=== PATIENT | female | born 1985 | race Caucasian/White ===

== ENCOUNTER 2022-01-17 12:52 | Emergency (ER) | payer OTHER, SELFPAY ==
--- NOTE | ~2022-01-17 | CT_ITS ---
EXAMINATION: CT ABDOMEN AND PELVIS WITH CONTRAST CLINICAL INFORMATION: Abdominal pain. Rule out appendicitis or diverticulitis. COMPARISON: None TECHNIQUE: Multidetector volumetric images were obtained from the superior aspect of the liver through the pubic symphysis following administration 85 mL of Omnipaque 350 intravenous contrast. Sagittal and coronal reformatted images were obtained on the technologist's workstation. Oral contrast: No This CT examination was performed using dose optimization techniques as appropriate, variously including the following: *Automated exposure control *Adjustment of mA and/or kV according to patient size (this includes techniques or standardized protocols for targeted exams where dose is matched to indication/reason for exam; i.e. extremities or head) *Use of iterative reconstruction technique DLP: 881 mGy-cm FINDINGS: LUNG BASES: The visualized lung bases are unremarkable. LIVER, GALLBLADDER, AND BILIARY TREE: The liver is enlarged in size, normal shape, and attenuation. No focal hepatic lesion or biliary ductal dilatation is present. The gallbladder is unremarkable with no evidence of radiopaque gallstones, gallbladder wall thickening, or obvious pericholecystic inflammatory changes. PANCREAS: Unremarkable. SPLEEN: Unremarkable. ADRENAL GLANDS: Unremarkable. KIDNEYS AND URETERS: The kidneys are normal in size, shape, and attenuation. There are 2 mm radiopaque calculi in midpole of both kidneys without caliectasis or hydronephrosis. There are likely smaller radiopaque calculi in the upper pole of left kidney. No hydronephrosis seen.. BLADDER: The bladder is nondistended distended with no radiopaque calculi bladder wall thickening.. GASTROINTESTINAL TRACT: There is mild mural thickening involving the sigmoid colon with pericolic fat stranding and free fluid in the pelvis likely colitis. There is mild mural thickening involving the ascending colon best visualized on sagittal view. Rest of the colon, ileocecal junction appears normal. There is a short segment of distal ileum which appears inflamed with mural thickening in the left midabdomen on axial image 65/3.. Rest of the small bowel loops are normal. The appendix is normal caliber. The stomach is unremarkable. ABDOMINAL WALL: No significant hernia is appreciated. LYMPH NODES: Normal. VASCULAR: Unremarkable. PELVIC VISCERA: The uterus is retroverted and appears unremarkable. OSSEOUS STRUCTURES: Unremarkable. CT/CT abdomen pelvis w con IMPRESSION: Moderate mural thickening sigmoid colon with pericolic fat stranding to visualize is mild mural thickening involving the ascending colon and a short segment of ileal loops. Question Crohn's disease versus colitis. Normal appendix. Mild hepatomegaly. Nonobstructive radiopaque calculi in both kidneys without caliectasis or hydronephrosis. Fleischner guidelines were followed.
[2022-01-17 12:56] VITALS: BP 118/76; PULSE 94; RESP 18; TEMP 36.2; O2SAT 98; BMI 37.2
[2022-01-17 13:09] LABS: MANUAL DIFF FLAG NO
[2022-01-17 13:12] LABS: Appearance Urine CLOUDY; Color Urine YELLOW; Glucose Urine UA NEG (NEG); Leukocyte Esterase Urine 1+ (NEG); Nitrite Urine NEG (NEG); Specific Gravity - Urine >= 1.030 (1.005-1.025); UACC Culture Trigger YES; Urine Blood NEG (NEG); Urine Ketones 5 MG/DL (NEG); Urine Protein 1+ MG/DL (NEG-TRACE)
[2022-01-17 13:14] LABS: UPreg QC Valid YES; Urine Pregnancy NEGATIVE (NEGATIVE)
[2022-01-17 13:19] LABS: Basophils Percent Auto 0.3 % (0-2); Eosinophils Absolute Auto 0.2 X10*3/uL (0.0-0.4); Eosinophils Percent Auto 1.8 % (0-4); Hematocrit 35.7 % (37.0-47.0); Hemoglobin 10.8 g/dl (12.0-16.0); Imm Gran Abs Auto 0.03 X10*3/uL (0.00-0.03); Imm Gran Pct Auto 0.3 % (0.0-0.4); Lymphocytes Absolute Auto 1.8 X10*3/uL (1.2-4.9); Lymphocytes Percent Auto 20.4 % (20-40); Mean Corpuscular HGB Conc 30.3 g/dl (31.0-35.0); Mean Corpuscular Hemoglobin 22.8 pg (27.0-33.0); Mean Corpuscular Volume 75.5 fL (80.0-98.0); Mean Platelet Volume 11.3 fL (9.4-12.3); Monocytes Absolute Auto 0.2 X10*3/uL (0.1-1.2); Monocytes Percent Auto 2.8 % (2-11); Neutrophils Absolute Auto 6.5 x10*3/uL (2.0-8.3); Neutrophils Percent Auto 74.4 % (45-73); Platelet Count 312 X10*3/uL (160-400); Red Blood Count 4.73 X10*6/uL (4.20-5.50); Red Cell Distribution Width 16.5 % (11.0-16.0); White Blood Count 8.7 X10*3/uL (4.8-10.8)
[2022-01-17 13:30] LABS: Bacteria Urine 2+ /LPF; Mucus Urine 2+ /LPF; Squamous Epithelial Cell Urine 3+ /LPF
[2022-01-17 13:33] LABS: Alanine Aminotransferase 14 U/L (0-31); Albumin Level 4.1 g/dL (3.5-5.0); Alkaline Phosphatase 95 U/L (39-117); Anion Gap 14 (12-20); Aspartate Amino Transferase 11 U/L (5-31); Bilirubin Total 0.7 mg/dL (0.0-1.0); Blood Urea Nitrogen 7 mg/dL (9-16); Calcium 9.3 mg/dL (8.4-10.2); Carbon Dioxide 24 mmol/L (22-29); Chloride 105 mmol/L (96-108); Creatinine Clr Calc Pharmacy 119.3; Estimated Glomerular Filt Rate > 60; Glucose Random 107 mg/dL (60-115); Potassium 3.8 mmol/L (3.3-5.1); Sodium 139 mmol/L (135-145); Total Protein 7.6 g/dL (6.5-8.0)
--- NOTE | 2022-01-17 15:15 | ED_ITS ---
HPI - Abdominal Pain General Chief Complaint: Abdominal Pain Stated Complaint: Lower abd pain/leg pain Time Seen by Provider: 01/17/22 15:15 History of Present Illness HPI narrative: Patient complains of abdominal pain sharp of lower abdomen worst on the left side accompanied with nausea and some vomiting off and on for the past 2 days, she has not eaten any solid food since yesterday and is able to intermittently tolerate fluids, right now the pain is mild but it is coming and going, she denies any burning with urination or frequency, she did have 1 episode of mild diarrhea but no other is no blood that she was aware of, no fever Related Data Previous Rx's Medication Instructions Recorded ciprofloxacin HCl 500 mg tablet 500 mg PO BID 7 Days #14 tab 01/17/22 (Cipro) metronidazole 500 mg tablet 500 mg PO BID 7 Days #14 tab 01/17/22 ondansetron 4 mg disintegrating 4 mg PO Q6H PRN #14 tab 01/17/22 tablet Allergies Allergy/AdvReac Type Severity Reaction Status Date / Time No Known Allergies Allergy Unverified 07/12/20 17:16 Pt states no food/medication Allergy Unknown Uncoded 07/21/18 00:00 a Review of Systems Review of Systems Positive for abdominal pain nausea and vomiting for 2 days Negatives are no fever no chills no dizziness weakness no fainting no feeling faint no headache no neck pain no chest pain no shortness of breath no bloody stool no dysuria no bloody vomit no black stool no burning with urination or frequency of urination, denies vaginal discharge denies any rash denies leg swelling Yes all other systems are reviewed and are negative PMFSH Past Medical History Source: nursing notes reviewed Medical History (Updated 01/17/22 @ 18:25 by MARY Read) No known health problems Social History Social History Advance Directives: No Advance Directives Information Provided: No Physical Exam ED Vital Signs: Vital Signs - 24 hr 01/17/22 12:56 Temperature 97.1 F Pulse Rate 94 Respiratory Rate 18 Blood Pressure 118/76 Pulse Oximetry 98 BMI result Body Mass Index 37.2 General appearance is no acute distress The eyes are anicteric no pallor Pharynx mucous membranes are moist Neck is supple Chest is clear to auscultation bilateral The abdomen had diffuse mild lower abdominal tenderness without rebound or guarding, tenderness was worse on the left but it was bilateral Pelvic exam there was a whitish discharge which was cultured, there was some tenderness on pelvic exam but no obvious cervical motion tenderness, no mass was palpated Extremities full range of motion x4, no calf swelling no edema, the back there is no CVA tenderness Skin no rashes Neuro no focal deficits Course Course Course Narrative: Patient's nausea was relieved with Zofran she was tolerating p.o. and her pain was mild throughout visit no worsening CT scan showed moderate mural thickening and pericolic fat stranding with question of colitis versus Crohn's Patient has no history of diarrhea or known blood in the stool White count was normal, she was mildly anemic with hemoglobin 10.8 and hematocrit 35.7 No other significant lab abnormality Urinalysis showed 10-14 white cells, nitrite negative, 3+ squamous epithelial so was a contaminated specimen, patient denied any burning with urination or frequency Case was discussed with attending physician [place] with matthew patient should follow with gastroenterology for colitis and be treated with antibiotics so antibiotics Cipro and Flagyl were started and patient was discharged tolerating p.o. with pain under control MDM - Abdominal Pain Lab Data Attestation: I reviewed the patient's lab results. Result diagrams: 01/17/22 13:04 01/17/22 13:04 Labs: Lab Results 01/17/22 01/17/22 01/17/22 Range/Units 13:04 13:04 13:04 WBC 8.7 (4.8-10.8) X10*3/uL RBC 4.73 (4.20-5.50) X10*6/uL Hgb 10.8 L (12.0-16.0) g/dl Hct 35.7 L (37.0-47.0) % MCV 75.5 L (80.0-98.0) fL MCH 22.8 L (27.0-33.0) pg MCHC 30.3 L (31.0-35.0) g/dl RDW 16.5 H (11.0-16.0) % Plt Count 312 (160-400) X10*3/uL MPV 11.3 (9.4-12.3) fL Immature Gran % (Auto) 0.3 (0.0-0.4) % Neut % (Auto) 74.4 H (45-73) % Lymph % (Auto) 20.4 (20-40) % [place] % (Auto) 2.8 (2-11) % Eos % (Auto) 1.8 (0-4) % Baso % (Auto) 0.3 (0-2) % Lymph # (Auto) 1.8 (1.2-4.9) X10*3/uL [place] # (Auto) 0.2 (0.1-1.2) X10*3/uL Eos # (Auto) 0.2 (0.0-0.4) X10*3/uL Baso # (Auto) 0.0 (0.0-0.2) X10*3/uL Abs Immat Gran (auto) 0.03 (0.00-0.03) X10*3/uL Absolute Neuts (auto) 6.5 (2.0-8.3) x10*3/uL Absolute Nucleated RBC 0.000 (0.0-0.012) X10*3/uL Nucleated RBC % (auto) 0.0 (0.0-0.2) /100WBC Sodium 139 (135-145) mmol/L Potassium 3.8 (3.3-5.1) mmol/L Chloride 105 (96-108) mmol/L Carbon Dioxide 24 (22-29) mmol/L Anion Gap 14 (12-20) BUN 7 L (9-16) mg/dL Creatinine 0.86 (0.5-1.4) mg/dL Estim Creat Clear Calc 119.3 Estimated GFR > 60 Random Glucose 107 (60-115) mg/dL Calcium 9.3 (8.4-10.2) mg/dL Total Bilirubin 0.7 (0.0-1.0) mg/dL AST 11 (5-31) U/L ALT 14 (0-31) U/L Alkaline Phosphatase 95 (39-117) U/L Total Protein 7.6 (6.5-8.0) g/dL Albumin 4.1 (3.5-5.0) g/dL Lipase 22 (8-78) U/L Urine Color YELLOW Urine Appearance CLOUDY Urine pH 6.0 (5.0-8.0) Ur Specific [place] >= 1.030 H (1.005-1.025) Urine Protein 1+ H (NEG-TRACE) MG/DL Urine Glucose (UA) NEG (NEG) MG/DL Urine Ketones 5 (NEG) MG/DL Urine Blood NEG (NEG) Urine Nitrite NEG (NEG) Ur Leukocyte Esterase 1+ H (NEG) Urine RBC 5-9 H (0) /HPF Urine WBC 10-14 H (0-4) /HPF Ur Squamous Epith Cells 3+ /LPF Urine Bacteria 2+ /LPF Urine Mucus 2+ /LPF Urine Test (NEGATIVE) 01/17/22 Range/Units 13:04 WBC (4.8-10.8) X10*3/uL RBC (4.20-5.50) X10*6/uL Hgb (12.0-16.0) g/dl Hct (37.0-47.0) % MCV (80.0-98.0) fL MCH (27.0-33.0) pg MCHC (31.0-35.0) g/dl RDW (11.0-16.0) % Plt Count (160-400) X10*3/uL MPV (9.4-12.3) fL Immature Gran % (Auto) (0.0-0.4) % Neut % (Auto) (45-73) % Lymph % (Auto) (20-40) % [place] % (Auto) (2-11) % Eos % (Auto) (0-4) % Baso % (Auto) (0-2) % Lymph # (Auto) (1.2-4.9) X10*3/uL [place] # (Auto) (0.1-1.2) X10*3/uL Eos # (Auto) (0.0-0.4) X10*3/uL Baso # (Auto) (0.0-0.2) X10*3/uL Abs Immat Gran (auto) (0.00-0.03) X10*3/uL Absolute Neuts (auto) (2.0-8.3) x10*3/uL Absolute Nucleated RBC (0.0-0.012) X10*3/uL Nucleated RBC % (auto) (0.0-0.2) /100WBC Sodium (135-145) mmol/L Potassium (3.3-5.1) mmol/L Chloride (96-108) mmol/L Carbon Dioxide (22-29) mmol/L Anion Gap (12-20) BUN (9-16) mg/dL Creatinine (0.5-1.4) mg/dL Estim Creat Clear Calc Estimated GFR Random Glucose (60-115) mg/dL Calcium (8.4-10.2) mg/dL Total Bilirubin (0.0-1.0) mg/dL AST (5-31) U/L ALT (0-31) U/L Alkaline Phosphatase (39-117) U/L Total Protein (6.5-8.0) g/dL Albumin (3.5-5.0) g/dL Lipase (8-78) U/L Urine Color Urine Appearance Urine pH (5.0-8.0) Ur Specific [place] (1.005-1.025) Urine Protein (NEG-TRACE) MG/DL Urine Glucose (UA) (NEG) MG/DL Urine Ketones (NEG) MG/DL Urine Blood (NEG) Urine Nitrite (NEG) Ur Leukocyte Esterase (NEG) Urine RBC (0) /HPF Urine WBC (0-4) /HPF Ur Squamous Epith Cells /LPF Urine Bacteria /LPF Urine Mucus /LPF Urine Test NEGATIVE (NEGATIVE) Discharge Plan Discharge Clinical Impression: Colitis Patient Disposition: Home, Self-Care Additional Instructions: CT scan showed colitis which we are treating with antibiotics Cipro and Flagyl You can use Zofran for nausea For better evaluation of colitis you should follow with a [facility] accommodation consultant, and may need a referral from primary care doctor Return to the ER any time from controlled vomiting worsening abdominal pain blood in the stool any worse condition or any concerns Prescriptions: New metronidazole 500 mg tablet 500 mg PO BID 7 Days Qty: 14 0RF ciprofloxacin HCl [Cipro] 500 mg tablet 500 mg PO BID 7 Days Qty: 14 0RF ondansetron 4 mg tablet,disintegrating 4 mg PO Q6H PRN (Reason: nausea and vomiting) Qty: 14 0RF Referrals: Isaak Marcelo [Physician] - 5 days (Colitis on CT scan)
[2022-01-17] MEDS: ondansetron HCL 4 MG/2 ML VIAL IVPUSH (15:59)
[2022-01-17] MEDS: 0.9 % Sodium Chloride 1,000 ML 999 ML IVCONT (16:00)
[2022-01-17] MEDS: iohexoL 350 MG/ML 100 ML INFUS..BTL 85 ML IV (16:26)
[2022-01-17 18:17] LABS: Lipase 22 U/L (8-78)
[2022-01-17] MEDS: metroNIDAZOLE 500 MG TABLET PO (18:39)
[2022-01-17] MEDS: levoFLOXacin 500 MG TABLET PO (18:39)
[2022-01-18 13:12] LABS: CT PCR NOT DETECTED (Not Detect.); NG PCR NOT DETECTED (Not Detect.)
== END 2022-01-17 18:45 | disposition home or self-care (01) ==
PROVIDERS: Physician Assistant Medical; Emergency Provider Emergency Medicine; PCP Internal Medicine
DX: K52.9 Noninfective gastroenteritis and colitis, unspecified (principal); R10.32 Left lower quadrant pain; R11.2 Nausea with vomiting, unspecified
CPT/HCPCS: 36415; 74177; 80053; 81001; 81025; 83690; 85025; 87086; 87088; 87186; 87480; 87491; 87510; 87591; 87660; 96361; 96374; 99283; 99284; J2405; Q9967

== ENCOUNTER 2022-04-26 00:20 | Inpatient (IN) | payer OTHER, SELFPAY ==
[2022-04-26] VITALS (8 sets, daily range): BP systolic 123–140; BP diastolic 78–87; PULSE 76–105; RESP 16–20; TEMP 36.9–37.3; O2SAT 95–99; BMI 38.6
--- NOTE | ~2022-04-26 | CT_ITS ---
EXAMINATION: CT ABDOMEN AND PELVIS WITH CONTRAST CLINICAL INFORMATION: Bariatric surgery on Thursday. Vomiting. COMPARISON: None TECHNIQUE: Multidetector volumetric images were obtained from the superior aspect of the liver through the pubic symphysis following administration 85 mL of Omnipaque 350 intravenous contrast. Sagittal and coronal reformatted images were obtained on the technologist's workstation. Oral contrast: No This CT examination was performed using dose optimization techniques as appropriate, variously including the following: *Automated exposure control *Adjustment of mA and/or kV according to patient size (this includes techniques or standardized protocols for targeted exams where dose is matched to indication/reason for exam; i.e. extremities or head) *Use of iterative reconstruction technique DLP: 918 mGy-cm FINDINGS: LUNG BASES: The visualized lung bases are unremarkable. LIVER, GALLBLADDER, AND BILIARY TREE: The liver is normal in size, shape, and attenuation. No focal hepatic lesion or biliary ductal dilatation is present. The gallbladder is not seen, possibly absent. PANCREAS: Unremarkable. SPLEEN: Unremarkable. ADRENAL GLANDS: Unremarkable. KIDNEYS AND URETERS: The kidneys are normal in size, shape, and attenuation. No hydronephrosis or hydroureter. Right lower pole 0.3 cm calculus is 9 cm from the posterior axillary line. BLADDER: Unremarkable. GASTROINTESTINAL TRACT: Mild wall thickening of the lower esophagus. There is a prominent intragastric balloon present in the mid stomach. This measures 11.6 x 10.5 x 11.4 cm. There is fluid in the gastric fundus proximal to the balloon. The stomach distal to the balloon is decompressed. Small amount of fluid in the duodenum. The small bowel is nondilated. No inflammatory changes. Much of the colon is decompressed. No inflammatory changes. Normal appendix. ABDOMINAL WALL: No significant hernia is appreciated. LYMPH NODES: Normal. VASCULAR: Unremarkable. PELVIC VISCERA: The uterus and adnexa are unremarkable. OSSEOUS STRUCTURES: No acute or suspicious osseous abnormality. CT/CT abdomen pelvis w con IMPRESSION: Intragastric balloon in the mid stomach. Small amount of fluid proximal to the balloon. Decompressed stomach distally with decompression of the bowel. There is no bowel obstruction or inflammation. Cannot exclude a gastric outlet obstruction on these images, without use of oral contrast. Fleischner guidelines were followed.
--- NOTE | 2022-04-26 00:58 | ED_ITS ---
HPI - Nausea/Vomiting/Diarrhea General Chief complaint: General Medical Stated complaint: post surgery complications; consistent vomiting x3 Time Seen by Provider: 04/26/22 00:24 Source: patient and family Mode of arrival: ambulatory Limitations: no limitations History of Present Illness HPI Narrative: 36 yo female just underwent EGD with bariatric balloon placement in the stomach in [place] on 04/23 told she would have vomiting for 3 to 4 days post procedure she is on zofran but it is not helping. She is on liquid protein drinks only. Spoke to the doctor today she is still vomiting, they called in another Rx but insurance has to authorize it. She feels weak now. Very mild abdominal pain. No flatus. MD elicited complaint: nausea and vomiting Pertinent past history: other (bariatric balloon placed via EGD on 04/23) Onset (ago): day(s) (3) Description of vomiting: watery Associated nausea: Yes Associated abdominal pain: Yes Location of pain: epigastric (but reports very mininal) Pain consistency: intermittent Severity: mild Quality: other (fullnless) Exacerbating factors: eating (liquid shakes) Relieving factors: none Context: recent surgery/procedure Associated symptoms: weakness Treatment prior to arrival: other (zofran with no relief) Related Data Previous Rx's Medication Instructions Recorded ondansetron 4 mg disintegrating 4 mg PO Q6H PRN nausea and 01/17/22 tablet vomiting #14 tabs dicyclomine 10 mg capsule 10 mg PO BID #14 caps 01/28/22 prednisone 20 mg tablet 20 mg PO BID #14 tabs 01/28/22 psyllium husk 0.4 gram capsule 0.4 g PO BEDTIME PRN constipation 01/28/22 (Fiber (psyllium husk)) #14 caps Allergies Allergy/AdvReac Type Severity Reaction Status Date / Time No Known Allergies Allergy Verified 04/26/22 00:46 Review of Systems Review of Systems: Constitutional : No Weight loss, No Fever, No Chills ENT/Mouth : No sore throat, No Rhinorrhea Eyes: No Swelling, No Redness Cardiovascular : No Chest Pain, No SOB, NoEdema Respiratory : No Cough, No Sputum, No Wheezing Gastrointestinal : Positive Nausea, Positive Vomiting, no Diarrhea, positive abdominal Pain, No Hematochezia, No Melena Genitourinary : No Dysuria, No Urinary Frequency, No Hematuria, No Urgency Musculoskeletal : No joint pain, No Myalgias, No Joint Swelling Skin : No Skin Lesions, No rash Neuro : No Weakness, No Numbness, No Dizziness, No Headache Psych : No Anxiety/Panic, No Depression Heme/Lymph: No Bruising, No Lymphadenopathy Endocrine : No Polyuria, No Polydipsia All other systems reviewed and are negative. Gastrointestinal: Gastrointestinal: Reports nausea PMFSH Past Medical History Attestation statement: The following information was validated with the patient. 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 Oriented X3. No acute distress. Eyes: Pupils equal, round and reactive to light. ENT: Pharynx mild dry MM Neck: Normal inspection. Neck supple. CVS: tachycardic heart rate and rhythm. Pulses normal. Respiratory: No respiratory distress. Breath sounds normal. Abdomen: Soft and nontender. no mass felt, no distention Skin: Skin warm and dry. Normal skin color. Normal skin turgor. Extremities: No lower extremity edema. No calf ttp Neuro: Oriented X 3. No motor deficit. No sensory deficit. Course Course Course Narrative: message sent to bariatric surgery - patient cannot tolerate PO at all this time not even a sip of water she would not be able to keep contrast down per Dr. Persaud from bariatrics via Travis HERNANDEZ - will observe and provide supportive meds and fluids recheck at 8am. Patient and family aware of plan. Message sent to GI as well - Dr. Marcelo recommends deferring to bariatrics Patient placed in physician observation at 434am. The indication for observation is that the patient needs more time to see if their nausea/vomiting improves or they will need to be admitted/have procedure. At this time the patient is well developed well nourished, lungs clear, CV RRR, abd nontender, neuro is intact. on IVF at this time MDM - Nausea/Vomiting/Diarrhea MDM Narrative Medical decision making narrative: 36 yo female with recent bariatric balloon procedure via EGD on 04/23 here with c/o NV she was told this was expected for 3 to 4 days but she has no response to zofran ODTs. Her insurance did not authorize additional medications. At this time her abdominal exam is benign will obtain labs, hydrate x 2L, obtain CT scan for obstruction. Dispo per results and findings. Lab Data Result diagrams: 04/26/22 01:02 04/26/22 01:02 Labs: Lab Results 04/26/22 04/26/22 04/26/22 Range/Units 01:02 01:02 01:02 WBC 11.9 H (4.8-10.8) X10*3/uL RBC 5.49 (4.20-5.50) X10*6/uL Hgb 13.1 D (12.0-16.0) g/dl Hct 42.0 (37.0-47.0) % MCV 76.5 L (80.0-98.0) fL MCH 23.9 L (27.0-33.0) pg MCHC 31.2 (31.0-35.0) g/dl RDW 15.6 (11.0-16.0) % Plt Count 309 (160-400) X10*3/uL MPV 11.6 (9.4-12.3) fL Immature Gran % (Auto) 0.3 (0.0-0.4) % Neut % (Auto) 79.3 H (45-73) % Lymph % (Auto) 15.4 L (20-40) % [place] % (Auto) 4.2 (2-11) % Eos % (Auto) 0.4 (0-4) % Baso % (Auto) 0.4 (0-2) % Lymph # (Auto) 1.8 (1.2-4.9) X10*3/uL [place] # (Auto) 0.5 (0.1-1.2) X10*3/uL Eos # (Auto) 0.1 (0.0-0.4) X10*3/uL Baso # (Auto) 0.1 (0.0-0.2) X10*3/uL Abs Immat Gran (auto) 0.04 H (0.00-0.03) X10*3/uL Absolute Neuts (auto) 9.4 H (2.0-8.3) x10*3/uL Absolute Nucleated RBC 0.000 (0.0-0.012) X10*3/uL Nucleated RBC % (auto) 0.0 (0.0-0.2) /100WBC PT (10.0-13.1) SEC INR (0.9-1.1) Sodium 143 (135-145) mmol/L Potassium 3.6 (3.3-5.1) mmol/L Chloride 103 (96-108) mmol/L Carbon Dioxide 25 (22-29) mmol/L Anion Gap 19 (12-20) BUN 17 H D (9-16) mg/dL Creatinine 1.11 (0.5-1.4) mg/dL Estim Creat Clear Calc 94.3 Estimated GFR 56 Random Glucose 104 (60-115) mg/dL Calcium 10.1 D (8.4-10.2) mg/dL Magnesium 2.2 (1.6-2.6) mg/dL Total Bilirubin 0.8 (0.0-1.0) mg/dL Direct Bilirubin 0.3 (0.0-0.5) mg/dL AST 15 (5-31) U/L ALT 14 (0-31) U/L Alkaline Phosphatase 92 (39-117) U/L Total Protein 9.0 H (6.5-8.0) g/dL Albumin 4.9 (3.5-5.0) g/dL Lipase 91 H (8-78) U/L Beta HCG, Quant mIU/mL Urine Color Urine Appearance Urine pH (5.0-8.0) Ur Specific [place] (1.005-1.025) Urine Protein (NEG-TRACE) MG/DL Urine Glucose (UA) (NEG) MG/DL Urine Ketones (NEG) MG/DL Urine Blood (NEG) Urine Nitrite (NEG) Ur Leukocyte Esterase (NEG) Urine RBC (0) /HPF Urine WBC (0-4) /HPF Ur Squamous Epith Cells /LPF Urine Bacteria /LPF Urine Mucus /LPF COVID-19 (JOS[facility]) Negative (Negative) COVID-19 Clin Com See Note 04/26/22 04/26/22 04/26/22 Range/Units 01:02 01:02 02:39 WBC (4.8-10.8) X10*3/uL RBC (4.20-5.50) X10*6/uL Hgb (12.0-16.0) g/dl Hct (37.0-47.0) % MCV (80.0-98.0) fL MCH (27.0-33.0) pg MCHC (31.0-35.0) g/dl RDW (11.0-16.0) % Plt Count (160-400) X10*3/uL MPV (9.4-12.3) fL Immature Gran % (Auto) (0.0-0.4) % Neut % (Auto) (45-73) % Lymph % (Auto) (20-40) % [place] % (Auto) (2-11) % Eos % (Auto) (0-4) % Baso % (Auto) (0-2) % Lymph # (Auto) (1.2-4.9) X10*3/uL [place] # (Auto) (0.1-1.2) X10*3/uL Eos # (Auto) (0.0-0.4) X10*3/uL Baso # (Auto) (0.0-0.2) X10*3/uL Abs Immat Gran (auto) (0.00-0.03) X10*3/uL Absolute Neuts (auto) (2.0-8.3) x10*3/uL Absolute Nucleated RBC (0.0-0.012) X10*3/uL Nucleated RBC % (auto) (0.0-0.2) /100WBC PT 13.0 (10.0-13.1) SEC INR 1.1 (0.9-1.1) Sodium (135-145) mmol/L Potassium (3.3-5.1) mmol/L Chloride (96-108) mmol/L Carbon Dioxide (22-29) mmol/L Anion Gap (12-20) BUN (9-16) mg/dL Creatinine (0.5-1.4) mg/dL Estim Creat Clear Calc Estimated GFR Random Glucose (60-115) mg/dL Calcium (8.4-10.2) mg/dL Magnesium (1.6-2.6) mg/dL Total Bilirubin (0.0-1.0) mg/dL Direct Bilirubin (0.0-0.5) mg/dL AST (5-31) U/L ALT (0-31) U/L Alkaline Phosphatase (39-117) U/L Total Protein (6.5-8.0) g/dL Albumin (3.5-5.0) g/dL Lipase (8-78) U/L Beta HCG, Quant < 2 mIU/mL Urine Color DK YELLOW Urine Appearance HAZY Urine pH 6.5 (5.0-8.0) Ur Specific [place] 1.020 (1.005-1.025) Urine Protein 2+ H (NEG-TRACE) MG/DL Urine Glucose (UA) NEG (NEG) MG/DL Urine Ketones >=80 (NEG) MG/DL Urine Blood TRACE (NEG) Urine Nitrite NEG (NEG) Ur Leukocyte Esterase NEG (NEG) Urine RBC 0 (0) /HPF Urine WBC 0-2 (0-4) /HPF Ur Squamous Epith Cells 2+ /LPF Urine Bacteria TRACE /LPF Urine Mucus 3+ /LPF COVID-19 (JOS[facility]) (Negative) COVID-19 Clin Com Discharge Plan Discharge Clinical Impression: Vomiting Qualifiers: Vomiting type: unspecified Nausea presence: with nausea Qualified Code(s): R11.2 - Nausea with vomiting, unspecified Patient Disposition: Still a Patient Prescriptions: No Action ondansetron 4 mg tablet,disintegrating 4 mg PO Q6H PRN (Reason: nausea and vomiting) Qty: 14 0RF dicyclomine 10 mg capsule 10 mg PO BID Qty: 14 0RF prednisone 20 mg tablet 20 mg PO BID Qty: 14 0RF psyllium husk [Fiber (psyllium husk)] 0.4 gram capsule 0.4 g PO BEDTIME PRN (Reason: constipation) Qty: 14 0RF Stand Alone Forms: Work/School Release
[2022-04-26 01:08] LABS: MANUAL DIFF FLAG NO
[2022-04-26 01:09] LABS: Basophils Absolute Auto 0.1 X10*3/uL (0.0-0.2); Basophils Percent Auto 0.4 % (0-2); Eosinophils Absolute Auto 0.1 X10*3/uL (0.0-0.4); Eosinophils Percent Auto 0.4 % (0-4); Hemoglobin 13.1 g/dl (12.0-16.0); Imm Gran Abs Auto 0.04 X10*3/uL (0.00-0.03); Imm Gran Pct Auto 0.3 % (0.0-0.4); Lymphocytes Absolute Auto 1.8 X10*3/uL (1.2-4.9); Lymphocytes Percent Auto 15.4 % (20-40); Mean Corpuscular HGB Conc 31.2 g/dl (31.0-35.0); Mean Corpuscular Hemoglobin 23.9 pg (27.0-33.0); Mean Corpuscular Volume 76.5 fL (80.0-98.0); Mean Platelet Volume 11.6 fL (9.4-12.3); Monocytes Absolute Auto 0.5 X10*3/uL (0.1-1.2); Monocytes Percent Auto 4.2 % (2-11); Neutrophils Absolute Auto 9.4 x10*3/uL (2.0-8.3); Neutrophils Percent Auto 79.3 % (45-73); Platelet Count 309 X10*3/uL (160-400); Red Blood Count 5.49 X10*6/uL (4.20-5.50); Red Cell Distribution Width 15.6 % (11.0-16.0); White Blood Count 11.9 X10*3/uL (4.8-10.8)
[2022-04-26] MEDS: Metoclopramide HCl 10 MG/2 ML VIAL 5 MG IVPUSH (01:27)
[2022-04-26] MEDS: diphenhydrAMINE HCL 50 MG/ML VIAL 25 MG IVPUSH (01:28)
[2022-04-26] MEDS: 0.9 % Sodium Chloride 1,000 ML 999 ML IV (01:29)
[2022-04-26] MEDS: 0.9 % Sodium Chloride 1,000 ML 999 ML IVCONT (01:29)
[2022-04-26 01:31] LABS: Alanine Aminotransferase 14 U/L (0-31); Albumin Level 4.9 g/dL (3.5-5.0); Alkaline Phosphatase 92 U/L (39-117); Anion Gap 19 (12-20); Aspartate Amino Transferase 15 U/L (5-31); Bilirubin Direct 0.3 mg/dL (0.0-0.5); Bilirubin Total 0.8 mg/dL (0.0-1.0); Blood Urea Nitrogen 17 mg/dL (9-16); Calcium 10.1 mg/dL (8.4-10.2); Carbon Dioxide 25 mmol/L (22-29); Chloride 103 mmol/L (96-108); Creatinine Clr Calc Pharmacy 94.3; Estimated Glomerular Filt Rate 56; Glucose Random 104 mg/dL (60-115); Lipase 91 U/L (8-78); Magnesium 2.2 mg/dL (1.6-2.6); Potassium 3.6 mmol/L (3.3-5.1); Sodium 143 mmol/L (135-145)
[2022-04-26 01:38] LABS: HCG Quantitative < 2 mIU/mL
[2022-04-26 01:50] LABS: COVID-19 Test Negative (Negative); IDNOW Serial# 16C4AD1C
[2022-04-26 01:56] LABS: INTERNATIONAL NORM RATIO 1.1 (0.9-1.1)
[2022-04-26 02:44] LABS: Appearance Urine HAZY; Color Urine DK YELLOW; Glucose Urine UA NEG (NEG); Leukocyte Esterase Urine NEG (NEG); Nitrite Urine NEG (NEG); PH 6.5 (5.0-8.0); UACC Culture Trigger NO; Urine Blood TRACE (NEG); Urine Ketones >=80 MG/DL (NEG); Urine Protein 2+ MG/DL (NEG-TRACE)
[2022-04-26 02:52] LABS: Bacteria Urine TRACE /LPF; Mucus Urine 3+ /LPF; RBC Urine 0 /HPF (0); Squamous Epithelial Cell Urine 2+ /LPF; WBC Urine 0-2 /HPF (0-4)
[2022-04-26] MEDS: iohexoL 350 MG/ML 100 ML INFUS..BTL IV (02:53)
[2022-04-26] MEDS: Lactated Ringers 1,000 ML 125 ML IVCONT ×2 (03:53→22:25)
--- NOTE | 2022-04-26 08:29 | PC.NURSE ---
Pt alert and oriented, complaining of 8/10 abd pain and epigstic pain, nausea. Abd soft, tender with pain to medial and lower abd, positive bowel sounds. Pt post abdominal surgery. VSS
[2022-04-26] MEDS: ondansetron HCL 4 MG/2 ML VIAL IVPUSH ×2 (08:53→22:24)
--- NOTE | 2022-04-26 09:32 | PC.NURSE ---
pt continuos on vomiting after few sips of water
[2022-04-26] MEDS: Famotidine/PF 20 MG/2 ML VIAL IVPUSH ×2 (10:44→22:22)
[2022-04-26] MEDS: Thiamine HCL 100 MG in 0.9 % Sodium Chloride 100 ML 202 MG IV (10:47)
--- NOTE | 2022-04-26 12:51 | PC.NURSE ---
pt had few sips of water after all the medications, but still is vomiting
[2022-04-26] MEDS: Morphine Sulfate 4 MG/ML CARTRIDGE IVPUSH ×2 (13:29→22:24)
--- NOTE | 2022-04-26 15:10 | PC.NURSE ---
@ [phone] RIBERA [phone] @ DR SCHOFIELD REQUEST, MESSAGE LEFT ON IDENTIFIED PVT VOICE MAIL @ [phone] RIBERA FOR 2ND CALL AFTER NO RETURN CALL FROM FIRST CALL OUT, MESSAGE LEFT ON [employer]T VOICEMAIL
[2022-04-26] MEDS: LORazepam 2 MG/ML VIAL 1 MG IVPUSH (16:25)
--- NOTE | 2022-04-26 16:33 | PC.NURSE ---
medicated per provider order, LR changed to a new pump - occluding on prior pump, running at 125ml/hr.
--- NOTE | 2022-04-26 17:39 | PM.IMHP ---
History of Present Illness Date of Service: 04/26/22 Chief Complaint: Intractable Vomiting 36 yo female just underwent EGD with bariatric balloon placement in the stomach in [place] on 04/23 told she would have vomiting for 3 to 4 days post procedure she is on zofran but it is not helping. She is on liquid protein drinks only. Spoke to the doctor today she is still vomiting.(The patient had an endoscopically place [employer] Balloon System for weight loss (the balloon holds 400-700 cc and the balloon was inflated to 650 cc) placed by Dr. Garfield Otto in [place], [place] on 04/23/2022.? He can be reached at .) The patient has been kept here in the emergency department for approximately 12 hours and has received 2 L of normal saline and lactated Ringer's at 125 cc an hour, she has been treated with Zofran, Reglan, and Phenergan IV.? He is also received morphine 4 mg IV x2.? After talking to Dr. Otto the patient was also given Ativan 1 mg IV as an antiemetic as well as an anti at things lytic and anti spasmodic.? At this point time she will be admitted for intractable vomiting Review of Systems Review of Systems: Denies chest pain Denies shortness of breath Denies fever chills Admits nausea vomiting no diarrhea PMFSH Medical History Inflammatory bowel disease Irritable bowel syndrome No known health problems Surgical History Bariatric surgery status Hx of cholecystectomy No pertinent past surgical history Social History Housing: House Alcohol intake: never Patient Tobacco Use Status: Never used Tobacco e-Cigarette/Vaping Use: Never Used Second Hand Smoke Exposure: No Use of substances other than those prescribed or required for medical reasons: No Advance Directives: No Advance Directives Information Provided: Yes service: No Current occupational status: employed 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 Cognitive needs: No Hearing needs: No Vision needs: No Meds Allergies Allergy/AdvReac Type Severity Reaction Status Date / Time No Known Allergies Allergy Verified 04/26/22 00:46 Active Medications: Current Medications Famotidine (Famotidine/Pf 20 Mg/2 Ml Vial) 20 mg IVPUSH Q12H [facility] Lactated Ringer's (Lr) 1,000 mls @ 125 mls/hr IVCONT .Q8H [facility] Last Admin: 04/26/22 03:53 Dose: 125 mls/hr Lactated Ringer's (Lr) 1,000 mls @ 150 mls/hr IVCONT .Q6H40M [facility] Lorazepam (Lorazepam 2 Mg/Ml Vial) 1 mg IVPUSH Q4H PRN PRN Reason: Nausea and Vomiting Morphine Sulfate (Morphine Sulfate 4 Mg/Ml Cartridge) 4 mg IVPUSH Q4H PRN; Protocol PRN Reason: Pain, Moderate (Pain Scale 4-6 Ondansetron HCl (Ondansetron Hcl 4 Mg/2 Ml Vial) 4 mg IVPUSH Q4H PRN PRN Reason: Nausea and Vomiting Sodium Chloride (0.9 % Sodium Chloride Flush 3 Ml Syringe) 3 ml IVFLUSH QSHIFT [facility] Physical Exam Vital Signs and Narrative: Vital Signs: Last Vital Signs Temp 98.7 F 04/26/22 15:58 Pulse 80 04/26/22 15:58 Resp 18 04/26/22 15:58 BP 130/79 04/26/22 15:58 Pulse Ox 99 04/26/22 15:58 O2 Del Method 04/26/22 15:58 BMI result Body Mass Index 38.6 Const: Other: No acute distress; appears uncomfortable stricture Resp: Other: Clear to auscultation bilaterally no rales rhonchi or wheezes Cardio: Other: No S4; positive S1-S2; no S3 murmurs rubs or gallops GI: Other: Soft diffusely tender throughout with no overt rebound Neuro: Other: Cranial nerves 2-12 grossly intact as tested. Motor 5/5 all extremities. Sensation intact. Extrem: Other: No edema bilaterally Results Labs CBC and Chem 7: 04/26/22 01:02 04/26/22 01:02 Labs: Laboratory Results - last 24 hr 04/26/22 04/26/22 04/26/22 01:02 01:02 01:02 MCV 76.5 L MCH 23.9 L MCHC 31.2 RDW 15.6 Plt Count 309 MPV 11.6 Immature Gran % (Auto) 0.3 Neut % (Auto) 79.3 H Lymph % (Auto) 15.4 L [place] % (Auto) 4.2 Eos % (Auto) 0.4 Baso % (Auto) 0.4 Lymph # (Auto) 1.8 [place] # (Auto) 0.5 Eos # (Auto) 0.1 Baso # (Auto) 0.1 Abs Immat Gran (auto) 0.04 H Absolute Neuts (auto) 9.4 H Absolute Nucleated RBC 0.000 Nucleated RBC % (auto) 0.0 PT INR Anion Gap 19 Estim Creat Clear Calc 94.3 Estimated GFR 56 Random Glucose 104 Calcium 10.1 D Magnesium 2.2 Total Bilirubin 0.8 Direct Bilirubin 0.3 AST 15 ALT 14 Alkaline Phosphatase 92 Total Protein 9.0 H Albumin 4.9 Lipase 91 H Beta HCG, Quant Urine Color Urine Appearance Urine pH Ur Specific [place] Urine Protein Urine Glucose (UA) Urine Ketones Urine Blood Urine Nitrite Ur Leukocyte Esterase Urine RBC Urine WBC Ur Squamous Epith Cells Urine Bacteria Urine Mucus COVID-19 (JOSÉ) Negative COVID-19 Clin Com See Note 04/26/22 04/26/22 04/26/22 01:02 01:02 02:39 MCV MCH MCHC RDW Plt Count MPV Immature Gran % (Auto) Neut % (Auto) Lymph % (Auto) [place] % (Auto) Eos % (Auto) Baso % (Auto) Lymph # (Auto) [place] # (Auto) Eos # (Auto) Baso # (Auto) Abs Immat Gran (auto) Absolute Neuts (auto) Absolute Nucleated RBC Nucleated RBC % (auto) PT 13.0 INR 1.1 Anion Gap Estim Creat Clear Calc Estimated GFR Random Glucose Calcium Magnesium Total Bilirubin Direct Bilirubin AST ALT Alkaline Phosphatase Total Protein Albumin Lipase Beta HCG, Quant < 2 Urine Color DK YELLOW Urine Appearance HAZY Urine pH 6.5 Ur Specific [place] 1.020 Urine Protein 2+ H Urine Glucose (UA) NEG Urine Ketones >=80 Urine Blood TRACE Urine Nitrite NEG Ur Leukocyte Esterase NEG Urine RBC 0 Urine WBC 0-2 Ur Squamous Epith Cells 2+ Urine Bacteria TRACE Urine Mucus 3+ COVID-19 (JOSÉ) COVID-19 Clin Com Imaging Radiologist's Impressions: Impressions Abdomen/Pelvis CT 04/26/22 02:50 IMPRESSION: Intragastric balloon in the mid stomach. Small amount of fluid proximal to the balloon. Decompressed stomach distally with decompression of the bowel. There is no bowel obstruction or inflammation. Cannot exclude a gastric outlet obstruction on these images, without use of oral contrast. Fleischner guidelines were followed. Assessment and Plan (1) Intractable vomiting: Status: Acute Plan 36-year-old female had an endoscopically place [employer] Intr[employer] Balloon System for weight loss (the balloon holds 400-700 cc and the balloon was inflated to 650 cc) placed by Dr. Garfield Otto in [place], [place] on 04/23/2022.??Given her refractory vomiting despite therapy she will be admitted for the therapies 1. Intractable vomiting (secondary to newly placed balloon system) -follow recommendations of Dr. Otto -Ativan p.r.n. for vomiting/anxiety -alternate Zofran Reglan for vomiting -utilize morphine for pain and spasms -supplemental IV fluids Ambulatory Full code Will require at least 2 midnights going forward for IV volume repletion and IV antiemetics related to recent procedure. This cannot be achieved in the [facility] Quality Stroke Does the patient have a stroke diagnosis?: No VTE Prior VTE?: No VTE Risk Level:: Medical - low VTE Device Contraindication: Treatment Not Indicated VTE Drug Contraindication: Treatment Not Indicated
--- NOTE | 2022-04-26 19:51 | PC.NURSE ---
BED BATH GIVEN ,PATIENT GOT REPOSITION UNTO RIGHT SIDE WITH PILLOWS BEHIND BACK
[2022-04-27] VITALS: BP 140/75; PULSE 73; RESP 16; TEMP 37.1; O2SAT 98
--- NOTE | 2022-04-27 00:55 | PC.NURSE ---
patient was given fresh ice water at mid night .
[2022-04-27] MEDS: Morphine Sulfate 4 MG/ML CARTRIDGE IVPUSH ×2 (02:37→18:57)
[2022-04-27 04:29] VITALS: BP 120/62; PULSE 74; RESP 16; TEMP 36.8; O2SAT 98
--- NOTE | 2022-04-27 04:34 | PC.NURSE ---
patient awake most of night .
[2022-04-27 07:03] LABS: MANUAL DIFF FLAG NO
[2022-04-27 07:12] LABS: Basophils Absolute Auto 0.1 X10*3/uL (0.0-0.2); Basophils Percent Auto 0.6 % (0-2); Eosinophils Absolute Auto 0.2 X10*3/uL (0.0-0.4); Eosinophils Percent Auto 2.3 % (0-4); Hematocrit 34.2 % (37.0-47.0); Hemoglobin 10.6 g/dl (12.0-16.0); Imm Gran Abs Auto 0.02 X10*3/uL (0.00-0.03); Imm Gran Pct Auto 0.2 % (0.0-0.4); Lymphocytes Absolute Auto 2.5 X10*3/uL (1.2-4.9); Lymphocytes Percent Auto 30.3 % (20-40); Mean Corpuscular Hemoglobin 23.8 pg (27.0-33.0); Mean Corpuscular Volume 76.7 fL (80.0-98.0); Mean Platelet Volume 11.4 fL (9.4-12.3); Monocytes Absolute Auto 0.4 X10*3/uL (0.1-1.2); Monocytes Percent Auto 4.6 % (2-11); Platelet Count 222 X10*3/uL (160-400); Red Blood Count 4.46 X10*6/uL (4.20-5.50); Red Cell Distribution Width 15.3 % (11.0-16.0); White Blood Count 8.1 X10*3/uL (4.8-10.8)
[2022-04-27] MEDS: Lactated Ringers 1,000 ML 150 ML IVCONT ×3 (07:30→14:21)
[2022-04-27 07:38] LABS: Alanine Aminotransferase 11 U/L (0-31); Albumin Level 3.7 g/dL (3.5-5.0); Alkaline Phosphatase 66 U/L (39-117); Anion Gap 12 (12-20); Aspartate Amino Transferase 13 U/L (5-31); Bilirubin Total 0.8 mg/dL (0.0-1.0); Blood Urea Nitrogen 13 mg/dL (9-16); Calcium 8.7 mg/dL (8.4-10.2); Carbon Dioxide 25 mmol/L (22-29); Chloride 103 mmol/L (96-108); Creatinine Clr Calc Pharmacy 134.1; Estimated Glomerular Filt Rate > 60; Glucose Fasting 76 mg/dL (60-99); Potassium 3.2 mmol/L (3.3-5.1); Sodium 137 mmol/L (135-145); Total Protein 6.6 g/dL (6.5-8.0)
[2022-04-27 08:48] VITALS: BP 115/70; PULSE 73; RESP 16; O2SAT 95
--- NOTE | 2022-04-27 10:05 | PHA.MEDREC ---
Pharmacy Consult ? Medication Reconciliation Pharmacy has completed the medication reconciliation.
--- NOTE | 2022-04-27 12:45 | P.PNIM_ITS ---
Subjective Subjective Date of Service: 04/27/22 Interval History: Feels better today however still nauseous. This is day 3 after insertion of balloon Review of Systems Denies chest pain Denies shortness of breath Denies fever chills Admits nausea vomiting no diarrhea Physical Exam Vital Signs: Vital Signs: Last Vital Signs Temp 98.3 F 04/27/22 04:29 Pulse 73 04/27/22 08:48 Resp 16 04/27/22 08:48 BP 115/70 04/27/22 08:48 Pulse Ox 95 04/27/22 08:48 O2 Del Method 04/27/22 08:48 BMI result Body Mass Index 38.6 Const: Other: No acute distress; appears uncomfortable stricture Resp: Other: Clear to auscultation bilaterally no rales rhonchi or wheezes Cardio: Other: No S4; positive S1-S2; no S3 murmurs rubs or gallops GI: Other: Soft diffusely tender throughout with no overt rebound Neuro: Other: Cranial nerves 2-12 grossly intact as tested. Motor 5/5 all extremities. Sensation intact. Extrem: Other: No edema bilaterally Objective Data Active Medications Famotidine (Famotidine/Pf 20 Mg/2 Ml Vial) 20 mg IVPUSH BID [facility] Last Admin: 04/26/22 22:22 Dose: 20 mg Documented By: ABILIO Lactated Ringer's (Lr) 1,000 mls @ 125 mls/hr IVCONT .Q8H [facility] Last Admin: 04/27/22 12:33 Dose: Not Given Documented By: CARMELO Non-Admin Reason: See Note Lactated Ringer's (Lr) 1,000 mls @ 150 mls/hr IVCONT .Q6H40M [facility] Lorazepam (Lorazepam 2 Mg/Ml Vial) 1 mg IVPUSH Q4H PRN PRN Reason: Nausea and Vomiting Morphine Sulfate (Morphine Sulfate 4 Mg/Ml Cartridge) 4 mg IVPUSH Q4H PRN; Protocol PRN Reason: Pain, Moderate (Pain Scale 4-6 Last Admin: 04/27/22 02:37 Dose: 4 mg Documented By: ABILIO Ondansetron HCl (Ondansetron Hcl 4 Mg/2 Ml Vial) 4 mg IVPUSH Q8H PRN PRN Reason: Nausea and Vomiting Last Admin: 04/26/22 22:24 Dose: 4 mg Documented By: ABILIO Sodium Chloride (0.9 % Sodium Chloride Flush 3 Ml Syringe) 3 ml IVFLUSH QSHIFT [facility] Last Admin: 04/27/22 00:03 Dose: Not Given Documented By: ABILIO Non-Admin Reason: IV Running Labs CBC & Chem 7: 04/27/22 06:49 04/27/22 06:49 Labs: Laboratory Results - last 24 hr 04/27/22 04/27/22 06:49 06:49 MCV 76.7 L MCH 23.8 L MCHC 31.0 RDW 15.3 Plt Count 222 D MPV 11.4 Immature Gran % (Auto) 0.2 Neut % (Auto) 62.0 Lymph % (Auto) 30.3 [place] % (Auto) 4.6 Eos % (Auto) 2.3 Baso % (Auto) 0.6 Lymph # (Auto) 2.5 [place] # (Auto) 0.4 Eos # (Auto) 0.2 Baso # (Auto) 0.1 Abs Immat Gran (auto) 0.02 Absolute Neuts (auto) 5.0 Absolute Nucleated RBC 0.000 Nucleated RBC % (auto) 0.0 Anion Gap 12 Estim Creat Clear Calc 134.1 Estimated GFR > 60 Fasting Glucose 76 Calcium 8.7 D Total Bilirubin 0.8 AST 13 ALT 11 Alkaline Phosphatase 66 D Total Protein 6.6 D Albumin 3.7 D Assessment and Plan (1) Intractable vomiting: Status: Acute Plan 36-year-old female had an endoscopically place [employer] Intrag[employer] Balloon System for weight loss (the balloon holds 400-700 cc and the balloon was inflated to 650 cc) placed by Dr. Garfield Otto in [place], [place] on 04/23/2022.??Given her refractory vomiting despite therapy she will be admitted for the therapies 1. Intractable vomiting (secondary to newly placed balloon system).... Improved 3/4 -follow recommendations of Dr. Otto -Hood p.r.n. for vomiting/anxiety -alternate Zofran Reglan for vomiting -utilize morphine for pain and spasms -supplemental IV fluids Ambulatory Full code Will require ongoing admission for IV antibiotics and antiemetics for intractable vomiting Quality Stroke Does the patient have a stroke diagnosis?: No VTE Prior VTE?: No VTE Risk Level:: Medical - low VTE Device Contraindication: Treatment Not Indicated VTE Drug Contraindication: Treatment Not Indicated
[2022-04-27] MEDS: LORazepam 2 MG/ML VIAL 1 MG IVPUSH (13:45)
[2022-04-27] MEDS: Potassium Chloride/H20 10 MEQ/100 ML PIGGYBACK 100 MEQ IV ×3 (18:51→23:07)
[2022-04-27] MEDS: ondansetron HCL 4 MG/2 ML VIAL IVPUSH (18:57)
--- NOTE | 2022-04-27 19:22 | PC.NURSE ---
Pharmacy changed order for the last 3 of 4 bags of potassium to correlate to the current time.
[2022-04-27 22:53] VITALS: BP 127/82; PULSE 78; RESP 16; TEMP 37; O2SAT 96
[2022-04-27] MEDS: Lactated Ringers 1,000 ML 125 ML IVCONT (23:08)
[2022-04-27] MEDS: Famotidine/PF 20 MG/2 ML VIAL IVPUSH (23:09)
[2022-04-28] VITALS: BP 122/80; PULSE 75; RESP 16; TEMP 37.1; O2SAT 98
[2022-04-28] MEDS: Potassium Chloride/H20 10 MEQ/100 ML PIGGYBACK 100 MEQ IV (00:31)
[2022-04-28 05:37] VITALS: BP 124/71; PULSE 76; RESP 18; TEMP 36.9; O2SAT 94
[2022-04-28] MEDS: ondansetron HCL 4 MG/2 ML VIAL IVPUSH ×3 (05:59→15:18)
--- NOTE | 2022-04-28 07:03 | PC.NURSE ---
Pateint c/o nausea, Zofran administered with good effect. Patient resting at present .
[2022-04-28 08:25] LABS: MANUAL DIFF FLAG NO
[2022-04-28 08:29] LABS: Basophils Percent Auto 0.6 % (0-2); Eosinophils Absolute Auto 0.3 X10*3/uL (0.0-0.4); Hematocrit 34.8 % (37.0-47.0); Hemoglobin 10.8 g/dl (12.0-16.0); Imm Gran Abs Auto 0.02 X10*3/uL (0.00-0.03); Imm Gran Pct Auto 0.3 % (0.0-0.4); Lymphocytes Absolute Auto 1.9 X10*3/uL (1.2-4.9); Mean Corpuscular Hemoglobin 23.8 pg (27.0-33.0); Mean Corpuscular Volume 76.7 fL (80.0-98.0); Monocytes Absolute Auto 0.3 X10*3/uL (0.1-1.2); Monocytes Percent Auto 3.9 % (2-11); Neutrophils Absolute Auto 4.5 x10*3/uL (2.0-8.3); Neutrophils Percent Auto 64.2 % (45-73); Platelet Count 230 X10*3/uL (160-400); Red Blood Count 4.54 X10*6/uL (4.20-5.50); Red Cell Distribution Width 14.9 % (11.0-16.0); White Blood Count 6.9 X10*3/uL (4.8-10.8)
[2022-04-28 08:44] LABS: Alanine Aminotransferase 13 U/L (0-31); Albumin Level 3.8 g/dL (3.5-5.0); Alkaline Phosphatase 70 U/L (39-117); Anion Gap 15 (12-20); Aspartate Amino Transferase 14 U/L (5-31); Bilirubin Total 0.7 mg/dL (0.0-1.0); Blood Urea Nitrogen 9 mg/dL (9-16); Calcium 8.7 mg/dL (8.4-10.2); Carbon Dioxide 23 mmol/L (22-29); Chloride 104 mmol/L (96-108); Creatinine Clr Calc Pharmacy 135.8; Estimated Glomerular Filt Rate > 60; Glucose Fasting 81 mg/dL (60-99); Potassium 3.8 mmol/L (3.3-5.1); Sodium 138 mmol/L (135-145); Total Protein 6.7 g/dL (6.5-8.0)
[2022-04-28] MEDS: LORazepam 2 MG/ML VIAL 1 MG IVPUSH (08:59)
[2022-04-28] MEDS: Famotidine/PF 20 MG/2 ML VIAL IVPUSH ×2 (08:59→20:21)
--- NOTE | 2022-04-28 09:34 | PC.NURSE ---
patient washed in bathroom.
[2022-04-28 11:20] VITALS: BP 129/78; PULSE 74; RESP 18; TEMP 36.4; O2SAT 96
[2022-04-28] MEDS: Lactated Ringers 1,000 ML 150 ML IVCONT ×3 (11:55→21:48)
--- NOTE | 2022-04-28 14:59 | P.PNIM_ITS ---
Subjective Subjective Date of Service: 04/28/22 Interval History: Feels better today however still nauseous. This is day 4 after insertion of balloon...vomting after attermpting fluids. Review of Systems Denies chest pain Denies shortness of breath Denies fever chills Admits nausea vomiting no diarrhea Physical Exam Vital Signs: Vital Signs: Last Vital Signs Temp 97.5 F 04/28/22 11:20 Pulse 74 04/28/22 11:20 Resp 18 04/28/22 11:20 BP 129/78 04/28/22 11:20 Pulse Ox 96 04/28/22 11:20 O2 Del Method 04/28/22 11:20 BMI result Body Mass Index 38.6 Const: Other: No acute distress; appears uncomfortable stricture Resp: Other: Clear to auscultation bilaterally no rales rhonchi or wheezes Cardio: Other: No S4; positive S1-S2; no S3 murmurs rubs or gallops GI: Other: Soft diffusely tender throughout with no overt rebound Neuro: Other: Cranial nerves 2-12 grossly intact as tested. Motor 5/5 all extremities. Sensation intact. Extrem: Other: No edema bilaterally Objective Data Active Medications Famotidine (Famotidine/Pf 20 Mg/2 Ml Vial) 20 mg IVPUSH BID [facility] Last Admin: 04/28/22 08:59 Dose: 20 mg Documented By: CARMELO Lactated Ringer's (Lr) 1,000 mls @ 150 mls/hr IVCONT .Q6H40M [facility] Last Admin: 04/28/22 11:55 Dose: 150 mls/hr Documented By: CARMELO Lorazepam (Lorazepam 2 Mg/Ml Vial) 1 mg IVPUSH Q4H PRN PRN Reason: Nausea and Vomiting Last Admin: 04/28/22 08:59 Dose: 1 mg Documented By: CARMELO Morphine Sulfate (Morphine Sulfate 4 Mg/Ml Cartridge) 4 mg IVPUSH Q4H PRN; Protocol PRN Reason: Pain, Moderate (Pain Scale 4-6 Last Admin: 04/27/22 18:57 Dose: 4 mg Documented By: CARMELO Ondansetron HCl (Ondansetron Hcl 4 Mg/2 Ml Vial) 4 mg IVPUSH Q8H PRN PRN Reason: Nausea and Vomiting Last Admin: 04/28/22 08:56 Dose: 4 mg Documented By: CARMELO Sodium Chloride (0.9 % Sodium Chloride Flush 3 Ml Syringe) 3 ml IVFLUSH QSHIFT [facility] Last Admin: 04/28/22 07:03 Dose: Not Given Documented By: CARMELO Non-Admin Reason: IV Running Labs CBC & Chem 7: 04/28/22 07:51 04/28/22 07:51 Labs: Laboratory Results - last 24 hr 04/28/22 04/28/22 07:51 07:51 MCV 76.7 L MCH 23.8 L MCHC 31.0 RDW 14.9 Plt Count 230 MPV 12.0 Immature Gran % (Auto) 0.3 Neut % (Auto) 64.2 Lymph % (Auto) 27.0 [place] % (Auto) 3.9 Eos % (Auto) 4.0 Baso % (Auto) 0.6 Lymph # (Auto) 1.9 [place] # (Auto) 0.3 Eos # (Auto) 0.3 Baso # (Auto) 0.0 Abs Immat Gran (auto) 0.02 Absolute Neuts (auto) 4.5 Absolute Nucleated RBC 0.000 Nucleated RBC % (auto) 0.0 Anion Gap 15 Estim Creat Clear Calc 135.8 Estimated GFR > 60 Fasting Glucose 81 Calcium 8.7 Total Bilirubin 0.7 AST 14 ALT 13 Alkaline Phosphatase 70 Total Protein 6.7 Albumin 3.8 Assessment and Plan (1) Intractable vomiting: Status: Acute Plan 36-year-old female had an endoscopically place [employer] Balloon System for weight loss (the balloon holds 400-700 cc and the balloon was inflated to 650 cc) placed by Dr. Garfield Otto in [place], [place] on 03/27.??Given her refractory vomiting despite therapy she will be admitted for the therapies 1. Intractable vomiting (secondary to newly placed balloon system).... Improved 3/4 -follow recommendations of Dr. Otto -Ativan p.r.n. for vomiting/anxiety (thus far Ativan has been the most effec tive in relieving symptoms) -alternate Zofran Reglan for vomiting -utilize morphine for pain and spasms -supplemental IV fluids Ambulatory Full code Will require ongoing admission for IV volume repletion secondary to vomiting. Patient's insurance does not cover Zofran and she is at high risk for outpatient failure Quality Stroke Does the patient have a stroke diagnosis?: No VTE Prior VTE?: No VTE Risk Level:: Medical - low VTE Device Contraindication: Treatment Not Indicated VTE Drug Contraindication: Treatment Not Indicated
[2022-04-28 16:51] VITALS: BP 143/94; PULSE 82; RESP 14; TEMP 36.9; O2SAT 97
--- NOTE | 2022-04-28 17:57 | PC.NURSE ---
pt had sips of soup for lunch and was not able to keep it down. pt c/o nausea throughout most of the shift. pt up to bathroom guided by her .
[2022-04-28 19:28] VITALS: BP 130/76; PULSE 79; RESP 18; O2SAT 98
[2022-04-28 23:42] VITALS: BP 119/73; PULSE 76; RESP 15; TEMP 36.9; O2SAT 97
[2022-04-29] MEDS: LORazepam 2 MG/ML VIAL 1 MG IVPUSH (01:10)
[2022-04-29] MEDS: ondansetron HCL 4 MG/2 ML VIAL IVPUSH (01:10)
[2022-04-29] MEDS: 0.9 % Sodium Chloride Flush 3 ML SYRINGE IVFLUSH ×4 (01:14→21:02)
[2022-04-29 03:41] VITALS: BP 114/73; PULSE 86; RESP 16; TEMP 36.6; O2SAT 98
[2022-04-29] MEDS: Lactated Ringers 1,000 ML 150 ML IVCONT ×3 (05:26→21:02)
[2022-04-29 06:09] LABS: MANUAL DIFF FLAG NO
[2022-04-29 06:10] LABS: Basophils Percent Auto 0.4 % (0-2); Eosinophils Absolute Auto 0.2 X10*3/uL (0.0-0.4); Eosinophils Percent Auto 3.4 % (0-4); Hematocrit 32.7 % (37.0-47.0); Hemoglobin 10.5 g/dl (12.0-16.0); Imm Gran Abs Auto 0.03 X10*3/uL (0.00-0.03); Imm Gran Pct Auto 0.4 % (0.0-0.4); Lymphocytes Absolute Auto 2.1 X10*3/uL (1.2-4.9); Lymphocytes Percent Auto 29.4 % (20-40); Mean Corpuscular HGB Conc 32.1 g/dl (31.0-35.0); Mean Corpuscular Hemoglobin 24.4 pg (27.0-33.0); Monocytes Absolute Auto 0.3 X10*3/uL (0.1-1.2); Monocytes Percent Auto 4.3 % (2-11); Neutrophils Absolute Auto 4.3 x10*3/uL (2.0-8.3); Neutrophils Percent Auto 62.1 % (45-73); Platelet Count 209 X10*3/uL (160-400); Red Cell Distribution Width 15.1 % (11.0-16.0)
[2022-04-29 06:39] LABS: Alanine Aminotransferase 10 U/L (0-31); Albumin Level 3.7 g/dL (3.5-5.0); Alkaline Phosphatase 64 U/L (39-117); Anion Gap 13 (12-20); Aspartate Amino Transferase 12 U/L (5-31); Bilirubin Total 0.5 mg/dL (0.0-1.0); Blood Urea Nitrogen 7 mg/dL (9-16); Calcium 8.4 mg/dL (8.4-10.2); Carbon Dioxide 24 mmol/L (22-29); Chloride 104 mmol/L (96-108); Creatinine Clr Calc Pharmacy 139.5; Estimated Glomerular Filt Rate > 60; Glucose Fasting 85 mg/dL (60-99); Potassium 3.5 mmol/L (3.3-5.1); Sodium 137 mmol/L (135-145); Total Protein 6.4 g/dL (6.5-8.0)
--- NOTE | 2022-04-29 07:01 | PC.NURSE ---
Report received from Abrahan Robledo RN
--- NOTE | 2022-04-29 07:38 | PC.NURSE ---
Shift eval [id number] - Patient c/o one episode vomiting. Denies cramping. Medicated w/ PRN atmartha & enrico @ 0110. Medicated with good effect. Vitals stable. Patient resting, non labored breathing.
[2022-04-29 08:00] VITALS: BP 122/74; PULSE 73; RESP 18; TEMP 36.2; O2SAT 95
[2022-04-29] MEDS: Famotidine/PF 20 MG/2 ML VIAL IVPUSH (08:20)
--- NOTE | 2022-04-29 11:27 | PC.NURSE ---
Report given to CHARLES Sandy
--- NOTE | 2022-04-29 12:25 | P.PNIM_ITS ---
Subjective Subjective Date of Service: 04/29/22 Interval History: Vomiting even with clear liquids No abd pain but notes heartburn C/o throbbing MUNGUIA- has hx migraines Review of Systems Review of Systems: Yes all other systems are reviewed and are negative Physical Exam Vital Signs: Vital Signs: Last Vital Signs Temp 97.1 F 04/29/22 08:00 Pulse 73 04/29/22 08:00 Resp 18 04/29/22 08:00 BP 122/74 04/29/22 08:00 Pulse Ox 95 04/29/22 08:00 O2 Del Method 04/29/22 08:00 BMI result Body Mass Index 38.6 Gen: in no acute distress HEENT: sclera anicteric, moist mucus membranes Neck: supple Lungs: clear to auscultation bilaterally Heart: regular rate and rhythm, no murmurs Abd: soft, obese, diffuse tenderness without rebound or guarding Ext: no edema Skin: warm/well-perfused Neuro: alert and oriented x3, no focal findings Psych: appropriate affect Objective Data Active Medications Famotidine (Famotidine/Pf 20 Mg/2 Ml Vial) 20 mg IVPUSH BID [facility] Last Admin: 04/29/22 08:20 Dose: 20 mg Documented By: MEGHAN Lactated Ringer's (Lr) 1,000 mls @ 150 mls/hr IVCONT .Q6H40M [facility] Last Admin: 04/29/22 05:26 Dose: 150 mls/hr Documented By: BINU Lorazepam (Lorazepam 2 Mg/Ml Vial) 1 mg IVPUSH Q4H PRN PRN Reason: Nausea and Vomiting Last Admin: 04/29/22 01:10 Dose: 1 mg Documented By: BINU Morphine Sulfate (Morphine Sulfate 4 Mg/Ml Cartridge) 4 mg IVPUSH Q4H PRN; Protocol PRN Reason: Pain, Moderate (Pain Scale 4-6 Last Admin: 04/27/22 18:57 Dose: 4 mg Documented By: CARMELO Ondansetron HCl (Ondansetron Hcl 4 Mg/2 Ml Vial) 4 mg IVPUSH Q8H PRN PRN Reason: Nausea and Vomiting Last Admin: 04/29/22 01:10 Dose: 4 mg Documented By: BINU Sodium Chloride (0.9 % Sodium Chloride Flush 3 Ml Syringe) 3 ml IVFLUSH QSHIFT [facility] Last Admin: 04/29/22 08:20 Dose: 3 ml Documented By: MEGHAN Labs CBC & Chem 7: 04/29/22 05:55 04/29/22 05:55 Labs: Laboratory Results - last 24 hr 04/29/22 04/29/22 05:55 05:55 MCV 76.0 L MCH 24.4 L MCHC 32.1 RDW 15.1 Plt Count 209 MPV 12.0 Immature Gran % (Auto) 0.4 Neut % (Auto) 62.1 Lymph % (Auto) 29.4 [place] % (Auto) 4.3 Eos % (Auto) 3.4 Baso % (Auto) 0.4 Lymph # (Auto) 2.1 [place] # (Auto) 0.3 Eos # (Auto) 0.2 Baso # (Auto) 0.0 Abs Immat Gran (auto) 0.03 Absolute Neuts (auto) 4.3 Absolute Nucleated RBC 0.000 Nucleated RBC % (auto) 0.0 Anion Gap 13 Estim Creat Clear Calc 139.5 Estimated GFR > 60 Fasting Glucose 85 Calcium 8.4 Total Bilirubin 0.5 AST 12 ALT 10 Alkaline Phosphatase 64 Total Protein 6.4 L Albumin 3.7 Assessment and Plan (1) Intractable vomiting: Status: Acute Plan hospital d#4 36-year-old female who had an endoscopically placed [employer] Balloon System for weight loss (the balloon holds 400-700 cc and the balloon was inf lated to 650 cc) by Dr. Garfield Otto in [place], [place] on 04/23/2022.?? Admitted for refractory N/V # refractory N/V secondary to newly placed gastric balloon - lorazepam prn vomiting/anxiety, ondansetron + metoclopramide prn nausea/vomiting - continue IV fluid hydrations # GERD - change IV H2RA to PPI # MUNGUIA - prn Fiorcet # VTE ppx - SCDs In my clinical judgment, the patient requires continued hospitalization for the following reasons: IV hydration, PO intolerance \ Quality Stroke Does the patient have a stroke diagnosis?: No VTE Prior VTE?: No VTE Risk Level:: Medical - low VTE Device Contraindication: Treatment Not Indicated VTE Drug Contraindication: Treatment Not Indicated
[2022-04-29] MEDS: Pantoprazole Sodium 40 MG/10 ML VIAL IVPUSH (13:37)
[2022-04-29 15:53] VITALS: BP 122/70; PULSE 73; RESP 18; TEMP 36.2; O2SAT 96
--- NOTE | 2022-04-29 15:56 | PC.NURSE ---
PT C/O ABDOMINAL PAIN 4/10 AND NAUSEA. PT STATES BELLY IS BURNING TRIED TO EAT JELLO BUT VOMITED RIGHT AFTER RN AWARE.
[2022-04-29 20:50] VITALS: BP 123/69; PULSE 71; RESP 18; TEMP 36.9; O2SAT 95
[2022-04-29 21:04] VITALS: BMI 38.3
[2022-04-29] MEDS: Metoclopramide HCl 10 MG/2 ML VIAL 5 MG IVPUSH (23:03)
[2022-04-30] VITALS (7 sets, daily range): BP systolic 109–142; BP diastolic 58–81; PULSE 71–84; RESP 18; TEMP 36.5–37.4; O2SAT 96–100
[2022-04-30] MEDS: Lactated Ringers 1,000 ML 150 ML IVCONT ×2 (01:29→13:02)
[2022-04-30] MEDS: ondansetron HCL 4 MG/2 ML VIAL IVPUSH ×3 (02:13→17:52)
[2022-04-30] MEDS: Morphine Sulfate 4 MG/ML CARTRIDGE IVPUSH (02:13)
[2022-04-30] MEDS: Pantoprazole Sodium 40 MG/10 ML VIAL IVPUSH (05:37)
--- NOTE | 2022-04-30 09:15 | MHC.CLN ---
NUTRITION PATIENT WITH INTRACTABLE VOMITING. 04/23/22 HAD BARIATRIC BALLOON PLACEMENT AND WAS TAKING LIQUID PROTEIN DRINKS ONLY. CHANGING DIET TO BARIATRIC PHASE 3.
--- NOTE | 2022-04-30 09:28 | MHC.CM.PN ---
EMR REVIEWED, PT ADMITTED W/INTRACTABLE NAUSEA/VOMITING, CM MET W/PT WHO REPORTS SHE LIVES W/ AND 2 KIDS, PT IS INDEP W/ALL CARE, DENIES USE OF DME AND HOME SERVICES, PT VERIFIES PCP IS DB MOLINA, HCP IS NALDO BANEGAS [phone] AND DENIES RECEIVING ANY VACCINES FOR COVID. D/C HOME NO SERVICES, FAMILY FOR TRANSPORT
--- NOTE | 2022-04-30 09:45 | P.PNIM_ITS ---
Subjective Subjective Date of Service: 04/30/22 Interval History: heartburn improved minimal abd discomfort still vomiting, though Review of Systems Review of Systems: Yes all other systems are reviewed and are negative Physical Exam Vital Signs: Vital Signs: Last Vital Signs Temp 97.7 F 04/30/22 08:00 Pulse 75 04/30/22 08:00 Resp 18 04/30/22 08:00 BP 136/70 04/30/22 08:00 Pulse Ox 98 04/30/22 08:00 O2 Del Method 04/30/22 08:00 BMI result Body Mass Index 38.3 Gen: in no acute distress HEENT: sclera anicteric, moist mucus membranes Neck: supple Lungs: clear to auscultation bilaterally Heart: regular rate and rhythm, no murmurs Abd: soft, obese, diffuse tenderness without rebound or guarding Ext: no edema Skin: warm/well-perfused Neuro: alert and oriented x3, no focal findings Psych: appropriate affect ? Objective Data Active Medications Acetaminophen/Butalbital/Caffeine (Butalb/Acetamin/Caff 50/325/40 Tablet) 1 tab PO Q4H PRN PRN Reason: headache Lactated Ringer's (Lr) 1,000 mls @ 150 mls/hr IVCONT .Q6H40M MALCOM Last Admin: 04/30/22 01:29 Dose: 150 mls/hr Documented By: MANUEL Lorazepam (Lorazepam 2 Mg/Ml Vial) 1 mg IVPUSH Q4H PRN PRN Reason: Nausea and Vomiting Last Admin: 04/29/22 01:10 Dose: 1 mg Documented By: BINU Metoclopramide HCl (Metoclopramide Hcl 10 Mg/2 Ml Vial) 5 mg IVPUSH Q8H PRN PRN Reason: nausea/vomiting Last Admin: 04/29/22 23:03 Dose: 5 mg Documented By: MANUEL Morphine Sulfate (Morphine Sulfate 4 Mg/Ml Cartridge) 4 mg IVPUSH Q4H PRN; Protocol PRN Reason: Pain, Moderate (Pain Scale 4-6 Last Admin: 04/30/22 02:13 Dose: 4 mg Documented By: MANUEL Ondansetron HCl (Ondansetron Hcl 4 Mg/2 Ml Vial) 4 mg IVPUSH Q8H PRN PRN Reason: Nausea and Vomiting Last Admin: 04/30/22 02:13 Dose: 4 mg Documented By: MANUEL Pantoprazole Sodium (Pantoprazole Sodium 40 Mg/10 Ml Vial) 40 mg IVPUSH DAILY@629 [facility] Last Admin: 04/30/22 05:37 Dose: 40 mg Documented By: MANUEL Sodium Chloride (0.9 % Sodium Chloride Flush 3 Ml Syringe) 3 ml IVFLUSH QSHIFT [facility] Last Admin: 04/30/22 07:31 Dose: Not Given Documented By: ALESHIA Non-Admin Reason: IV Running Labs CBC & Chem 7: 04/29/22 05:55 04/29/22 05:55 Assessment and Plan (1) Intractable vomiting: Status: Acute Plan hospital d#5 36-year-old female who had an endoscopically placed [employer] Intragastic Balloon System for weight loss (the balloon holds 400-700 cc and the balloon was inflated to 650 cc) by Dr. Garfield Otto in [place], [place] on 04/23/2022.?? Admitted for refractory N/V # refractory N/V secondary to newly placed gastric balloon - lorazepam prn vomiting/anxiety, ondansetron + metoclopramide standing q8h alternating - continue IV fluid hydration - Bariatric Phase 3 diet # GERD - IV PPI # MUNGUIA - prn Fiorcet # VTE ppx - SCDs In my clinical judgment, the patient requires continued hospitalization for the following reasons: IV hydration, PO intolerance Quality Stroke Does the patient have a stroke diagnosis?: No VTE Prior VTE?: No VTE Risk Level:: Medical - low VTE Device Contraindication: Treatment Not Indicated VTE Drug Contraindication: Treatment Not Indicated
[2022-04-30] MEDS: Metoclopramide HCl 10 MG/2 ML VIAL 5 MG IVPUSH ×2 (15:20→22:02)
[2022-04-30] MEDS: 0.9 % Sodium Chloride Flush 3 ML SYRINGE IVFLUSH (22:02)
[2022-05-01] MEDS: ondansetron HCL 4 MG/2 ML VIAL IVPUSH ×2 (01:44→09:56)
[2022-05-01 04:00] VITALS: BP 115/65; PULSE 80; RESP 18; TEMP 37.3; O2SAT 98
[2022-05-01] MEDS: Pantoprazole Sodium 40 MG/10 ML VIAL IVPUSH (05:44)
[2022-05-01] MEDS: Metoclopramide HCl 10 MG/2 ML VIAL 5 MG IVPUSH (05:44)
[2022-05-01 07:57] VITALS: BP 123/71; PULSE 80; RESP 15; TEMP 37; O2SAT 95
[2022-05-01] MEDS: 0.9 % Sodium Chloride Flush 3 ML SYRINGE IVFLUSH (09:56)
--- NOTE | 2022-05-01 10:22 | P.DS_ITS ---
DS: Providers Provider Date of Service: 05/01/22 Date of admission: 04/26/22 17:33 Date of discharge: 05/01/22 Primary care physician: Mago Zuñiga MD DS: Diagnosis Discharge Diagnosis (1) Intractable vomiting: Status: Acute (2) Obesity: Status: Acute DS: Summary Hospital Course Hospital Course: from admission H+P by hospitalist Anirudh Blanchard DO, 04/26/22: 36 yo female just underwent EGD with bariatric balloon placement in the stomach in [place] on 04/23 told she would have vomiting for 3 to 4 days post procedure she is on zofran but it is not helping. She is on liquid protein drinks only. Spoke to the doctor today she is still vomiting.(The patient had an endoscopically place [employer] Intragastic Balloon System for weight loss (the balloon holds 400-700 cc and the balloon was inflated to 650 cc) placed by Dr. Garfield Otto in [place], [place] on 04/23/2022.? He can be reached at .) The patient has been kept here in the emergency department for approximately 12 hours and has received 2 L of normal saline and lactated Ringer's at 125 cc an hour, she has been treated with Zofran, Reglan, and Phenergan IV.? He is also received morphine 4 mg IV x2.? After talking to Dr. Otto the patient was also given Ativan 1 mg IV as an antiemetic as well as an anti at things lytic and anti spasmodic.? At this point time she will be admitted for intractable vomiting 36-year-old female who had an endoscopically placed [employer] Intragastic Balloon System for weight loss (the balloon holds 400-700 cc and the balloon was inflated to 650 cc)? by Dr. Garfield Otto in [place], [place] on 04/23/2022.?? Admitted for refractory nausea and vomiting. Treated with IV fluids and prn lorazepam, ondansetron, and metoclopramide. Diet gradually advanced to Bariatric Phase 3. Symptoms improved markedly and the patient was discharged home with prescriptions for ondansetron and metoclopramide and instructions to follow up with her primary care and bariatrics doctors. Status at Discharge Functional status at discharge: independent ambulation Time Spent with Patient Time attestation: Total time spent providing and/or coordinating discharge services: Discharge coordination time: Greater than 30 minutes Quality: Safe Use of Opioids Does Pt have an Active Cancer Diagnosis on the Problem List?: No Quality: Stroke Does the patient have a stroke diagnosis?: No Physical Exam Vital Signs: Vital Signs: Last Vital Signs Temp 98.6 F 05/01/22 07:57 Pulse 80 05/01/22 07:57 Resp 15 05/01/22 07:57 BP 123/71 05/01/22 07:57 Pulse Ox 95 05/01/22 07:57 O2 Del Method 05/01/22 07:57 BMI result Body Mass Index 38.3 Gen: in no acute distress HEENT: sclera anicteric, moist mucus membranes Neck: supple Lungs: clear to auscultation bilaterally Heart: regular rate and rhythm, no murmurs Abd: soft, non-tender, non-distended, obese, normal bowel sounds Ext: no edema Skin: warm/well-perfused Neuro: alert and oriented x3, no focal findings Psych: appropriate affect DS: Data Data Completed and Pending Completed studies during hospitalization [Text1]: Laboratory Results WBC 7.0 X10*3/uL (4.8-10.8) 04/29/22 05:55 RBC 4.30 X10*6/uL (4.20-5.50) 04/29/22 05:55 Hgb 10.5 g/dl (12.0-16.0) L 04/29/22 05:55 Hct 32.7 % (37.0-47.0) L 04/29/22 05:55 MCV 76.0 fL (80.0-98.0) L 04/29/22 05:55 MCH 24.4 pg (27.0-33.0) L 04/29/22 05:55 MCHC 32.1 g/dl (31.0-35.0) 04/29/22 05:55 RDW 15.1 % (11.0-16.0) 04/29/22 05:55 Plt Count 209 X10*3/uL (160-400) 04/29/22 05:55 MPV 12.0 fL (9.4-12.3) 04/29/22 05:55 Immature Gran % (Auto) 0.4 % (0.0-0.4) 04/29/22 05:55 Neut % (Auto) 62.1 % (45-73) 04/29/22 05:55 Lymph % (Auto) 29.4 % (20-40) 04/29/22 05:55 [place] % (Auto) 4.3 % (2-11) 04/29/22 05:55 Eos % (Auto) 3.4 % (0-4) 04/29/22 05:55 Baso % (Auto) 0.4 % (0-2) 04/29/22 05:55 Lymph # (Auto) 2.1 X10*3/uL (1.2-4.9) 04/29/22 05:55 [place] # (Auto) 0.3 X10*3/uL (0.1-1.2) 04/29/22 05:55 Eos # (Auto) 0.2 X10*3/uL (0.0-0.4) 04/29/22 05:55 Baso # (Auto) 0.0 X10*3/uL (0.0-0.2) 04/29/22 05:55 Abs Immat Gran (auto) 0.03 X10*3/uL (0.00-0.03) 04/29/22 05:55 Absolute Neuts (auto) 4.3 x10*3/uL (2.0-8.3) 04/29/22 05:55 Absolute Nucleated RBC 0.000 X10*3/uL (0.0-0.012) 04/29/22 05:55 Nucleated RBC % (auto) 0.0 /100WBC (0.0-0.2) 04/29/22 05:55 PT 13.0 SEC (10.0-13.1) 04/26/22 01:02 INR 1.1 (0.9-1.1) 04/26/22 01:02 Sodium 137 mmol/L (135-145) 04/29/22 05:55 Potassium 3.5 mmol/L (3.3-5.1) 04/29/22 05:55 Chloride 104 mmol/L (96-108) 04/29/22 05:55 Carbon Dioxide 24 mmol/L (22-29) 04/29/22 05:55 Anion Gap 13 (12-20) 04/29/22 05:55 BUN 7 mg/dL (9-16) L 04/29/22 05:55 Creatinine 0.75 mg/dL (0.5-1.4) 04/29/22 05:55 Estim Creat Clear Calc 139.5 04/29/22 05:55 Estimated GFR > 60 04/29/22 05:55 Random Glucose 104 mg/dL (60-115) 04/26/22 01:02 Fasting Glucose 85 mg/dL (60-99) 04/29/22 05:55 Calcium 8.4 mg/dL (8.4-10.2) 04/29/22 05:55 Magnesium 2.2 mg/dL (1.6-2.6) 04/26/22 01:02 Total Bilirubin 0.5 mg/dL (0.0-1.0) 04/29/22 05:55 Direct Bilirubin 0.3 mg/dL (0.0-0.5) 04/26/22 01:02 AST 12 U/L (5-31) 04/29/22 05:55 ALT 10 U/L (0-31) 04/29/22 05:55 Alkaline Phosphatase 64 U/L (39-117) 04/29/22 05:55 Total Protein 6.4 g/dL (6.5-8.0) L 04/29/22 05:55 Albumin 3.7 g/dL (3.5-5.0) 04/29/22 05:55 Lipase 91 U/L (8-78) H 04/26/22 01:02 Beta HCG, Quant < 2 mIU/mL 04/26/22 01:02 Urine Color DK YELLOW 04/26/22 02:39 Urine Appearance HAZY 04/26/22 02:39 Urine pH 6.5 (5.0-8.0) 04/26/22 02:39 Ur Specific [place] 1.020 (1.005-1.025) 04/26/22 02:39 Urine Protein 2+ MG/DL (NEG-TRACE) H 04/26/22 02:39 Urine Glucose (UA) NEG MG/DL (NEG) 04/26/22 02:39 Urine Ketones >=80 MG/DL (NEG) 04/26/22 02:39 Urine Blood TRACE (NEG) 04/26/22 02:39 Urine Nitrite NEG (NEG) 04/26/22 02:39 Ur Leukocyte Esterase NEG (NEG) 04/26/22 02:39 Urine RBC 0 /HPF (0) 04/26/22 02:39 Urine WBC 0-2 /HPF (0-4) 04/26/22 02:39 Ur Squamous Epith Cells 2+ /LPF 04/26/22 02:39 Urine Bacteria TRACE /LPF 04/26/22 02:39 Urine Mucus 3+ /LPF 04/26/22 02:39 COVID-19 (JOSÉ) Negative (Negative) 04/26/22 01:02 COVID-19 Clin Com See Note 04/26/22 01:02 Impressions Abdomen/Pelvis CT 04/26/22 02:50 IMPRESSION: Intragastric balloon in the mid stomach. Small amount of fluid proximal to the balloon. Decompressed stomach distally with decompression of the bowel. There is no bowel obstruction or inflammation. Cannot exclude a gastric outlet obstruction on these images, without use of oral contrast. Fleischner guidelines were followed. Discharge Plan Discharge Patient Disposition: Home, Self-Care Discharge Diagnosis: refractory N/V secondary to newly placed gastric balloon Referrals: Mago Browne MD [Primary Care Provider] - 1 Week Discharge Medications: New metoclopramide HCl 5 mg tablet 5 mg PO TID PRN (Reason: nausea and vomiting) Qty: 12 0RF ondansetron 4 mg tablet,disintegrating 4 mg PO TID PRN (Reason: nausea and vomiting) Qty: 12 0RF Continued alprazolam 0.5 mg tablet 1 tab PO BID PRN (Reason: anxiety) pantoprazole 40 mg tablet,delayed release (DR/EC) 1 tab PO QAM ondansetron 4 mg tablet,disintegrating 4 mg PO Q6H PRN (Reason: nausea and vomiting) Qty: 14 0RF Discharge Orders: Discharge Order (Routine); Ordered 05/01/22 Ordered By: Magdi Bethea Activity on Discharge: As tolerated Stand Alone Forms: Patient Portal Discharge page, Work/School Release Care Plan Goals: recovery from gastric balloon Health Concerns: nausea/vomiting Plan of Treatment: metoclopramide and ondansetron as needed for nausea/vomiting full liquid diet, advance as tolerated follow up with primary care doctor and surgeon in 1-2 weeks return to hospital if worsening symptoms Assessment: In my clinical judgment, the patient requires continued hospitalization for the following reasons: Patient Instructions: Nutrition after Bariatric Surgery (DC)
--- NOTE | 2022-05-01 11:56 | MHC.CM.PN ---
EMR REVIEWED, PT MEDIACLLY CLEARED FOR D/C HOME NO SERVICES, PT TO ARRANGE TRANSPORT HOME.
== END 2022-05-01 11:40 | disposition home or self-care (01) | DRG 252 ==
LOC: HO.ED 08:11 → HO.EDOVER 19:00 → HO.S3 04-29 17:41
PROVIDERS: Emergency Medicine; Admitting Provider Hospitalist; Emergency Provider Emergency Medicine Emergency Medical Services; PCP Internal Medicine; Visit Provider Family Medicine
DX: K91.0 Vomiting following gastrointestinal surgery (principal); E66.9 Obesity, unspecified; Z98.84 Bariatric surgery status; Z68.38 Body mass index [BMI] 38.0-38.9, adult; K21.9 Gastro-esophageal reflux disease without esophagitis; K95.89 Other complications of other bariatric procedure; Z20.822 Contact with and (suspected) exposure to COVID-19; Z79.899 Other long term (current) drug therapy
CPT/HCPCS: 36415; 74177; 80048; 80053; 80076; 81001; 83690; 83735; 84702; 85025; 85610; 87635; 96361; 96374; 96375; 99285; J1200; J2060; J2270; J2405; J2550; J2765; J3411; Q9967

== ENCOUNTER 2023-08-23 15:05 | Emergency (ER) | payer OTHER, SELFPAY ==
--- NOTE | ~2023-08-23 | XR_ITS ---
EXAMINATION: XR KNEE, RIGHT CLINICAL INFORMATION: Knee pain with effusion COMPARISON: None available. TECHNIQUE: Four views of the right knee. FINDINGS: No acute visible fracture or dislocation. Joint spaces and alignment are maintained. Moderate knee joint effusion. Soft tissues are unremarkable. XR/XR knee RT 3V IMPRESSION: 1. No acute visible fracture or dislocation. 2. Moderate knee joint effusion.
--- NOTE | ~2023-08-23 | US_ITS ---
EXAMINATION: US VENOUS ULTRASOUND WITH DOPPLER LOWER EXTREMITY, RIGHT CLINICAL INFORMATION: COMPARISON: None available. TECHNIQUE: Ultrasound of the deep veins is performed from the hip to the calf with compression sonography and color and pulse Doppler assessment. Spectral analysis with color-flow imaging is performed. FINDINGS: There is normal venous compression and respiratory variation and augmented flow. The visualized common femoral vein, superficial femoral vein, profunda femoral vein, popliteal vein, and the trifurcation region shows no evidence of deep venous thrombosis. Golden's cyst measures 4.3 cm. US/US venous duplex LE RT IMPRESSION: No DVT demonstrated in the right lower extremity.
[2023-08-23 15:42] VITALS: BP 122/79; PULSE 87; RESP 19; TEMP 36.2; O2SAT 99; BMI 40.7
--- NOTE | 2023-08-23 16:42 | ED_ITS ---
HPI - Extremity Problem General Chief complaint: Extremity Problem Stated complaint: RT Knee pain Time Seen by Provider: 08/23/23 18:13 Source: patient Mode of arrival: ambulatory Limitations: no limitations History of Present Illness HPI Narrative: Patient with No history of arthritis no recent injury noticed pain in right knee with swelling in the back of the knee no calf swelling Related Data Home Medications Medication Instructions Recorded Confirmed alprazolam 0.5 mg tablet 1 tab PO BID PRN anxiety 04/27/22 04/27/22 pantoprazole 40 mg tablet,delayed 1 tab PO QAM 04/27/22 04/27/22 release Previous Rx's Medication Instructions Recorded ondansetron 4 mg disintegrating 4 mg PO Q6H PRN nausea and 01/17/22 tablet vomiting #14 tabs metoclopramide HCl 5 mg tablet 5 mg PO TID PRN nausea and 05/01/22 vomiting #12 tabs ondansetron 4 mg disintegrating 4 mg PO TID PRN nausea and 05/01/22 tablet vomiting #12 tabs ibuprofen 600 mg tablet 600 mg PO Q6H PRN fever or pain 08/23/23 #30 tabs Allergies Allergy/AdvReac Type Severity Reaction Status Date / Time No Known Allergies Allergy Verified 04/26/22 00:46 Review of Systems 2 Review of Systems: Yes all other systems are reviewed and are negative PMFSH Past Medical History Medical History Intractable vomiting Vomiting Inflammatory bowel disease Irritable bowel syndrome No known health problems Surgical History Bariatric surgery status Hx of cholecystectomy No pertinent past surgical history Social History Social History Household Members: Family Housing: House Alcohol intake: never Patient Tobacco Use Status: Never used Tobacco e-Cigarette/Vaping Use: Never Used Second Hand Smoke Exposure: No Advance Directives: No Advance Directives Information Provided: No service: No Current occupational status: employed 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 Diffuse joint line tenderness with swelling in the popliteal area>> golden cyst Course Course Course Narrative: This is an RME: Additional HPI, ROS, PE not included below will be deferred to primary provider. 37 year old female presents w/ pain behind R knee X 1 month worse w/ walking. No hx of clots. Plan- US Medical Decision Making Medical Decision Making MDM Narrative: Patient with right Golden cyst 2ndry from arthritis Nikhil wrap was applied venous Doppler negative for DVT Radiology Impression Discussion of test interpretation with radiology: I have reviewed the radiologist's reading. Discharge Plan Discharge Clinical Impression: Golden's cyst of knee Patient Disposition: Home, Self-Care Instructions: Bakers Cyst (ED), Arthritis (ED) Additional Instructions: Wear the Nikhil wrap for support Ibuprofen for pain you have swelling of the right knee from arthritis Use la envoltura Nikhil jake soporte ibuprofeno para el dolor Tiene hinchaz?n de la rodilla derecha debido a la artritis. Prescriptions: New ibuprofen 600 mg tablet 600 mg PO Q6H PRN (Reason: fever or pain) Qty: 30 0RF No Action alprazolam 0.5 mg tablet 1 tab PO BID PRN (Reason: anxiety) pantoprazole 40 mg tablet,delayed release (DR/EC) 1 tab PO QAM metoclopramide HCl 5 mg tablet 5 mg PO TID PRN (Reason: nausea and vomiting) Qty: 12 0RF ondansetron 4 mg tablet,disintegrating 4 mg PO TID PRN (Reason: nausea and vomiting) Qty: 12 0RF ondansetron 4 mg tablet,disintegrating 4 mg PO Q6H PRN (Reason: nausea and vomiting) Qty: 14 0RF Print Language: Guyanese
[2023-08-23 19:41] VITALS: BP 126/82; PULSE 80; RESP 17; TEMP 36.8; O2SAT 99
== END 2023-08-23 19:43 | disposition home or self-care (01) ==
PROVIDERS: Emergency Provider Internal Medicine; PCP Internal Medicine
DX: M71.21 Synovial cyst of popliteal space [Baker], right knee (principal); R60.0 Localized edema; Z79.899 Other long term (current) drug therapy
CPT/HCPCS: 73562; 93971; 99284

== ENCOUNTER 2023-09-01 10:00 | Outpatient (AMB) | payer OTHER, SELFPAY ==
--- NOTE | 2023-09-01 10:03 | A.OFFPC_ITS ---
Vital Signs 09/01/23 10:04 Height 5 ft 8 in Weight 265 lb BMI 40.3 BP 126/86 Blood Pressure Location Lt brachial Position Sitting Pulse 86 Pulse Source Pulse Oximeter Pulse Oximetry (%) 98 Oxygen Delivery Method Room Air Intake Visit Reasons: [facility] follow up back and knee pain Intake Note: Patient here for [facility] Ed follow up back, knee pain Electronic Data Interchange Specialist Required: No Accompanied by: Self / Same As Patient Allergies No Known Allergies Allergy (Verified 09/01/23 10:14) Medication List - Last Reconciled 09/01/23 by Mago Zuñiga MD ibuprofen 600 mg PO Q6H PRN Tobacco use date assessed: 09/01/23 Dental Screening Dental Screen Date: 09/01/23 Did you have a dental visit in the last 12 months?: Yes Did you have a dental problem in the last 6 months where you did not have access to dental care?: No Was dental information given to patient?: Patient has dentist HPI HPI Comments History of Present Illness Details This is a 37-year-old female with morbid obesity and microcytic anemia that comes today complaining of right knee pain. X-ray was done at walk-in clinic showing right knee effusion and I will refer her to Ortho. She is not able to fully flex the knee. Denies any previous trauma. She is morbidly obese with a BMI of 40.3 and would like referral to weight management. Has anemia and hemoglobin will be repeated. Denies any chest pain or shortness of breath. 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 1. Little interest or pleasure in doing things: not at all 2. Feeling down, depressed, or hopeless: not at all 3. Trouble falling or staying asleep, or sleeping too much: not at all 4. Feeling tired or having little energy: not at all 5. Poor appetite or overeating: not at all 6. Feeling bad about yourself - or that you are a failure or have let yourself or your family down: not at all 7. Trouble concentrating on things, such as reading the newspaper or watching television: not at all 8. Moving or speaking so slowly that other people could have noticed. Or the opposite - being so fidgety or restless that you have been moving around a lot more than usual: not at all 9. Thoughts that you would be better off or of hurting yourself in some way: not at all Total score: 0 Depression Screening Interpretation: Negative Depression Screening Done: Yes 43584 - PHQ-9 Billing: Yes Source: Developed by Drs. Isaak Delgado, Ana María Reina, Alex Corrales and colleagues, with an educational bry from [employer]. Thrive Questionnaire Date Thrive assessed: 09/01/23 I am a: Patient What is your living situation today?: I have a steady place to live Within the past 12 months, did the food you bought not last and you didn't have the money to get more?: Never true Within the past 12 months, did you worry whether your food would run out before you got money to buy more?: Never true Do you have trouble paying for medicines?: No Do you have trouble getting transportation to medical appointments?: No Do you have trouble paying your heating and electricity bill?: No Do you have trouble taking care of your child, family member or friend?: No Do you have trouble with day-to-day activities such as bathing, preparing meals, shopping, managing finances, etc.?: No Are you currently unemployed and looking for a job?: No Are you interested in more education?: No Please select the resources that you would like help with: None Currently or been in a relationship where the following occur: no concerns reported AUDIT C Alcohol Use Questionnaire (AUDIT-C) 1. How often do you have a drink containing alcohol?: Never Total Score: 0 VANDANA-7 AMB Questionnaire VANDANA-7 Date VANDANA - 7 assessed: 09/01/23 Feeling nervous, anxious, or on edge: 0 = Not at all Not being able to stop or control worryin = Not at all Worrying too much about different things: 0 = Not at all Trouble relaxin = Not at all Being so restless that it is hard to sit still: 0 = Not at all Becoming easily annoyed or irritable: 0 = Not at all Feeling afraid as if something awful might happen: 0 = Not at all Total VANDANA-7 score (0-4 normal; 5-9 mild; 10-14 moderate; 15-21 severe): 0 Source: Developed by Drs. Isaak Delgado, Ana María Reina, Alex Corrales and colleagues, with an educational bry from [employer]. VANDANA-7 Assessment Billing VANDANA-7 Assessment Tool: VANDANA-7 Assessment 48732 Review of Systems Const All systems reviewed & are unremarkable except as noted in HPI and below Eyes Reports no additional complaints, Denies change in vision and Denies other visual disturbances Card Denies chest pain at rest, Denies chest pain with activity, Denies edema, Denies irregular heart rhythm, Denies claudication, Denies dyspnea, Denies dyspnea on exertion, Denies orthopnea, Denies paroxysmal nocturnal dyspnea and Denies slow heart rate Resp Denies cough, Denies dyspnea and Denies dyspnea on exertion GI Denies abdominal pain, Denies change in bowel habits, Denies excessive flatus, Denies nausea and Denies vomiting Denies urinary incontinence, Denies urinary hesitancy and Denies urinary urgency Musc Denies abnormal gait, Denies atrophy, Denies deformity and Denies limited range of motion Skin/Breast Denies bleeding lesions, Denies changing lesions and Denies rash Neuro Denies abnormal gait and Denies lack of coordination Physical exam (Primary Care) Vital Signs: Last Vital Signs Pulse 86 09/01/23 10:04 BP 126/86 09/01/23 10:04 Pulse Ox 98 09/01/23 10:04 Oxygen Delivery Method Room Air 09/01/23 10:04 BMI result Body Mass Index 40.3 Tobacco/Smoking Status: Tobacco use Status Tobacco use date assessed 09/01/23 09/01/23 10:06 Patient Tobacco Use Status Never used Tobacco 09/01/23 10:06 e-Cigarette/Vaping Use Never Used 09/01/23 10:06 PHQ-9: PHQ-9 Score PHQ-9: Total score 0 09/01/23 10:19 Depression Screening Interpretation: Negative Thrive Assessment: Date of Thrive Assessment Date Thrive assessed 09/01/23 09/01/23 10:06 Currently or been in a relationship where the following occur: no concerns reported Eyes General: appearance normal, both eyes and all related structures Eyelids: Yes eyelids normal Conjunctivae: conjunctivae normal Neck Neck: Yes normal visual inspection and Yes supple Resp Effort & Inspection: normal respiratory effort Auscultation: clear to auscultation bilaterally Cardio Jugular venous distension: no JVD Rate: regular rate Rhythm: regular rhythm Heart sounds: S1 normal heart sound present and S2 normal heart sound present Extrem General: Yes full ROM Office Procedures Flu Questionnaire Does the patient have a severe egg allergy?: No Immunizations flu vacc [id number] 6mos up(PF) 60 mcg(15 mcgx4)/0.5 mL IM syringe Performing Provider: Mago Zuñiga MD [facility] Documented (not given) by: RAKESH Nieto on 09/01/23 10:07 Reason Not Given: Patient Refused Assessment and Plan Assessment & Plan (1) Morbid obesity with BMI of 40.0-44.9, adult: Code(s): E66.01 - Morbid (severe) obesity due to excess calories; Z68.41 - Body mass index [BMI] 40.0-44.9, adult Plan: Referred to weight management. BMI goal is less than 30. (2) Effusion, right knee: Code(s): M25.461 - Effusion, right knee Plan: Referred to Ortho. (3) Microcytic anemia: Code(s): D50.9 - Iron deficiency anemia, unspecified Plan: Repeat CBC. Orders: Orders Comprehensive [place]. Panel Fast Today E66.01 - Morbid (severe) obesity due to excess calories, Z68.41 - Body mass index [BMI] 40.0-44.9, adult Influenza [id number] Immunization Today Z23 - Encounter for immunization Lipid Panel Today E66.01 - Morbid (severe) obesity due to excess calories, E78.5 - Hyperlipidemia, unspecified, Z68.41 - Body mass index [BMI] 40.0-44.9, adult Complete Blood Count Auto Diff Today D64.9 - Anemia, unspecified IRON PROFILE Today D64.9 - Anemia, unspecified Vitamin B12 and Folate Today E53.8 - Deficiency of other specified B group vitamins Referrals Medical Weight Management Referral E66.01 - Morbid (severe) obesity due to excess calories, Z68.41 - Body mass index [BMI] 40.0-44.9, adult Orthopedics Referral M25.461 - Effusion, right knee Coding Level of Care Code Est Pt Level 3 (71107) Diagnoses Morbid obesity with BMI of 40.0-44.9, adult E66.01; Z68.41 Effusion, right knee M25.461 Microcytic anemia D50.9 Additional Codes VANDANA-7 Assessment Billing - VANDANA-7 Assessment Tool: VANDANA-7 Assessment 52161 ([id number]) Time Spent (min) 19
[2023-09-01 10:04] VITALS: BP 126/86; PULSE 86; O2SAT 98; BMI 40.3
== END 2023-09-01 10:22 | disposition home or self-care (01) ==
PROVIDERS: PCP Internal Medicine; Visit Provider Internal Medicine
DX: M25.461 Effusion, right knee (principal); E66.01 Morbid (severe) obesity due to excess calories; Z68.41 Body mass index [BMI] 40.0-44.9, adult; D50.9 Iron deficiency anemia, unspecified
CPT/HCPCS: 99213

== ENCOUNTER 2023-09-11 08:52 | Outpatient (REF) | payer OTHER, SELFPAY ==
[2023-09-11 09:24] LABS: MANUAL DIFF FLAG NO
[2023-09-11 10:24] LABS: Basophils Percent Auto 0.3 % (0-2); Eosinophils Absolute Auto 0.1 X10*3/uL (0.0-0.4); Eosinophils Percent Auto 1.5 % (0-4); Hematocrit 35.1 % (37.0-47.0); Hemoglobin 10.8 g/dl (12.0-16.0); Imm Gran Abs Auto 0.03 X10*3/uL (0.00-0.03); Imm Gran Pct Auto 0.3 % (0.0-0.4); Lymphocytes Absolute Auto 2.2 X10*3/uL (1.2-4.9); Lymphocytes Percent Auto 26.1 % (20-40); Mean Corpuscular HGB Conc 30.8 g/dl (31.0-35.0); Mean Corpuscular Hemoglobin 23.3 pg (27.0-33.0); Mean Corpuscular Volume 75.6 fL (80.0-98.0); Mean Platelet Volume 11.3 fL (9.4-12.3); Monocytes Absolute Auto 0.3 X10*3/uL (0.1-1.2); Monocytes Percent Auto 3.8 % (2-11); Neutrophils Absolute Auto 5.8 x10*3/uL (2.0-8.3); Platelet Count 245 X10*3/uL (160-400); Red Blood Count 4.64 X10*6/uL (4.20-5.50); Red Cell Distribution Width 15.5 % (11.0-16.0); White Blood Count 8.6 X10*3/uL (4.8-10.8)
[2023-09-11 11:01] LABS: Alanine Aminotransferase 15 U/L (0-31); Albumin Level 4.1 g/dL (3.5-5.0); Alkaline Phosphatase 89 U/L (39-117); Anion Gap 11 (12-20); Aspartate Amino Transferase 13 U/L (5-31); Bilirubin Total 0.4 mg/dL (0.0-1.0); Blood Urea Nitrogen 8 mg/dL (9-16); Calcium 9.5 mg/dL (8.4-10.2); Carbon Dioxide 26 mmol/L (22-29); Chloride 108 mmol/L (96-108); Cholesterol 158 mg/dL (<200); Estimated Glomerular Filt Rate > 60; Glucose Fasting 91 mg/dL (60-99); HDL Cholesterol 56 mg/dL (>40); Iron 31 mcg/dL (30-160); LDL Cholesterol Calculated 81 mg/dL (<100); Percent Iron Saturation 8 % (15-50); Potassium 3.7 mmol/L (3.3-5.1); Sodium 141 mmol/L (135-145); Total Iron Binding Capacity 400 mcg/dL (228-428); Total Protein 7.8 g/dL (6.5-8.0); Triglycerides 108 mg/dL (<150); Unsaturated Iron Binding 369 ug/dL
[2023-09-11 11:33] LABS: Folate 8.7 ng/mL (> or = 4.0); Vitamin B12 232 pg/mL (200-900)
== END 2023-09-11 08:53 | disposition home or self-care (01) ==
LOC: HO.LAB 08:52
PROVIDERS: PCP Internal Medicine; Visit Provider Internal Medicine
DX: E66.01 Morbid (severe) obesity due to excess calories (principal); Z68.41 Body mass index [BMI] 40.0-44.9, adult; E78.5 Hyperlipidemia, unspecified; D64.9 Anemia, unspecified; E53.8 Deficiency of other specified B group vitamins
CPT/HCPCS: 36415; 80053; 80061; 82607; 82746; 83540; 85025

== ENCOUNTER 2023-09-22 12:23 | Inpatient (IN) | payer OTHER, SELFPAY ==
--- NOTE | ~2023-09-22 | CT_ITS ---
EXAMINATION: CT ABDOMEN AND PELVIS WITH CONTRAST CLINICAL INFORMATION: Lower ABD pain, RLQ tenderness, N/V/D/C COMPARISON: CT abdomen pelvis 04/26/2022 TECHNIQUE: Multidetector volumetric images were obtained from the superior aspect of the liver through the pubic symphysis following administration 85 mL of Omnipaque 350 intravenous contrast. Sagittal and coronal reformatted images were obtained on the technologist's workstation. Oral contrast: No This CT examination was performed using dose optimization techniques as appropriate, variously including the following: *Automated exposure control *Adjustment of mA and/or kV according to patient size (this includes techniques or standardized protocols for targeted exams where dose is matched to indication/reason for exam; i.e. extremities or head) *Use of iterative reconstruction technique DLP: 960 mGy-cm FINDINGS: LUNG BASES: The visualized lung bases are unremarkable. LIVER, GALLBLADDER, AND BILIARY TREE: The liver is enlarged measuring 23.3 cm in cephalocaudad dimension No focal hepatic lesion or biliary ductal dilatation is present. The gallbladder is not seen. PANCREAS: Unremarkable. SPLEEN: Spleen is enlarged at 13.4 cm in greatest dimension. ADRENAL GLANDS: Unremarkable. KIDNEYS AND URETERS: The kidneys are normal in size, shape, and attenuation. There is a 3 mm nonobstructing calculus in the right mid kidney. A tiny punctate nonobstructing calcification is seen in the left kidney. No hydronephrosis, hydroureter, or ureteral calculi seen. No perinephric stranding. BLADDER: Unremarkable. GASTROINTESTINAL TRACT: There is a marked inflammatory process present in the pelvis in the region of the appendix. At the time of the 04/26/2022 study, the appendix appeared normal (prior 3:74). At this point in time, the appendix the appendix is not as well defined by the marked inflammatory process. Examination of the sagittal views shows most marked difference between the old study in the current abnormal study (8:72 compare prior 6:72). There is no drainable fluid collection. There is no free intraperitoneal air. The small and large bowel are unremarkable. ABDOMINAL WALL: No significant hernia is appreciated. LYMPH NODES: No retroperitoneal lymphadenopathy. VASCULAR: Unremarkable. PELVIC VISCERA: A retroverted uterus is present. A 2.5 cm right ovarian cyst is once again seen. OSSEOUS STRUCTURES: Unremarkable. CT/CT abdomen pelvis w IV con IMPRESSION: 1. Marked inflammatory process in the pelvis in the region of the appendix. At the time of the 04/26/2022 study, the appendix appeared normal. At this point in time, the appendix is not as well defined by the marked inflammatory process. There is no drainable fluid collection or free intraperitoneal air. Findings are compatible with acute uncomplicated appendicitis. 2. Incidental note made of hepatosplenomegaly, bilateral nonobstructing renal calculi and a 2.5 cm right ovarian cyst. Fleischner guidelines were followed.
[2023-09-22 12:46] VITALS: BP 151/91; PULSE 93; RESP 16; TEMP 36.6; O2SAT 98; BMI 40.2
--- NOTE | 2023-09-22 12:46 | ED.GENADULT ---
HPI - General Adult General Chief complaint: Abdominal Pain Stated complaint: Lower Abdominal Pain Time Seen by Provider: 09/22/23 17:51 Source: patient Mode of arrival: ambulatory Limitations: no limitations History of Present Illness HPI narrative: Patient is a 37-year-old female who presents emergency department who presents emergency department for evaluation of abdominal pain. She reports 4 weeks ago onset of E mid lower abdominal pain, nonradiating. For the 1st 2 weeks with intermittent, over the past week it has been occurring more frequently, and constant for the past 3 days. It is described as a sharp pain. She also reports multiple episodes of diarrhea over the past 3 weeks alternating with constipation. Reporting last normal bowel movement 3 weeks ago. Today had a small bowel movement with very hard and formed stool. She has vomited approximately 8 times over the past 3 weeks, but states this is only when she is in severe pain. She reports a history of similar pain approximately 1.5 years ago for which she reports she was treated for colitis, uncertain with what medication, but her symptoms did improve. Recommend or melena. She has a history of gastric balloon surgery in March of 2022 which was subsequently removed and April of 2022. She is currently on her menstrual cycle, reporting heavier than normal vaginal bleeding, she is changing her mandatory napkin every 3-4 hours. She denies dysuria, urinary frequency/urgency/hesitancy. Related Data Previous Rx's Medication Instructions Recorded ibuprofen 600 mg tablet 600 mg PO Q6H PRN fever or pain 08/23/23 #30 tabs ferrous sulfate 325 mg (65 mg 325 mg PO DAILY 90 days #90 tabs 09/13/23 iron) tablet Allergies Allergy/AdvReac Type Severity Reaction Status Date / Time No Known Allergies Allergy Verified 09/01/23 10:14 Review of Systems Review of Systems: Yes all other systems are reviewed and are negative [facility] Past Medical History Attestation statement: The following information was validated with the patient. Source: old records reviewed Medical History Intractable vomiting Vomiting Inflammatory bowel disease Irritable bowel syndrome Surgical History Bariatric surgery status Hx of cholecystectomy No pertinent past surgical history Social History Social History Household Members: Family Housing: House Alcohol intake: never Patient Tobacco Use Status: Never used Tobacco Smoked in Last 30 Days: No e-Cigarette/Vaping Use: Never Used Second Hand Smoke Exposure: No Use of substances other than those prescribed or required for medical reasons: No Advance Directives: No Advance Directives Information Provided: Yes Patient : No service: No Current occupational status: employed 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 No acute distress.?Normal affect. Eyes: Pupils equal, round and reactive to light.? ENT: Pharynx normal.?? Neck: Normal inspection.? Neck supple.?? CVS: Heart sounds normal. Normal heart rate and rhythm.? Pulses normal.?? Respiratory: No respiratory distress.? Lung sounds clear to auscultation bilaterally?? Abdomen: Soft with right lower quadrant mid lower abdominal tenderness upon palpation. No rigidity. No guarding. No distention. No CVA tenderness. Normoactive bowel sounds. No pulsatile mass.?? Skin: Skin warm and dry.? Normal skin color.? Normal skin turgor.?? Extremities: No lower extremity edema.? No calf ttp? Neuro: Moves all extremities spontaneously. Sensation intact bilaterally. CN II-XII intact. No focal neuro deficits. Ambulates with normal steady gait. Course Course Course Narrative: 37-year-old female with a history of bariatric surgery and laparoscopic cholesytectomy presents with 2.5 weeks of lower abdominal pain. She has vomited about 8 times over the past 2 weeks. She had a BM today that was hard and small. No blood in stools. Her last normal BM was 3 weeks ago. She reports chills on Thursday and thursday. She reports heavy vaginal bleeding. No sick contacts or recent travel. She reports a similar type of pain 2 years ago that she was hospitalized for. No history of UC/Crohns. Plan: Labs, urine, imaging Reevaluation(s) Reevaluation #1: Received call from [facility], CT abdomen and pelvis concerning for acute uncomplicated appendicitis without free intraperitoneal air. Blood cultures to be obtained. Coverage with ceftriaxone and metronidazole. Consulted with General surgery, Dr. Valentine, admitted to surgical service in plan for likely surgery tomorrow. Time: 22:08 Medications Administered Generic Name Dose Route Start Last Admin Trade Name Freq PRN Reason Stop Dose Admin Sodium Chloride 1,000 mls @ 100 mls/hr 09/22/23 22:30 09/22/23 23:00 Ns IVCONT 100 mls/hr .Q10H MALCOM Administration Piperacillin Sod/Tazobactam 50 mls @ 100 mls/hr 09/23/23 00:00 09/23/23 01:22 Sod 3.375 gm/ Sodium Chloride IV Infused RQ6H MALCOM Infusion Ketorolac Tromethamine 15 mg 09/23/23 00:00 09/22/23 23:29 Ketorolac Tromethamine 15 Mg/Ml Vial IVPUSH 15 mg RQ6H MALCOM Administration Sodium Chloride 3 ml 09/23/23 00:00 09/22/23 23:29 0.9 % Sodium Chloride Flush 3 Ml Syringe IVFLUSH 3 ml QSHIFT MALCOM Administration Discontinued Medications Generic Name Dose Route Start Last Admin Trade Name Freq PRN Reason Stop Dose Admin Sodium Chloride 1,000 mls @ 999 mls/hr 09/22/23 18:45 09/22/23 20:48 Ns IV 09/22/23 19:45 Infused .Q1H1M MALCOM Infusion Metronidazole 500 mg in 100 mls @ 100 mls/hr 09/22/23 22:05 09/23/23 00:36 Flagyl IV 09/22/23 23:04 Infused ONCE ONE Infusion Ceftriaxone Sodium 1 gm/ 50 mls @ 100 mls/hr 09/22/23 22:05 09/22/23 23:34 Sodium Chloride IV 09/22/23 22:34 Infused ONCE ONE Infusion Iohexol 85 ml 09/22/23 19:32 09/22/23 19:32 Iohexol 350 Mg/Ml 100 Ml Infus..Btl IV 09/22/23 19:33 85 ml ONCE ONE Administration Ketorolac Tromethamine 30 mg 09/22/23 18:36 09/22/23 18:55 Ketorolac Tromethamine 30 Mg/Ml Vial IVPUSH 09/22/23 18:37 30 mg ONCE ONE Administration Ondansetron HCl 4 mg 09/22/23 18:36 09/22/23 18:54 Ondansetron Hcl 4 Mg/2 Ml Vial IVPUSH 09/22/23 18:37 4 mg ONCE ONE Administration Medical Decision Making Medical Decision Making MDM Narrative: Patient is a 37-year-old female who presents emergency department for evaluation of abdominal pain as per HPI. At the time my examination she appears overall well, nontoxic, afebrile. She is without tachypnea, hypoxia, and is afebrile. Abdominal examination notable for right lower quadrant and mid lower abdominal tenderness upon palpation. No CVA tenderness. Will obtain CBC to evaluate for leukocytosis/ anemia, CMP and lipase to evaluate for abnormal electrolytes /abnormal renal function/ abnormal hepatic/biliary function, CT abdomen and pelvis, and Urinalysis. Patient to receive 1 L normal saline IV fluid, Toradol IV for pain, Zofran IV for nausea. Differential Diagnosis Differential Diagnoses: The differential diagnosis associated with the presentation includes (Colitis, diverticulitis, appendicitis, ovarian cyst, urinary tract infection, pyelonephritis, ureteral calculus, suspect less likely ovarian torsion) Admission/Observation Consideration of admission/observation: Escalation of care including admission/observation considered (I considered admission for abdominal pain, see course narrative for further detail) Consult Healthcare Provider Management of the patient was discussed with: Lead Warehouse Associate (General surgery, Dr. Valentine) Lab Data MDM Lab Attestation statement: I reviewed the patient's lab results. CBC is without leukocytosis, baseline microcytic anemia, CMP overall unremarkable. Lipase within normal limits. HCG negative. COVID-19 and influenza testing are negative. 09/22/23 13:27 09/22/23 13:27 Labs: Lab Results 09/22/23 09/22/23 09/22/23 Range/Units 13:27 13:28 21:11 WBC 6.8 (4.8-10.8) X10*3/uL RBC 4.61 (4.20-5.50) X10*6/uL Hgb 10.9 L (12.0-16.0) g/dl Hct 35.3 L (37.0-47.0) % MCV 76.6 L (80.0-98.0) fL MCH 23.6 L (27.0-33.0) pg MCHC 30.9 L (31.0-35.0) g/dl RDW 15.4 (11.0-16.0) % Plt Count 335 D (160-400) X10*3/uL MPV 11.2 (9.4-12.3) fL Immature Gran % (Auto) 0.4 (0.0-0.4) % Neut % (Auto) 66.8 (45-73) % Lymph % (Auto) 27.3 (20-40) % [place] % (Auto) 2.7 (2-11) % Eos % (Auto) 2.4 (0-4) % Baso % (Auto) 0.4 (0-2) % Lymph # (Auto) 1.9 (1.2-4.9) X10*3/uL [place] # (Auto) 0.2 (0.1-1.2) X10*3/uL Eos # (Auto) 0.2 (0.0-0.4) X10*3/uL Baso # (Auto) 0.0 (0.0-0.2) X10*3/uL Abs Immat Gran (auto) 0.03 (0.00-0.03) X10*3/uL Absolute Neuts (auto) 4.5 (2.0-8.3) x10*3/uL Absolute Nucleated RBC 0.000 (0.0-0.012) X10*3/uL Nucleated RBC % (auto) 0.0 (0.0-0.2) /100WBC Sodium 139 (135-145) mmol/L Potassium 3.8 (3.3-5.1) mmol/L Chloride 107 (96-108) mmol/L Carbon Dioxide 26 (22-29) mmol/L Anion Gap 10 L (12-20) BUN 7 L (9-16) mg/dL Creatinine 0.82 (0.5-1.4) mg/dL Estim Creat Clear Calc 129.1 Estimated GFR > 60 Random Glucose 89 (60-115) mg/dL Calcium 9.7 (8.4-10.2) mg/dL Magnesium 2.0 (1.6-2.6) mg/dL Total Bilirubin 0.3 (0.0-1.0) mg/dL AST 17 (5-31) U/L ALT 20 (0-31) U/L Alkaline Phosphatase 87 (39-117) U/L Total Protein 8.1 H (6.5-8.0) g/dL Albumin 4.1 (3.5-5.0) g/dL Lipase 17 (8-78) U/L Beta HCG, Quant < 2 mIU/mL Urine Color Yellow Urine Appearance Clear Urine pH 5.5 (5.0-9.0) Ur Specific [place] >= 1.030 H (1.005-1.025) Urine Protein 30 (1+) H (Neg-Trace) mg/dL Urine Glucose (UA) Negative (Negative) mg/dL Urine Ketones Negative (Negative) mg/dL Urine Blood Large (3+) H (Negative) Urine Nitrite Negative (Negative) Ur Leukocyte Esterase Negative (Negative) Urine RBC >20 H (0-2) /HPF Urine WBC 0-5 (0-5) /HPF Ur Squamous Epith Cells 0-2 (0-2) /HPF Urine Bacteria None Seen (None Seen) Hyaline Casts 0-2 (0-2) /LPF Urine Test Cancelled COVID-19 (JOSÉ) Negative (Negative) COVID-19 Clin Com See Note Influenza Type A (WILLOW) Negative (Negative) Influenza Type B (WILLOW) Negative (Negative) Influenza A & B Note See Note Independent Interpretation I performed an independent interpretation of an: CT Scan Radiology Impression Discussion of test interpretation with radiology: I have reviewed the radiologist's reading. Radiologist Impression: CT/CT abdomen pelvis w IV con IMPRESSION: 1. Marked inflammatory process in the pelvis in the region of the appendix. At the time of the 04/26/2022 study, the appendix appeared normal. At this point in time, the appendix is not as well defined by the marked inflammatory process. There is no drainable fluid collection or free intraperitoneal air. Findings are compatible with acute uncomplicated appendicitis. 2. Incidental note made of hepatosplenomegaly, bilateral nonobstructing renal calculi and a 2.5 cm right ovarian cyst. Independent Historian Clinical information obtained from an independent historian. History obtained from or confirmed by: Other (Daughter present at bedside who confirms history) External Record Review External record reviewed: Inpatient record (April 2022) Discharge Plan Discharge Clinical Impression: Acute appendicitis Patient Disposition: Admitted As Inpatient
[2023-09-22 13:35] LABS: MANUAL DIFF FLAG NO
[2023-09-22 13:36] LABS: Basophils Percent Auto 0.4 % (0-2); Eosinophils Absolute Auto 0.2 X10*3/uL (0.0-0.4); Eosinophils Percent Auto 2.4 % (0-4); Hematocrit 35.3 % (37.0-47.0); Hemoglobin 10.9 g/dl (12.0-16.0); Imm Gran Abs Auto 0.03 X10*3/uL (0.00-0.03); Imm Gran Pct Auto 0.4 % (0.0-0.4); Lymphocytes Absolute Auto 1.9 X10*3/uL (1.2-4.9); Lymphocytes Percent Auto 27.3 % (20-40); Mean Corpuscular HGB Conc 30.9 g/dl (31.0-35.0); Mean Corpuscular Hemoglobin 23.6 pg (27.0-33.0); Mean Corpuscular Volume 76.6 fL (80.0-98.0); Mean Platelet Volume 11.2 fL (9.4-12.3); Monocytes Absolute Auto 0.2 X10*3/uL (0.1-1.2); Monocytes Percent Auto 2.7 % (2-11); Neutrophils Absolute Auto 4.5 x10*3/uL (2.0-8.3); Neutrophils Percent Auto 66.8 % (45-73); Platelet Count 335 X10*3/uL (160-400); Red Blood Count 4.61 X10*6/uL (4.20-5.50); Red Cell Distribution Width 15.4 % (11.0-16.0); White Blood Count 6.8 X10*3/uL (4.8-10.8)
[2023-09-22 13:51] LABS: COVID-19 Test Negative (Negative); IDNOW Serial# BCCEAD1C
[2023-09-22 13:53] LABS: Alanine Aminotransferase 20 U/L (0-31); Albumin Level 4.1 g/dL (3.5-5.0); Alkaline Phosphatase 87 U/L (39-117); Anion Gap 10 (12-20); Aspartate Amino Transferase 17 U/L (5-31); Bilirubin Total 0.3 mg/dL (0.0-1.0); Blood Urea Nitrogen 7 mg/dL (9-16); Calcium 9.7 mg/dL (8.4-10.2); Carbon Dioxide 26 mmol/L (22-29); Chloride 107 mmol/L (96-108); Creatinine Clr Calc Pharmacy 129.1; Estimated Glomerular Filt Rate > 60; Glucose Random 89 mg/dL (60-115); Lipase 17 U/L (8-78); Potassium 3.8 mmol/L (3.3-5.1); Sodium 139 mmol/L (135-145); Total Protein 8.1 g/dL (6.5-8.0)
[2023-09-22 14:11] LABS: IDNOW Serial# 9DB6401D
[2023-09-22 14:12] LABS: Influenza A Negative (Negative); Influenza B2 Negative (Negative)
[2023-09-22 18:24] LABS: HCG Quantitative < 2 mIU/mL
[2023-09-22 18:41] VITALS: BP 117/82; PULSE 84; RESP 20; O2SAT 100
[2023-09-22] MEDS: ondansetron HCL 4 MG/2 ML VIAL IVPUSH (18:54)
[2023-09-22] MEDS: 0.9 % Sodium Chloride 1,000 ML 999 ML IV (18:54)
[2023-09-22] MEDS: Ketorolac Tromethamine 30 MG/ML VIAL IVPUSH (18:55)
--- NOTE | 2023-09-22 18:59 | PC.NURSE ---
pt aox4. abd pain x3-4 weeks. unable to provide urine sample due to decreased PO intake over the past 2 days. bladder scan incomplete - unable to visualize bladder.r IV placed 20g left AC. Fluids infusing. medicated for nausea and pain CT scan pending. plan of care ongoing.
[2023-09-22] MEDS: iohexoL 350 MG/ML 100 ML INFUS..BTL 85 ML IV (19:32)
[2023-09-22 21:22] LABS: Appearance Urine Clear; Color Urine Yellow; Glucose Urine UA Negative (Negative); Leukocyte Esterase Urine Negative (Negative); Nitrite Urine Negative (Negative); PH 5.5 (5.0-9.0); Specific Gravity - Urine >= 1.030 (1.005-1.025); UMIC TRIGGER UACC YES; Urine Blood Large (3+) (Negative); Urine Ketones Negative (Negative); Urine Protein 30 (1+) mg/dL (Neg-Trace)
[2023-09-22 21:38] LABS: Bacteria Urine None Seen (None Seen); Hyaline Casts Urine 0-2 /LPF (0-2); RBC Urine >20 /HPF (0-2); Squamous Epithelial Cell Urine 0-2 /HPF (0-2); WBC Urine 0-5 /HPF (0-5)
[2023-09-22 21:40] VITALS: BP 119/79; PULSE 83; RESP 16; TEMP 36.7; O2SAT 99
--- NOTE | 2023-09-22 21:53 | PC.NURSE ---
This specifications writer assumed care of this Pt at 2100. Pt A&Ox3, reports 8/10 constant lower ABD pressure. Pt states it feels like when I had colitis over a year ago . Pt tender to lower ABD quadrants, hypoactive bowel sounds. Pt reports last BM was today and it was diarrhea. Pt ambulated to BR with steady gait, urine sample obtained and sent to lab. Pt reports she is on her menses.
[2023-09-22 22:55] LABS: Lactic Acid 1.1 mmol/L (0.5-2.0)
[2023-09-22] MEDS: cefTRIAXone sodium 1 GM in 0.9 % Sodium Chloride 50 ML IV (22:59)
[2023-09-22] MEDS: 0.9 % Sodium Chloride 1,000 ML 100 ML IVCONT (23:00)
[2023-09-22] MEDS: 0.9 % Sodium Chloride Flush 3 ML SYRINGE IVFLUSH (23:29)
[2023-09-22] MEDS: Ketorolac Tromethamine 15 MG/ML VIAL IVPUSH (23:29)
[2023-09-22] MEDS: metroNIDAZOLE/NS 500 MG/100 ML PIGGYBACK 100 MG IV (23:34)
[2023-09-23] VITALS (20 sets, daily range): BP systolic 100–133; BP diastolic 48–80; PULSE 72–110; RESP 12–18; TEMP 36.1–36.8; O2SAT 85–100; BMI 40.2
[2023-09-23] MEDS: Piperacillin Sodium/Tazobactam 3.375 GM in 0.9 % Sodium Chloride 50 ML IV ×4 (00:37→18:32)
--- NOTE | 2023-09-23 01:33 | PC.NURSE ---
Pt ambulated to the BR independently with steady gait. Warm blanket given per request.
[2023-09-23] MEDS: ondansetron HCL 4 MG/2 ML VIAL IVPUSH ×2 (05:10→10:16)
[2023-09-23] MEDS: Morphine Sulfate 4 MG/ML CARTRIDGE IVPUSH ×4 (05:11→23:05)
--- NOTE | 2023-09-23 05:14 | PC.NURSE ---
Pt ambulated to BR independently with steady gait, upon return Pt reports nausea and 10/[address] Bazzi contacted, verbal order obtained for mophine q3h PRN, and given.
[2023-09-23] MEDS: Ketorolac Tromethamine 15 MG/ML VIAL IVPUSH ×3 (06:09→18:32)
[2023-09-23 06:13] LABS: Anion Gap 10 (12-20); Blood Urea Nitrogen 9 mg/dL (9-16); Calcium 8.8 mg/dL (8.4-10.2); Carbon Dioxide 24 mmol/L (22-29); Chloride 110 mmol/L (96-108); Creatinine Clr Calc Pharmacy 129.1; Estimated Glomerular Filt Rate > 60; Glucose Random 96 mg/dL (60-115); Potassium 3.4 mmol/L (3.3-5.1); Sodium 141 mmol/L (135-145)
[2023-09-23 06:37] LABS: Basophils Percent Auto 0.6 % (0-2); Eosinophils Absolute Auto 0.2 X10*3/uL (0.0-0.4); Eosinophils Percent Auto 2.7 % (0-4); Hematocrit 30.7 % (37.0-47.0); Hemoglobin 9.6 g/dl (12.0-16.0); Imm Gran Abs Auto 0.03 X10*3/uL (0.00-0.03); Imm Gran Pct Auto 0.5 % (0.0-0.4); Lymphocytes Absolute Auto 1.9 X10*3/uL (1.2-4.9); Lymphocytes Percent Auto 29.1 % (20-40); Mean Corpuscular HGB Conc 31.3 g/dl (31.0-35.0); Mean Corpuscular Hemoglobin 23.7 pg (27.0-33.0); Mean Corpuscular Volume 75.8 fL (80.0-98.0); Mean Platelet Volume 11.6 fL (9.4-12.3); Monocytes Absolute Auto 0.3 X10*3/uL (0.1-1.2); Monocytes Percent Auto 3.9 % (2-11); Neutrophils Percent Auto 63.2 % (45-73); Red Blood Count 4.05 X10*6/uL (4.20-5.50); Red Cell Distribution Width 15.2 % (11.0-16.0)
[2023-09-23 06:38] LABS: Platelet Count 287 X10*3/uL (160-400); White Blood Count 6.4 X10*3/uL (4.8-10.8)
--- NOTE | 2023-09-23 07:17 | PM.HPGS ---
History of Present Illness History of Present Illness Date of Service: 09/23/23 Chief complaint: Abdominal pain Narrative: Marika Trejo is a 37 year old female presents here with 3-4 day history of progressively worsening abdominal pain which is located to right lower quadrant. She has had some associated nausea vomiting. No diarrhea. Patient is occasionally constipated. No sick contacts. No unusual diet. No recent foreign travel. Patient had a similar less severe episode of this pain several weeks ago but resolved spontaneously. Chart was reviewed and patient evaluated. CT scan consistent with appendicitis. [facility] Past Medical History Medical History Intractable vomiting Vomiting Inflammatory bowel disease Irritable bowel syndrome Surgical History Surgical History Bariatric surgery status Hx of cholecystectomy No pertinent past surgical history Social History Social History Household Members: Family Housing: House Alcohol intake: never Patient Tobacco Use Status: Never used Tobacco Smoked in Last 30 Days: No e-Cigarette/Vaping Use: Never Used Second Hand Smoke Exposure: No Use of substances other than those prescribed or required for medical reasons: No Advance Directives: No Advance Directives Information Provided: Yes Nutrition Risks: No Nutritional Risk Patient : No service: No Current occupational status: employed 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 Current occupational exposures/hazards: No Cognitive needs: No Hearing needs: No Vision needs: No Meds Allergies Allergy/AdvReac Type Severity Reaction Status Date / Time No Known Allergies Allergy Verified 09/01/23 10:14 Active Medications: Current Medications Sodium Chloride (Ns) 1,000 mls @ 100 mls/hr IVCONT .Q10H [facility] Last Admin: 09/22/23 23:00 Dose: 100 mls/hr Piperacillin Sod/Tazobactam (Sod 3.375 gm/ Sodium Chloride) 50 mls @ 100 mls/hr IV RQ6H [facility] Last Infusion: 09/23/23 06:48 Dose: Infused Ketorolac Tromethamine (Ketorolac Tromethamine 15 Mg/Ml Vial) 15 mg IVPUSH RQ6H [facility] Last Admin: 09/23/23 06:09 Dose: 15 mg Morphine Sulfate (Morphine Sulfate 4 Mg/Ml Cartridge) 4 mg IVPUSH Q3H PRN; Protocol PRN Reason: Pain, Severe (Pain Scale 7-10) Last Admin: 09/23/23 05:11 Dose: 4 mg Ondansetron HCl (Ondansetron Hcl 4 Mg/2 Ml Vial) 4 mg IVPUSH Q8H PRN PRN Reason: Nausea and Vomiting Last Admin: 09/23/23 05:10 Dose: 4 mg Sodium Chloride (0.9 % Sodium Chloride Flush 3 Ml Syringe) 3 ml IVFLUSH QSHIFT [facility] Last Admin: 09/22/23 23:29 Dose: 3 ml Physical Exam Vital Signs: Vital Signs: Last Vital Signs Temp 98.1 F 09/23/23 00:24 Pulse 80 09/23/23 03:30 Resp 18 09/23/23 05:11 BP 110/57 L 09/23/23 03:30 Pulse Ox 97 09/23/23 03:30 O2 Del Method Room Air 09/23/23 03:30 BMI result Body Mass Index 40.2 Chest: Other: Chest breath sounds bilaterally, HS 1 in 2 GI: Other: Corpulent, marked right lower quadrant localized tenderness. Moderately sized pannus. Results Results Labs: Short CBC 09/22/23 09/23/23 Range/Units 13:27 05:28 WBC 6.8 6.4 (4.8-10.8) X10*3/uL Hgb 10.9 L 9.6 L (12.0-16.0) g/dl Hct 35.3 L 30.7 L (37.0-47.0) % Plt Count 335 D 287 (160-400) X10*3/uL BMP 09/22/23 09/23/23 13:27 05:28 Sodium 139 141 Potassium 3.8 3.4 Chloride 107 110 H Carbon Dioxide 26 24 BUN 7 L 9 Creatinine 0.82 0.82 Calcium 9.7 8.8 D Liver Function 09/22/23 Range/Units 13:27 Total Bilirubin 0.3 (0.0-1.0) mg/dL AST 17 (5-31) U/L ALT 20 (0-31) U/L Alkaline Phosphatase 87 (39-117) U/L Albumin 4.1 (3.5-5.0) g/dL Urine 09/22/23 Range/Units 21:11 Urine Color Yellow Urine Appearance Clear Urine pH 5.5 (5.0-9.0) Ur Specific [place] >= 1.030 H (1.005-1.025) Urine Protein 30 (1+) H (Neg-Trace) mg/dL Urine Glucose (UA) Negative (Negative) mg/dL Urine Test Cancelled Assessment and Plan (1) Acute appendicitis: Status: Acute Plan Risks, benefits, alternatives of laparoscopic possible open appendectomy were reviewed with the patient and included but not limited to bleeding, infection, recurrence of symptoms, numbness, pain, scarring, bowel or bladder injury and the patient wishes to proceed. All questions were answered. Patient will be an added on for this morning. Quality Stroke Does the patient have a stroke diagnosis?: No VTE Prior VTE?: No VTE Risk Level:: Surgical - low VTE Device Contraindication: N/A - Device Ordered VTE Drug Contraindication: Treatment Not Indicated Procedures Date of Service Date of Service: 09/23/23
--- NOTE | 2023-09-23 07:32 | PHA.MEDREC ---
Pharmacy Consult ? Medication Reconciliation Pharmacy has completed the medication reconciliation.Med rec checking in am
--- NOTE | 2023-09-23 07:46 | HO.ANESPROP2 ---
Documented by User: Melida Elmore MD 09/23/23 07:48 HPI - Anesthesia Eval Consult details Narrative: 37 yo female patient for Laparos PMFSH Active Problems Active Problems: All Active Problems (Updated 09/23/23 @ 07:30 by Agnieszka Fofana RN) Acute appendicitis (Acute) Microcytic anemia (Acute) Morbid obesity with BMI of 40.0-44.9, adult (Acute) Effusion, right knee (Acute) Obesity (Acute) Encounter to establish care (Acute) Constipation (Acute) Past Medical History Medical History Anemia Intractable vomiting Vomiting Inflammatory bowel disease Irritable bowel syndrome Surgical History Surgical History Bariatric surgery status Hx of cholecystectomy No pertinent past surgical history Social History Social History Household Members: Family Housing: House Alcohol intake: never Patient Tobacco Use Status: Never used Tobacco e-Cigarette/Vaping Use: Never Used Second Hand Smoke Exposure: No service: No Current occupational status: employed 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 Current occupational exposures/hazards: No Cognitive needs: No Hearing needs: No Vision needs: No Meds Allergies Allergy/AdvReac Type Severity Reaction Status Date / Time No Known Allergies Allergy Verified 09/23/23 07:31 Active Medications: Current Medications Sodium Chloride (Ns) 1,000 mls @ 100 mls/hr IVCONT .Q10H [facility] Last Admin: 09/22/23 23:00 Dose: 100 mls/hr Piperacillin Sod/Tazobactam (Sod 3.375 gm/ Sodium Chloride) 50 mls @ 100 mls/hr IV RQ6H [facility] Last Infusion: 09/23/23 06:48 Dose: Infused Ketorolac Tromethamine (Ketorolac Tromethamine 15 Mg/Ml Vial) 15 mg IVPUSH RQ6H [facility] Last Admin: 09/23/23 06:09 Dose: 15 mg Morphine Sulfate (Morphine Sulfate 4 Mg/Ml Cartridge) 4 mg IVPUSH Q3H PRN; Protocol PRN Reason: Pain, Severe (Pain Scale 7-10) Last Admin: 09/23/23 05:11 Dose: 4 mg Ondansetron HCl (Ondansetron Hcl 4 Mg/2 Ml Vial) 4 mg IVPUSH Q8H PRN PRN Reason: Nausea and Vomiting Last Admin: 09/23/23 05:10 Dose: 4 mg Sodium Chloride (0.9 % Sodium Chloride Flush 3 Ml Syringe) 3 ml IVFLUSH QSHIFT [facility] Last Admin: 09/22/23 23:29 Dose: 3 ml Exam Height,Weight and Vital Signs: Height 5 ft 8 in Weight 119.8 kg Last Vital Signs Temp 98.2 F 09/23/23 07:32 Pulse 80 09/23/23 07:32 Resp 15 09/23/23 07:32 BP 112/64 09/23/23 07:32 Pulse Ox 98 09/23/23 07:32 O2 Del Method Room Air 09/23/23 07:32 Pertinent Lab Results Pertinent Lab Results: Laboratory Tests 09/22/23 09/22/23 09/22/23 13:27 13:28 21:11 WBC 6.8 RBC 4.61 Hgb 10.9 L Hct 35.3 L MCV 76.6 L MCH 23.6 L MCHC 30.9 L RDW 15.4 Plt Count 335 D MPV 11.2 Immature Gran % (Auto) 0.4 Neut % (Auto) 66.8 Lymph % (Auto) 27.3 [place] % (Auto) 2.7 Eos % (Auto) 2.4 Baso % (Auto) 0.4 Lymph # (Auto) 1.9 [place] # (Auto) 0.2 Eos # (Auto) 0.2 Baso # (Auto) 0.0 Abs Immat Gran (auto) 0.03 Absolute Neuts (auto) 4.5 Absolute Nucleated RBC 0.000 Nucleated RBC % (auto) 0.0 Sodium 139 Potassium 3.8 Chloride 107 Carbon Dioxide 26 Anion Gap 10 L BUN 7 L Creatinine 0.82 Estim Creat Clear Calc 129.1 Estimated GFR > 60 Random Glucose 89 Lactic Acid Calcium 9.7 Magnesium 2.0 Total Bilirubin 0.3 AST 17 ALT 20 Alkaline Phosphatase 87 Total Protein 8.1 H Albumin 4.1 Lipase 17 Beta HCG, Quant < 2 Urine Color Yellow Urine Appearance Clear Urine pH 5.5 Ur Specific [place] >= 1.030 H Urine Protein 30 (1+) H Urine Glucose (UA) Negative Urine Ketones Negative Urine Blood Large (3+) H Urine Nitrite Negative Ur Leukocyte Esterase Negative Urine RBC >20 H Urine WBC 0-5 Ur Squamous Epith Cells 0-2 Urine Bacteria None Seen Hyaline Casts 0-2 Urine Test Cancelled COVID-19 ([facility]OS[facility]) Negative COVID-19 Clin Com See Note Influenza Type A ([facility]OW) Negative Influenza Type B ([facility]OW) Negative Influenza A & B Note See Note Blood Type Antibody Screen 09/22/23 09/22/23 09/23/23 22:37 23:11 05:28 WBC 6.4 RBC 4.05 L Hgb 9.6 L Hct 30.7 L MCV 75.8 L MCH 23.7 L MCHC 31.3 RDW 15.2 Plt Count 287 MPV 11.6 Immature Gran % (Auto) 0.5 H Neut % (Auto) 63.2 Lymph % (Auto) 29.1 [place] % (Auto) 3.9 Eos % (Auto) 2.7 Baso % (Auto) 0.6 Lymph # (Auto) 1.9 [place] # (Auto) 0.3 Eos # (Auto) 0.2 Baso # (Auto) 0.0 Abs Immat Gran (auto) 0.03 Absolute Neuts (auto) 4.0 Absolute Nucleated RBC 0.000 Nucleated RBC % (auto) 0.0 Sodium 141 Potassium 3.4 Chloride 110 H Carbon Dioxide 24 Anion Gap 10 L BUN 9 Creatinine 0.82 Estim Creat Clear Calc 129.1 Estimated GFR > 60 Random Glucose 96 Lactic Acid 1.1 Calcium 8.8 D Magnesium Total Bilirubin AST ALT Alkaline Phosphatase Total Protein Albumin Lipase Beta HCG, Quant Urine Color Urine Appearance Urine pH Ur Specific [place] Urine Protein Urine Glucose (UA) Urine Ketones Urine Blood Urine Nitrite Ur Leukocyte Esterase Urine RBC Urine WBC Ur Squamous Epith Cells Urine Bacteria Hyaline Casts Urine Test COVID-19 (JOSÉ) COVID-19 Clin Com Influenza Type A ([facility]OW) Influenza Type B (WILLOW) Influenza A & B Note Blood Type O Positive Antibody Screen NEGATIVE Documented by User: Adalberto Rendon MD 09/23/23 08:28 HPI - Anesthesia Eval Consult details Narrative: 37 yo female patient for Laparoscopic appendectomy PMFSH Past Medical History Medical History Anemia Intractable vomiting Vomiting Inflammatory bowel disease Irritable bowel syndrome Family History Family history of problems with anesthesia: No Surgical History Surgical History Bariatric surgery status Hx of cholecystectomy No pertinent past surgical history History of Problems with Anesthesia: No Social History Social History Household Members: Family Housing: House Alcohol intake: never Patient Tobacco Use Status: Never used Tobacco e-Cigarette/Vaping Use: Never Used Second Hand Smoke Exposure: No service: No Current occupational status: employed 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 Current occupational exposures/hazards: No Cognitive needs: No Hearing needs: No Vision needs: No Meds Allergies Allergy/AdvReac Type Severity Reaction Status Date / Time No Known Allergies Allergy Verified 09/23/23 07:31 Exam Airway Mallampati Class: III TM Dist: >3cm Neck ROM: Full Loose/Missing/Broken Teeth: No Heart: [id number] Lungs: cta b/l Assessment and Plan Assessment Anesthesia Assessment: Anesthesia Plan Discussed and Chart Reviewed Final Anesthetic Review Family History of Problems with Anesthesia: No History of Problems with Anesthesia: No NPO: Yes ASA Class: II Final Preanesthetic Review: No Changes in Pt Med Stat, Meds/Allgs Chart Reviewed, Consent Obtained/Reviewed and Anes Risks/Benef Reviewed Patient Risk: Intermediate Procedure Risk: Intermediate Assessment/Block/Sedation in SS: Assess/Block/Sedation-SS Anesthetic Plan Anesthetic Plan: GA and Agree w/ Assess. and Plan Disposition: Standard PACU
--- NOTE | 2023-09-23 09:19 | MHC.CM.PN ---
Addendum entered by Clementina Farfan 09/24/23 07:21: Entered in error Original Note: pt discharged home no skilled servies
--- NOTE | 2023-09-23 09:22 | P.OP_ITS ---
Operative Note Operative Note Date of Service: 09/23/23 Narrative: Preoperative diagnosis: [] Acute appendicitis, incarcerated umbilical hernia 2 cm Postop diagnosis: [] Same Procedure [] laparoscopic appendectomy, primary repair incarcerated umbilical hernia Surgeon: [] Adrien Internet Marketing Strategist: [] Jeff Type of Anesthesia: [] General Indication for surgery: [] Edematous inflamed retrocecal appendix. No gross evidence of perforation. Markedly corpulent abdomen. Omental adhesions in the right lower quadrant. Approximate 2 cm incarcerated umbilical hernia with omentum. Findings: [] Patient brought to the operating room, placed on operative table supine position, after adequate level of general anesthesia was induced, the patient's abdomen ,which was very corpulent, was prepped and draped in usual sterile fashion. Using an incision supraumbilically from a previous abdominal surgery, Luis technique was used to insufflate the abdominal cavity to 15 mm of CO2 through an 2 cm umbilical incarcerated hernia with omentum, the latter which was reduced.. Lower midline and suprapubic ports were placed under direct laparoscopic view, the patient placed in Trendelenburg position, and tilted to the left. The omentum was mobilized from the right lower quadrant and the cecum was identified and brought onto the field. Retrocecal appendix was grasped and the appendix was transected at the cecal base using endoscopic SALOMÓN stapler. Mesentery was then taken down using double firing of ligature device. Specimen was placed in an Endo-Catch bag, and retrieved through the umbilical port. Abdominal cavity was very copiously irrigated, and secured hemostasis. All port s were removed under direct laparoscopic view. Wounds were closed in the following manner; umbilical wound, which was the site of the umbilical hernia, was closed primarily using interrupted 0 Vicryl sutures. Skin wounds were closed using subcuticular 4-0 Vicryl sutures followed by Steri-Strips and sterile dressings. Wounds were infiltrated 0.5% Marcaine at completion. Sponge, needle, instrument counts reported correct. Patient tolerated the procedure well and emerged anesthesia stable condition. EBL minimal
[2023-09-23] MEDS: fentaNYL citrate/PF 100 MCG/2 ML VIAL 50 MCG IVPUSH ×2 (09:32→10:15)
[2023-09-23] MEDS: 0.9 % Sodium Chloride 1,000 ML 100 ML IVCONT ×2 (14:19→18:33)
[2023-09-24] MEDS: Ketorolac Tromethamine 15 MG/ML VIAL IVPUSH ×5 (00:06→23:41)
[2023-09-24] MEDS: Piperacillin Sodium/Tazobactam 3.375 GM in 0.9 % Sodium Chloride 50 ML IV ×5 (00:10→23:42)
[2023-09-24 04:00] VITALS: BP 123/59; PULSE 78; RESP 18; TEMP 36.2; O2SAT 98
[2023-09-24] MEDS: 0.9 % Sodium Chloride 1,000 ML 100 ML IVCONT (05:54)
--- NOTE | 2023-09-24 07:53 | P.PNGS_ITS ---
Subjective Subjective Date of Service: 09/24/23 Interval history: Feels ok this morning. C/o incisional pain but comfortable with medications. Had some nausea last night with dinner. OOB to bathroom. Physical Exam 2 Vital Signs: Vital Signs: Last Vital Signs Temp 97.2 F 09/24/23 04:00 Pulse 78 09/24/23 04:00 Resp 18 09/24/23 04:00 BP 123/59 L 09/24/23 04:00 Pulse Ox 98 09/24/23 04:00 O2 Del Method Room Air 09/24/23 04:00 O2 Flow Rate 2 09/23/23 19:31 BMI result Body Mass Index 40.2 Const: General: comfortable, no acute distress and alert O rientation/consciousness: patient oriented x3 Resp: Effort & Inspection: normal respiratory effort GI: Inspection: No distended and Yes incision (clean) Palpation (GI): Soft to palpation, Tenderness to palpation present (GI) (mild incisional ), no guarding and not rigid Skin: General skin exam: no rashes or lesions noted Neuro: General: patient oriented x3 and moves all extremities Objective Data Active Medications Sodium Chloride (Ns) 1,000 mls @ 100 mls/hr IVCONT .Q10H [facility] Last Admin: 09/24/23 05:54 Dose: 100 mls/hr Documented By: MAYELIN Piperacillin Sod/Tazobactam (Sod 3.375 gm/ Sodium Chloride) 50 mls @ 100 mls/hr IV RQ6H [facility] Last Infusion: 09/24/23 06:28 Dose: Infused Documented By: MAYELIN Ketorolac Tromethamine (Ketorolac Tromethamine 15 Mg/Ml Vial) 15 mg IVPUSH RQ6H [facility] Last Admin: 09/24/23 05:52 Dose: 15 mg Documented By: MAYELIN Morphine Sulfate (Morphine Sulfate 4 Mg/Ml Cartridge) 4 mg IVPUSH Q3H PRN; Protocol PRN Reason: Pain, Severe (Pain Scale 7-10) Last Admin: 09/23/23 23:05 Dose: 4 mg Documented By: MAYELIN Ondansetron HCl (Ondansetron Hcl 4 Mg/2 Ml Vial) 4 mg IVPUSH Q8H PRN PRN Reason: Nausea and Vomiting Last Admin: 09/23/23 05:10 Dose: 4 mg Documented By: [place] Oxycodone HCl (Oxycodone Hcl Immed Release 5 Mg Tablet) 5 mg PO Q4H PRN PRN Reason: Pain, Moderate(Pain Scale 4-6) Sodium Chloride (0.9 % Sodium Chloride Flush 3 Ml Syringe) 3 ml IVFLUSH QSHIFT [facility] Last Admin: 09/24/23 07:18 Dose: Not Given Documented By: LINN Non-Admin Reason: IV Running Labs 09/23/23 05:28 09/23/23 05:28 Microbiology Microbiology Results: Microbiology 09/22/23 22:51 Blood Culture - Preliminary Blood - Venous No growth after 24 hours. 09/22/23 22:37 Blood Culture - Preliminary Blood - Venous No growth after 24 hours. Procedures Date of Service Date of Service: 09/24/23 Progress Note: A&P Assessment and plan (1) Acute appendicitis: Status: Acute (2) S/P laparoscopic appendectomy: Status: Acute Plan POD #1 s/p lap appy. Doing well post op but had some nausea with dinner. Abd benign with clean incisions, appropriate post op tenderness. Will reassess later today for possible dc to home if tolerating solid diet. Patient comfortable with plan. Time Spent With Patient Time: Total time managing care of this patient today ____ minutes. Quality Stroke Does the patient have a stroke diagnosis?: No VTE Prior VTE?: No VTE Risk Level:: Surgical - low VTE Device Contraindication: N/A - Device Ordered VTE Drug Contraindication: Treatment Not Indicated
[2023-09-24 08:00] VITALS: BP 100/56; PULSE 74; RESP 17; TEMP 36.3; O2SAT 95
--- NOTE | 2023-09-24 09:27 | MHC.CM.PN ---
Addendum entered by Margo Herron RN 09/24/23 14:39: PER SURGICAL PA, PAIN NOT WELL CONTROLLED, WILL STAY ANOTHER NIGHT. Original Note: PATIENT FROM HOME WITH AND CHILDREN. INDEPENDENT, NO SERVICES. PCP: DB MOLINA HCP: COMPLETED HCP, NAMING NALDO AGENT, DP: GOAL IS HOME, SELF CARE, TO TRANSPORT. PER SURGEON'S NOTE IF TOLERATING DIET POTENTIAL DC LATER TODAY. CM WILL CONTINUE TO FOLLOW.
[2023-09-24] MEDS: oxyCODONE HCl Immed Release 5 MG TABLET PO ×2 (10:25→19:38)
[2023-09-24] MEDS: ondansetron HCL 4 MG/2 ML VIAL IVPUSH ×2 (10:26→23:41)
[2023-09-24 10:30] VITALS: O2SAT 94
--- NOTE | 2023-09-24 13:55 | HO.POSTANES ---
Post Anesthesia Evaluation Post Anesthesia Evaluation Date of Service: 09/24/23 Vital Signs: Vital Signs Temp Pulse Resp BP Pulse Ox O2 Del Method O2 Flow Rate 09/24/23 10:30 94 Room Air 09/24/23 08:00 97.3 F 74 17 100/56 L 95 Nasal Cannula 2.0 09/24/23 04:00 97.2 F 78 18 123/59 L 98 Room Air Anesthesia: General Endotracheal-GETA Mental Status: Awake Pain Control: Satisfactory (mild incisional pain) Nausea/Vomiting: Mild Hydration: Adequate Anesthesia-Related Issues: No Anes. Related Issues
[2023-09-24 15:41] VITALS: BP 117/62; PULSE 76; RESP 18; TEMP 36.4; O2SAT 95
[2023-09-24] MEDS: 0.9 % Sodium Chloride Flush 3 ML SYRINGE IVFLUSH ×2 (17:45→20:46)
[2023-09-24 19:24] VITALS: BP 128/64; PULSE 77; RESP 18; TEMP 36.3; O2SAT 94
[2023-09-24] MEDS: Morphine Sulfate 4 MG/ML CARTRIDGE IVPUSH (20:46)
[2023-09-25] MEDS: Morphine Sulfate 4 MG/ML CARTRIDGE IVPUSH (03:52)
[2023-09-25 04:00] VITALS: BP 109/68; PULSE 81; RESP 16; TEMP 36.4; O2SAT 92
[2023-09-25] MEDS: Piperacillin Sodium/Tazobactam 3.375 GM in 0.9 % Sodium Chloride 50 ML IV (05:44)
[2023-09-25] MEDS: Ketorolac Tromethamine 15 MG/ML VIAL IVPUSH (05:44)
[2023-09-25 07:19] VITALS: BP 111/58; PULSE 71; RESP 17; TEMP 36.4; O2SAT 93
--- NOTE | 2023-09-25 08:34 | P.PNGS_ITS ---
Subjective Subjective Date of Service: 09/25/23 <Debbi Fortune PA-C - Last Filed: 09/25/23 08:36> 09/25/23 <Vishal Jurado MD - Last Filed: 09/25/23 09:45> Interval history: Feels well. Pain better controlled this morning. Tolerating diet but not much of an appetite. Feels ready to go home. <Debbi Fortune PA-C - Last Filed: 09/25/23 08:36> Physical Exam 2 Vital Signs: Vital Signs: Last Vital Signs Temp 97.5 F 09/25/23 07:19 Pulse 71 09/25/23 07:19 Resp 17 09/25/23 07:19 BP 111/58 L 09/25/23 07:19 Pulse Ox 93 09/25/23 07:19 O2 Del Method Room Air 09/25/23 07:19 O2 Flow Rate 2.0 09/24/23 08:00 BMI result Body Mass Index 40.2 <Debbi Fortune PA-C - Last Filed: 09/25/23 08:36> Const: General: comfortable, no acute distress and alert <Debbi Fortune PA-C - Last Filed: 09/25/23 08:36> Orientation/consciousness: patient oriented x3 <SUJATA Rojas Last Filed: 09/25/23 08:36> Resp: Effort & Inspection: normal respiratory effort <Debbi Fortune PA-C - Last Filed: 09/25/23 08:36> GI: Inspection: No distended and Yes incision (clean) <SUJATA Rojas Last Filed: 09/25/23 08:36> Palpation (GI): Soft to palpation <SUJATA Rojas Last Filed: 09/25/23 08:36> Skin: General skin exam: no rashes or lesions noted <SUJATA Rojas Last Filed: 09/25/23 08:36> Neuro: General: patient oriented x3 and moves all extremities <SUJATA Rojas Last Filed: 09/25/23 08:36> Objective Data Active Medications Piperacillin Sod/Tazobactam (Sod 3.375 gm/ Sodium Chloride) 50 mls @ 100 mls/hr IV RQ6H [facility] Last Infusion: 09/25/23 06:19 Dose: Infused Documented By: SYLVAIN Ketorolac Tromethamine (Ketorolac Tromethamine 15 Mg/Ml Vial) 15 mg IVPUSH RQ6H [facility] Last Admin: 09/25/23 05:44 Dose: 15 mg Documented By: SYLVAIN Morphine Sulfate (Morphine Sulfate 4 Mg/Ml Cartridge) 4 mg IVPUSH Q3H PRN; Protocol PRN Reason: Pain, Severe (Pain Scale 7-10) Last Admin: 09/25/23 03:52 Dose: 4 mg Documented By: SYLVAIN Ondansetron HCl (Ondansetron Hcl 4 Mg/2 Ml Vial) 4 mg IVPUSH Q8H PRN PRN Reason: Nausea and Vomiting Last Admin: 09/24/23 23:41 Dose: 4 mg Documented By: SYLVAIN Oxycodone HCl (Oxycodone Hcl Immed Release 5 Mg Tablet) 5 mg PO Q4H PRN PRN Reason: Pain, Moderate(Pain Scale 4-6) Last Admin: 09/24/23 19:38 Dose: 5 mg Documented By: SYLVAIN Sodium Chloride (0.9 % Sodium Chloride Flush 3 Ml Syringe) [facility] Last Admin: 09/24/23 20:46 Dose: 3 ml Documented By: SYLVAIN <Debbi Fortune PA-C - Last Filed: 09/25/23 08:36> Labs CBC & Chem 7: 09/23/23 05:28 09/23/23 05:28 <Debbi Fortune PA-C - Last Filed: 09/25/23 08:36> Microbiology Microbiology Results: Microbiology 09/22/23 22:51 Blood Culture - Preliminary Blood - Venous No growth after 48 hours. 09/22/23 22:37 Blood Culture - Preliminary Blood - Venous No growth after 48 hours. <SUJATA Rojas Last Filed: 09/25/23 08:36> Procedures Date of Service Date of Service: 09/25/23 <Debbi Fortune PA-C - Last Filed: 09/25/23 08:36> 09/25/23 <Vishal Jurado MD - Last Filed: 09/25/23 09:45> Progress Note: A&P Assessment and plan (1) S/P laparoscopic appendectomy: Status: Acute <Debbi Fortune PA-C - Last Filed: 09/25/23 08:36> (2) Acute appendicitis: Status: Acute <Debbi Fortune PA-C - Last Filed: 09/25/23 08:36> Assessment and Plan: POD #2 s/p lap appy. Pain improved and comfortable. Abd benign with appropriate post op tenderness and clean incisions. Stable for dc to home today. Patient comfortable with plan. <Debbi Fortune PA-C - Last Filed: 09/25/23 08:36> Time Spent With Patient Time: Total time managing care of this patient today ____ minutes. <Debbi Fortune PA-C - Last Filed: 09/25/23 08:36> Quality Stroke Does the patient have a stroke diagnosis?: No <Debbi Fortune PA-C - Last Filed: 09/25/23 08:36> VTE Prior VTE?: No <Debbi Fortune PA-C - Last Filed: 09/25/23 08:36> VTE Risk Level:: Surgical - low <Debbi Fortune PA-C - Last Filed: 09/25/23 08:36> VTE Device Contraindication: N/A - Device Ordered <Debbi Fortune PA-C - Last Filed: 09/25/23 08:36> VTE Drug Contraindication: Treatment Not Indicated <SUJATA Rojas Last Filed: 09/25/23 08:36>
--- NOTE | 2023-09-25 09:23 | MHC.CM.PN ---
Patient is discharged today to home self care. She has arranged for her to provide transportation home.
--- NOTE | 2023-10-06 14:37 | PM.DS ---
DS: Providers Provider Date of Service: 09/25/23 Date of admission: 09/22/23 22:28 Primary care physician: Mago Zuñiga MD Attending physician on admission: Vishal Jurado Attending physician on discharge: Vishal Jurado DS: Diagnosis Discharge Diagnosis (1) S/P laparoscopic appendectomy: Status: Acute (2) Acute appendicitis: Status: Resolved DS: Summary Hospital Course Hospital Course: HPI ON ADMISSION: Marika Trejo is a 37 year old female presents here with 3-4 day history of progressively worsening abdominal pain which is located to right lower quadrant. She has had some associated nausea vomiting. No diarrhea. Patient is occasionally constipated. No sick contacts. No unusual diet. No recent foreign travel. Patient had a similar less severe episode of this pain several weeks ago but resolved spontaneously. Chart was reviewed and patient evaluated. CT scan consistent with appendicitis. HOSPITAL COURSE: On 09/23/23 a laparoscopic appendectomy was performed by Dr. Jurado without immediate complication. Edematous inflamed retrocecal appendix was found with approximate 2 cm incarcerated umbilical hernia with omentum. The patient tolerated the procedure well and had an uneventful recovery course but did remain inpatient until POD #2 for post operative pain control. On the day of discharge, she was tolerating a solid diet without nausea or vomiting. Her pain was controlled. Her abdomen was benign with clean incisions. She was ambulating without difficulty. She was discharged to home on 09/25/23 in stable condition. Status at Discharge Functional status at discharge: independent ambulation Overall status at discharge: patient is progressing back to baseline Time Attestation Discharge coordination time: Less than 30 minutes Quality: Safe Use of Opioids Does Pt have an Active Cancer Diagnosis on the Problem List?: No Quality: Stroke Does the patient have a stroke diagnosis?: No Physical Exam Vital Signs: Vital Signs: Last Vital Signs Temp 97.5 F 09/25/23 07:19 Pulse 71 09/25/23 07:19 Resp 17 09/25/23 07:19 BP 111/58 L 09/25/23 07:19 Pulse Ox 93 09/25/23 07:19 O2 Del Method Room Air 09/25/23 07:19 O2 Flow Rate 2.0 09/24/23 08:00 BMI result Body Mass Index 40.2 Const: General: comfortable, no acute distress and alert GI: Inspection: No distended and Yes incision (clean) Palpation (GI): Soft to palpation, Tenderness to palpation present (GI) (mild incisional), no guarding and not rigid Skin: General skin exam: no rashes or lesions noted DS: Data Data Completed and Pending Completed studies during hospitalization [Text1]: 09/23/23 09:20 Surgical [PTH] Routine Appendix, appendectomy: Interval appendicitis and periappendicitis with fibrinopurulent debris and adhesions Procedures Repair Abdominal Wall, Percutaneous Endoscopic Approach (09/22/23) Resection of Appendix, Percutaneous Endoscopic Approach (09/22/23) Discharge Plan Discharge Anticipated Discharge Date/Time: 09/23/23 09:18 Patient Disposition: Home, Self-Care Discharge Diagnosis: Acute appendicitis Referrals: Mago Browne MD [Primary Care Provider] - 1 Week Vishal Jurado MD [Physician] - 1 Week Discharge Medications: Continued ferrous sulfate 325 mg (65 mg iron) tablet 325 mg PO DAILY 90 Days Qty: 90 0RF ibuprofen 600 mg tablet 600 mg PO Q6H PRN (Reason: fever or pain) Qty: 30 0RF Discharge Orders: Discharge Order (Routine); Ordered 09/25/23 Ordered By: Debbi Fortune Diet: Advance to usual diet Activity on Discharge: No heavy lifting Stand Alone Forms: Patient Portal Discharge page Activity Restrictions/Additional Instructions: Ice to wound 20 minutes several times today and tomorrow. Ok to shower. Leave Steri-Strips intact. No strenuous activities, heavy lifting. F/u in office in 1 week. ([phone]) Care Plan Goals: Return to baseline Health Concerns: Normal convalescence Plan of Treatment: See discharge instruction sheet Assessment: Stable Discharge Date/Time: 09/25/23 09:35
== END 2023-09-25 09:35 | disposition home or self-care (01) | DRG 227 ==
LOC: HO.ED 17:54 → HO.EDOVER 22:40 → HO.S3 09-23 11:46
PROVIDERS: Nurse Practitioner Family; Physician Assistant; Surgery; Admitting Provider Surgery; Emergency Provider Emergency Medicine; PCP Internal Medicine; Visit Provider Surgery
PROC: 0DTJ4ZZ Resection of Appendix, Percutaneous Endoscopic Approach (ICD-10-PCS; CPT 44970; principal; 2023-09-23 08:00)
DX: K35.80 Unspecified acute appendicitis (principal); K42.0 Umbilical hernia with obstruction, without gangrene; Z20.822 Contact with and (suspected) exposure to COVID-19
CPT/HCPCS: 36415; 74177; 80048; 80053; 81001; 83605; 83690; 83735; 84702; 85025; 86850; 86900; 86901; 87040; 87502; 87635; 88304; 99024; 99284; J0131; J0330; J0665; J0696; J1836; J1885; J2250; J2270; J2405; J2543; J2550; J2704; J3010; Q9967

== ENCOUNTER → 2023-09-22 22:28 | Outpatient (BNV) | payer OTHER, SELFPAY | PROVIDERS: Admitting Provider Surgery; Emergency Provider Emergency Medicine; PCP Internal Medicine; Visit Provider Surgery | DX: Z90.49 Acquired absence of other specified parts of digestive tract (principal); K35.80 Unspecified acute appendicitis | CPT/HCPCS: 44970; 99024; 99222 ==

== ENCOUNTER 2023-10-01 10:47 | Outpatient (AMB) | payer OTHER, SELFPAY ==
[2023-10-01 11:00] VITALS: BMI 39.2
--- NOTE | 2023-10-01 11:00 | MHC.OFFVIS ---
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 States her pain has improved however she has discomfort behind her knee. States she has some swelling and pain when walking and bending knee. She has a brace that she wears as needed. No injections in the past or any recent injury. Hx of appendectomy last Thursday. Allergies No Known Allergies Allergy (Verified 10/01/23 11:03) HPI Display Director- Effusion, right knee HPI Details 37-year-old female who presents to the office today for evaluation of right knee pain for 2 months. She states she has improvement in her pain but she does c/o discomfort at the posterior aspect of her knee. Her pain is aggravated with stair use. She also c/o mild swelling and pain with ambulation and bending of her knee. She has not had any injection in the past and denies sustaining any recent injury. She is wearing her brace as instructed. She has a history of appendectomy since last Thursday. 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 Current occupational exposures/hazards: No Cognitive needs: No Hearing needs: No Vision needs: No Review of Systems Const All systems reviewed & are unremarkable except as noted in HPI and below Physical Exam Vital Signs: BMI result Body Mass Index 39.2 Const General: cooperative, healthy appearing, comfortable, no acute distress, well developed and alert Orientation/consciousness: patient oriented x3 HEENT Head: Yes normal to inspection, Yes normocephalic and Yes atraumatic Eyes General: appearance normal, both eyes and all related structures Resp Effort & Inspection: normal respiratory effort and able to speak in complete sentences Cardio Rate: regular rate Peripheral pulses: Peripheral pulses 2+ throughout GI Palpation (GI): Soft to palpation Skin Lesions: no lesions Rashes: no rashes Neuro General: patient oriented x3 Extrem Other: Right knee: Skin intact, no erythema or joint effusion. No tenderness along the medial or lateral joint line. Full ROM with crepitus. Negative Kristi?s. No ligamentous laxity. NVI. Assessment & Plan Assessment & Plan (1) Right knee pain: Code(s): M25.561 - Pain in right knee Plan She is going to continue with activities as tolerated. If symptoms persist or worsens, or if she has any concerns, patient will contact the office, otherwise follow-up as needed. Patient Instructions: Scribed for Jimbo Gonsales PA-C, by [place] medical technician, on 10/01/2023 at 11:00 AM EST. I, Jimbo Gonsales PA-C, have personally reviewed and agree with the information entered by the scribe. Coding Level of Care Code New Pt Level 3 (33204) Diagnoses Right knee pain M25.561
== END 2023-10-01 12:03 | disposition home or self-care (01) ==
PROVIDERS: PCP Internal Medicine; Visit Provider Physician Assistant
DX: M25.561 Pain in right knee (principal)
CPT/HCPCS: 99203

== ENCOUNTER → 2023-10-01 10:47 | Outpatient (BNVA) | payer OTHER, SELFPAY | PROVIDERS: PCP Internal Medicine; Visit Provider Physician Assistant | DX: M25.561 Pain in right knee (principal) | CPT/HCPCS: 99202 ==

== ENCOUNTER 2023-10-06 08:34 | Emergency (ER) | payer OTHER, SELFPAY ==
--- NOTE | ~2023-10-06 | CT_ITS ---
EXAMINATION: CT ABDOMEN AND PELVIS WITH CONTRAST CLINICAL INFORMATION: Abdominal pain. Recent hernia repair and appendectomy. COMPARISON: 09/22/2023 TECHNIQUE: Multidetector volumetric images were obtained from the superior aspect of the liver through the pubic symphysis following administration 85 mL of Omnipaque 350 intravenous contrast. Sagittal and coronal reformatted images were obtained on the technologist's workstation. Oral contrast: No This CT examination was performed using dose optimization techniques as appropriate, variously including the following: *Automated exposure control *Adjustment of mA and/or kV according to patient size (this includes techniques or standardized protocols for targeted exams where dose is matched to indication/reason for exam; i.e. extremities or head) *Use of iterative reconstruction technique DLP: 1071 mGy-cm FINDINGS: LUNG BASES: There is minimal atelectatic change at the lung bases. LIVER, GALLBLADDER, AND BILIARY TREE: The liver is again seen to be enlarged measuring up to 22 cm. No focal hepatic lesion or biliary ductal dilatation is present. The gallbladder is not seen. PANCREAS: Unremarkable. SPLEEN: Unremarkable. ADRENAL GLANDS: Unremarkable. KIDNEYS AND URETERS: There is are bilateral renal calculi measuring up to 3 mm mid pole right kidney. There is no hydronephrosis. BLADDER: Unremarkable. GASTROINTESTINAL TRACT: The small and large bowel are unremarkable. The appendix is not seen. There are infiltrative changes in the right lower quadrant. ABDOMINAL WALL: There is infiltrative change along the umbilicus. LYMPH NODES: Normal. VASCULAR: Unremarkable. PELVIC VISCERA: The uterus and adnexal regions are within normal limits. There is a small amount of free fluid within the pelvis. OSSEOUS STRUCTURES: Unremarkable. CT/CT abdomen pelvis w IV con IMPRESSION: Infiltrative change in the right lower quadrant likely postoperative related to recent appendectomy. There is infiltrative change along the umbilicus likely related to recent hernia repair. Small amount of free fluid within the pelvis of uncertain significance. No definitive fluid collection. Nonobstructing bilateral renal calculi. Hepatomegaly. Fleischner guidelines were followed.
[2023-10-06 09:09] VITALS: BP 125/70; PULSE 84; RESP 20; TEMP 36.4; O2SAT 98; BMI 39.8
[2023-10-06 09:32] LABS: MANUAL DIFF FLAG NO
[2023-10-06 09:34] LABS: Basophils Absolute Auto 0.1 X10*3/uL (0.0-0.2); Basophils Percent Auto 0.5 % (0-2); Eosinophils Absolute Auto 0.3 X10*3/uL (0.0-0.4); Eosinophils Percent Auto 3.1 % (0-4); Hematocrit 33.9 % (37.0-47.0); Hemoglobin 10.5 g/dl (12.0-16.0); Imm Gran Abs Auto 0.03 X10*3/uL (0.00-0.03); Imm Gran Pct Auto 0.3 % (0.0-0.4); Lymphocytes Absolute Auto 2.3 X10*3/uL (1.2-4.9); Lymphocytes Percent Auto 24.3 % (20-40); Mean Corpuscular Hemoglobin 23.5 pg (27.0-33.0); Mean Platelet Volume 11.5 fL (9.4-12.3); Monocytes Absolute Auto 0.3 X10*3/uL (0.1-1.2); Monocytes Percent Auto 3.4 % (2-11); Neutrophils Absolute Auto 6.4 x10*3/uL (2.0-8.3); Neutrophils Percent Auto 68.4 % (45-73); Platelet Count 298 X10*3/uL (160-400); Red Blood Count 4.46 X10*6/uL (4.20-5.50); Red Cell Distribution Width 15.1 % (11.0-16.0); White Blood Count 9.4 X10*3/uL (4.8-10.8)
[2023-10-06 09:36] LABS: Appearance Urine Clear; Color Urine Dark Yellow; Glucose Urine UA Negative (Negative); Leukocyte Esterase Urine Trace (Negative); Nitrite Urine Negative (Negative); PH 5.5 (5.0-9.0); Specific Gravity - Urine >= 1.030 (1.005-1.025); UMIC TRIGGER UACC YES; Urine Blood Negative (Negative); Urine Ketones Trace mg/dL (Negative); Urine Protein 30 (1+) mg/dL (Neg-Trace)
[2023-10-06 09:36] LABS: UPreg QC Valid YES; Urine Pregnancy NEGATIVE (NEGATIVE)
[2023-10-06 09:41] LABS: Bacteria Urine None Seen (None Seen); RBC Urine 0-2 /HPF (0-2); WBC Urine 0-5 /HPF (0-5)
[2023-10-06 09:46] LABS: Anion Gap 13 (12-20); Blood Urea Nitrogen 8 mg/dL (9-16); Calcium 9.6 mg/dL (8.4-10.2); Carbon Dioxide 27 mmol/L (22-29); Chloride 106 mmol/L (96-108); Estimated Glomerular Filt Rate > 60; Glucose Random 96 mg/dL (60-115); Potassium 3.8 mmol/L (3.3-5.1); Sodium 142 mmol/L (135-145)
[2023-10-06 10:17] VITALS: BP 131/81; PULSE 82; RESP 16; TEMP 36.7; O2SAT 96
--- NOTE | 2023-10-06 12:23 | ED.ABDPAIN ---
HPI - Abdominal Pain General Chief Complaint: Abdominal Pain Stated Complaint: Abd pain Time Seen by Provider: 10/06/23 12:14 Source: patient and RN notes reviewed Mode of arrival: ambulatory Limitations: no limitations History of Present Illness HPI narrative: This is a 37-year-old female, with a history of migraines, and recent appendectomy with hernia repair 2 weeks ago, presenting to the emergency department with complaints of abdominal pain and vomiting x3 days. Patient reports that over the course of the last 3 days she has had ongoing abdominal pain which worsens with bowel movements as well as with urinating. She reports pain in the middle of her abdomen as well as suprapubic region. She does endorse some dysuria. No hematuria, urinary frequency or urgency. No fevers or chills. No other complaints or concerns at this time. MD elicited complaint: abdominal pain Pertinent past history: none Onset (ago): day(s) Pain Consistency: constant Location: none Quality: aching Radiation: none Migration to: no migration Exacerbating factors: nothing Relieving factors: nothing Associated symptoms: vomiting Related Data Previous Rx's Medication Instructions Recorded ibuprofen 600 mg tablet 600 mg PO Q6H PRN fever or pain 08/23/23 #30 tabs ferrous sulfate 325 mg (65 mg 325 mg PO DAILY 90 days #90 tabs 09/13/23 iron) tablet Allergies Allergy/AdvReac Type Severity Reaction Status Date / Time No Known Allergies Allergy Verified 10/01/23 11:03 Review of Systems Review of Systems Yes all other systems are reviewed and are negative Constitutional: Reports as per HPI [facility] Past Medical History Medical History Anemia Intractable vomiting Vomiting Inflammatory bowel disease Irritable bowel syndrome Surgical History Bariatric surgery status Hx of cholecystectomy No pertinent past surgical history Social History Social History Household Members: Spouse and Children Housing: Condominium Do you presently have visiting nurse or other home services: No Alcohol intake: never Patient Tobacco Use Status: Never used Tobacco Smoked in Last 30 Days: No e-Cigarette/Vaping Use: Never Used Second Hand Smoke Exposure: No Use of substances other than those prescribed or required for medical reasons: No Advance Directives: Yes Advance Directives Information Provided: Yes Advance Directives on File: Yes Advance Directives Date on File: 09/28/23 Patient : No service: No Current occupational status: employed 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 Current occupational exposures/hazards: No Cognitive needs: No Hearing needs: No Vision needs: No Physical Exam ED Vital Signs: Vital Signs - 24 hr 10/06/23 09:09 10/06/23 10:17 10/06/23 13:04 Temperature 97.5 F 98.1 F 98.1 F Pulse Rate 84 82 72 Respiratory Rate 20 16 18 Blood Pressure 125/70 131/81 119/73 Pulse Oximetry 98 96 98 Oxygen Delivery Method Room Air Room Air Room Air 10/06/23 15:37 Temperature Pulse Rate 90 Respiratory Rate 18 Blood Pressure 125/70 Pulse Oximetry 97 Oxygen Delivery Method Room Air BMI result Body Mass Index 39.8 Const General: cooperative, comfortable and no acute distress Orientation/consciousness: patient oriented x3 Limitations: no limitations HENMT Head: Yes normal to inspection, Yes normocephalic and Yes atraumatic Ears: hearing grossly normal bilaterally General nose exam: Normal external nose present Face and sinus: Yes normal facial exam Mouth: Normal oral and palatal mucosa present, oropharynx normal and moist mucous membranes Throat: Yes posterior oropharynx normal Eyes General: appearance normal, both eyes and all related structures Eyelids: Yes eyelids normal Conjunctivae: conjunctivae normal Sclerae: sclerae normal Pupils: Equal, round and reactive pupils present EOM: EOMs intact bilaterally Neck Neck: Yes normal visual inspection, Yes full ROM and Yes no lymphadenopathy Lymphatic: no lymphadenopathy noted Chest Chest palpation & inspection: normal inspection of the chest Resp Effort & Inspection: normal respiratory effort and able to speak in complete sentences Auscultation: clear to auscultation bilaterally, no crackles, no rales, no rhonchi and no wheezes Cardio Rate: regular rate Rhythm: regular rhythm Heart sounds: S1 normal heart sound present and S2 normal heart sound present GI Other: Abdomen is soft however with tenderness to palpation along the midline for abdomen, no palpable masses, there is surgical incision noted around the umbilicus, no drainage or erythema noted. Suprapubic tenderness on examination, no right lower quadrant tenderness. No rebound or guarding. Normoactive bowel sounds present in all 4 quadrants. Inspection: Yes normal to inspection Skin General skin exam: no rashes or lesions noted Trauma: no lacerations or abrasions Wounds: no wounds Neuro General: patient oriented x3 and moves all extremities Cranial nerves: Yes Equal, round and reactive pupils present Extrem General: Yes normal to inspection Right upper extremity: normal to inspection Left upper extremity: normal to inspection Right lower extremity: normal to inspection Left lower extremity: normal to inspection Course Reevaluation(s) Reevaluation #1: Patient re-evaluated, CT scan shows postop changes, with free fluid in the pelvis of unknown significance, no fluid collection nonobstructing bilateral renal calculi, hepatomegaly. Reviewed with my attending physician, Dr. Reeves. Discussed these findings with patient. She is now requesting pain medication. Will medicate with Tylenol, viscous lidocaine and Maalox. Will re-evaluate. Time: 15:21 Reevaluation #2: Patient's symptoms slightly improved after receiving Maalox, lidocaine, Tylenol. Encouraged to drink plenty of fluids. Advised that we will call with any normal result for urine sample. Given return precautions. Patient understands and agrees with plan. Patient stable for discharge. Time: 16:12 Medical Decision Making Medical Decision Making [facility] Narrative: 37-year-old female, with a history of migraines, presenting to the emergency department with complaints of abdominal pain x 3 days. Patient abdomen is soft, tenderness to palpation along the midline of her abdomen. Vital signs within normal limits. Patient is nontoxic appearing. Patient with no leukocytosis, microcytic anemia noted on examination, similar to previous. Patient had recent appendectomy with hernia repair. Given recent surgical history, will obtain CT scan of the abdomen. Urine does not appear to be overtly infected. Plan: Labs, UA, U preg, CT abdomen Differential Diagnosis Differential Diagnoses: The differential diagnosis associated with the presentation includes Bowel obstruction, UTI, cystitis, gastritis, gastroenteritis, diverticulitis, diverticulosis Admission/Observation Consideration of admission/observation: Escalation of care including admission/observation considered Patient would have been admitted to the hospital had her work up had any findings where hospital admission was appropriate and her clinical presentation warranted hospital admission. Lab Data [facility] Lab Attestation statement: I reviewed the patient's lab results. See [facility] 10/06/23 09:28 10/06/23 09:27 Labs: Lab Results 10/06/23 10/06/23 Range/Units 09:27 09:28 WBC 9.4 (4.8-10.8) X10*3/uL RBC 4.46 (4.20-5.50) X10*6/uL Hgb 10.5 L (12.0-16.0) g/dl Hct 33.9 L (37.0-47.0) % MCV 76.0 L (80.0-98.0) fL MCH 23.5 L (27.0-33.0) pg MCHC 31.0 (31.0-35.0) g/dl RDW 15.1 (11.0-16.0) % Plt Count 298 (160-400) X10*3/uL MPV 11.5 (9.4-12.3) fL Immature Gran % (Auto) 0.3 (0.0-0.4) % Neut % (Auto) 68.4 (45-73) % Lymph % (Auto) 24.3 (20-40) % [place] % (Auto) 3.4 (2-11) % Eos % (Auto) 3.1 (0-4) % Baso % (Auto) 0.5 (0-2) % Lymph # (Auto) 2.3 (1.2-4.9) X10*3/uL [place] # (Auto) 0.3 (0.1-1.2) X10*3/uL Eos # (Auto) 0.3 (0.0-0.4) X10*3/uL Baso # (Auto) 0.1 (0.0-0.2) X10*3/uL Abs Immat Gran (auto) 0.03 (0.00-0.03) X10*3/uL Absolute Neuts (auto) 6.4 (2.0-8.3) x10*3/uL Absolute Nucleated RBC 0.000 (0.0-0.012) X10*3/uL Nucleated RBC % (auto) 0.0 (0.0-0.2) /100WBC Sodium 142 (135-145) mmol/L Potassium 3.8 (3.3-5.1) mmol/L Chloride 106 (96-108) mmol/L Carbon Dioxide 27 (22-29) mmol/L Anion Gap 13 (12-20) BUN 8 L (9-16) mg/dL Creatinine 0.83 (0.5-1.4) mg/dL Estim Creat Clear Calc 127.0 Estimated GFR > 60 Random Glucose 96 (60-115) mg/dL Calcium 9.6 D (8.4-10.2) mg/dL Urine Color Dark Yellow Urine Appearance Clear Urine pH 5.5 (5.0-9.0) Ur Specific [place] >= 1.030 H (1.005-1.025) Urine Protein 30 (1+) H (Neg-Trace) mg/dL Urine Glucose (UA) Negative (Negative) mg/dL Urine Ketones Trace (Negative) mg/dL Urine Blood Negative (Negative) Urine Nitrite Negative (Negative) Ur Leukocyte Esterase Trace H (Negative) Urine RBC 0-2 (0-2) /HPF Urine WBC 0-5 (0-5) /HPF Ur Squamous Epith Cells 11-20 (0-2) /HPF Urine Bacteria None Seen (None Seen) Hyaline Casts 3-5 (0-2) /LPF Urine Test NEGATIVE (NEGATIVE) Radiology Impression Discussion of test interpretation with radiology: I have reviewed the radiologist's reading. Radiologist Impression: EXAMINATION: CT ABDOMEN AND PELVIS WITH CONTRAST CLINICAL INFORMATION: Abdominal pain. Recent hernia repair and appendectomy. COMPARISON: 09/22/2023 TECHNIQUE: Multidetector volumetric images were obtained from the superior aspect of the liver through the pubic symphysis following administration 85 mL of Omnipaque 350 intravenous contrast. Sagittal and coronal reformatted images were obtained on the technologist's workstation. Oral contrast: No This CT examination was performed using dose optimization techniques as appropriate, variously including the following: *Automated exposure control *Adjustment of mA and/or kV according to patient size (this includes techniques or standardized protocols for targeted exams where dose is matched to indication/reason for exam; i.e. extremities or head) *Use of iterative reconstruction technique DLP: 1071 mGy-cm FINDINGS: LUNG BASES: There is minimal atelectatic change at the lung bases. LIVER, GALLBLADDER, AND BILIARY TREE: The liver is again seen to be enlarged measuring up to 22 cm. No focal hepatic lesion or biliary ductal dilatation is present. The gallbladder is not seen. PANCREAS: Unremarkable. SPLEEN: Unremarkable. ADRENAL GLANDS: Unremarkable. KIDNEYS AND URETERS: There is are bilateral renal calculi measuring up to 3 mm mid pole right kidney. There is no hydronephrosis. BLADDER: Unremarkable. GASTROINTESTINAL TRACT: The small and large bowel are unremarkable. The appendix is not seen. There are infiltrative changes in the right lower quadrant. ABDOMINAL WALL: There is infiltrative change along the umbilicus. LYMPH NODES: Normal. VASCULAR: Unremarkable. PELVIC VISCERA: The uterus and adnexal regions are within normal limits. There is a small amount of free fluid within the pelvis. OSSEOUS STRUCTURES: Unremarkable. CT/CT abdomen pelvis w IV con IMPRESSION: Infiltrative change in the right lower quadrant likely postoperative related to recent appendectomy. There is infiltrative change along the umbilicus likely related to recent hernia repair. Small amount of free fluid within the pelvis of uncertain significance. No definitive fluid collection. Nonobstructing bilateral renal calculi. Hepatomegaly. Fleischner guidelines were followed. Dictated By: Isaak Hernandez External Record Review External record reviewed: Inpatient record, Office record, Outpatient record, Prior outpatient labs, Prior outpatient radiology, Primary care record and Outside ED record Medications Administered Discontinued Medications Generic Name Dose Route Start Last Admin Trade Name Freq PRN Reason Stop Dose Admin Acetaminophen 975 mg 10/06/23 15:21 10/06/23 15:33 Acetaminophen 325 Mg Tablet PO 10/06/23 15:22 975 mg ONCE ONE Administration Al Hydroxide/Mg Hydroxide 30 ml 10/06/23 15:20 10/06/23 15:33 Magnesium Hydrox/Alum Hydrox 30 Ml Oral.Susp PO 10/06/23 15:21 30 ml ONCE ONE Administration Iohexol 85 ml 10/06/23 13:31 10/06/23 13:31 Iohexol 350 Mg/Ml 100 Ml Infus..Btl IV 10/06/23 13:32 85 ml ONCE ONE Administration Lidocaine HCl 15 ml 10/06/23 15:20 10/06/23 15:33 Lidocaine Hcl Viscous 2 % 15 Ml Solution MUCOUS MEM 10/06/23 15:21 15 ml ONCE ONE Administration Discharge Plan Discharge Clinical Impression: Abdominal pain Patient Disposition: Home, Self-Care Additional Instructions: It is unclear what is causing you to have abdominal pain however today's workup was reassuring. Please rest, drink plenty of fluids. Your lab work was reassuring. Urine does not appear to be infected, however does indicate that you are dehydrated. It is very important stay well hydrated. Your CT scan showed some changes due to recent surgery however no abnormalities. Your CT scan did show a small amount of free fluid within the pelvis, kidney stones, and an enlarged liver. These are unlikely the source of your pain. But you should make care primary care physician aware of these findings. Please follow-up with your primary care physician regarding this visit. If any new or worsening symptoms occur, including but not limited to worsening abdominal pain, nausea, vomiting, diarrhea, fevers or chills, please return for re-evaluation. No est? lisa qu? le est? causando dolor abdominal, sin embargo, el examen de hoy fue tranquilizador. Por favor descanse, ailyn muchos l?quidos. Tu trabajo de laboratorio fue tranquilizador. La orina no parece estar infectada, sin embargo indica que est?s deshidratado. Es muy importante mantenerse charla hidratado. Rodriguez tomograf?a computarizada mostr? algunos cambios debido a ramana cirug?a reciente, natasha no hubo anomal?as. Rodriguez tomograf?a computarizada mostr? ramana yu?a cantidad de l?quido dalia dentro de la pelvis, c?lculos renales y agrandamiento del h?gado. Es poco probable que ?michael brian la shannon de rodriguez dolor. Natasha se debe informar al m?dico de atenci?n primaria de estos hallazgos. Margarita un seguimiento con rodriguez m?dico de atenci?n primaria con respecto a esta visita. Si se presenta alg?n s?ntoma nuevo o que empeora, incluidos, entre otros, empeoramiento del dolor abdominal, n?useas, v?mitos, diarrea, fiebre o escalofr?os, regrese para ramana nueva evaluaci?n. Prescriptions: No Action ferrous sulfate 325 mg (65 mg iron) tablet 325 mg PO DAILY 90 Days Qty: 90 0RF ibuprofen 600 mg tablet 600 mg PO Q6H PRN (Reason: fever or pain) Qty: 30 0RF Interventions: ED Discharge Assessment Last Done: 10/06/23 16:54 Discharge Date/Time: 10/06/23 16:55 Print Language: Bulgarian
[2023-10-06 13:04] VITALS: BP 119/73; PULSE 72; RESP 18; TEMP 36.7; O2SAT 98
[2023-10-06] MEDS: iohexoL 350 MG/ML 100 ML INFUS..BTL 85 ML IV (13:31)
[2023-10-06] MEDS: Magnesium Hydrox/Alum Hydrox 30 ML ORAL.SUSP PO (15:33)
[2023-10-06] MEDS: Lidocaine HCl Viscous 2 % 15 ML SOLUTION MUCOUS MEM (15:33)
[2023-10-06] MEDS: Acetaminophen 325 MG TABLET 975 MG PO (15:33)
[2023-10-06 15:37] VITALS: BP 125/70; PULSE 90; RESP 18; O2SAT 97
== END 2023-10-06 16:55 | disposition home or self-care (01) ==
PROVIDERS: Emergency Provider Emergency Medicine Emergency Medical Services; PCP Internal Medicine
DX: R10.13 Epigastric pain (principal); R11.2 Nausea with vomiting, unspecified; Z79.899 Other long term (current) drug therapy
CPT/HCPCS: 36415; 74177; 80048; 81001; 81025; 85025; 99284; Q9967

== ENCOUNTER 2024-01-18 12:29 | Outpatient (AMB) | payer OTHER, SELFPAY ==
--- NOTE | 2024-01-18 12:35 | A.OFFVIS_ITS ---
Intake Vital Signs 01/18/24 12:43 Height 5 ft 8 in Weight 262 lb BMI 39.8 Intake Visit Reasons: New Prob - B/L knee pain Intake Note: Marika is a 38 year old female who presents today for a evaluation of her bilateral knee pain. Patient reports her left knee is worse than the right knee. She states that her pain has been getting worse over the past 2 months. Patient reports when she is wearing her knee braces her pain is worse. Allergies No Known Allergies Allergy (Verified 01/18/24 12:42) Medication List - Last Reconciled 01/18/24 by Jimbo Gosnales PA-C ferrous sulfate 325 mg PO DAILY 90 days ibuprofen 600 mg PO Q6H PRN HPI New Prob - B/L knee pain HPI Details 38 yo female returns to the office today bilat knee pain. She states she has pain with rest and with activity. She has a lot of stairs to her apartment which cause increased pain. She states the knee feels like it will give out when she is walking. She has clicking in the knee and she has difficulty bending the left knee due to pressure behind the knee. [facility] Medical History Anemia Intractable vomiting Vomiting Inflammatory bowel disease Irritable bowel syndrome Surgical History Bariatric surgery status Hx of cholecystectomy No pertinent past surgical history Social History (Updated 01/18/24 @ 12:43 by Georgina Newton) Household Members: Spouse and Children Housing: Condominium Do you presently have visiting nurse or other home services: No Alcohol intake: never Patient Tobacco Use Status: Never used Tobacco e-Cigarette/Vaping Use: Never Used Second Hand Smoke Exposure: No Advance Directives Date on File: 09/28/23 service: No Current occupational status: unemployed Current occupational exposures/hazards: No Cognitive needs: No Hearing needs: No Vision needs: No Review of Systems Const All systems reviewed & are unremarkable except as noted in HPI and below Physical Exam Vital Signs: BMI result Body Mass Index 39.8 Const General: cooperative and no acute distress Orientation/consciousness: patient oriented x3 HEENT Head: Yes normal to inspection, Yes normocephalic and Yes atraumatic Eyes General: appearance normal, both eyes and all related structures Resp Effort & Inspection: normal respiratory effort and able to speak in complete sentences Cardio Rate: regular rate Peripheral pulses: Peripheral pulses 2+ throughout GI Palpation (GI): Soft to palpation Skin Lesions: no lesions Rashes: no rashes Neuro General: patient oriented x3 Extrem Other: Right knee: Skin intact, no erythema or joint effusion. No tenderness along the medial or lateral joint line. Full ROM with crepitus. Negative Kristi?s. No ligamentous laxity. NVI. Left knee skin intact, no erythema or joint effusion. Tenderness along the medial joint line and ppsterior aspect of the knee. ROM 10-95. Negative steinmans. No ligamentous laxity. NVI. Assessment & Plan Assessment & Plan (1) Patellofemoral disorder of both knees: Code(s): M22.2X1 - Patellofemoral disorders, right knee; M22.2X2 - Patellofemoral disorders, left knee Plan: We discussed options today which include physical therapy to help on range of motion and strengthening exercises. MRI of the left knee has been order to further evaluate the integrity of the meniscus and surrounding structures and also determine the source behind her pain. Once this is complete she will see me back to discuss results. Orders: Orders MR knee LT wo con Today M17.12 - Unilateral primary osteoarthritis, left knee PT Evaluation and Treatment Today M22.2X1 - Patellofemoral disorders, right knee, M22.2X2 - Patellofemoral disorders, left knee Coding Level of Care Code Est Pt Level 3 (81062) Diagnoses Patellofemoral disorder of both knees M22.2X1; M22.2X2
[2024-01-18 12:43] VITALS: BMI 39.8
== END 2024-01-18 13:16 | disposition home or self-care (01) ==
PROVIDERS: PCP Internal Medicine; Visit Provider Physician Assistant
DX: M22.2X1 Patellofemoral disorders, right knee (principal); M22.2X2 Patellofemoral disorders, left knee
CPT/HCPCS: 99213

== ENCOUNTER → 2024-01-18 12:29 | Outpatient (BNVA) | payer OTHER, SELFPAY | PROVIDERS: PCP Internal Medicine; Visit Provider Physician Assistant | DX: M22.2X1 Patellofemoral disorders, right knee (principal); M22.2X2 Patellofemoral disorders, left knee | CPT/HCPCS: 99212 ==

== ENCOUNTER 2024-02-04 19:21 | Outpatient (REF) | payer OTHER, SELFPAY ==
--- NOTE | ~2024-02-04 | MR_ITS ---
EXAMINATION: MR KNEE WITHOUT CONTRAST, LEFT CLINICAL INFORMATION: Primary osteoarthritis left knee. Posterior knee pain. COMPARISON: None available. TECHNIQUE: MRI of the knee without contrast was performed using routine sequences on a high-field scanner. FINDINGS: MENISCI: Medial Meniscus: Intact Lateral Meniscus: Intact LIGAMENTS: Cruciate: Intact Collateral: Intact EXTENSOR MECHANISM: Intact ARTICULAR CARTILAGE/BONE: Patellofemoral Compartment: Normal Medial Compartment: Normal Lateral Compartment: Normal JOINT FLUID AND BURSAE: Small to moderate-sized Golden's cyst. MR/MR knee LT wo con IMPRESSION: 1. Small to moderate-sized Golden's cyst. 2. Otherwise unremarkable exam. 3. No MRI findings of osteoarthritis.
== END 2024-02-04 19:22 | disposition home or self-care (01) ==
LOC: HO.MRI 19:21
PROVIDERS: PCP Internal Medicine; Visit Provider Physician Assistant
DX: M17.12 Unilateral primary osteoarthritis, left knee (principal)
CPT/HCPCS: 73721

== ENCOUNTER 2024-02-24 15:04 | Outpatient (AMB) | payer OTHER, SELFPAY ==
--- NOTE | 2024-02-24 15:04 | MHC.OFFVIS ---
Intake Visit Reasons: Tele- LT knee MRI review Intake Note: Patient presents today via telehealth for MRI review of the left knee. 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 She is doing well, she has some discomfort with stairs and bending. [facility] Medical History Anemia Intractable vomiting Vomiting Inflammatory bowel disease Irritable bowel syndrome Surgical History Bariatric surgery status Hx of cholecystectomy No pertinent past surgical history Social History (Updated 01/18/24 @ 12:43 by Georgina Newton) Household Members: Spouse and Children [facility] Do you presently have visiting nurse or other home services: No Alcohol intake: never Patient Tobacco Use Status: Never used Tobacco e-Cigarette/Vaping Use: Never Used Second Hand Smoke Exposure: No Advance Directives Date on File: 09/28/23 service: No Current occupational status: unemployed Current occupational exposures/hazards: No Cognitive needs: No Hearing needs: No Vision needs: No Review of Systems Const All systems reviewed & are unremarkable except as noted in HPI and below Physical Exam Resp Effort & Inspection: normal respiratory effort and able to speak in complete sentences Telehealth Telehealth Telehealth Platform: Telephone Location of provider rendering services: practice address Location of patient: address on file Patient Identification confirmed using: Name, : Yes Telehealth method: voice only Patient verbally consented to treatment: Yes Patient verbally consented to billing insurance company: Yes Patient informed of any privacy concerns related to visit: Yes Results Reviewed Results Reviewed: MR knee LT wo con IMPRESSION: 1. Small to moderate-sized Golden's cyst. 2. Otherwise unremarkable exam. 3. No MRI findings of osteoarthritis. Assessment & Plan Assessment & Plan (1) Patellofemoral disorder of both knees: Code(s): M22.2X1 - Patellofemoral disorders, right knee; M22.2X2 - Patellofemoral disorders, left knee Category: Medical Plan: We discussed options which include PT, NSAIDs and injections. She will defer on the injection today and proceed with PT and NSAIDs. If symptoms persist she will contact me for an injection, otherwise, prn. Coding Level of Care Code Tele Est Pt Level 3 (62768) Diagnoses Patellofemoral disorder of both knees M22.2X1; M22.2X2
== END 2024-02-24 15:25 | disposition home or self-care (01) ==
LOC: HO.HOS 15:04
PROVIDERS: PCP Internal Medicine; Visit Provider Physician Assistant
DX: M22.2X1 Patellofemoral disorders, right knee (principal); M22.2X2 Patellofemoral disorders, left knee
CPT/HCPCS: 99213

== ENCOUNTER → 2024-02-24 15:04 | Outpatient (BNVA) | payer OTHER, SELFPAY | PROVIDERS: PCP Internal Medicine; Visit Provider Physician Assistant ==

== ENCOUNTER 2024-05-31 12:48 | Emergency (ER) | payer OTHER, SELFPAY ==
[2024-05-31 13:24] VITALS: BP 123/90; PULSE 90; RESP 16; TEMP 36.8; O2SAT 99; BMI 41.1
--- NOTE | 2024-05-31 13:25 | ED.EAR ---
HPI - Ear Problem General Chief complaint: Ear Problems Stated complaint: Bilateral ear pain Time Seen by Provider: 05/31/24 13:28 Source: patient, RN notes reviewed and old records reviewed Mode of arrival: ambulatory Limitations: no limitations History of Present Illness ED Provider: CHARLES HOANG PA-C HPI Narrative: 38 year old Georgian speaking female presents to the ED today with bilateral ear pain x1 month. She states the pain originally began in her right ear and has now moved to her left ear as well. Admits to 6/10 pain. Denies hearing changes however does endorse white liquid/discharge from her left ear that she noticed when she lies down. Denies recent swimming. Denies recent plane rides. Denies fever/chills, jaw pain, ear swelling, neck pain. Denies FB. Denies hx of DM. Related Data Previous Rx's ?Medication ?Instructions ?Recorded ibuprofen 600 mg tablet 600 mg PO Q6H PRN fever or pain 08/23/23 #30 tabs ferrous sulfate 325 mg (65 mg 325 mg PO DAILY 90 days #90 tabs 12/11/23 iron) tablet amoxicillin 875 mg-potassium 1 tab PO BID 7 days #14 tabs 05/31/24 clavulanate 125 mg tablet ciprofloxacin 0.3 %-dexamethasone 4 drp otic (ears) BID 7 days #7.5 05/31/24 0.1 % ear drops,suspension mL Allergies Allergy/AdvReac Type Severity Reaction Status Date / Time No Known Allergies Allergy Verified 05/31/24 13:28 Review of Systems Review of Systems: Constitutional: No fever, chills, fatigue, night sweats, weight changes ENT/Mouth: No hearing loss, nasal congestion, sinus pain, rhinorrhea, sore throat, +bilateral ear pain Eyes: No eye pain, swelling, redness, vision changes, discharge Cardio: No chest pain, palpitations, KRUGER, orthopnea, peripheral edema Pulm: No SOB, cough, sputum, wheezing, dyspnea, hemoptysis GI: No nausea, vomiting, hematemesis, abdominal pain, diarrhea, constipation, hematochezia, melena : No irregular bleeding, dysuria, frequency, urgency, hesitancy, hematuria, flank pain, urinary flow changes, urinary incontinence or retention MSK: No back pain, neck pain, joint pain, myalgias Skin: No lesions, rashes Neuro: No weakness, numbness, paresthesias, LOC, dizziness, headache Psych: No anxiety/panic, depression, SI/HI, AH/VH All other systems reviewed and are negative. [facility] Past Medical History Attestation statement: The following information was validated with the patient. Source: old records reviewed and nursing notes reviewed Medical History Anemia Intractable vomiting Vomiting Inflammatory bowel disease Irritable bowel syndrome Surgical History Bariatric surgery status Hx of cholecystectomy No pertinent past surgical history Social History Social History Household Members: Spouse and Children [facility] Do you presently have visiting nurse or other home services: No Alcohol intake: never Patient Tobacco Use Status: Never used Tobacco e-Cigarette/Vaping Use: Never Used Second Hand Smoke Exposure: No Advance Directives Date on File: 09/28/23 service: No Current occupational status: unemployed Current occupational exposures/hazards: No Cognitive needs: No Hearing needs: No Vision needs: No Physical Exam Vital Signs: Vital Signs: Vital signs stable, afebrile. Const: General: cooperative, healthy appearing, comfortable and no acute distress Orientation/consciousness: patient oriented x3 Limitations: no limitations HEENT: Other: + pain on manipulation of left pinna. No mastoid tenderness or protrusion of the auricle. Left EAC erythematous and edematous without discharge. TM intact, erythematous, no effusion or bulging. + pain on manipulation of right pinna. No mastoid tenderness or protrusion of the auricle. Right EAC erythematous and edematous without noted discharge. TM intact, erythematous, no effusion or bulging. + posterior oropharynx WNL Head: Yes normal to inspection, Yes No palpable skull fracture present, Yes normocephalic and Yes atraumatic Ears: hearing grossly normal bilaterally Face and sinus: Yes normal facial exam and Yes sinuses nontender Mouth: Normal oral and palatal mucosa present Throat: Yes posterior oropharynx normal Eyes: General: appearance normal, both eyes and all related structures Pupils: Equal, round and reactive pupils present Neck: Neck: Yes normal visual inspection, Yes full ROM and Yes no lymphadenopathy Resp: Effort & Inspection: normal respiratory effort and able to speak in complete sentences Auscultation: clear to auscultation bilaterally Cardio: Rate: regular rate Rhythm: regular rhythm Skin: General skin exam: no rashes or lesions noted Neuro: General: patient oriented x3 and gait normal Cranial nerves: Yes Equal, round and reactive pupils present Course Course Course Narrative: 1335- Physical exam is consistent with bilateral otitis externa w/ question otitis media. I did discuss this with patient. Will send augmentin along with ciprodex to pharmacy for treatment. Advised to take tylenol/ motrin at home for pain/ discomfort. Patient has remained stable throughout ED visit today. Discussed worrisome signs and symptoms and when to return to the ED. All questions answered at this time. Patient is agreeable with disposition and stable for discharge. Medical Decision Making Medical Decision Making [facility] Narrative: 38 year old bulgarian speaking female presents to the ED today with bilateral ear pain x1 month. Patient is slightly hypertensive to 123/90. Afebrile. Vitals otherwise WNL. She is nontoxic-appearing and in no acute distress. On exam, pain on manipulation of left pinna. No mastoid tenderness or protrusion of the auricle. Left EAC erythematous and edematous without discharge. TM intact, erythematous, no effusion or bulging. pain on manipulation of right pinna. No mastoid tenderness or protrusion of the auricle. Right EAC erythematous and edematous without noted discharge. TM intact, erythematous, no effusion or bulging. posterior oropharynx WNL. Differential diagnosis includes otitis media, otitis externa. Unlikely mastoiditis, malignant otitis externa. Plan for disposition. Differential Diagnosis Differential Diagnoses: The differential diagnosis associated with the presentation includes as above. Admission/Observation Not indicated External Record Review External record reviewed: Inpatient record Tests considered The following testing was considered but not selected: I considered obtaining imaging however no suspicion for deep tissue infection, not warranted at this time Prescription Management I considered prescription management with: Antibiotic (Ciprodex, Augmentin) Social Determinants Patient?s care significantly limited by Social Determinants of Health including: Other Social Determinant of Health Critical Care Time Critical Care Time Critical Care Time: No Discharge Plan Discharge Clinical Impression: Bilateral otitis externa, Otitis media Patient Disposition: Home, Self-Care Instructions: Otitis Externa (ED), How to Use Ear Drops (ED), Ear Infection (ED) Additional Instructions: You were seen in the ED today for right and left ear pain. Augmentin is an antibiotic that has been sent to your pharmacy. Take this for the next 7 days as prescribed. Do not skip any doses or complete this early as this can cause infection to persist or worsen. On Augmentin, softer bowel movements are to be expected. Call your provider if you move your bowels more than 4 times a day, your bowel movements are almost all liquid, or you get a rash.? Ciprodex ear drops have been sent to your pharmacy. Please instill 4 drops into each ear twice daily for treatment. Take Tylenol or ibuprofen at home for pain/fevers. Return to the ED with new or worsening symptoms. Follow up with PCP as needed. In the case of an emergency call 911. Prescriptions: New amoxicillin-pot clavulanate 875-125 mg tablet 1 tab PO BID 7 Days Qty: 14 0RF ciprofloxacin-dexamethasone 0.3-0.1 % drops,suspension 4 drp otic (ears) BID 7 Days Qty: 7.5 0RF No Action ferrous sulfate 325 mg (65 mg iron) tablet 325 mg PO DAILY 90 Days Qty: 90 0RF ibuprofen 600 mg tablet 600 mg PO Q6H PRN (Reason: fever or pain) Qty: 30 0RF Referrals: Mago Browne MD [Primary Care Provider] - Stand Alone Forms: Work/School Release Print Language: Georgian
== END 2024-05-31 14:44 | disposition home or self-care (01) ==
PROVIDERS: Emergency Provider Emergency Medicine; PCP Internal Medicine
DX: H60.93 Unspecified otitis externa, bilateral (principal); H66.93 Otitis media, unspecified, bilateral; H92.03 Otalgia, bilateral
CPT/HCPCS: 99281; 99283

== ENCOUNTER 2024-09-15 09:16 | Emergency (ER) | payer OTHER, SELFPAY ==
[2024-09-15 09:17] VITALS: BP 130/59; PULSE 92; RESP 20; TEMP 36.6; O2SAT 97; BMI 41.0
--- NOTE | 2024-09-15 09:35 | ED_ITS ---
HPI - Ear Problem General Chief complaint: Ear Problems Stated complaint: Ear ache Time Seen by Provider: 09/15/24 09:22 Source: patient, RN notes reviewed and performance improvement coordinator Mode of arrival: ambulatory Limitations: language barrier History of Present Illness ED Provider: Nayana James PA-C HPI Narrative: This is a 38-year-old Marshallese-speaking female, with no known medical problems, who presents emergency department with acute onset bilateral ear pain which started 3 days ago. Patient states that her pain worsened in her left ear yesterday. Patient reports that yesterday she ate a chicken sandwich and vomited 4 times. She reports that this morning she was feeling better and is only experiencing ear pain now. She denies any fevers, chills, chest pain, shortness breath, abdominal pain, nausea, vomiting or diarrhea. She denies any urinary symptoms. Denies any changes in bowel habits, last bowel movement was yesterday and was normal. Denies chance of . She states that she took Tylenol this morning which helped her pain slightly. She also states that she has been using [id number] lidocaine ear drops, which she believes has only made her symptoms worse. She does report clear drainage from her ears. No changes in hearing. She states that she had similar symptoms in May, was treated with antibiotics. She states that her symptoms did improve. No recent swimming. No foreign body. No other complaints or concerns at this time. MD Complaint: ear pain and ear discharge Location: bilateral Duration: constant Severity: moderate Relieving factors: nothing Exacerbating factors: nothing Discharge from ear: yes - clear Treatment prior to arrival: eardrops Related Data Previous Rx's ?Medication ?Instructions ?Recorded ibuprofen 600 mg tablet 600 mg PO Q6H PRN fever or pain 08/23/23 #30 tabs ferrous sulfate 325 mg (65 mg 325 mg PO DAILY 90 days #90 tabs 12/11/23 iron) tablet amoxicillin 875 mg-potassium 1 tab PO BID 7 days #14 tabs 05/31/24 clavulanate 125 mg tablet ciprofloxacin 0.3 %-dexamethasone 4 drp otic (ears) BID 7 days #7.5 05/31/24 0.1 % ear drops,suspension mL amoxicillin 875 mg-potassium 1 tab PO BID 10 days #20 tabs 09/15/24 clavulanate 125 mg tablet ofloxacin 0.3 % ear drops 10 drp otic (ears) DAILY 10 days 09/15/24 #10 mL Allergies Allergy/AdvReac Type Severity Reaction Status Date / Time No Known Allergies Allergy Verified 09/15/24 09:20 Review of Systems Review of Systems: Yes all other systems are reviewed and are negative Constitutional: Constitutional: Reports as per [facility] Past Medical History Medical History Anemia Intractable vomiting Vomiting Inflammatory bowel disease Irritable bowel syndrome Surgical History Bariatric surgery status Hx of cholecystectomy No pertinent past surgical history Social History Social History Household Members: Spouse and Children Housing: Condominium Do you presently have visiting nurse or other home services: No Alcohol intake: never Patient Tobacco Use Status: Never used Tobacco e-Cigarette/Vaping Use: Never Used Second Hand Smoke Exposure: No Advance Directives: Yes Advance Directives on File: Yes Advance Directives Date on File: 09/28/23 Do you have a plan to hurt others: No Plan service: No Current occupational status: unemployed Current occupational exposures/hazards: No Cognitive needs: No Hearing needs: No Vision needs: No Physical Exam Vital Signs: Vital Signs: Last Vital Signs Temp 0 F L 09/15/24 12:11 Pulse 84 09/15/24 12:11 Resp 16 09/15/24 12:11 BP 141/90 H 09/15/24 12:11 Pulse Ox 98 09/15/24 12:11 O2 Del Method Room Air 09/15/24 12:11 BMI result Body Mass Index 41.0 Const: General: cooperative, comfortable and no acute distress Orientation/consciousness: patient oriented x3 Limitations: no limitations HEENT: Other: pain with palpation of the left pinna. She has no mastoid tenderness.The left auditory canal is erythematous, nonedematous. There is no discharge or drainage. The left TM is intact, appears to be erythematous, no effusion or bulging Pain with palpation of the right pinna, no mastoid tenderness. Auditory canal is erythematous, nonedematous. No discharge or drainage. TM is intact however appears to be erythematous, no bulging or perforation noted. Head: Yes normal to inspection, Yes normocephalic and Yes atraumatic Ears: hearing grossly normal bilaterally General nose exam: Normal external nose present Face and sinus: Yes normal facial exam Mouth: Normal oral and palatal mucosa present, oropharynx normal and moist mucous membranes Throat: Yes posterior oropharynx normal Eyes: General: appearance normal, both eyes and all related structures Eyelids: Yes eyelids normal Conjunctivae: conjunctivae normal Sclerae: sclerae normal Pupils: Equal, round and reactive pupils present EOM: EOMs intact bilaterally Neck: Neck: Yes normal visual inspection, Yes full ROM and Yes no lymphadenopathy Lymphatic: no lymphadenopathy noted Chest: Chest palpation & inspection: normal inspection of the chest Resp: Effort & Inspection: normal respiratory effort and able to speak in complete sentences Auscultation: clear to auscultation bilaterally, no crackles, no rales, no rhonchi and no wheezes Cardio: Rate: regular rate Rhythm: regular rhythm Heart sounds: S1 normal heart sound present and S2 normal heart sound present GI: Inspection: Yes normal to inspection Skin: General skin exam: no rashes or lesions noted Trauma: no lacerations or abrasions Wounds: no wounds Neuro: General: patient oriented x3 and moves all extremities Cranial nerves: Yes Equal, round and reactive pupils present Extrem: General: Yes normal to inspection Right upper extremity: normal to inspection Left upper extremity: normal to inspection Right lower extremity: normal to inspection Left lower extremity: normal to inspection Course Reevaluation(s) Reevaluation #1: Viral swabs negative, symptoms consistent with otitis media/externa, will treat with antibiotics orally and with ear drops. Given referral to ear muff assembler for recurrent ear infections. Upon re-evaluation, patient was tearful, reporting worsening ear pain. Patient medicated with Toradol Time: 10:39 Reevaluation #2: Patient feeling much better after receiving Toradol injection. Patient discharged with strict return precautions. She understands agrees with plan. Patient stable for discharge. Time: 12:16 Medications Administered Discontinued Medications Generic Name Dose Route Start Last Admin Trade Name Freq PRN Reason Stop Dose Admin Ketorolac Tromethamine 30 mg 09/15/24 10:54 09/15/24 11:05 Ketorolac Tromethamine 30 Mg/Ml Vial IM 09/15/24 10:55 30 mg ONCE ONE Administration Medical Decision Making Medical Decision Making MDM Narrative: This is a 38-year-old Marshallese-speaking female, with a history of recurrent ear infections, who presents emergency department with bilateral ear pain x3 days. On arrival, vital signs within normal limits. She is speaking in full sentences under no acute distress. Oropharynx is widely patent. Bilateral ears concerning for otitis media/externa. Viral swabs were obtained. Plan: Viral swabs Differential Diagnosis Differential Diagnoses: The differential diagnosis associated with the p resentation includes Otitis media, otitis externa, foreign body, TM perforation, mastoiditis-unlikely Lab Data [facility] Lab Attestation statement: I reviewed the patient's lab results. Labs: Lab Results 09/15/24 Range/Units 09:28 Influenza Type A (PCR) NEGATIVE (Negative) Influenza Type B (PCR) NEGATIVE (Negative) RSV RNA Qual (PCR) NEGATIVE (Negative) SARS-CoV-2 RNA (RT-PCR) NEGATIVE (Negative) S. pyogenes GrpA WILLOW Negative (Negative) Discharge Plan Discharge Clinical Impression: Bilateral acute otitis media, Bilateral otitis externa Patient Disposition: Home, Self-Care Instructions: Otitis Externa (ED), How to Use Ear Drops (ED), Ear Infection (ED) Additional Instructions: You were seen in the emergency department due to bilateral ear pain. You have concerns for an inner ear infection and outer ear infection. Please use the antibiotics prescribed to you. Augmentin as an oral antibiotic. Take prescribed antibiotic twice a day for the next 10 days. Complete the full course even if your symptoms improve. Ofloxacin is a antibiotic ear drop, place for ear drops in both of your ears twice a day for the next 10 days. Finish the entire course of these antibiotics even if your symptoms improve. I am also giving your referral to an ear muff assembler given recurrent ear infections. Call to make an clay ointment. You may continue taking Tylenol and or Motrin as needed for pain. If any new or worsening symptoms occur including but not limited to worsening ear pain, changes in hearing, severe headache, chest pain, shortness of breath, please seek emergent care. Prescriptions: New amoxicillin-pot clavulanate 875-125 mg tablet 1 tab PO BID 10 Days Qty: 20 0RF ofloxacin 0.3 % drops 10 drp otic (ears) DAILY 10 Days Qty: 10 0RF No Action ferrous sulfate 325 mg (65 mg iron) tablet 325 mg PO DAILY 90 Days Qty: 90 0RF amoxicillin-pot clavulanate 875-125 mg tablet 1 tab PO BID 7 Days Qty: 14 0RF ciprofloxacin-dexamethasone 0.3-0.1 % drops,suspension 4 drp otic (ears) BID 7 Days Qty: 7.5 0RF ibuprofen 600 mg tablet 600 mg PO Q6H PRN (Reason: fever or pain) Qty: 30 0RF Referrals: Chet Clarke [Physician] - Interventions: ED Discharge Assessment Last Done: 09/15/24 12:11 Discharge Date/Time: 09/15/24 12:13 Print Language: Marshallese
[2024-09-15 09:58] LABS: IDNOW Serial# 08D9AD1C; Strep A Nucleic Acid Negative (Negative)
[2024-09-15 10:24] LABS: Influenza A PCR NEGATIVE (Negative); Influenza B PCR NEGATIVE (Negative); Resp Syncy Virus RNA Qual PCR NEGATIVE (Negative); SARS COV2 PCR INHOUSE NEGATIVE (Negative)
[2024-09-15 11:05] VITALS: BP 141/90; PULSE 84; RESP 16; O2SAT 98
[2024-09-15] MEDS: Ketorolac Tromethamine 30 MG/ML VIAL IM (11:05)
[2024-09-15 12:11] VITALS: BP 141/90; PULSE 84; RESP 16; TEMP -17.7; TEMP 0; O2SAT 98
== END 2024-09-15 12:13 | disposition home or self-care (01) ==
PROVIDERS: Physician Assistant Medical; Emergency Provider Emergency Medicine; PCP Internal Medicine
DX: H66.93 Otitis media, unspecified, bilateral (principal); H92.03 Otalgia, bilateral; R11.2 Nausea with vomiting, unspecified; Z03.818 Encounter for observation for suspected exposure to other biological agents ruled out
CPT/HCPCS: 0241U; 87651; 96372; 99284; J1885

== ENCOUNTER 2024-12-26 09:14 | Inpatient (IN) | payer OTHER, SELFPAY ==
--- NOTE | ~2024-12-26 | CT_ITS ---
.EXAMINATION: CT ABDOMEN AND PELVIS WITHOUT CONTRAST CLINICAL INFORMATION: Right flank pain. COMPARISON: October 06, 2023. TECHNIQUE: Multidetector volumetric imaging was performed from the superior aspect of the liver through the pubic symphysis. Sagittal and coronal reformatted images were obtained on the technologist's workstation. This CT examination was performed using dose optimization techniques as appropriate, variously including the following: *Automated exposure control *Adjustment of mA and/or kV according to patient size (this includes techniques or standardized protocols for targeted exams where dose is matched to indication/reason for exam; i.e. extremities or head) *Use of iterative reconstruction technique. DLP: 876 mGy centimeter. FINDINGS: Limited evaluation of the intra-abdominal organs and vascular structures due to lack of IV contrast. LUNG BASES: Trace pleural effusions, bilaterally. LIVER, GALLBLADDER, AND BILIARY TREE: Liver measures 23 cm. No intrahepatic biliary ductal dilatation. Absent gallbladder. Common bile duct measures 3 mm. PANCREAS: No peripancreatic fluid collection. No main pancreatic ductal dilatation. SPLEEN: 11 cm. ADRENAL GLANDS: No nodular lesions. KIDNEYS AND URETERS: Right kidney: There is a 3 mm calculus at the right vesicoureteral junction. There is a mild to moderate hydronephrosis. No perinephric fluid collection. Left kidney: There is a 2 mm calcification in the midportion of the pelvicalyceal system. There is a 1 mm calcification in the upper pole pelvicalyceal system. No hydronephrosis. No fluid collections in the perinephric compartment. BLADDER: Fluid-filled. GASTROINTESTINAL TRACT: Stool within nondilated large intestine. No intestinal obstruction pattern. No pneumatosis intestinalis. No ascites. No pneumoperitoneum. I do not see the appendix, though no pericecal edema pattern. ABDOMINAL WALL: Fat-containing umbilical and periumbilical hernia. LYMPH NODES: Nonspecific prominent mesenteric and retroperitoneal lymph nodes. VASCULAR: No aneurysm, abdominal aorta. PELVIC VISCERA: 3 cm cystic lesion left adnexa. Uterus is in retroversion flexion position. OSSEOUS STRUCTURES: No acute fracture or listhesis in the axial skeleton. Bony pelvis and coxofemoral joints are intact. CT/CT abdomen pelvis wo IV con IMPRESSION: 3 mm obstructing calculus at the right ureterovesical junction resulting in mild to moderate hydronephrosis. Nonobstructing nephrolithiasis, left kidney. Hepatomegaly. 3 cm cystic lesion left adnexa. Uterus is in retroversion flexion position which could be seen in patients with endometriosis. Fat-containing umbilical and periumbilical hernias. Fleischner guidelines were followed. Electronically signed by: Juanito Wray MD 12/26/2024 12:28 PM EST
--- NOTE | ~2024-12-26 | FL_ITS ---
EXAMINATION: FL GUIDANCE ONLY HISTORY: right ureteral stone COMPARISON: Correlation is made with an unenhanced CT of the abdomen and pelvis dated 12/26/2024. TECHNIQUE: Fluoroscopy time: 16.5 seconds. Cumulative Dose: 10.97 mGy. Images: 2. FINDINGS: Images demonstrate placement of a right nephroureteral stent. FL/FL guidance in OR IMPRESSION: Fluoroscopy during procedure. Please see procedure report for additional information. Electronically signed by: Isaak Sun MD 12/30/2024 08:31 AM DORIE
--- NOTE | ~2024-12-26 | XR_ITS ---
EXAMINATION: XR CHEST 2 VIEWS HISTORY: R SIDED RIB PAIN, NO INJURY COMPARISON: Comparison is made with the prior examination dated 01/23/2018. FINDINGS: PA and lateral views of the chest are submitted. The lungs are expanded and clear. There is no pleural effusion, pneumothorax, or pulmonary vascular congestion. The heart is normal in size. The bones are intact. XR/XR chest 2V IMPRESSION: No acute cardiopulmonary abnormality. Electronically signed by: Isaak Sun MD 12/26/2024 09:33 AM EST
[2024-12-26 09:18] VITALS: BP 144/78; PULSE 81; RESP 16; TEMP 36.1; O2SAT 99; BMI 40.7
--- NOTE | 2024-12-26 10:05 | ED_ITS ---
HPI - General Adult General Chief complaint: General Medical Stated complaint: rib pain Time Seen by Provider: 12/26/24 10:05 Source: patient and official court interpreter Mode of arrival: ambulatory Limitations: language barrier History of Present Illness ED Provider: Nayana James PA-C HPI narrative: This is a 39-year-old female who presents emergency department with complaints of right-sided flank pain which started 3 days ago. Patient also endorsing nausea and vomiting, she was unable to tolerate p.o.. She has a history of kidney stones, states that her symptoms do not feel similar. She does report urinary frequency and urgency. She denies any fevers, chills, chest pain, shortness of breath, diarrhea or constipation. Denies taking any medications prior to her arrival. She denies risk of . No vaginal bleeding or discharge. No other complaints or concerns at this time. MD complaint: Right flank pain Onset (ago): day(s) Radiation: non-radiation Severity: moderate Quality: burning Relieving factors: none Exacerbating factors: none Associated symptoms: denies other symptoms Treatments prior to arrival: none Related Data Previous Rx's ?Medication ?Instructions ?Recorded ibuprofen 600 mg tablet 600 mg PO Q6H PRN fever or pain 08/23/23 #30 tabs ferrous sulfate 325 mg (65 mg 325 mg PO DAILY 90 days #90 tabs 12/11/23 iron) tablet amoxicillin 875 mg-potassium 1 tab PO BID 7 days #14 tabs 05/31/24 clavulanate 125 mg tablet ciprofloxacin 0.3 %-dexamethasone 4 drp otic (ears) BID 7 days #7.5 05/31/24 0.1 % ear drops,suspension mL ofloxacin 0.3 % ear drops 10 drp otic (ears) DAILY 10 days 09/15/24 #10 mL Allergies Allergy/AdvReac Type Severity Reaction Status Date / Time No Known Allergies Allergy Verified 12/26/24 09:19 Review of Systems 2 Review of Systems: Yes all other systems are reviewed and are negative Constitutional: Constitutional: Reports as per [facility] Past Medical History Attestation statement: The following information was validated with the patient. Medical History Anemia Intractable vomiting Vomiting Inflammatory bowel disease Irritable bowel syndrome Surgical History Bariatric surgery status Hx of cholecystectomy No pertinent past surgical history Social History Social History Household Members: Spouse and Children Housing: Condominium Do you presently have visiting nurse or other home services: No Alcohol intake: never Patient Tobacco Use Status: Never used Tobacco Smoked in Last 30 Days: No e-Cigarette/Vaping Use: Never Used Second Hand Smoke Exposure: No Use of substances other than those prescribed or required for medical reasons: No Advance Directives: Yes Advance Directives on File: Yes Advance Directives Date on File: 09/28/23 Patient : No service: No Current occupational status: unemployed Current occupational exposures/hazards: No Cognitive needs: No Hearing needs: No Vision needs: No Physical Exam ED Vital Signs: Vital Signs - 24 hr 12/26/24 09:18 12/26/24 15:46 12/26/24 18:44 Temperature 97 F 98.1 F 97.5 F Pulse Rate 81 65 70 Respiratory Rate 16 14 16 Blood Pressure 144/78 H 151/78 H 119/68 Pulse Oximetry 99 100 99 Oxygen Delivery Method Room Air Room Air Room Air BMI result Body Mass Index 40.7 Const Other: Appears to be uncomfortable secondary to pain. General: cooperative and comfortable Orientation/consciousness: patient oriented x3 Limitations: no limitations HENMT Head: Yes normal to inspection, Yes normocephalic and Yes atraumatic Ears: hearing grossly normal bilaterally General nose exam: Normal external nose present Face and sinus: Yes normal facial exam Mouth: Normal oral and palatal mucosa present, oropharynx normal and moist mucous membranes Throat: Yes posterior oropharynx normal Eyes General: appearance normal, both eyes and all related structures Eyelids: Yes eyelids normal Conjunctivae: conjunctivae normal Sclerae: sclerae normal Pupils: Equal, round and reactive pupils present EOM: EOMs intact bilaterally Neck Neck: Yes normal visual inspection, Yes full ROM and Yes no lymphadenopathy Lymphatic: no lymphadenopathy noted Chest Chest palpation & inspection: normal inspection of the chest Resp Effort & Inspection: normal respiratory effort and able to speak in complete sentences Auscultation: clear to auscultation bilaterally, no crackles, no rales, no rhonchi and no wheezes Cardio Rate: regular rate Rhythm: regular rhythm Heart sounds: S1 normal heart sound present and S2 normal heart sound present GI Other: Abdomen is soft, nontender, nondistended Inspection: Yes normal to inspection Other: Tenderness palpation along the right flank. No CVA tenderness. Skin General skin exam: no rashes or lesions noted Trauma: no lacerations or abrasions Wounds: no wounds Neuro General: patient oriented x3 and moves all extremities Cranial nerves: Yes Equal, round and reactive pupils present Extrem General: Yes normal to inspection Right upper extremity: normal to inspection Left upper extremity: normal to inspection Right lower extremity: normal to inspection Left lower extremity: normal to inspection Course Reevaluation(s) Reevaluation #1: Symptoms improved slightly after receiving Tylenol. Still reporting in 5/10 pain. Appears to be uncomfortable. CT scan returns, does reveal a obstructing 3 mm stone. Reached out to Dr. Epstein awaiting his recommendations. Time: 12:51 Reevaluation #2: Dr. Epstein reporting that patient can be discharged home with all medications if her pain is well controlled. Patient has received Toradol and Tylenol, still reporting some pain. Will recollect urine sample as urine appears to be contaminated. Time: 15:38 Reevaluation #3: Urine does not appear to be infected, does reveal a large blood, and rbc's. Discussed with Dr. Epstein who recommends admission to medicine for pain control. Dr. Epstein also recommending to start on prednisone and Flomax as well. Transfer of care initiated. Time: 17:14 Medications Administered Discontinued Medications Generic Name Dose Route Start Last Admin Trade Name Freq PRN Reason Stop Dose Admin Acetaminophen 1,000 mg in 100 mls @ 400 mls/hr 12/26/24 10:54 12/26/24 11:32 Ofirmev IV 12/26/24 11:08 Infused ONCE ONE Infusion Lactated Ringer's 1,000 mls @ 999 mls/hr 12/26/24 17:13 12/26/24 18:31 Lr IV 12/26/24 18:13 999 mls/hr .Q1H1M ONE Administration Ketorolac Tromethamine 15 mg 12/26/24 12:41 12/26/24 12:58 Ketorolac Tromethamine 15 Mg/Ml Vial IVPUSH 12/26/24 12:42 15 mg ONCE ONE Administration Morphine Sulfate 4 mg 12/26/24 17:11 12/26/24 18:34 Morphine Sulfate 4 Mg/Ml Cartridge IVPUSH 12/26/24 17:12 4 mg ONCE ONE Administration Protocol Ondansetron HCl 4 mg 12/26/24 10:54 12/26/24 11:17 Ondansetron Hcl 4 Mg/2 Ml Vial IVPUSH 12/26/24 10:55 4 mg ONCE ONE Administration Prednisone 20 mg 12/26/24 18:20 12/26/24 18:30 Prednisone 20 Mg Tablet PO 12/26/24 18:21 20 mg ONCE ONE Administration Tamsulosin HCl 0.4 mg 12/26/24 18:20 12/26/24 18:30 Tamsulosin Hcl 0.4 Mg Capsule PO 12/26/24 18:21 0.4 mg ONCE ONE Administration Medical Decision Making Medical Decision Making [facility] Narrative: This is a 39-year-old female who presents emergency department with complaints of right-sided flank pain x3 days. On arrival, patient mildly hypertensive at 144/78, she was afebrile, nontoxic-appearing. She does have tenderness palpation along her CVA on the right. Abdomen is soft and nontender. Differential diagnoses include obstructive uropathy, pyelonephritis, acute lumbar strain, spasm. Patient does appear to be uncomfortable secondary to pain in her right flank. Plan: Labs, UA, CT abdomen and pelvis Differential Diagnosis Differential Diagnoses: The differential diagnosis associated with the presentation includes See above Admission/Observation Consideration of admission/observation: Escalation of care including admission/observation considered Patient requiring admission secondary to pain control. Lab Data [facility] Lab Attestation statement: I reviewed the patient's lab results. No leukocytosis, stable H&H, chemistry with no significant electrolyte derangement. Second urine sample does not appear to be infectious. 12/26/24 10:44 12/26/24 10:44 Labs: Lab Results 12/26/24 12/26/24 12/26/24 Range/Units 10:44 13:13 15:50 WBC 5.9 (4.8-10.8) X10*3/uL RBC 4.75 (4.20-5.50) X10*6/uL Hgb 11.6 L (12.0-16.0) g/dl Hct 36.6 L (37.0-47.0) % MCV 77.1 L (80.0-98.0) fL MCH 24.4 L (27.0-33.0) pg MCHC 31.7 (31.0-35.0) g/dl RDW 15.7 (11.0-16.0) % Plt Count 226 (160-400) X10*3/uL MPV 11.4 (9.4-12.3) fL Immature Gran % (Auto) 0.3 (0.0-0.4) % Neut % (Auto) 53.2 (45-73) % Lymph % (Auto) 37.8 (20-40) % [place] % (Auto) 4.6 (2-11) % Eos % (Auto) 3.4 (0-4) % Baso % (Auto) 0.7 (0-2) % Lymph # (Auto) 2.2 (1.2-4.9) X10*3/uL [place] # (Auto) 0.3 (0.1-1.2) X10*3/uL Eos # (Auto) 0.2 (0.0-0.4) X10*3/uL Baso # (Auto) 0.0 (0.0-0.2) X10*3/uL Abs Immat Gran (auto) 0.02 (0.00-0.03) X10*3/uL Absolute Neuts (auto) 3.2 (2.0-8.3) x10*3/uL Absolute Nucleated RBC 0.000 (0.0-0.012) X10*3/uL Nucleated RBC % (auto) 0.0 (0.0-0.2) /100WBC Sodium 142 (135-145) mmol/L Potassium 4.0 (3.3-5.1) mmol/L Chloride 112 H (96-108) mmol/L Carbon Dioxide 23 (22-29) mmol/L Anion Gap 11 L (12-20) BUN 11 (9-16) mg/dL Creatinine 0.74 (0.5-1.4) mg/dL Estim Creat Clear Calc 141.4 Estimated GFR > 60 Random Glucose 94 (60-115) mg/dL Calcium 9.3 (8.4-10.2) mg/dL Total Bilirubin 0.2 (0.0-1.0) mg/dL Direct Bilirubin < 0.2 (0.0-0.5) mg/dL AST 22 (5-31) U/L ALT 22 (0-31) U/L Alkaline Phosphatase 86 (39-117) U/L Total Protein 7.9 (6.5-8.0) g/dL Albumin 4.0 (3.5-5.0) g/dL Beta HCG, Quant < 2 mIU/mL Urine Color Yellow Yellow Urine Appearance Cloudy Clear Urine pH 5.5 5.0 (5.0-9.0) Ur Specific [place] 1.025 >= 1.030 H (1.005-1.025) Urine Protein Trace Negative (Neg-Trace) mg/dL Urine Glucose (UA) Negative Negative (Negative) mg/dL Urine Ketones Negative Negative (Negative) mg/dL Urine Blood Large (3+) H Large (3+) H (Negative) Urine Nitrite Negative Negative (Negative) Ur Leukocyte Esterase Trace H Negative (Negative) Urine RBC >20 H >20 H (0-2) /HPF Urine WBC 11-20 H 0-5 (0-5) /HPF Ur Squamous Epith Cells 6-10 3-5 (0-2) /HPF Urine Bacteria Trace None Seen (None Seen) Hyaline Casts 0-2 0-2 (0-2) /LPF Radiology Impression Discussion of test interpretation with radiology: I have reviewed the radiologist's reading. Radiologist Impression: Report Number: [id number]: Total DLP = 876.00 mGy-cm .EXAMINATION: CT ABDOMEN AND PELVIS WITHOUT CONTRAST CLINICAL INFORMATION: Right flank pain. COMPARISON: October 06, 2023. TECHNIQUE: Multidetector volumetric imaging was performed from the superior aspect of the liver through the pubic symphysis. Sagittal and coronal reformatted images were obtained on the technologist's workstation. This CT examination was performed using dose optimization techniques as appropriate, variously including the following: *Automated exposure control *Adjustment of mA and/or kV according to patient size (this includes techniques or standardized protocols for targeted exams where dose is matched to indication/reason for exam; i.e. extremities or head) *Use of iterative reconstruction technique. DLP: 876 mGy centimeter. FINDINGS: Limited evaluation of the intra-abdominal organs and vascular structures due to lack of IV contrast. LUNG BASES: Trace pleural effusions, bilaterally. LIVER, GALLBLADDER, AND BILIARY TREE: Liver measures 23 cm. No intrahepatic biliary ductal dilatation. Absent gallbladder. Common bile duct measures 3 mm. PANCREAS: No peripancreatic fluid collection. No main pancreatic ductal dilatation. SPLEEN: 11 cm. ADRENAL GLANDS: No nodular lesions. KIDNEYS AND URETERS: Right kidney: There is a 3 mm calculus at the right vesicoureteral junction. There is a mild to moderate hydronephrosis. No perinephric fluid collection. Left kidney: There is a 2 mm calcification in the midportion of the pelvicalyceal system. There is a 1 mm calcification in the upper pole pelvicalyceal system. No hydronephrosis. No fluid collections in the perinephric compartment. BLADDER: Fluid-filled. GASTROINTESTINAL TRACT: Stool within nondilated large intestine. No intestinal obstruction pattern. No pneumatosis intestinalis. No ascites. No pneumoperitoneum. I do not see the appendix, though no pericecal edema pattern. ABDOMINAL WALL: Fat-containing umbilical and periumbilical hernia. LYMPH NODES: Nonspecific prominent mesenteric and retroperitoneal lymph nodes. VASCULAR: No aneurysm, abdominal aorta. PELVIC VISCERA: 3 cm cystic lesion left adnexa. Uterus is in retroversion flexion position. OSSEOUS STRUCTURES: No acute fracture or listhesis in the axial skeleton. Bony pelvis and coxofemoral joints are intact. CT/CT abdomen pelvis wo IV con IMPRESSION: 3 mm obstructing calculus at the right ureterovesical junction resulting in mild to moderate hydronephrosis. Nonobstructing nephrolithiasis, left kidney. Hepatomegaly. 3 cm cystic lesion left adnexa. Uterus is in retroversion flexion position which could be seen in patients with endometriosis. Fat-containing umbilical and periumbilical hernias. Fleischner guidelines were followed. Electronically signed by: Juanito Wray MD 12/26/2024 12:28 PM [facility] Dictated By: Juanito Celaya MD Discharge Plan Discharge Clinical Impression: Hydronephrosis with urinary obstruction due to renal calculus Patient Disposition: Admitted As Inpatient Print Language: Afghan
[2024-12-26 10:49] LABS: MANUAL DIFF FLAG NO
[2024-12-26 10:57] LABS: Basophils Percent Auto 0.7 % (0-2); Eosinophils Absolute Auto 0.2 X10*3/uL (0.0-0.4); Eosinophils Percent Auto 3.4 % (0-4); Hematocrit 36.6 % (37.0-47.0); Hemoglobin 11.6 g/dl (12.0-16.0); Imm Gran Abs Auto 0.02 X10*3/uL (0.00-0.03); Imm Gran Pct Auto 0.3 % (0.0-0.4); Lymphocytes Absolute Auto 2.2 X10*3/uL (1.2-4.9); Lymphocytes Percent Auto 37.8 % (20-40); Mean Corpuscular HGB Conc 31.7 g/dl (31.0-35.0); Mean Corpuscular Hemoglobin 24.4 pg (27.0-33.0); Mean Corpuscular Volume 77.1 fL (80.0-98.0); Mean Platelet Volume 11.4 fL (9.4-12.3); Monocytes Absolute Auto 0.3 X10*3/uL (0.1-1.2); Monocytes Percent Auto 4.6 % (2-11); Neutrophils Absolute Auto 3.2 x10*3/uL (2.0-8.3); Neutrophils Percent Auto 53.2 % (45-73); Platelet Count 226 X10*3/uL (160-400); Red Blood Count 4.75 X10*6/uL (4.20-5.50); Red Cell Distribution Width 15.7 % (11.0-16.0); White Blood Count 5.9 X10*3/uL (4.8-10.8)
[2024-12-26 11:12] LABS: Alanine Aminotransferase 22 U/L (0-31); Alkaline Phosphatase 86 U/L (39-117); Anion Gap 11 (12-20); Aspartate Amino Transferase 22 U/L (5-31); Bilirubin Direct < 0.2 mg/dL (0.0-0.5); Bilirubin Total 0.2 mg/dL (0.0-1.0); Blood Urea Nitrogen 11 mg/dL (9-16); Calcium 9.3 mg/dL (8.4-10.2); Carbon Dioxide 23 mmol/L (22-29); Chloride 112 mmol/L (96-108); Creatinine Clr Calc Pharmacy 141.4; Estimated Glomerular Filt Rate > 60; Glucose Random 94 mg/dL (60-115); HCG Quantitative < 2 mIU/mL; Sodium 142 mmol/L (135-145); Total Protein 7.9 g/dL (6.5-8.0)
[2024-12-26] MEDS: ondansetron HCL 4 MG/2 ML VIAL IVPUSH (11:17)
[2024-12-26] MEDS: Acetaminophen 1,000 MG/100 ML PIGGYBACK 400 MG IV (11:17)
--- OUTSIDE RECORDS SUMMARY | 2024-12-26 11:34 | XMS_ITS | Clinical Summary ---
Author Organization [address] [place] [address] [place] [phone] Phone Care Team Providers Care In Room Dining Server Name Role Phone Mago Zuñiga MD Primary Care Provider [phone] Allergies No known active allergies Medications IRON, FERROUS SULFATE, ORAL Take by mouth. Active Active Problems Problem Noted Date Diagnosed Date Class 3 severe obesity witho ut serious comorbidity with body mass index (BMI) of 40.0 to 44.9 in adult 11/02/2024 Encounters Date Type Department Care Team Description 12/14/2024 1:30 PM EST Nutrition Bariatric Surgery - [address] [address] Class 3 severe obesity without serious comorbidity with body mass index (BMI) of 40.0 to 44.9 in adult, unspecified obesity type (CMS/HCC) (Primary Dx) 11/08/2024 2:00 PM EST Nutrition Bariatric Surgery [address] [address] Class 3 severe obesity without serious comorbidity with body mass index (BMI) of 40.0 to 44.9 in adult, unspecified obesity type (CMS/HCC) (Primary Dx); Personal history of nutritional deficiency from Last 3 Months Immunizations Name Administration Dates Next Due HPV, Quadrivalent 03/30/2008 Tdap Tetanus diptheria acell ular pertussis (Boostrix; Adacel) 7yo and older 11/14/2015 Surgical History Surgery Date Site/Laterality Comments CHOLECYSTECTOMY PROCEDURE: [place] LAPAROSCOPY SURG CHOLECYSTECTOMY APPENDECTOMY PROCEDURE: [place] APPENDECTOMY Medical History Medical History Date Comments Preeclampsia 2006 DX:Preeclampsia Migraines 05/01/2015 DX:Migraines History of anemia 12/19/2015 DX:History of anemia; COMMENT: H&H 10.6/ 33.6 Iron deficiency anemia DX:Iron d eficiency anemia Family History Medical History Relation Name Comments Diabetes Father Diabetes Maternal Grandmother IDDM Relation Name Status Comments Father Maternal Grandmother Social History Tobacco Use Types Packs/Day Years Used Date Smoking Tobacco: Never Smokeless Tobacco: Never Alcohol Use Standard Drinks/Week Comments Never 0 (1 standard drink = 0.6 oz pur e alcohol) Comments Unknown Sex and Gender Information Value Date Recorded Sex Assigned at Not on file Legal Sex Female 12:22 AM EST Gender Identity Not on file Sexual Orientation Not on file Obstetrics History Last Filed Vital Signs Vital Sign Reading Time Taken Comments Blood Pressure 119/76 11/24/2023 2:45 PM EST Pulse 80 11/24/2023 2:45 PM EST Temperature - - Respiratory Rate - - Oxygen Saturation - - Inhaled Oxygen Concentration - - Weight 121 kg (266 lb) 12/14/2024 1:49 PM EST Height 172.7 cm (5' 8 ) 01/13/2024 2:37 PM EDT Body Mass Index 40.45 01/13/2024 2:37 PM EDT Plan of Treatment Upcoming Encounters Date Type Department Care Team (Late st Contact Info) Description 01/12/2025 1:30 PM EDT Nutrition Bariatric Surgery - [address] [address] Gabriella Rodriguez, RD [address] [phone] Health Maintenance Due Date Last Done Comments Hepatitis B Vaccines (1 of 3 - 19+ 3-dose series) 2005 HPV Vaccines (2 - 3-dose series) 04/27/2008 03/30/20 08 Cervical Cancer Screening: P ap Smear 05/15/2018 05/15/2015 Cholesterol Screening (Lipid Panel) 05/24/2024 Depression Screening 05/24/2024 HIV Screening 05/24/2024 Hepatitis C Screening 05/24/2024 Social Influencers of Health Screening 05/24/2024 COVID-19 Vaccine (1 - 2023-2 5 season) 2024 Influenza Vaccine (#1) 2024 DTaP,Tdap,and Td Vaccines (2 - Td or Tdap) 11/14/2025 11/14/2015 HIB Vaccines Aged Out No longer eligi ble based on patient's age to complete this topic Hepatitis A Vaccines Aged Out No long er eligible based on patient's age to complete this topic IPV Vaccines Aged Out No longer eligi ble based on patient's age to complete this topic MMR Vaccines Aged Out No longer eligi ble based on patient's age to complete this topic Meningococcal ACWY Vaccine Aged Out N o longer eligible based on patient's age to complete this topic Meningococcal B Vacine Aged Out No lo nger eligible based on patient's age to complete this topic Pneumococcal Vaccine: Pediat rics (0 to 5 Years) and At-Risk Patients (6 to 64 Years) Aged Out No longer eligi ble based on patient's age to complete this topic RSV Immunization Patients Un vamsi 20 months Aged Out No longer eligible b ased on patient's age to complete this topic Varicella Vaccines Aged Out No longer eligible based on patient's age to complete this topic Procedures Procedure Name Priority Date/Time Associated Diagnosis Comments PAP SMEAR Routine 05/15/2015 from Last 3 Months or Most Recently Relevant to Health Maintenance Results * Pap Smear (05/15/2015) Pap smear No interpretation , abstracted Historical Provider MD HEALTH MAINTENANCE Final Result from Last 3 Months or Most Recently Relevant to Health Maintenance Insurance [facility] Care Teams In Room Dining Server Relationship Specialty Start Date End Date Mago Zuñiga MD 2 [facility] , [address] [place] [address] Physician Associ D/B/A: [facility] [place] PCP - General 11/24/23
--- OUTSIDE RECORDS SUMMARY | 2024-12-26 11:34 | XMS_ITS | Encounter Summary ---
Author Organization [employer] [facility] Address [address] [place] [address] Care Team Providers Care Vice President Research Name Role Phone Mago Zuñiga MD Primary Care Provider Encounter Details Date Type Department Care Team (Late st Contact Info) Description 12/14/2024 1:30 PM EST Nutrition Bariatric Surgery - [address] [place] [address] Gabriella Rodriguez, YULISSA 175 [facility] [address] [place] [phone] Class 3 severe obesity without serious comorbidity with body mass index (BMI) of 40.0 to 44.9 in adult, unspecified obesity type (CMS/HCC) (Primary Dx) Social History Tobacco Use Types Packs/Day Years Used Date Smoking Tobacco: Never Smokeless Tobacco: Never Alcohol Use Standard Drinks/Week Comments Never 0 (1 standard drink = 0.6 oz pur e alcohol) Comments Unknown Sex and Gender Information Value Date Recorded Sex Assigned at Not on file Legal Sex Female 12:22 AM EST Gender Identity Not on file Sexual Orientation Not on file documented as of this encounter Last Filed Vital Signs Vital Sign Reading Time Taken Comments Blood Pressure - - Pulse - - Temperature - - Respiratory Rate - - Oxygen Saturation - - Inhaled Oxygen Concentration - - Weight 121 kg (266 lb) 12/14/2024 1:49 PM EST Height - - Body Mass Index 40.45 01/13/2024 2:37 PM EDT documented in this encounter Progress Notes * Gabriella Rodriguez RD - 12/14/2024 1:30 PM EST Here are the program requirements that you can work on at your own pace: Labs: Your lab work has been ordered and is in the computer. You can go to [facility] at [address] [place] [address], [address], when you are ready. They open at 7:30am. You can also go to another [facility] lab that may be more conveniently located. No food/drink after midnight please - these are fasting labs. NO GUM, CANDY, MINTS, TUMS, OR WATER FOR ONE HOUR BEFORE! If you would like, you can join our Facebook group [facility]. (It has a picture of a yellow shirt with a tape measure). Support group (Facebook): Please watch the videos I posted on the FB page (use the magnifying glassto search for [facility] to locate my posts and scroll down until you see videos). Please send an email to me at the email address provided in the video. There are two topics ( drink options and adequate fluid intake part 1 and part 2 and dietitian's lunchbox ). You need to watch all 3 videos and email me to get credit for support groups. Support group (in-person): You must attend two support groups. Support groups are held every from 5:30-6:30pm in the second-floor cafeteria of [address] [place] [address]. No need tosign up, feel free to just show up. Support group (quiz): Please fill out the attached quiz and return to me (instructions are included). Psych eval: You have two options for your psychological evaluation Dr. Ria Marley [phone] [facility] [phone] Both are doing remote visits. Call either one and let them know you are in the [facility] and need a psych eval set up. Make sure to provide your name, number, and date. Physical: You need to have a physical with your primary care doctor within the last one year. If you have not had one, please call to schedule a physical. If you are unsure, please call your doctor'soffice to ask. If your primary care office is *not* within [facility], please ask them to fax their office note to [phone]. Handouts: I am attaching a snack handout for ideas. Each snack should include one protein and one carb. Also attached is a meal handout (the one with the plate). Make sure to include a protein, lots of vegetables, and a small portion of a carb if you would like. Patient-created Goals: -getting back on track after vacation -exercise 3-4x Gabriella Rodriguez RD Bariatric Dietitian [email or web address] [phone] F [phone] [place] [address], [address] [place] [address] * Gabriella Rodriguez RD - 12/14/2024 1:30 PM EST NUTRITION FOLLOW-UP NOTE: Patient Name: Marika Easley Date of : 1985 Date of Service: 12/14/2024 SURGEON: Priscila Olmstead MD DESIRED SURGERY: Gastric Sleeve CHIEF COMPLAINT: Obesity HISTORY: Marika Easley is a 39 y.o. female who presents for nutrition visit for Pre-op bariatric surgery 2nd Ht Readings from Last 1 Encounters: 01/13/24 1.727 m (68 ) Wt today: Wt Readings from Last 5 Encounters: 12/14/24 121 kg (266 lb) 11/08/24 120 kg (264 lb) 02/24/24 121 kg (267 lb) 01/13/24 120 kg (264 lb) 11/24/23 119 kg (263 lb) Body mass index is 40.45 kg/m??. Wt at initial: 263 Wt change since initial: +3 EBW = current - wt at BMI of 25: 263 - 165 = 98 Challenges: two weeks on vacation, tried to make healthier choices Changes since last visit: no soda since July, no more snacks or chips a night EATING HABITS/DIET RECALL: Breakfast: skipping Lunch: salmon chicken breast, tuna with avocado clark , tomato Dinner: similar to lunch Beverages: crystal light, water (hitting 64 oz) Does not like a lot of vegetables Dines out: Yes Exercise: no Reasons pt cannot exercise: none Nutrition diagnosis: Class Class III obesity related to Inadequate Physical Activity as evidenced by A BMI 40.5 Patient-created Goals: -getting back on track after vacation -exercise 3-4x Literature Provided: Goal sheets and RD contact information Interventions: Discuss the importance of eating at least 3 meals/day and the impact on metabolism and Discussed the importance of drinking enough water Nutrition assessment: Pt is 39 y.o. Female with h/o has a past medical history of History of anemia(12/19/2015), Iron deficiency anemia, Migraines (05/01/2015), and Preeclampsia (2005). Stage of change/Barriers to understanding: Pt is motivated to make changes to diet and lifestyle and No barriers to understanding Concerns regarding considerations for bariatric surgery: Pt voiced none, RD has none, and Program requirements not met at this time Monitoring/Evaluation: Monitor weight, Monitor progress toward nutrition goals, and Monitor compliance with program overall Patient nutritionally ready for surgery: Yes RD to see patient for follow-up nutrition visit in 1 month Visit Time: The total time of this visit was 30 minutes of which we spent 30minutes (>50% of the time spent)in direct [id number] consultation for counseling, reviewing medical record and/or coordinating the plan as described above. Gabriella Rodriguez RD NUTRITION SERVICES documented in this encounter Plan of Treatment Upcoming Encounters Date Type Department Care Team ([facility] st Contact Info) Description 01/12/2025 1:30 PM EDT Nutrition Bariatric Surgery - [address] [address] [address] documented as of this encounter Visit Diagnoses Diagnosis Class 3 severe obesity without serious comorbidity with body mass index (BMI) of 40.0 to 44.9 in adult, unspecified obesity type (CMS/HCC)- Primary documented in this encounter Care Teams Vice President Research Relationship Specialty Start Date End Date Mago Zuñiga MD 2 [facility] , [address] [facility] Physician Associ D/B/A: [facility] [place] PCP - General 11/24/23 documented as of this encounter
[2024-12-26] MEDS: Ketorolac Tromethamine 15 MG/ML VIAL IVPUSH (12:58)
[2024-12-26 13:21] LABS: Appearance Urine Cloudy; Color Urine Yellow; Glucose Urine UA Negative (Negative); Leukocyte Esterase Urine Trace (Negative); Nitrite Urine Negative (Negative); PH 5.5 (5.0-9.0); Specific Gravity - Urine 1.025 (1.005-1.025); UMIC TRIGGER UACC YES; Urine Blood Large (3+) (Negative); Urine Ketones Negative (Negative); Urine Protein Trace mg/dL (Neg-Trace)
[2024-12-26 13:23] LABS: Bacteria Urine Trace (None Seen); Hyaline Casts Urine 0-2 /LPF (0-2); RBC Urine >20 /HPF (0-2); UACC Culture Trigger YES
[2024-12-26 15:46] VITALS: BP 151/78; PULSE 65; RESP 14; TEMP 36.7; O2SAT 100
[2024-12-26 16:03] LABS: Appearance Urine Clear; Color Urine Yellow; Glucose Urine UA Negative (Negative); Leukocyte Esterase Urine Negative (Negative); Nitrite Urine Negative (Negative); Specific Gravity - Urine >= 1.030 (1.005-1.025); UMIC TRIGGER UACC YES; Urine Blood Large (3+) (Negative); Urine Ketones Negative (Negative); Urine Protein Negative (Neg-Trace)
[2024-12-26 16:57] LABS: Bacteria Urine None Seen (None Seen); Hyaline Casts Urine 0-2 /LPF (0-2); RBC Urine >20 /HPF (0-2); WBC Urine 0-5 /HPF (0-5)
[2024-12-26] MEDS: Tamsulosin HCL 0.4 MG CAPSULE PO (18:30)
[2024-12-26] MEDS: predniSONE 20 MG TABLET PO (18:30)
[2024-12-26] MEDS: Lactated Ringers 1,000 ML 999 ML IV (18:31)
[2024-12-26] MEDS: Morphine Sulfate 4 MG/ML CARTRIDGE IVPUSH (18:34)
[2024-12-26 18:44] VITALS: BP 119/68; PULSE 70; RESP 16; TEMP 36.4; O2SAT 99
[2024-12-26 20:40] VITALS: BP 142/76; PULSE 63; RESP 18; TEMP 36.4; O2SAT 98
--- NOTE | 2024-12-26 21:00 | PHA.MEDREC ---
Addendum entered by Lesli Randall RPh 12/26/24 21:16: reviewed by [facility]. Original Note: Pharmacy Consult ? Medication Reconciliation Pharmacy has completed the medication reconciliation. Spoke with patient utilizing traveling crane operator and she confirmed she is not taking any medicaitons at this time.
--- NOTE | 2024-12-26 21:01 | P.HPHOSP_ITS ---
History of Present Illness Date of Service: 12/26/24 Attending physician on admission: Justen Lyn Chief Complaint: Right flank pain x 3 days Patient is a 39 year old morbidly obese female (BMI 40.7 kg/m2) with history of nephrolithiasis who presents to the emergency room from home complaining of right flank pain that has been present for the last 3 days and that has progressively become worse and is now associated with some nausea and vomiting. She denies any associated fevers, chills or urinary symptoms including blood in her urine. She has had similar episodes in the past and was diagnosed with hydronephrosis with urinary obstruction due to renal calculus. Today, she had an abdominal CT scan done which showed a 3 mm right ureteral calculi with obstruction with right hydronephrosis. She was started on IV fluids, analgesics, Prednisone 20 mg and Flomax 0.4 mg with no improvement in her symptoms and so the case was discussed with the on-call Urologist (Dr. Epstein) who recommended admission for continued care. When I saw her, she was comfortable in bed and was still experiencing right flank pain though better than when she initially came in. Her initial vital signs are fairly stable except for mildly elevated blood pressure at 151/78 mmHg (likely due to pain). Her blood work was normal except for mild anemia while urinalysis done showed increased specific gravity and large blood. Review of Systems 2 Review of Systems: Yes all other systems are reviewed and are negative [facility] Medical History (Updated 12/26/24 @ 23:43 by Justen Lyn MD) Anemia Intractable vomiting Vomiting Inflammatory bowel disease Irritable bowel syndrome Functional capacity: independent ambulation Patient : No Surgical History Hx of appendectomy Bariatric surgery status Hx of cholecystectomy No pertinent past surgical history Social History Household Members: Spouse and Children Housing: Condominium Do you presently have visiting nurse or other home services: No Alcohol intake: never Patient Tobacco Use Status: Never used Tobacco e-Cigarette/Vaping Use: Never Used Second Hand Smoke Exposure: No Advance Directives Date on File: 09/28/23 service: No Current occupational status: unemployed Current occupational exposures/hazards: No Cognitive needs: No Hearing needs: No Vision needs: No Meds Allergies Allergy/AdvReac Type Severity Reaction Status Date / Time No Known Allergies Allergy Verified 12/26/24 09:19 Home Medications ?Medication ?Instructions ?Recorded ?Confirmed ?Last Taken ?Type No Known Home Meds 12/26/24 12/26/24 Unknown History Physical Exam 2 Vital Signs and Narrative: Vital Signs: Last Vital Signs Temp 97.6 F 12/26/24 20:40 Pulse 63 12/26/24 20:40 Resp 18 12/26/24 20:40 BP 142/76 H 12/26/24 20:40 Pulse Ox 98 12/26/24 20:40 O2 Del Method Room Air 12/26/24 20:40 BMI result Body Mass Index 40.7 General: Well nourished. Awake and alert. In no obvious respiratory distress. Psychiatric: Pleasant, well kempt, cooperative with normal thought process, speech, cognition and affect. HEENT: Normocephalic, atraumatic. No pallor or jaundice. Moist oral mucus membranes. Neck: Supple. No JVD Lungs: Clear to auscultation bilaterally. No rales, rhonchi or wheezes Heart: RRR. Normal s1/s2. No murmurs, rubs or gallops. No peripheral edema. Abdomen: Scaphoid, Soft, non-tender. Normoactive bowel sounds. No visceromegaly. Genitourinary: Deferred Back/Spine/Pelvis: Mild right CVA pain Skin: Warm, dry, well perfused. Normal turgor. No mottling. Normal capillary refill (< 2 seconds). Neurologic: Awake and alert. Intact speech & cognition. Normal gait & balance. CN II-XII grossly normal. Extremities: Normal muscle bulk, tone and power. No obvious deformities. No peripheral edema. Good peripheral pulses. Results Labs 12/26/24 10:44 12/26/24 10:44 Labs: Laboratory Results - last 24 hr 12/26/24 12/26/24 12/26/24 10:44 13:13 15:50 MCV 77.1 L MCH 24.4 L MCHC 31.7 RDW 15.7 Plt Count 226 MPV 11.4 Immature Gran % (Auto) 0.3 Neut % (Auto) 53.2 Lymph % (Auto) 37.8 [place] % (Auto) 4.6 Eos % (Auto) 3.4 Baso % (Auto) 0.7 Lymph # (Auto) 2.2 [place] # (Auto) 0.3 Eos # (Auto) 0.2 Baso # (Auto) 0.0 Abs Immat Gran (auto) 0.02 Absolute Neuts (auto) 3.2 Absolute Nucleated RBC 0.000 Nucleated RBC % (auto) 0.0 Anion Gap 11 L Estim Creat Clear Calc 141.4 Estimated GFR > 60 Random Glucose 94 Calcium 9.3 Total Bilirubin 0.2 Direct Bilirubin < 0.2 AST 22 ALT 22 Alkaline Phosphatase 86 Total Protein 7.9 Albumin 4.0 Beta HCG, Quant < 2 Urine Color Yellow Yellow Urine Appearance Cloudy Clear Urine pH 5.5 5.0 Ur Specific [place] 1.025 >= 1.030 H Urine Protein Trace Negative Urine Glucose (UA) Negative Negative Urine Ketones Negative Negative Urine Blood Large (3+) H Large (3+) H Urine Nitrite Negative Negative Ur Leukocyte Esterase Trace H Negative Urine RBC >20 H >20 H Urine WBC 11-20 H 0-5 Ur Squamous Epith Cells 6-10 3-5 Urine Bacteria Trace None Seen Hyaline Casts 0-2 0-2 Imaging Radiologist's Impressions: Impressions Chest X-Ray 12/26/24 09:20 IMPRESSION: No acute cardiopulmonary abnormality. Electronically signed by: Isaak Sun MD 12/26/2024 09:33 AM EST RP Abdomen/Pelvis CT 12/26/24 11:22 IMPRESSION: 3 mm obstructing calculus at the right ureterovesical junction resulting in mild to moderate hydronephrosis. Nonobstructing nephrolithiasis, left kidney. Hepatomegaly. 3 cm cystic lesion left adnexa. Uterus is in retroversion flexion position which could be seen in patients with endometriosis. Fat-containing umbilical and periumbilical hernias. Fleischner guidelines were followed. Electronically signed by: Juanito Wray MD 12/26/2024 12:28 PM EST RP Assessment and Plan (1) Hydronephrosis with urinary obstruction due to renal calculus: Status: Acute (2) Renal colic on right side: Status: Acute (3) Microscopic hematuria: Status: Acute (4) Microcytic anemia: Status: Chronic (5) Morbid obesity with BMI of 40.0-44.9, adult: Status: Chronic Plan Patient is a 39 year old morbidly obese female (BMI 40.7 kg/m2) with history of nephrolithiasis here with: # Right-sided hydronephrosis with urinary obstruction due to renal calculi # Right renal colic # microscopic hematuria - noted with a 3mm stone at the right ureterovesical junction on CT scan - admit and continue with the prednisolone and Flomax - strain all urine - urology consult in the morning # Morbid obesity -BMI of 40.7 kg/m2 -encourage weight loss # Microcytic anemia - chronic and stable Total time managing care of this patient today: 75 minutes. Quality Stroke Does the patient have a stroke diagnosis?: No VTE Prior VTE?: No VTE Risk Level:: Medical - moderate - high VTE Device Contraindication: Treatment Not Indicated VTE Drug Contraindication: N/A - Med Ordered
[2024-12-26] MEDS: Ketorolac Tromethamine 30 MG/ML VIAL IVPUSH (21:46)
[2024-12-26] MEDS: Enoxaparin Sodium 40 MG/0.4 ML SYRINGE SUBCUT (21:46)
[2024-12-26] MEDS: 0.9 % Sodium Chloride Flush 3 ML SYRINGE IVFLUSH (21:48)
[2024-12-26] MEDS: Dextrose 5 % and 0.45 % NaCl 1,000 ML 200 ML IVCONT (21:48)
[2024-12-27 00:18] VITALS: BP 132/69; PULSE 71; RESP 16; TEMP 36.8; O2SAT 97
[2024-12-27 00:31] VITALS: RESP 16
[2024-12-27] MEDS: HYDROmorphone HCl 1 MG/ML SYRINGE 0.5 MG IVPUSH ×3 (00:31→17:28)
--- NOTE | 2024-12-27 00:34 | PC.NURSE ---
Patient is alert and oriented x4, VSS. Patient complaints of sharp, cramping pain in right flank 8/ at present. Patient medicated with Dilaudid 0.5 mg IV, effect pending. 22 G IV line in L AC is patent, D5 in 1/2 NS infusing at 200 mL/hr with no issues. Patient ambulatory, denies issues with balance, gait, coordination, no recent falls. Patient is able to make her needs known. Patient in no acute distress, resting in stretcher bed, call barragan in patient's reach.
[2024-12-27] MEDS: ondansetron HCL 4 MG/2 ML VIAL IVPUSH ×3 (01:54→17:28)
--- NOTE | 2024-12-27 01:56 | PC.NURSE ---
Patient medicated with Zofran 4 mg IV for complaints of nausea.
--- NOTE | 2024-12-27 01:59 | PC.NURSE ---
Patient reports some improvement in right flank pain after administration of Diladid 0.5 mg IV-current level of pain 4/10.
[2024-12-27] MEDS: Ketorolac Tromethamine 30 MG/ML VIAL IVPUSH ×3 (03:04→14:20)
[2024-12-27] MEDS: Dextrose 5 % and 0.45 % NaCl 1,000 ML 200 ML IVCONT (03:06)
[2024-12-27 06:04] LABS: Hematocrit 32.8 % (37.0-47.0); Hemoglobin 10.6 g/dl (12.0-16.0); Mean Corpuscular HGB Conc 32.3 g/dl (31.0-35.0); Mean Corpuscular Hemoglobin 24.5 pg (27.0-33.0); Mean Corpuscular Volume 75.9 fL (80.0-98.0); Platelet Count 209 X10*3/uL (160-400); Red Blood Count 4.32 X10*6/uL (4.20-5.50); Red Cell Distribution Width 15.5 % (11.0-16.0)
[2024-12-27 06:20] LABS: Anion Gap 11 (12-20); Blood Urea Nitrogen 12 mg/dL (9-16); Calcium 9.1 mg/dL (8.4-10.2); Carbon Dioxide 21 mmol/L (22-29); Chloride 110 mmol/L (96-108); Creatinine Clr Calc Pharmacy 129.2; Estimated Glomerular Filt Rate > 60; Glucose Random 141 mg/dL (60-115); Potassium 4.1 mmol/L (3.3-5.1); Sodium 138 mmol/L (135-145)
[2024-12-27] MEDS: 0.9 % Sodium Chloride Flush 3 ML SYRINGE IVFLUSH (08:52)
[2024-12-27] MEDS: prednisoLONE sodium phosphate 15 MG/5 ML SOLUTION 10 MG PO (08:54)
[2024-12-27] MEDS: Tamsulosin HCL 0.4 MG CAPSULE PO (08:54)
[2024-12-27] MEDS: Lactated Ringers 1,000 ML 100 ML IVCONT ×2 (08:55→19:13)
--- NOTE | 2024-12-27 09:34 | MHC.CM.PN ---
CM met with Patient at bedside, in the ED. Patient lives in a house with her /HCP/Tracey, 19 year old Daughter, and 8 year old Son. Patient is functionally independent and her goal is to return home/self care. CM has initiated and will follow for dc planning. PCP is Dr. Mago Pak and will transport to home at dc.
[2024-12-27 12:29] VITALS: BP 104/53; PULSE 60; RESP 20; TEMP 36.6; O2SAT 99
--- NOTE | 2024-12-27 12:43 | PM.UROCN ---
History of Present Illness Consult details Consult date: 01/25/25 Narrative: CC: Distal right ureteric stone 39-year-old female Prior history nephrolithiasis Presentation to emergency room with 3 days of flank pain with progressive increase Associated nausea and vomiting Denies fevers or chills or hematuria Imaging - 3 mm right ureteral calculi with obstruction with right hydronephrosis. Stone at right uretero vesicle junction 24 hour trial of stone passage May eat today NPO after midnight Review of Systems Constitutional: Constitutional: Reports as per HPI and Reports no additional constitutional complaints Cardiovascular: Cardiovascular: Reports as per HPI and Reports no additional cardiovascular complaints Respiratory: Respiratory: Reports as per HPI and Reports no additional respiratory complaints Gastrointestinal: Gastrointestinal: Reports as per HPI and Reports no additional gastrointestinal complaints Genitourinary: Genitourinary: Reports as per HPI Musculoskeletal: Musculoskeletal: Reports no additional musculoskeletal complaints and Reports as per HPI Neurologic: Reports system reviewed and no additional complaints, except as documented and Reports as per HPI [facility] Past Medical History Medical History (Updated 12/26/24 @ 23:43 by Justen Lyn MD) Anemia Intractable vomiting Vomiting Inflammatory bowel disease Irritable bowel syndrome Surgical History Surgical History Hx of appendectomy Bariatric surgery status Hx of cholecystectomy No pertinent past surgical history Social History Social History Household Members: Spouse and Family Housing: House Do you presently have visiting nurse or other home services: No Alcohol intake: never Patient Tobacco Use Status: Never used Tobacco e-Cigarette/Vaping Use: Never Used Second Hand Smoke Exposure: No Advance Directives Date on File: 09/28/23 service: No Current occupational status: unemployed Current occupational exposures/hazards: No Cognitive needs: No Hearing needs: No Vision needs: No Meds Allergies Allergy/AdvReac Type Severity Reaction Status Date / Time No Known Allergies Allergy Verified 12/26/24 09:19 Active Medications: Current Medications Acetaminophen (Acetaminophen 325 Mg Tablet) 650 mg PO Q6H PRN PRN Reason: Pain, Mild 1-3,fever,headache Calcium Carbonate (Calcium Carbonate 750 Mg Tab.Chew) 750 mg PO Q4H PRN PRN Reason: Heartburn Enoxaparin Sodium (Enoxaparin Sodium 40 Mg/0.4 Ml Syringe) 40 mg SUBCUT Q24H [facility] Last Admin: 12/26/24 21:46 Dose: 40 mg Hydromorphone HCl (Hydromorphone Hcl 1 Mg/Ml Syringe) 0.5 mg IVPUSH Q4H PRN; Protocol PRN Reason: Pain, Severe (Pain Scale 7-10) Last Admin: 12/27/24 12:27 Dose: 0.5 mg Lactated Ringer's (Lr) 1,000 mls @ 100 mls/hr IVCONT .Q10H [facility] Last Admin: 12/27/24 08:55 Dose: 100 mls/hr Ketorolac Tromethamine (Ketorolac Tromethamine 30 Mg/Ml Vial) 30 mg IVPUSH Q6H [facility] Stop: 12/27/24 15:01 Last Admin: 12/27/24 08:53 Dose: 30 mg Magnesium Hydroxide (Milk Of Magnesia 30 Ml Oral.Susp) 30 ml PO DAILY PRN PRN Reason: Constipation Melatonin (Melatonin 3 Mg Tablet) 6 mg PO BEDTIME PRN PRN Reason: Insomnia Ondansetron HCl (Ondansetron Hcl 4 Mg/2 Ml Vial) 4 mg IVPUSH Q8H PRN PRN Reason: Nausea and Vomiting Last Admin: 12/27/24 08:52 Dose: 4 mg Polyethylene Glycol (Polyethylene Glycol 3350 17 Gm Powd.Pack) 17 gm PO DAILY PRN PRN Reason: Constipation Prednisolone Sodium Phosphate (Prednisolone Sodium Phosphate 15 Mg/5 Ml Solution) 10 mg PO DAILY [facility] Last Admin: 12/27/24 08:54 Dose: 10 mg Sodium Chloride (0.9 % Sodium Chloride Flush 3 Ml Syringe) 3 ml IVFLUSH QSHIFT [facility] Last Admin: 12/27/24 08:52 Dose: 3 ml Tamsulosin HCl (Tamsulosin Hcl 0.4 Mg Capsule) 0.4 mg PO DAILY [facility] Last Admin: 12/27/24 08:54 Dose: 0.4 mg Home Medications ?Medication ?Instructions ?Recorded ?Confirmed ?Last Taken ?Type No Known Home Meds 12/26/24 12/26/24 Unknown History Physical Exam Vital Signs: Vital Signs: Last Vital Signs Temp 97.9 F 12/27/24 12:29 Pulse 60 12/27/24 12:29 Resp 20 12/27/24 12:29 BP 104/53 L 12/27/24 12:29 Pulse Ox 99 12/27/24 12:29 O2 Del Method Room Air 12/27/24 12:29 BMI result Body Mass Index 40.7 Const: General: cooperative, healthy appearing, comfortable and no acute distress Orientation/consciousness: patient oriented x3 HEENT: Face and sinus: Yes normal facial exam Mouth: moist mucous membranes Neck: Neck: Yes normal visual inspection, Yes full ROM and Yes trachea midline Chest: Chest palpation & inspection: normal inspection of the chest Resp: Effort & Inspection: normal respiratory effort, able to speak in complete sentences and no respiratory distress GI: Inspection: Yes normal to inspection Back/Spine/Pelvis: Cervical Spine: normal cervical lordosis Thoracic/Lumbar Spine: thoracic and lumbar spine normal to inspection Skin: General skin exam: no rashes or lesions noted Neuro: General: patient oriented x3, tone normal and moves all extremities Extrem: General: Yes normal to inspection and Yes capillary refill normal Results Labs 12/27/24 05:48 12/27/24 05:48 Labs: Abnormal lab results 12/26/24 12/26/24 12/27/24 Range/Units 13:13 15:50 05:48 Hgb 10.6 L (12.0-16.0) g/dl Hct 32.8 L (37.0-47.0) % MCV 75.9 L (80.0-98.0) fL MCH 24.5 L (27.0-33.0) pg Chloride 110 H (96-108) mmol/L Carbon Dioxide 21 L (22-29) mmol/L Anion Gap 11 L (12-20) Random Glucose 141 H (60-115) mg/dL Ur Specific [place] >= 1.030 H (1.005-1.025) Urine Blood Large (3+) H Large (3+) H (Negative) Ur Leukocyte Esterase Trace H (Negative) Urine RBC >20 H >20 H (0-2) /HPF Urine WBC 11-20 H (0-5) /HPF Short CBC 12/27/24 Range/Units 05:48 WBC 7.0 (4.8-10.8) X10*3/uL Hgb 10.6 L (12.0-16.0) g/dl Hct 32.8 L (37.0-47.0) % Plt Count 209 (160-400) X10*3/uL BMP 12/27/24 05:48 Sodium 138 Potassium 4.1 Chloride 110 H Carbon Dioxide 21 L BUN 12 Creatinine 0.81 Calcium 9.1 Urine 12/26/24 12/26/24 Range/Units 13:13 15:50 Urine Color Yellow Yellow Urine Appearance Cloudy Clear Urine pH 5.5 5.0 (5.0-9.0) Ur Specific [place] 1.025 >= 1.030 H (1.005-1.025) Urine Protein Trace Negative (Neg-Trace) mg/dL Urine Glucose (UA) Negative Negative (Negative) mg/dL All other labs normal. Assessment and Plan (1) Hydronephrosis with urinary obstruction due to renal calculus: Status: Acute Plan Distal right ureteric stone 24 hour trial of stone passage Procedures Date of Service Date of Service: 12/27/24
[2024-12-27 12:57] VITALS: BP 121/84; PULSE 69; RESP 18; TEMP 36.3; O2SAT 98
--- NOTE | 2024-12-27 13:04 | HO.PM.IMPN ---
Subjective Subjective Date of Service: 12/27/24 Interval History: right sided hydronephrosis Review of Systems has pain right sided no fever or chills Physical Exam Vital Signs: Vital Signs: Last Vital Signs Temp 97.4 F 12/27/24 12:57 Pulse 69 12/27/24 12:57 Resp 18 12/27/24 12:57 BP 121/84 12/27/24 12:57 Pulse Ox 98 12/27/24 12:57 O2 Del Method Room Air 12/27/24 12:57 BMI result Body Mass Index 40.7 Appearance: Alert.? Oriented X3.? cvs: [id number], [id number]. res: clear to auscultation ,no rhonchii or wheezing abd: no rebound or guarding , bs present. Gu-right flank pain. ext pulses present , no cyanosis. neuro: axo3 , nonfocal. Objective Data Active Medications Acetaminophen (Acetaminophen 325 Mg Tablet) 650 mg PO Q6H PRN PRN Reason: Pain, Mild 1-3,fever,headache Calcium Carbonate (Calcium Carbonate 750 Mg Tab.Chew) 750 mg PO Q4H PRN PRN Reason: Heartburn Enoxaparin Sodium (Enoxaparin Sodium 40 Mg/0.4 Ml Syringe) 40 mg SUBCUT Q24H [facility] Last Admin: 12/26/24 21:46 Dose: 40 mg Documented By: ROCKY Hydromorphone HCl (Hydromorphone Hcl 1 Mg/Ml Syringe) 0.5 mg IVPUSH Q4H PRN; Protocol PRN Reason: Pain, Severe (Pain Scale 7-10) Last Admin: 12/27/24 12:27 Dose: 0.5 mg Documented By: PEDRO Lactated Ringer's (Lr) 1,000 mls @ 100 mls/hr IVCONT .Q10H [facility] Last Admin: 12/27/24 08:55 Dose: 100 mls/hr Documented By: JERRELL Ketorolac Tromethamine (Ketorolac Tromethamine 30 Mg/Ml Vial) 30 mg IVPUSH Q6H [facility] Stop: 12/27/24 15:01 Last Admin: 12/27/24 08:53 Dose: 30 mg Documented By: JERRELL Magnesium Hydroxide (Milk Of Magnesia 30 Ml Oral.Susp) 30 ml PO DAILY PRN PRN Reason: Constipation Melatonin (Melatonin 3 Mg Tablet) 6 mg PO BEDTIME PRN PRN Reason: Insomnia Ondansetron HCl (Ondansetron Hcl 4 Mg/2 Ml Vial) 4 mg IVPUSH Q8H PRN PRN Reason: Nausea and Vomiting Last Admin: 12/27/24 08:52 Dose: 4 mg Documented By: JERRELL Polyethylene Glycol (Polyethylene Glycol 3350 17 Gm Powd.Pack) 17 gm PO DAILY PRN PRN Reason: Constipation Prednisolone Sodium Phosphate (Prednisolone Sodium Phosphate 15 Mg/5 Ml Solution) 10 mg PO DAILY [facility] Last Admin: 12/27/24 08:54 Dose: 10 mg Documented By: JERRELL Sodium Chloride (0.9 % Sodium Chloride Flush 3 Ml Syringe) 3 ml IVFLUSH QSHIFT [facility] Last Admin: 12/27/24 08:52 Dose: 3 ml Documented By: JERRELL Tamsulosin HCl (Tamsulosin Hcl 0.4 Mg Capsule) 0.4 mg PO DAILY [facility] Last Admin: 12/27/24 08:54 Dose: 0.4 mg Documented By: JERRELL Labs 12/27/24 05:48 12/27/24 05:48 Labs: Laboratory Results - last 24 hr 12/26/24 12/26/24 12/27/24 13:13 15:50 05:48 MCV 75.9 L MCH 24.5 L MCHC 32.3 RDW 15.5 Plt Count 209 MPV 12.0 Absolute Nucleated RBC 0.000 Nucleated RBC % (auto) 0.0 Anion Gap 11 L Estim Creat Clear Calc 129.2 Estimated GFR > 60 Random Glucose 141 H Calcium 9.1 Urine Color Yellow Yellow Urine Appearance Cloudy Clear Urine pH 5.5 5.0 Ur Specific [place] 1.025 >= 1.030 H Urine Protein Trace Negative Urine Glucose (UA) Negative Negative Urine Ketones Negative Negative Urine Blood Large (3+) H Large (3+) H Urine Nitrite Negative Negative Ur Leukocyte Esterase Trace H Negative Urine RBC >20 H >20 H Urine WBC 11-20 H 0-5 Ur Squamous Epith Cells 6-10 3-5 Urine Bacteria Trace None Seen Hyaline Casts 0-2 0-2 Microbiology Microbiology Results: Microbiology 12/26/24 Unknown Urine Culture - Final Urine clean catch - Clean Catch Midstream Strep agalactiae (Grp B) Streptococcus viridans group Assessment and Plan (1) Renal colic on right side: Status: Acute (2) Microscopic hematuria: Status: Acute Assessment and Plan: 39 year old morbidly obese female (BMI 40.7 kg/m2) with history of nephrolithiasis here with: Right-sided hydronephrosis with urinary obstruction due to renal calculi/Right renal colic/ microscopic hematuria has noted with a 3mm stone at the right ureterovesical junction on CT scan has significant pain continue with the prednisolone and Flomax, ivf ,iv pain meds (toradol) ,also received iv morphine ,urology consult Morbid obesity-BMI of 40.7 kg/m2 encourage weight loss and cut down calories. Microcytic anemia- chronic and stable. ongoing need for Right-sided hydronephrosis with urinary obstruction due to renal calculi/Right renal colic/ microscopic hematuria-intractable pain -continue Flomax, ivf ,iv pain meds (toradol) ,also received iv morphine ,urology consult . Quality Stroke Does the patient have a stroke diagnosis?: No VTE Prior VTE?: No VTE Risk Level:: Medical - moderate - high VTE Device Contraindication: Treatment Not Indicated VTE Drug Contraindication: N/A - Med Ordered
[2024-12-27 15:03] VITALS: BP 114/57; PULSE 79; RESP 18; TEMP 36.5; O2SAT 98
[2024-12-27 19:21] VITALS: BP 143/76; PULSE 79; RESP 18; TEMP 36.3; O2SAT 96
[2024-12-27] MEDS: Enoxaparin Sodium 40 MG/0.4 ML SYRINGE SUBCUT (20:54)
[2024-12-28] VITALS (11 sets, daily range): BP systolic 118–138; BP diastolic 63–92; PULSE 68–81; RESP 16–20; TEMP 36–37.1; O2SAT 93–98
[2024-12-28] MEDS: HYDROmorphone HCl 1 MG/ML SYRINGE 0.5 MG IVPUSH ×3 (01:27→19:22)
[2024-12-28] MEDS: Lactated Ringers 1,000 ML 100 ML IVCONT (05:37)
[2024-12-28] MEDS: prednisoLONE sodium phosphate 15 MG/5 ML SOLUTION 10 MG PO (08:19)
[2024-12-28] MEDS: Tamsulosin HCL 0.4 MG CAPSULE PO ×2 (08:19→10:24)
[2024-12-28] MEDS: ondansetron HCL 4 MG/2 ML VIAL IVPUSH (09:50)
--- NOTE | 2024-12-28 12:53 | P.PNUR_ITS ---
Subjective Subjective Date of Service: 12/28/24 Interval history: Reports persistent right discomfort No improvement over last 24 hours of admission Plan for intervention today with cystoscopy, right retrograde, right ureteroscopy with laser lithotripsy stent placement Physical Exam 2 Vital Signs: Vital Signs: Last Vital Signs Temp 96.8 F 12/28/24 07:41 Pulse 78 12/28/24 07:41 Resp 16 12/28/24 07:41 BP 121/63 12/28/24 07:41 Pulse Ox 94 12/28/24 07:41 O2 Del Method Room Air 12/28/24 07:41 BMI result Body Mass Index 40.7 Const: General: cooperative, healthy appearing, comfortable and no acute distress Orientation/consciousness: patient oriented x3 HEENT: Face and sinus: Yes normal facial exam Mouth: moist mucous membranes Neck: Neck: Yes normal visual inspection, Yes full ROM and Yes trachea midline Chest: Chest palpation & inspection: normal inspection of the chest Resp: Effort & Inspection: normal respiratory effort, able to speak in complete sentences and no respiratory distress GI: Inspection: Yes normal to inspection Back/Spine/Pelvis: Cervical Spine: normal cervical lordosis Thoracic/Lumbar Spine: thoracic and lumbar spine normal to inspection Skin: General skin exam: no rashes or lesions noted Neuro: General: patient oriented x3, tone normal and moves all extremities Extrem: General: Yes normal to inspection and Yes capillary refill normal Urology Results Labs 12/27/24 05:48 12/27/24 05:48 Progress Note: A&P Assessment and plan (1) Hydronephrosis with urinary obstruction due to renal calculus: Status: Acute Plan Risks, benefits and alternatives to therapy were discussed. These include but are not limited to infection, bleeding, damage to local organs and tissues, need for further interventions. Anesthetic risks regarding cardiac arrhythmia, blood clots, and potential mortality were discussed. The patient understands the typical recovery time and the outpatient nature of the procedure. After consideration of these risks the patient gives full informed consent and they wish to move ahead with the procedure. Cystoscopy, right retrograde, right ureteroscopy with laser lithotripsy Time Spent With Patient Time: Total time managing care of this patient today ____ minutes. Progress Note: Quality Stroke Does the patient have a stroke diagnosis?: No
--- NOTE | 2024-12-28 12:57 | PC.NURSE ---
Pt instructed on NPO status. pt now going to have a cysto later today.
--- NOTE | 2024-12-28 14:03 | MHC.CM.PN ---
EMR REVIEWED AND PER MD ROUNDS, PT IS NOT MEDICALLY CLEARED FOR DC HOME( CYSTOSCOPY, STENT PLACEMENT PENDING) CM WILL CONTINUE TO FOLLOW FOR ANY CHANGE TO DC PLAN/NEEDS.
[2024-12-28] MEDS: 0.9 % Sodium Chloride Flush 3 ML SYRINGE IVFLUSH (16:07)
--- NOTE | 2024-12-28 16:13 | HO.PM.IMPN ---
Subjective Subjective Date of Service: 12/28/24 Interval History: right sided hydronephrosis Review of Systems has pain right sided no fever or chills Physical Exam Vital Signs: Vital Signs: Last Vital Signs Temp 96.8 F 12/28/24 07:41 Pulse 78 12/28/24 07:41 Resp 16 12/28/24 07:41 BP 121/63 12/28/24 07:41 Pulse Ox 94 12/28/24 07:41 O2 Del Method Room Air 12/28/24 07:41 BMI result Body Mass Index 40.7 Appearance: Alert.? Oriented X3.? cvs: rrr, [id number]. res: clear to auscultation . abd: no rebound or guarding , bs present. Gu-right flank pain. ext pulses present , no cyanosis. neuro: axo3 , nonfocal. Objective Data Active Medications Acetaminophen (Acetaminophen 325 Mg Tablet) 650 mg PO Q6H PRN PRN Reason: Pain, Mild 1-3,fever,headache Calcium Carbonate (Calcium Carbonate 750 Mg Tab.Chew) 750 mg PO Q4H PRN PRN Reason: Heartburn Enoxaparin Sodium (Enoxaparin Sodium 40 Mg/0.4 Ml Syringe) 40 mg SUBCUT Q24H [facility] Last Admin: 12/27/24 20:54 Dose: 40 mg Documented By: SUSANNE Hydromorphone HCl (Hydromorphone Hcl 1 Mg/Ml Syringe) 0.5 mg IVPUSH Q4H PRN; Protocol PRN Reason: Pain, Severe (Pain Scale 7-10) Last Admin: 12/28/24 08:22 Dose: 0.5 mg Documented By: VLAD Magnesium Hydroxide (Milk Of Magnesia 30 Ml Oral.Susp) 30 ml PO DAILY PRN PRN Reason: Constipation Melatonin (Melatonin 3 Mg Tablet) 6 mg PO BEDTIME PRN PRN Reason: Insomnia Ondansetron HCl (Ondansetron Hcl 4 Mg/2 Ml Vial) 4 mg IVPUSH Q8H PRN PRN Reason: Nausea and Vomiting Last Admin: 12/28/24 09:50 Dose: 4 mg Documented By: VLAD Polyethylene Glycol (Polyethylene Glycol 3350 17 Gm Powd.Pack) 17 gm PO DAILY PRN PRN Reason: Constipation Prednisolone Sodium Phosphate (Prednisolone Sodium Phosphate 15 Mg/5 Ml Solution) 10 mg PO DAILY [facility] Last Admin: 12/28/24 08:19 Dose: 10 mg Documented By: VLAD Sodium Chloride (0.9 % Sodium Chloride Flush 3 Ml Syringe) 3 ml IVFLUSH QSHIFT [facility] Last Admin: 12/28/24 16:07 Dose: 3 ml Documented By: VLAD Tamsulosin HCl (Tamsulosin Hcl 0.4 Mg Capsule) 0.8 mg PO DAILY [facility] Labs 12/27/24 05:48 12/27/24 05:48 Microbiology Microbiology Results: Microbiology 12/26/24 Unknown Urine Culture - Final Urine clean catch - Clean Catch Midstream Strep agalactiae (Grp B) Streptococcus viridans group Assessment and Plan (1) Renal colic on right side: Status: Acute Assessment and Plan: 39 year old morbidly obese female (BMI 40.7 kg/m2) with history of nephrolithiasis here with: Right-sided hydronephrosis with urinary obstruction due to renal calculi/Right renal colic/ microscopic hematuria has noted with a 3mm stone at the right ureterovesical junction on CT scan has significant pain continue with the prednisolone and Flomax, ivf ,iv pain meds (toradol) ,also received iv morphine ,urology consult Morbid obesity-BMI of 40.7 kg/m2 encourage weight loss and cut down calories. Microcytic anemia- chronic and stable. ongoing need for Right-sided hydronephrosis with urinary obstruction due to renal calculi/Right renal colic/ microscopic hematuria-intractable pain -continue Flomax, ivf ,iv pain meds (toradol) ,also received iv morphine ,urology consult -possible urology procedure. Quality Stroke Does the patient have a stroke diagnosis?: No VTE Prior VTE?: No VTE Risk Level:: Medical - moderate - high VTE Device Contraindication: Treatment Not Indicated VTE Drug Contraindication: N/A - Med Ordered
--- NOTE | 2024-12-28 16:33 | MHC.SHP ---
Pre-Procedural Eval Section A - 24 Hr Update-Section A only Date of Service: 12/28/24 The patient is an INPATIENT: Yes Changes since office visit: No Cold of Flu in the past 2 weeks, No New Medical Problems, No Changes in Medication and No Patient answered all questions The patient has been examined within 24 hours of the surgical procedure. The History & Physical has been completed within 30 days and I have reviewed it.: Yes Section B - Complete if H&P > 30 days Chief Complaint: Hydronephrosis with urinary obstruction due to ure Details of Present Illness: Cystoscopy, right retrograde, right ureteroscopy with laser lithotripsy stone basket and stent placement Allergies: Allergies Allergy/AdvReac Type Severity Reaction Status Date / Time No Known Allergies Allergy Verified 12/26/24 09:19 Plan I have reviewed the history and physical and performed a pertinent physical examination on my patient. No changes have occurred unless specified. Time Spent With Patient Time: Total time managing care of this patient today ____ minutes.
--- NOTE | 2024-12-28 16:35 | HO.ANESPROP2 ---
HPI - Anesthesia Eval Consult details Narrative: for cysto - right stone. PMFSH Active Problems Active Problems: All Active Problems Microscopic hematuria (Acute) Renal colic on right side (Acute) Hydronephrosis with urinary obstruction due to renal calculus (Acute) Patellofemoral disorder of both knees (Acute) Right knee pain (Acute) Microcytic anemia (Chronic) Morbid obesity with BMI of 40.0-44.9, adult (Chronic) Effusion, right knee (Acute) Obesity (Acute) Encounter to establish care (Acute) Constipation (Acute) Past Medical History Medical History Anemia Intractable vomiting Vomiting Inflammatory bowel disease Irritable bowel syndrome Patient : No Family History Family history of problems with anesthesia: No Surgical History Surgical History Hx of appendectomy Bariatric surgery status Hx of cholecystectomy No pertinent past surgical history History of Problems with Anesthesia: No Social History Social History Household Members: Spouse and Family Housing: House Do you presently have visiting nurse or other home services: No Alcohol intake: never Patient Tobacco Use Status: Never used Tobacco e-Cigarette/Vaping Use: Never Used Second Hand Smoke Exposure: No Advance Directives Date on File: 09/28/23 service: No Current occupational status: unemployed Current occupational exposures/hazards: No Cognitive needs: No Hearing needs: No Vision needs: No Meds Allergies Allergy/AdvReac Type Severity Reaction Status Date / Time No Known Allergies Allergy Verified 12/26/24 09:19 Active Medications: Current Medications Acetaminophen (Acetaminophen 325 Mg Tablet) 650 mg PO Q6H PRN PRN Reason: Pain, Mild 1-3,fever,headache Calcium Carbonate (Calcium Carbonate 750 Mg Tab.Chew) 750 mg PO Q4H PRN PRN Reason: Heartburn Enoxaparin Sodium (Enoxaparin Sodium 40 Mg/0.4 Ml Syringe) 40 mg SUBCUT Q24H [facility] Last Admin: 12/27/24 20:54 Dose: 40 mg Hydromorphone HCl (Hydromorphone Hcl 1 Mg/Ml Syringe) 0.5 mg IVPUSH Q4H PRN; Protocol PRN Reason: Pain, Severe (Pain Scale 7-10) Last Admin: 12/28/24 08:22 Dose: 0.5 mg Magnesium Hydroxide (Milk Of Magnesia 30 Ml Oral.Susp) 30 ml PO DAILY PRN PRN Reason: Constipation Melatonin (Melatonin 3 Mg Tablet) 6 mg PO BEDTIME PRN PRN Reason: Insomnia Ondansetron HCl (Ondansetron Hcl 4 Mg/2 Ml Vial) 4 mg IVPUSH Q8H PRN PRN Reason: Nausea and Vomiting Last Admin: 12/28/24 09:50 Dose: 4 mg Polyethylene Glycol (Polyethylene Glycol 3350 17 Gm Powd.Pack) 17 gm PO DAILY PRN PRN Reason: Constipation Prednisolone Sodium Phosphate (Prednisolone Sodium Phosphate 15 Mg/5 Ml Solution) 10 mg PO DAILY [facility] Last Admin: 12/28/24 08:19 Dose: 10 mg Sodium Chloride (0.9 % Sodium Chloride Flush 3 Ml Syringe) 3 ml IVFLUSH QSHIFT [facility] Last Admin: 12/28/24 16:07 Dose: 3 ml Tamsulosin HCl (Tamsulosin Hcl 0.4 Mg Capsule) 0.8 mg PO DAILY [facility] Home Medications ?Medication ?Instructions ?Recorded ?Confirmed ?Last Taken ?Type No Known Home Meds 12/26/24 12/26/24 Unknown History Exam Height,Weight and Vital Signs: Height 5 ft 8 in Weight 121.563 kg Last Vital Signs Temp 98.7 F 12/28/24 16:28 Pulse 71 12/28/24 16:28 Resp 16 12/28/24 16:28 BP 130/79 12/28/24 16:28 Pulse Ox 98 12/28/24 16:28 O2 Del Method Room Air 12/28/24 16:28 Pertinent Lab Results Pertinent Lab Results: Laboratory Tests 12/26/24 12/26/24 12/26/24 10:44 13:13 15:50 WBC 5.9 RBC 4.75 Hgb 11.6 L Hct 36.6 L MCV 77.1 L MCH 24.4 L MCHC 31.7 RDW 15.7 Plt Count 226 MPV 11.4 Immature Gran % (Auto) 0.3 Neut % (Auto) 53.2 Lymph % (Auto) 37.8 [place] % (Auto) 4.6 Eos % (Auto) 3.4 Baso % (Auto) 0.7 Lymph # (Auto) 2.2 [place] # (Auto) 0.3 Eos # (Auto) 0.2 Baso # (Auto) 0.0 Abs Immat Gran (auto) 0.02 Absolute Neuts (auto) 3.2 Absolute Nucleated RBC 0.000 Nucleated RBC % (auto) 0.0 Sodium 142 Potassium 4.0 Chloride 112 H Carbon Dioxide 23 Anion Gap 11 L BUN 11 Creatinine 0.74 Estim Creat Clear Calc 141.4 Estimated GFR > 60 Random Glucose 94 Calcium 9.3 Total Bilirubin 0.2 Direct Bilirubin < 0.2 AST 22 ALT 22 Alkaline Phosphatase 86 Total Protein 7.9 Albumin 4.0 Beta HCG, Quant < 2 Urine Color Yellow Yellow Urine Appearance Cloudy Clear Urine pH 5.5 5.0 Ur Specific [place] 1.025 >= 1.030 H Urine Protein Trace Negative Urine Glucose (UA) Negative Negative Urine Ketones Negative Negative Urine Blood Large (3+) H Large (3+) H Urine Nitrite Negative Negative Ur Leukocyte Esterase Trace H Negative Urine RBC >20 H >20 H Urine WBC 11-20 H 0-5 Ur Squamous Epith Cells 6-10 3-5 Urine Bacteria Trace None Seen Hyaline Casts 0-2 0-2 12/27/24 05:48 WBC 7.0 RBC 4.32 Hgb 10.6 L Hct 32.8 L MCV 75.9 L MCH 24.5 L MCHC 32.3 RDW 15.5 Plt Count 209 MPV 12.0 Immature Gran % (Auto) Neut % (Auto) Lymph % (Auto) [place] % (Auto) Eos % (Auto) Baso % (Auto) Lymph # (Auto) [place] # (Auto) Eos # (Auto) Baso # (Auto) Abs Immat Gran (auto) Absolute Neuts (auto) Absolute Nucleated RBC 0.000 Nucleated RBC % (auto) 0.0 Sodium 138 Potassium 4.1 Chloride 110 H Carbon Dioxide 21 L Anion Gap 11 L BUN 12 Creatinine 0.81 Estim Creat Clear Calc 129.2 Estimated GFR > 60 Random Glucose 141 H Calcium 9.1 Total Bilirubin Direct Bilirubin AST ALT Alkaline Phosphatase Total Protein Albumin Beta HCG, Quant Urine Color Urine Appearance Urine pH Ur Specific [place] Urine Protein Urine Glucose (UA) Urine Ketones Urine Blood Urine Nitrite Ur Leukocyte Esterase Urine RBC Urine WBC Ur Squamous Epith Cells Urine Bacteria Hyaline Casts Airway Mallampati Class: II TM Dist: <=3cm Neck ROM: Full Heart: ok Lungs: ok Assessment and Plan Assessment Anesthesia Assessment: Anesthesia Plan Discussed and Chart Reviewed Final Anesthetic Review Family History of Problems with Anesthesia: No History of Problems with Anesthesia: No NPO: Yes ASA Class: III Final Preanesthetic Review: No Changes in Pt Med Stat, Meds/Allgs Chart Reviewed, Consent Obtained/Reviewed and Anes Risks/Benef Reviewed Procedure Risk: Low Anesthetic Plan Anesthetic Plan: GA and Agree w/ Assess. and Plan Disposition: Standard PACU
--- NOTE | 2024-12-28 17:26 | P.OP_ITS ---
Operative Note Operative Note Date of Service: 12/28/24 Narrative: PreOperative Diagnosis: Distal right ureteric stone Post Operative Diagnosis: Distal right ureteric edema with pain Procedure: - cystoscopy, right retrograde - right dilatation of ureteric orifice under fluoroscopy - right ureteroscopy - right stent placement Surgeon: Dr Marcello Epstein Anesthesia: General Indications for procedure: Distal right ureteric stone on imaging. Failed 24 hour admission with conservative therapy. Reporting still has pain on right side. Procedure: After informed consent was verified the patient was brought to the operating room and placed in a supine position. Anesthesia was administered per protocol. The patient was placed in a modified dorsal lithotomy position and prepped and draped in a sterile fashion. Safety pause time-out and side of surgery were confirmed. Images were available for review. Antibiotic administration confirmed. A 22 [place] cystoscope was inserted per urethra. The urethra was without abnormality. The bladder was normal in its entirety. Both ureteric orifices were seen in normal position. The right ureteric orifice was cannulated and a retrograde examination was performed. Minimal filling defects seen . A Sensor guidewire was placed up to the level of the renal pelvis under fluoroscopy. The rigid cystoscope was removed. A [place] dilator was placed over the Sensor guidewire and used to dilate the ureteric orifice under fluoroscopy. The dilator was removed. The semi rigid ureteral scope was placed alongside the Sensor guidewire. No stone was encountered. Distal ureter inflamed. A decision was made to place a ureteric stent. Based on the height of the patie nt a 6 Fr x 30 cm stent was used. The string was removed from the stent prior to placement. A 6 [place] by 30 cm double-J stent was placed into the renal pelvis and bladder under a combination of fluoroscopy and direct visualization. The symphisis pubis was used as a radiographic marker to release the stent and good coil was seen within the bladder confirming position Proximal positioning of the stent was confirmed using fluoroscopy. The bladder was emptied. The patient tolerated the procedure well and was extubated in the operating room. They were transferred in stable condition to the recovery area. Pathology: Drains: Double J stent as described above
[2024-12-28] MEDS: Phenazopyridine HCL 100 MG TABLET PO (17:38)
[2024-12-28] MEDS: Acetaminophen 1,000 MG/100 ML PIGGYBACK 400 MG IV (17:40)
--- NOTE | 2024-12-28 17:45 | P.DS_ITS ---
DS: Providers Provider Date of Service: 12/28/24 Date of admission: 12/26/24 20:53 Date of discharge: 12/28/24 Primary care physician: Mago Zuñiga MD Consults: 12/27/24 08:32 Consult to Urology Routine Consulting Provider: [facility] Reason for consultation: nephrolithasis Has provider been notified: No Attending physician on discharge: Domingo Peitt Discharging clinician: Domingo Petit DS: Diagnosis Discharge Diagnosis (1) Renal colic on right side: Status: Acute DS: Summary Hospital Course Hospital Course: HPI:39 year old morbidly obese female (BMI 40.7 kg/m2) with history of nephrolithiasis who presents to the emergency room from home complaining of right flank pain that has been present for the last 3 days and that has progressively become worse and is now associated with some nausea and vomiting. She denies any associated fevers, chills or urinary symptoms including blood in her urine. She has had similar episodes in the past and was diagnosed with hydronephrosis with urinary obstruction due to renal calculus. Today, she had an abdominal CT scan done which showed a 3 mm right ureteral calculi with obstruction with right hydronephrosis. She was started on IV fluids, analgesics, Prednisone 20 mg and Flomax 0.4 mg with no improvement in her symptoms and so the case was discussed with the on-call Urologist (Dr. Epstein) who recommended admission for continued care. When I saw her, she was comfortable in bed and was still experiencing right flank pain though better than when she initially came in. Her initial vital signs are fairly stable except for mildly elevated blood pressure at 151/78 mmHg (likely due to pain). Her blood work was normal except for mild anemia while urinalysis done showed increased specific gravity and large blood. Hospital course: 39-year-old female who came to the hospital because of right-sided hydronephrosis and right-sided 3 mm stone-we managed her with the Flomax IV fluid and pain medication she seems to be improved and she passed the stone, her UA showed most of the RBCs like in 20 range and no bacteria: Patient was seen by Urology right-sided ureteral stent was placed, patient seems to be improving significantly, going home. Discussed with urology-no need of any antibiotics since hematuria/hydronephrosis secondary to right-sided renal stone, patient passed the stone already and has right-sided ureteral stent. plan: continue pyridium 100 mg po bid for 3 days oxycodone 5 mg po prn -limited supply bowel regimen . Above management discussed with the patient detail length she understand and agreement with the above plan,time spent 40 min. Time Attestation Total time managing care of this patient today: 40 mintues. Discharge Coordination Time (in mins): 40 min Quality: Safe Use of Opioids Does Pt have an Active Cancer Diagnosis on the Problem List?: No Quality: Stroke Does the patient have a stroke diagnosis?: No Physical Exam Vital Signs: Vital Signs: Last Vital Signs Temp 97.8 F 12/28/24 17:15 Pulse 71 12/28/24 17:30 Resp 17 12/28/24 17:30 BP 134/92 H 12/28/24 17:30 Pulse Ox 93 12/28/24 17:30 O2 Del Method Room Air 12/28/24 17:30 BMI result Body Mass Index 40.7 Appearance: Alert.? Oriented X3.? cvs: rrr, [id number]. res: clear to auscultation . abd: no rebound or guarding , bs present. Gu-right flank pain. ext pulses present , no cyanosis. neuro: axo3 , nonfocal. DS: Data Data Completed and Pending Completed studies during hospitalization [Text1]: Procedures Repair Abdominal Wall, Percutaneous Endoscopic Approach (09/22/23) Resection of Appendix, Percutaneous Endoscopic Approach (09/22/23) Imaging Chest x-ray: Radiologist's impression: ITS Impressions Chest X-Ray 12/26/24 09:20 IMPRESSION: No acute cardiopulmonary abnormality. Electronically signed by: Isaak Sun MD 12/26/2024 09:33 AM EST Abdomen/Pelvis CT 12/26/24 11:22 IMPRESSION: 3 mm obstructing calculus at the right ureterovesical junction resulting in mild to moderate hydronephrosis. Nonobstructing nephrolithiasis, left kidney. Hepatomegaly. 3 cm cystic lesion left adnexa. Uterus is in retroversion flexion position which could be seen in patients with endometriosis. Fat-containing umbilical and periumbilical hernias. Fleischner guidelines were followed. Electronically signed by: Juanito Wray MD 12/26/2024 12:28 PM EST RP Discharge Plan Discharge Anticipated Discharge Date/Time: 12/28/24 17:48 Patient Disposition: Home, Self-Care Discharge Diagnosis: Right hydronephrosis, right-sided renal stone, microhematuria Referrals: Mago Browne MD [Primary Care Provider] - 1 Week Discharge Medications: New acetaminophen 325 mg Tablet 975 mg PO Q6H PRN (Reason: pain) Qty: 20 0RF tamsulosin 0.4 mg Capsule 0.8 mg PO DAILY Qty: 15 0RF phenazopyridine 100 mg Tablet 100 mg PO BIDWM Qty: 6 0RF oxycodone 5 mg Tablet 5 mg PO Q4H PRN (Reason: Pain, Severe (Pain Scale 7-10)) Qty: 10 0RF Rx Instructions: Partial Fill upon patient request. docusate sodium [Colace] 100 mg capsule 100 mg PO BID Qty: 20 0RF polyethylene glycol 3350 [Miralax] 17 gram/dose powder 17 g PO DAILY PRN (Reason: constipation) Qty: 119 0RF Discharge Orders: Discharge Order (Routine); Ordered 12/29/24 Ordered By: Domingo Petit Diet: Advance to usual diet Activity on Discharge: As tolerated Stand Alone Forms: Patient Portal Discharge page Print Language: Trin[place] Care Plan Goals: 39-year-old female who came to the hospital because of right-sided hydronephrosis and right-sided 3 mm stone-we managed her with the Flomax IV fluid and pain medication she seems to be improved and she passed the stone, her UA showed most of the RBCs like in 20 range and no bacteria: Patient was seen by Urology right-sided ureteral stent was placed, patient seems to be improving significantly, going home. Discussed with urology-no need of any antibiotics since hematuria/hydronephrosis secondary to right-sided renal stone, patient passed the stone already and has right-sided ureteral stent. Health Concerns: As above. Plan of Treatment: as above Assessment: As above.
[2024-12-28] MEDS: Enoxaparin Sodium 40 MG/0.4 ML SYRINGE SUBCUT (19:23)
[2024-12-29] MEDS: HYDROmorphone HCl 1 MG/ML SYRINGE 0.5 MG IVPUSH ×2 (01:25→08:44)
[2024-12-29 07:23] VITALS: BP 135/61; PULSE 77; RESP 16; TEMP 36.3; O2SAT 94
--- NOTE | 2024-12-29 07:42 | HO.POSTANES ---
Post Anesthesia Evaluation Post Anesthesia Evaluation Date of Service: 12/29/24 Vital Signs: Vital Signs Temp Pulse Resp BP Pulse Ox O2 Del Method 12/29/24 07:23 97.4 F 77 16 135/61 94 Room Air 12/28/24 23:47 97.5 F 76 18 132/91 H 96 Room Air Anesthesia: General LMA Mental Status: Awake Pain Control: Satisfactory Nausea/Vomiting: None Hydration: Adequate Anesthesia-Related Issues: No Anes. Related Issues
[2024-12-29] MEDS: Tamsulosin HCL 0.4 MG CAPSULE 0.8 MG PO (08:44)
[2024-12-29] MEDS: prednisoLONE sodium phosphate 15 MG/5 ML SOLUTION 10 MG PO (08:44)
[2024-12-29] MEDS: 0.9 % Sodium Chloride Flush 3 ML SYRINGE IVFLUSH (08:45)
[2024-12-29] MEDS: Acetaminophen 325 MG TABLET 975 MG PO (09:52)
[2024-12-29] MEDS: Phenazopyridine HCL 100 MG TABLET PO (09:52)
[2024-12-29] MEDS: ondansetron HCL 4 MG/2 ML VIAL IVPUSH (10:32)
[2024-12-29 11:40] VITALS: BP 138/88; PULSE 75; RESP 18; TEMP 36.3; O2SAT 93
--- NOTE | 2024-12-29 13:45 | MHC.CM.PN ---
DP: PT HAS BEEN MEDICALLY CLEARED FOR DC HOME, NO SERVICES. PT HAS OWN RIDE HOME.
== END 2024-12-29 11:50 | disposition home or self-care (01) | DRG 465 ==
LOC: HO.ED 19:08 → HO.EDOVER 21:04 → HO.S3 12-27 12:05
PROVIDERS: Physician Assistant Medical; Urology; Admitting Provider Internal Medicine; Emergency Provider Emergency Medicine; PCP Internal Medicine; Visit Provider Internal Medicine
DX: N13.2 Hydronephrosis with renal and ureteral calculous obstruction (principal); D50.9 Iron deficiency anemia, unspecified; E66.01 Morbid (severe) obesity due to excess calories; R31.29 Other microscopic hematuria; Z68.41 Body mass index [BMI] 40.0-44.9, adult; Z71.3 Dietary counseling and surveillance; Z87.442 Personal history of urinary calculi; Z79.899 Other long term (current) drug therapy
CPT/HCPCS: 36415; 71046; 74176; 80048; 80053; 81001; 81003; 82248; 84702; 85025; 85027; 87086; 87147; 99285; C1758; C1769; C2617; J0131; J0690; J1100; J1171; J1650; J1885; J2003; J2250; J2270; J2405; J2704; J3010; J7120; Q9967

== ENCOUNTER → 2024-12-26 09:20 | Outpatient (BNV) | payer OTHER, SELFPAY | PROVIDERS: PCP Internal Medicine; Visit Provider Radiology Diagnostic Radiology | DX: N20.2 Calculus of kidney with calculus of ureter (principal); N83.202 Unspecified ovarian cyst, left side; R07.82 Intercostal pain | CPT/HCPCS: 71046; 74176 ==

== ENCOUNTER → 2024-12-26 20:53 | Outpatient (BNV) | payer OTHER, SELFPAY | PROVIDERS: Admitting Provider Internal Medicine; Emergency Provider Emergency Medicine; PCP Internal Medicine; Visit Provider Urology | DX: N13.2 Hydronephrosis with renal and ureteral calculous obstruction (principal) | CPT/HCPCS: 52332; 74420; 99222; 99233 ==

== ENCOUNTER → 2024-12-26 20:53 | Outpatient (BNV) | payer OTHER, SELFPAY | PROVIDERS: Admitting Provider Internal Medicine; Emergency Provider Emergency Medicine; PCP Internal Medicine; Visit Provider Internal Medicine | DX: N13.2 Hydronephrosis with renal and ureteral calculous obstruction (principal); N23 Unspecified renal colic; R31.29 Other microscopic hematuria; D50.9 Iron deficiency anemia, unspecified; E66.01 Morbid (severe) obesity due to excess calories; Z68.41 Body mass index [BMI] 40.0-44.9, adult | CPT/HCPCS: 99223; 99231; 99232; 99239 ==

== ENCOUNTER 2024-12-30 21:45 | Emergency (ER) | payer OTHER, SELFPAY ==
--- NOTE | ~2024-12-30 | CT_ITS ---
CLINICAL HISTORY: Right flank pain status post stent placement CT abdomen and pelvis without contrast Comparison: CT/TN/SR - CT ABDOMEN PELVIS WO IV CON - 12/26/24 11:22 EST Findings: Dependent changes are present within the lungs with small pleural effusions and basilar subsegmental atelectasis or infiltrate. Mild right hydronephrosis is present with a ureteral stent in place. Left kidney is non hydronephrotic. Small left renal calculi are present. Liver is of low-attenuation, hepatic steatosis. Gallbladder is not visualized. Pancreas and spleen are within normal limits. Adrenal glands are unremarkable. No bowel obstruction, pneumoperitoneum, or pneumatosis. Appendix not visualized. Visualized pelvic structures are within normal limits. 3.2 cm left ovarian cyst noted. No acute fracture. IMPRESSION: 1. Mild right hydronephrosis with ureteral stent in place. 2. Hepatic steatosis. 3. Trace pleural effusions with basilar subsegmental atelectasis or infiltrate. This document has been electronically signed by: Chuy Syed MD, PHD on 12/31/2024 00:50:52
[2024-12-30 22:05] VITALS: BP 133/80; BP 142/80; PULSE 90; RESP 16; TEMP 36.6; O2SAT 93; O2SAT 96; BMI 39.2
[2024-12-30 22:37] LABS: MANUAL DIFF FLAG NO
[2024-12-30 22:39] LABS: Basophils Percent Auto 0.5 % (0-2); Eosinophils Absolute Auto 0.1 X10*3/uL (0.0-0.4); Eosinophils Percent Auto 1.7 % (0-4); Hematocrit 36.5 % (37.0-47.0); Hemoglobin 11.9 g/dl (12.0-16.0); Imm Gran Abs Auto 0.02 X10*3/uL (0.00-0.03); Imm Gran Pct Auto 0.2 % (0.0-0.4); Lymphocytes Absolute Auto 2.5 X10*3/uL (1.2-4.9); Lymphocytes Percent Auto 29.9 % (20-40); Mean Corpuscular HGB Conc 32.6 g/dl (31.0-35.0); Mean Corpuscular Hemoglobin 24.4 pg (27.0-33.0); Mean Corpuscular Volume 74.9 fL (80.0-98.0); Mean Platelet Volume 11.2 fL (9.4-12.3); Monocytes Absolute Auto 0.3 X10*3/uL (0.1-1.2); Monocytes Percent Auto 3.6 % (2-11); Neutrophils Absolute Auto 5.4 x10*3/uL (2.0-8.3); Neutrophils Percent Auto 64.1 % (45-73); Platelet Count 253 X10*3/uL (160-400); Red Blood Count 4.87 X10*6/uL (4.20-5.50); Red Cell Distribution Width 15.9 % (11.0-16.0); White Blood Count 8.4 X10*3/uL (4.8-10.8)
[2024-12-30 22:56] LABS: Alanine Aminotransferase 29 U/L (0-31); Albumin Level 3.8 g/dL (3.5-5.0); Alkaline Phosphatase 75 U/L (39-117); Anion Gap 14 (12-20); Aspartate Amino Transferase 25 U/L (5-31); Bilirubin Total 0.3 mg/dL (0.0-1.0); Blood Urea Nitrogen 10 mg/dL (9-16); Calcium 9.1 mg/dL (8.4-10.2); Carbon Dioxide 24 mmol/L (22-29); Chloride 106 mmol/L (96-108); Creatinine Clr Calc Pharmacy 120.2; Estimated Glomerular Filt Rate > 60; Glucose Random 113 mg/dL (60-115); Potassium 2.7 mmol/L (3.3-5.1); Sodium 141 mmol/L (135-145); Total Protein 7.6 g/dL (6.5-8.0)
--- NOTE | 2024-12-30 23:00 | ED_ITS ---
HPI - Female Genitourinary General Chief complaint: Urogenital-Female Stated complaint: ABD PAIN/PRESSURE ,BODY CHILLS DROWSY Time Seen by Provider: 12/30/24 22:55 Source: patient Mode of arrival: ambulatory Limitations: no limitations History of Present Illness ED Provider: HPI Narrative: patient's history of 3 mm obstructing right UV junction stone status post stent placement on 01/17 comes here as still having the pain in the right flank radiating to the right lower abdomen with nausea and vomiting no gross hematuria no fever but does have chills Related Data Previous Rx's ?Medication ?Instructions ?Recorded acetaminophen 325 mg tablet 975 mg (3 x 325 mg) PO Q6H PRN 12/29/24 pain #20 tabs docusate sodium 100 mg capsule 100 mg PO BID #20 caps 12/29/24 (Colace) oxycodone 5 mg tablet 5 mg PO Q4H PRN Pain, Severe (Pain 12/29/24 Scale 7-10) #10 tabs phenazopyridine 100 mg tablet 100 mg PO BIDWM #6 tabs 12/29/24 polyethylene glycol 3350 17 17 g PO DAILY PRN constipation 12/29/24 gram/dose oral powder (Miralax) #119 grams tamsulosin 0.4 mg capsule 0.8 mg (2 x 0.4 mg) PO DAILY #15 12/29/24 caps levofloxacin 500 mg tablet 500 mg PO DAILY 10 days #10 tabs 12/31/24 ondansetron 4 mg disintegrating 4 mg PO Q6-8H PRN nausea and 12/31/24 tablet vomiting #10 tabs oxycodone 5 mg tablet 5 mg PO Q6H PRN pain #20 tabs 12/31/24 Allergies Allergy/AdvReac Type Severity Reaction Status Date / Time No Known Allergies Allergy Verified 12/30/24 22:09 Review of Systems 2 Review of Systems: Yes all other systems are reviewed and are negative PMFSH Past Medical History Medical History Anemia Intractable vomiting Vomiting Inflammatory bowel disease Irritable bowel syndrome Surgical History Hx of appendectomy Bariatric surgery status Hx of cholecystectomy No pertinent past surgical history Social History Social History Household Members: Spouse and Family Housing: House Do you presently have visiting nurse or other home services: No Alcohol intake: never Patient Tobacco Use Status: Never used Tobacco Smoked in Last 30 Days: No e-Cigarette/Vaping Use: Never Used Second Hand Smoke Exposure: No Use of substances other than those prescribed or required for medical reasons: No Advance Directives: No Advance Directives Information Provided: Yes Advance Directives Date on File: 09/28/23 Do you have a plan to hurt others: No Plan Patient : No service: No Current occupational status: unemployed Current occupational exposures/hazards: No Cognitive needs: No Hearing needs: No Vision needs: No Physical Exam 2 Vital Signs: Vital Signs: Last Vital Signs Temp 98.1 F 12/31/24 04:07 Pulse 79 12/31/24 04:07 Resp 20 12/31/24 04:07 BP 107/57 L 12/31/24 04:07 Pulse Ox 94 12/31/24 04:07 O2 Del Method Room Air 12/31/24 04:07 BMI result Body Mass Index 39.2 Appearance: Alert. Oriented X3. in moderate distress Eyes: PERRLA, No Nystagmus ENT: Pharynx normal. Oral Mucosa moist Neck: Normal inspection. Neck supple. CVS: Normal heart rate and rhythm. Pulses normal. Respiratory: No respiratory distress. Equal air entry bilateral, no wheezing/rales/rhonchi Abdomen: Soft and nontender. Bowel sounds are present, no mass palpable, right CVA tenderness ++ Skin: Skin warm and dry. Normal skin color. Normal skin turgor. Extremities: No lower extremity edema. No calf tenderness Neuro: Oriented X 3. No motor deficit. Medications Administered Discontinued Medications Generic Name Dose Route Start Last Admin Trade Name Freq PRN Reason Stop Dose Admin Ceftriaxone Sodium 1 gm 12/31/24 02:23 12/31/24 02:30 Ceftriaxone Sodium 1 Gm Vial IVPUSH 12/31/24 02:24 1 gm ONCE ONE Administration Dicyclomine HCl 20 mg 12/31/24 01:14 12/31/24 01:26 Dicyclomine Hcl 10 Mg Capsule PO 12/31/24 01:15 20 mg ONCE ONE Administration Sodium Chloride 1,000 mls @ 999 mls/hr 12/30/24 23:01 12/31/24 01:26 Ns IV 12/31/24 00:01 Infused .Q1H1M ONE Infusion Potassium Chloride 10 meq in 100 mls @ 100 mls/hr 12/30/24 23:15 12/31/24 01:40 Potassium Chloride/H20 IV 12/31/24 01:14 Infused Q1H MALCOM Infusion Ketorolac Tromethamine 30 mg 12/31/24 00:23 12/31/24 00:34 Ketorolac Tromethamine 30 Mg/Ml Vial IVPUSH 12/31/24 00:24 30 mg ONCE ONE Administration Morphine Sulfate 4 mg 12/30/24 23:01 12/30/24 23:09 Morphine Sulfate 4 Mg/Ml Cartridge IVPUSH 12/30/24 23:02 4 mg ONCE ONE Administration Protocol Ondansetron HCl 4 mg 12/30/24 23:01 12/30/24 23:09 Ondansetron Hcl 4 Mg/2 Ml Vial IVPUSH 12/30/24 23:02 4 mg ONCE ONE Administration Potassium Bicarbonate 50 meq 12/31/24 01:14 12/31/24 01:26 Potassium Bicarbonate/Cit Ac 25 Meq Tablet.Eff PO 12/31/24 01:15 50 meq ONCE ONE Administration Medical Decision Making Medical Decision Making [facility] Narrative: Patient's right ureteric stent for UV junction stone workup showed mild hydronephrosis and infected urine was given Rocephin prescribe Cipro advised to follow up with urologist for further management no signs of systemic infection as WBC counts are normal and lactic acid level is normal patient is afebrile Differential Diagnosis Differential Diagnoses: The differential diagnosis associated with the presentation includes Lab Data [facility] Lab Attestation statement: I reviewed the patient's lab results. 12/30/24 22:30 12/31/24 03:05 Labs: Lab Results 12/30/24 12/30/24 12/31/24 Range/Units 22:30 23:03 02:08 WBC 8.4 (4.8-10.8) X10*3/uL RBC 4.87 (4.20-5.50) X10*6/uL Hgb 11.9 L (12.0-16.0) g/dl Hct 36.5 L (37.0-47.0) % MCV 74.9 L (80.0-98.0) fL MCH 24.4 L (27.0-33.0) pg MCHC 32.6 (31.0-35.0) g/dl RDW 15.9 (11.0-16.0) % Plt Count 253 (160-400) X10*3/uL MPV 11.2 (9.4-12.3) fL Immature Gran % (Auto) 0.2 (0.0-0.4) % Neut % (Auto) 64.1 (45-73) % Lymph % (Auto) 29.9 (20-40) % Guthrie % (Auto) 3.6 (2-11) % Eos % (Auto) 1.7 (0-4) % Baso % (Auto) 0.5 (0-2) % Lymph # (Auto) 2.5 (1.2-4.9) X10*3/uL Guthrie # (Auto) 0.3 (0.1-1.2) X10*3/uL Eos # (Auto) 0.1 (0.0-0.4) X10*3/uL Baso # (Auto) 0.0 (0.0-0.2) X10*3/uL Abs Immat Gran (auto) 0.02 (0.00-0.03) X10*3/uL Absolute Neuts (auto) 5.4 (2.0-8.3) x10*3/uL Absolute Nucleated RBC 0.000 (0.0-0.012) X10*3/uL Nucleated RBC % (auto) 0.0 (0.0-0.2) /100WBC PT 11.6 (10.9-12.4) SEC INR 1.0 (0.9-1.1) Sodium 141 (135-145) mmol/L Potassium 2.7 L* D (3.3-5.1) mmol/L Chloride 106 (96-108) mmol/L Carbon Dioxide 24 (22-29) mmol/L Anion Gap 14 (12-20) BUN 10 (9-16) mg/dL Creatinine 0.88 (0.5-1.4) mg/dL Estim Creat Clear Calc 120.2 Estimated GFR > 60 Random Glucose 113 (60-115) mg/dL Lactic Acid 1.6 (0.5-2.0) mmol/L Calcium 9.1 (8.4-10.2) mg/dL Magnesium 1.6 (1.6-2.6) mg/dL Total Bilirubin 0.3 (0.0-1.0) mg/dL AST 25 (5-31) U/L ALT 29 (0-31) U/L Alkaline Phosphatase 75 (39-117) U/L Total Protein 7.6 (6.5-8.0) g/dL Albumin 3.8 (3.5-5.0) g/dL Beta HCG, Quant < 2 mIU/mL Urine Color Dark Yellow Urine Appearance Cloudy Urine pH 6.5 (5.0-9.0) Ur Specific Fannin 1.015 (1.005-1.025) Urine Protein 100 (2+) H (Neg-Trace) mg/dL Urine Glucose (UA) Negative (Negative) mg/dL Urine Ketones Negative (Negative) mg/dL Urine Blood Large (3+) H (Negative) Urine Nitrite Positive H (Negative) Ur Leukocyte Esterase Moderate (2+) H (Negative) Urine RBC >20 H (0-2) /HPF Urine WBC >50 H (0-5) /HPF Ur Squamous Epith Cells 6-10 (0-2) /HPF Urine Bacteria None Seen (None Seen) Hyaline Casts 6-10 (0-2) /LPF 12/31/24 Range/Units 03:05 WBC (4.8-10.8) X10*3/uL RBC (4.20-5.50) X10*6/uL Hgb (12.0-16.0) g/dl Hct (37.0-47.0) % MCV (80.0-98.0) fL MCH (27.0-33.0) pg MCHC (31.0-35.0) g/dl RDW (11.0-16.0) % Plt Count (160-400) X10*3/uL MPV (9.4-12.3) fL Immature Gran % (Auto) (0.0-0.4) % Neut % (Auto) (45-73) % Lymph % (Auto) (20-40) % Guthrie % (Auto) (2-11) % Eos % (Auto) (0-4) % Baso % (Auto) (0-2) % Lymph # (Auto) (1.2-4.9) X10*3/uL Guthrie # (Auto) (0.1-1.2) X10*3/uL Eos # (Auto) (0.0-0.4) X10*3/uL Baso # (Auto) (0.0-0.2) X10*3/uL Abs Immat Gran (auto) (0.00-0.03) X10*3/uL Absolute Neuts (auto) (2.0-8.3) x10*3/uL Absolute Nucleated RBC (0.0-0.012) X10*3/uL Nucleated RBC % (auto) (0.0-0.2) /100WBC PT (10.9-12.4) SEC INR (0.9-1.1) Sodium 141 (135-145) mmol/L Potassium 4.0 D (3.3-5.1) mmol/L Chloride 109 H (96-108) mmol/L Carbon Dioxide 25 (22-29) mmol/L Anion Gap 11 L (12-20) BUN 9 (9-16) mg/dL Creatinine 0.76 (0.5-1.4) mg/dL Estim Creat Clear Calc 139.2 Estimated GFR > 60 Random Glucose 102 (60-115) mg/dL Lactic Acid (0.5-2.0) mmol/L Calcium 8.7 (8.4-10.2) mg/dL Magnesium (1.6-2.6) mg/dL Total Bilirubin (0.0-1.0) mg/dL AST (5-31) U/L ALT (0-31) U/L Alkaline Phosphatase (39-117) U/L Total Protein (6.5-8.0) g/dL Albumin (3.5-5.0) g/dL Beta HCG, Quant mIU/mL Urine Color Urine Appearance Urine pH (5.0-9.0) Ur Specific Fannin (1.005-1.025) Urine Protein (Neg-Trace) mg/dL Urine Glucose (UA) (Negative) mg/dL Urine Ketones (Negative) mg/dL Urine Blood (Negative) Urine Nitrite (Negative) Ur Leukocyte Esterase (Negative) Urine RBC (0-2) /HPF Urine WBC (0-5) /HPF Ur Squamous Epith Cells (0-2) /HPF Urine Bacteria (None Seen) Hyaline Casts (0-2) /LPF Independent Interpretation I performed an independent interpretation of an: CT Scan Radiology Impression Discussion of test interpretation with radiology: I have reviewed the radiologist's reading. Radiologist Impression: IMPRESSION: 1. Mild right hydronephrosis with ureteral stent in place. 2. Hepatic steatosis. 3. Trace pleural effusions with basilar subsegmental atelectasis or infiltrate. This document has been electronically signed by: Chuy Syed MD, PHD on 12/31/2024 00:50:52 Discharge Plan Discharge Clinical Impression: Urinary tract infection, Renal colic on right side Patient Disposition: Home, Self-Care Instructions: Urinary Tract Infection in Women (ED), Renal Colic (ED) Additional Instructions: Drink plenty of fluids Take antibiotics and pain medicine as prescribed Follow with urologist for further management Prescriptions: New oxycodone 5 mg tablet 5 mg PO Q6H PRN (Reason: pain) Qty: 20 0RF Rx Instructions: Partial Fill upon patient request. levofloxacin 500 mg tablet 500 mg PO DAILY 10 Days Qty: 10 0RF ondansetron 4 mg tablet,disintegrating 4 mg PO Q6-8H PRN (Reason: nausea and vomiting) Qty: 10 0RF No Action acetaminophen 325 mg Tablet 975 mg PO Q6H PRN (Reason: pain) Qty: 20 0RF tamsulosin 0.4 mg Capsule 0.8 mg PO DAILY Qty: 15 0RF phenazopyridine 100 mg Tablet 100 mg PO BIDWM Qty: 6 0RF oxycodone 5 mg Tablet 5 mg PO Q4H PRN (Reason: Pain, Severe (Pain Scale 7-10)) Qty: 10 0RF Rx Instructions: Partial Fill upon patient request. docusate sodium [Colace] 100 mg capsule 100 mg PO BID Qty: 20 0RF polyethylene glycol 3350 [Miralax] 17 gram/dose powder 17 g PO DAILY PRN (Reason: constipation) Qty: 119 0RF Interventions: ED Discharge Assessment Last Done: 12/31/24 04:07 Discharge Date/Time: 12/31/24 04:13 Print Language: Slovenian
[2024-12-30 23:09] VITALS: RESP 20
[2024-12-30] MEDS: ondansetron HCL 4 MG/2 ML VIAL IVPUSH (23:09)
[2024-12-30] MEDS: Morphine Sulfate 4 MG/ML CARTRIDGE IVPUSH (23:09)
[2024-12-30] MEDS: 0.9 % Sodium Chloride 1,000 ML 999 ML IV (23:12)
[2024-12-30 23:16] LABS: Prothrombin Time 11.6 SEC (10.9-12.4)
[2024-12-30] MEDS: Potassium Chloride/H20 10 MEQ/100 ML PIGGYBACK 100 MEQ IV (23:20)
[2024-12-30 23:26] LABS: Lactic Acid 1.6 mmol/L (0.5-2.0)
--- NOTE | 2024-12-30 23:32 | ECG_ITS ---
Test Reason : HYPOKALEMIA Blood Pressure : */* mmHG Vent. Rate : 80 BPM Atrial Rate : 80 BPM P-R Int : 150 ms QRS Dur : 100 ms QT Int : 388 ms P-R-T Axes : 60 -9 37 degrees QTcB Int : 447 ms Normal sinus rhythm Possible Left atrial enlargement Minimal voltage criteria for LVH, may be normal variant ( R in aVL ) Nonspecific T wave abnormality Abnormal ECG When compared with ECG of 14-Apr-2018 16:52, Nonspecific T wave abnormality now evident in Anterior leads Referred By: Guy Hansen Electronically Signed By: ROMAN ROYAL MD
[2024-12-30 23:49] LABS: HCG Quantitative < 2 mIU/mL
--- OUTSIDE RECORDS SUMMARY | 2024-12-30 23:49 | XMS_ITS | Clinical Summary ---
Author Organization [address] [place] [address] [place] [phone] Phone Care Team Providers Care Secondary Education Professor Name Role Phone Mago Zuñiga MD Primary Care Provider [phone] Allergies No known active allergies Medications IRON, FERROUS SULFATE, ORAL Take by mouth. Active Active Problems Problem Noted Date Diagnosed Date Class 3 severe obesity witho ut serious comorbidity with body mass index (BMI) of 40.0 to 44.9 in adult 11/02/2024 Encounters Date Type Department Care Team Description 12/14/2024 1:30 PM EST Nutrition Bariatric Surgery - [address] [phone] Class 3 severe obesity without serious comorbidity with body mass index (BMI) of 40.0 to 44.9 in adult, unspecified obesity type (CMS/HCC) (Primary Dx) 11/08/2024 2:00 PM EST Nutrition Bariatric Surgery [address] [phone] Class 3 severe obesity [...] History Surgery Date Site/Laterality Comments CHOLECYSTECTOMY PROCEDURE: [place] LAPAROSCOPY SURG CHOLECYSTECTOMY APPENDECTOMY PROCEDURE: [place] APPENDECTOMY Medical History Medical History Date Comments [...] 1:30 PM EDT Nutrition Bariatric Surgery - [address] [address] Gabriella Rodriguez, RD [address] [address] Health Maintenance Due Date Last Done Comments [...] Most Recently Relevant to Health Maintenance Insurance [facility] [place] [address] Care Teams Secondary Education Professor Relationship Specialty Start Date End Date Mago Zuñiga MD 2 [facility] , [address] [place] [address] Physician Associ D/B/A: [facility] [place] PCP - General 11/24/23
--- OUTSIDE RECORDS SUMMARY | 2024-12-30 23:49 | XMS_ITS | Encounter Summary ---
Author Organization [facility] Address [address] [place] [address] Care Team Providers Care [place] [employer] Name Role Phone Mago Zuñiga MD Primary Care Provider [phone] Encounter Details Date Type Department Care Team (Late st Contact Info) Description 12/14/2024 1:30 PM EST Nutrition Bariatric Surgery - [address] [place] [address] Gabriella Rodriguez, YULISSA 175 [facility] [address] [place] [phone] Class 3 severe obesity without serious comorbidity [...] in the computer. You can go to [facility] at [address] [place] [address], [address], when you are ready. They open at 7:30am. You can also go to another [facility] lab that may be more conveniently located. No food/drink after midnight please - these are fasting labs. NO GUM, CANDY, MINTS, TUMS, OR WATER FOR ONE HOUR BEFORE! If you would like, you can join our Facebook group [facility]. (It has a picture of a yellow shirt with a tape measure). Support group (Facebook): Please watch the videos I posted on the FB page (use the magnifying glassto search for [facility] to locate my posts and [...] from 5:30-6:30pm in the second-floor cafeteria of [address] [place] [address]. No need tosign up, feel free to just show up. Support group (quiz): Please fill out the attached quiz and return to me (instructions are included). Psych eval: You have two options for your psychological evaluation Dr. Ria Marley [phone] [facility] [phone] Both are doing remote visits. Call either one and let them know you are in the [facility] and need a psych eval [...] your primary care office is *not* within [facility], please ask them to fax their office note to [phone]. Handouts: I am attaching a snack handout [...] -exercise 3-4x Gabriella Rodriguez RD Bariatric Dietitian [email or web address] [phone] F [phone] [place] [address], [address] [place] [address] * Gabriella Rodriguez RD - 12/14/2024 1:30 PM EST NUTRITION FOLLOW-UP NOTE: Patient Name: Marika Easley Date of : 1985 Date of Service: 12/14/2024 SURGEON: Priscila Olmstaed MD DESIRED SURGERY: Gastric Sleeve CHIEF COMPLAINT: [...] 30minutes (>50% of the time spent)in direct [id number] consultation for counseling, reviewing medical record and/or coordinating the plan as described above. Gabriella Rodriguez RD NUTRITION SERVICES documented in this encounter Plan of Treatment Upcoming Encounters Date Type Department Care Team ([facility] st Contact Info) Description 01/12/2025 1:30 PM EDT Nutrition Bariatric Surgery - [address] [address] [address] documented as of this encounter Visit Diagnoses Diagnosis Class 3 severe obesity without serious comorbidity with body mass index (BMI) of 40.0 to 44.9 in adult, unspecified obesity type (CMS/HCC)- Primary documented in this encounter Care Teams [place] [employer] Relationship Specialty Start Date End Date Mago Zuñiga MD 2 [facility] , [address] [facility] Physician Associ D/B/A: [facility] [place] PCP - General 11/24/23 documented as of this encounter
[2024-12-31 00:10] VITALS: RESP 20
[2024-12-31] MEDS: Potassium Chloride/H20 10 MEQ/100 ML PIGGYBACK 100 MEQ IV (00:33)
[2024-12-31] MEDS: Ketorolac Tromethamine 30 MG/ML VIAL IVPUSH (00:34)
[2024-12-31 00:47] VITALS: BP 132/67; PULSE 73; RESP 20; TEMP 36.6; O2SAT 96
[2024-12-31] MEDS: Dicyclomine HCl 10 MG CAPSULE 20 MG PO (01:26)
[2024-12-31] MEDS: Potassium Bicarbonate/Cit AC 25 MEQ TABLET.EFF 50 MEQ PO (01:26)
[2024-12-31 01:31] LABS: Magnesium 1.6 mg/dL (1.6-2.6)
[2024-12-31 02:13] LABS: Appearance Urine Cloudy; Color Urine Dark Yellow; Glucose Urine UA Negative (Negative); Leukocyte Esterase Urine Moderate (2+) (Negative); Nitrite Urine Positive (Negative); PH 6.5 (5.0-9.0); Specific Gravity - Urine 1.015 (1.005-1.025); UMIC TRIGGER UACC YES; Urine Blood Large (3+) (Negative); Urine Ketones Negative (Negative); Urine Protein 100 (2+) mg/dL (Neg-Trace)
--- NOTE | 2024-12-31 02:13 | PC.NURSE ---
ambulated steadily to bathroom to produce urine sample.
[2024-12-31] MEDS: cefTRIAXone sodium 1 GM VIAL IVPUSH (02:30)
[2024-12-31 03:17] LABS: Bacteria Urine None Seen (None Seen); RBC Urine >20 /HPF (0-2); UACC Culture Trigger YES; WBC Urine >50 /HPF (0-5)
[2024-12-31 03:27] LABS: Anion Gap 11 (12-20); Blood Urea Nitrogen 9 mg/dL (9-16); Calcium 8.7 mg/dL (8.4-10.2); Carbon Dioxide 25 mmol/L (22-29); Chloride 109 mmol/L (96-108); Creatinine Clr Calc Pharmacy 139.2; Estimated Glomerular Filt Rate > 60; Glucose Random 102 mg/dL (60-115); Sodium 141 mmol/L (135-145)
[2024-12-31 03:31] VITALS: BP 107/57; PULSE 79; RESP 20; TEMP 36.7; O2SAT 94
[2024-12-31 04:07] VITALS: BP 107/57; PULSE 79; RESP 20; TEMP 36.7; O2SAT 94
== END 2024-12-31 04:13 | disposition home or self-care (01) ==
PROVIDERS: Emergency Medicine Emergency Medical Services; Emergency Provider Internal Medicine; PCP Internal Medicine
DX: N39.0 Urinary tract infection, site not specified (principal); N23 Unspecified renal colic; Z96.0 Presence of urogenital implants
CPT/HCPCS: 36415; 74176; 80048; 80053; 81001; 83605; 83735; 84702; 85025; 85610; 87040; 87086; 93005; 96361; 96374; 96375; 99285; J0696; J1885; J2270; J2405; J3480

== ENCOUNTER → 2024-12-30 23:07 | Outpatient (BNV) | payer OTHER, SELFPAY | PROVIDERS: Emergency Provider Internal Medicine; PCP Internal Medicine; Visit Provider General Practice | DX: N13.39 Other hydronephrosis (principal); Z96.0 Presence of urogenital implants; K76.0 Fatty (change of) liver, not elsewhere classified; J90 Pleural effusion, not elsewhere classified | CPT/HCPCS: 74176 ==

== ENCOUNTER → 2024-12-30 23:32 | Outpatient (BNV) | payer OTHER, SELFPAY | PROVIDERS: Emergency Provider Internal Medicine; PCP Internal Medicine; Visit Provider Internal Medicine Cardiovascular Disease | DX: R94.31 Abnormal electrocardiogram [ECG] [EKG] (principal); E87.6 Hypokalemia | CPT/HCPCS: 93010 ==

== ENCOUNTER 2025-01-04 09:48 | Emergency (ER) | payer OTHER, SELFPAY ==
--- NOTE | ~2025-01-04 | CT_ITS ---
EXAMINATION: CT ABDOMEN PELVIS WITHOUT IV CONTRAST HISTORY: flank pain, concern for continued obstructing stone COMPARISON: Comparison is made with the prior examination dated 12/30/2024. TECHNIQUE: CT scan of the abdomen and pelvis was performed without contrast using standard departmental protocol. Coronal and sagittal reformatted images were generated and reviewed. Oral contrast material was not administered per department protocol. This CT exam was performed with one or more of the following dose reduction techniques: automated exposure control, adjustment of the mA and/or kV according to patient size, use of iterative reconstruction technique. DLP: 819 mGy-cm FINDINGS: LOWER CHEST: The visualized lung bases are clear. There is no pleural effusion. CARDIOVASCULATURE: The heart is normal in size. There is no pericardial effusion. LIVER: The liver is normal in size and contour, but demonstrates decreased attenuation, consistent with steatosis. The liver has an unremarkable unenhanced appearance. GALLBLADDER / BILE DUCTS: The gallbladder is surgically absent. There is no intra or extrahepatic biliary ductal dilatation. SPLEEN: The spleen is normal in size and has an unremarkable unenhanced appearance. PANCREAS: The pancreas has an unremarkable unenhanced appearance. ADRENAL GLANDS: Unremarkable. KIDNEYS/RETROPERITONEUM: A right nephroureteral stent is again seen in place. There is persistent mild right hydronephrosis. A 4 mm calculus is again noted in the proximal right ureter. This has migrated slightly distally when compared to the prior study. The calculus is now at the level of the L3 vertebral body. Previously, it was at the level of the inferior endplate of L2. Again seen is a 3 mm nonobstructing calculus at the upper pole of the left kidney. There is no left hydronephrosis. LYMPH NODES: No retroperitoneal lymphadenopathy is identified in the abdomen or pelvis. VASCULATURE: The abdominal aorta is normal in caliber. MESENTERY/PERITONEUM: No free fluid. No masses. There is no free intraperitoneal gas. STOMACH: The stomach is collapsed, limiting evaluation. SMALL BOWEL: The small bowel is normal in caliber. COLON: The colon is unremarkable. APPENDIX: The appendix is not seen, however no inflammatory changes are seen adjacent to the cecum. URINARY BLADDER/PELVIC ORGANS: The urinary bladder is collapsed, limiting evaluation. The uterus has an unremarkable unenhanced appearance. There is a 3.1 cm left ovarian cyst. BONES / SOFT TISSUES: No suspicious bony or soft tissue abnormalities. CT/CT abdomen pelvis wo IV con IMPRESSION: 1. Persistent mild right hydronephrosis with a right nephroureteral stent in place. The previously seen 4 mm proximal ureteral calculus has migrated slightly distally, as described. 2. 3 mm nonobstructing calculus at the upper pole of the left kidney. 3. 3.1 cm left ovarian cyst. Electronically signed by: Isaak Sun MD 01/04/2025 11:42 AM EDT
[2025-01-04 10:07] VITALS: BP 132/82; PULSE 97; RESP 18; TEMP 36.5; O2SAT 98; BMI 40.1
[2025-01-04 10:46] LABS: MANUAL DIFF FLAG NO
--- NOTE | 2025-01-04 10:48 | ED_ITS ---
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 (all interactions with this patient were facilitated with an [facility] wood sash and frame carpenter) Mode of arrival: ambulatory Limitations: language barrier (all interactions with this patient were facilitated with an [facility] wood sash and frame carpenter) History of Present Illness ED Provider: Olena Pollard PA-C HPI Narrative: Patient is a 39 year old assigned female at with a history of kidney stones with recent stent placement on 12/28 and subsequent UTI on 12/30 presenting to the emergency department today with persistent right sided flank pain, nausea, and vomiting. Patient states that she has continued to have pain, nausea, and vomiting. Patient denies any dizziness, lightheadedness, fever, chills, blurry vision, double vision, loss of vision, chest pain, difficulty breathing, shortness of breath, back pain, night sweats, pain with urination, increased urinary frequency, increased urinary urgency, blood in her urine or stool, syncope or a near syncopal episode, recent trauma or falls, bowel incontinence, bladder incontinence, or any other complaints at this time. Related Data Previous Rx's ?Medication ?Instructions ?Recorded acetaminophen 325 mg tablet 975 mg (3 x 325 mg) PO Q6H PRN 12/29/24 pain #20 tabs docusate sodium 100 mg capsule 100 mg PO BID #20 caps 12/29/24 (Colace) oxycodone 5 mg tablet 5 mg PO Q4H PRN Pain, Severe (Pain 12/29/24 Scale 7-10) #10 tabs phenazopyridine 100 mg tablet 100 mg PO BIDWM #6 tabs 12/29/24 polyethylene glycol 3350 17 17 g PO DAILY PRN constipation 12/29/24 gram/dose oral powder (Miralax) #119 grams tamsulosin 0.4 mg capsule 0.8 mg (2 x 0.4 mg) PO DAILY #15 12/29/24 caps levofloxacin 500 mg tablet 500 mg PO DAILY 10 days #10 tabs 12/31/24 ondansetron 4 mg disintegrating 4 mg PO Q6-8H PRN nausea and 12/31/24 tablet vomiting #10 tabs oxycodone 5 mg tablet 5 mg PO Q6H PRN pain #20 tabs 12/31/24 hydroxyzine HCl 25 mg tablet 25 mg PO BEDTIME #7 tabs 01/04/25 naproxen 500 mg tablet 500 mg PO BID 7 days #14 tabs 01/04/25 phenazopyridine 100 mg tablet 100 mg PO TID PRN pain #10 tabs 01/04/25 (Pyridium) Allergies Allergy/AdvReac Type Severity Reaction Status Date / Time No Known Allergies Allergy Verified 01/04/25 10:10 Review of Systems 2 Constitutional: Constitutional: Reports no additional constitutional complaints, Denies chills, Denies fever(s) and Denies night sweats Eyes: Eyes: Reports no additional eye complaints, Denies blurry vision, Denies change in vision, Denies diplopia, Denies eye discharge, Denies loss of vision and Denies eye pain ENT: Denies dizziness Cardiovascular: Cardiovascular: Reports no additional cardiovascular complaints, Denies chest pain, Denies lightheadedness, Denies Loss of Consciousness and Denies dyspnea Respiratory: Respiratory: Reports no additional respiratory complaints and Denies dyspnea Gastrointestinal: Gastrointestinal: Reports no additional gastrointestinal complaints, Reports abdominal pain, Denies melena, Denies hematochezia, Denies change in bowel habits, Denies change in stool character, Reports nausea and Reports vomiting Genitourinary: Genitourinary: Denies hematuria, Denies urinary frequency, Denies dysuria, Reports flank pain, Denies urinary incontinence, Denies urinary hesitancy and Denies urinary urgency Musculoskeletal: Musculoskeletal: Reports no additional musculoskeletal complaints, Denies numbness and Denies tingling Neurologic: Denies dizziness, Denies loss of vision, Denies numbness and Denies tingling Psychiatric: Psychiatric: Reports no additional psychiatric complaints Endocrine: Endocrine: Reports no additional endocrine complaints Hematologic/Lymphatic: Hematologic/Lymphatic: Reports no additional hematologic/lymphatic complaints Allergic/Immunologic: Allergic/Immunologic: Reports no additional allergic/immunologic complaints PMFSH Past Medical History Attestation statement: The following information was validated with the patient. Source: old records reviewed and nursing notes reviewed Medical History Anemia Intractable vomiting Vomiting Inflammatory bowel disease Irritable bowel syndrome Surgical History Hx of appendectomy Bariatric surgery status Hx of cholecystectomy No pertinent past surgical history Social History Social History Household Members: Spouse and Family Housing: House Do you presently have visiting nurse or other home services: No Alcohol intake: never Patient Tobacco Use Status: Never used Tobacco Smoked in Last 30 Days: No e-Cigarette/Vaping Use: Never Used Second Hand Smoke Exposure: No Use of substances other than those prescribed or required for medical reasons: No Advance Directives: Yes Advance Directives on File: Yes Advance Directives Date on File: 09/28/23 Patient : No service: No Current occupational status: unemployed Current occupational exposures/hazards: No Cognitive needs: No Hearing needs: No Vision needs: No Physical Exam 2 Vital Signs: Vital Signs: Last Vital Signs Temp 98.5 F 01/04/25 14:11 Pulse 74 01/04/25 14:11 Resp 16 01/04/25 14:11 BP 117/68 01/04/25 14:11 Pulse Ox 99 01/04/25 14:11 O2 Del Method Room Air 01/04/25 14:11 BMI result Body Mass Index 40.1 Const: General: cooperative, no acute distress, alert and awake Nutritional Appearance: well nourished Orientation/consciousness: patient oriented x3 Limitations: no limitations HEENT: Head: Yes normal to inspection and Yes atraumatic Ears: hearing grossly normal bilaterally and external ears normal General nose exam: Normal external nose present, no nasal discharge noted and no epistaxis Face and sinus: Yes normal facial exam, No abrasion and No laceration Mouth: Normal oral and palatal mucosa present, no drooling and no muffled voice Eyes: General: appearance normal, both eyes and all related structures P eriorbital: periorbital findings normal Eyelids: Yes eyelids normal C onjunctivae: conjunctivae normal Pupils: Equal, round and reactive pupils present EOM: EOMs intact bilaterally Neck: Neck: Yes normal visual inspection, Yes full ROM and Yes no lymphadenopathy Chest: Chest palpation & inspection: normal inspection of the chest Resp: Effort & Inspection: normal respiratory effort and able to speak in complete sentences GI: Inspection: Yes normal to inspection Neuro: General: patient oriented x3, moves all extremities and CN's II-XI intact bilaterally Cranial nerves: Yes Equal, round and reactive pupils present Cognition (Neuro): normal cognition Extrem: General: Yes normal to inspection, Yes full ROM and Yes capillary refill normal Psych: Appearance: grossly normal Mental Status: mental status grossly normal Affect: normal affect Attitude: cooperative Thought process: N ormal thought process present Thought content: Normal thought content present Insight: Good insight present (Psych) Medications Administered Discontinued Medications Generic Name Dose Route Start Last Admin Trade Name Patricio PRN Reason Stop Dose Admin Sodium Chloride 1,000 mls @ 999 mls/hr 01/04/25 11:00 01/04/25 12:08 Ns IV 01/04/25 12:00 Infused .Q1H1M MALCOM Infusion Sodium Chloride 1,000 mls @ 999 mls/hr 01/04/25 12:30 01/04/25 14:11 Ns IV 01/04/25 13:30 Infused .Q1H1M MALCOM Infusion Morphine Sulfate 4 mg 01/04/25 11:13 01/04/25 11:31 Morphine Sulfate 4 Mg/Ml Cartridge IVPUSH 01/04/25 11:14 4 mg ONCE ONE Administration Protocol Ondansetron HCl 4 mg 01/04/25 10:50 01/04/25 11:07 Ondansetron Hcl 4 Mg/2 Ml Vial IVPUSH 01/04/25 10:51 4 mg ONCE ONE Administration Phenazopyridine HCl 100 mg 01/04/25 12:16 01/04/25 12:54 Phenazopyridine Hcl 100 Mg Tablet PO 01/04/25 12:17 100 mg ONCE ONE Administration Medical Decision Making Medical Decision Making [facility] Narrative: Patient is a 39 year old assigned female at with a history of kidney stones with recent stent placement on 12/28 and subsequent UTI on 12/30 presenting to the emergency department today with persistent right sided flank pain, nausea, and vomiting. Patient's physical exam was as noted in the physical exam portion of this note. Patient's blood work was unremarkable. Patient's urine shows an improving, possible, UTI. Patient's EKG was unremarkable. Patient's CT abd/pelvis showed persistent right mild hydronephrosis with a right nephroureteral stent in place with the previously seen 4mm stone migrating just slightly distally. I spoke to Dr. Mayorga, the urologist industrial relations analyst, who recommended discharge home with TID 100mg Pyridium and 25mg of Hydroxyzine nightly for spasm as well as Oxybutynin, naproxen, and anti-emetics. I explained my physical exam findings as well as all test results to the patient. I answered all questions asked by the patient. Patient received IV fluids, morphine, and Zofran which, upon re-evaluation, she stated it helped her symptoms significantly. I stressed the importance of the patient taking her medication as directed (either prescribed or as the over the counter packaging recommends). I stressed the importance of the patient following up with her primary care provider and the urology team. I stressed the importance of the patient returning to the emergency department immediately if her symptoms were to worsen or if she were to develop any dizziness, shortness of breath, difficulty breathing, chest pain, blurry vision, loss of vision, nausea, vomiting, abdominal pain, fever, chills, back pain, or any other complaints. Patient verbalized agreement and understanding with this treatment plan and discharge. Differential Diagnosis Differential Diagnoses: The differential diagnosis associated with the presentation includes Kidney stone Obstructing nephrolithiasis Pyelonephritis UTI Admission/Observation Consideration of admission/observation: Escalation of care including admission/observation considered Patient would have been admitted to the hospital had her work up had any findings where hospital admission was appropriate and her clinical presentation warranted hospital admission. Consult Healthcare Provider Management of the patient was discussed with: Microgrinder Operator (spoke with the urologist industrial relations analyst as noted in the MDM Rationale portion of this note.) Lab Data [facility] Lab Attestation statement: I reviewed the patient's lab results. My interpretation of these results are in the MDM Rationale portion of this note. 01/04/25 10:40 01/04/25 10:40 Labs: Lab Results 01/04/25 01/04/25 Range/Units 10:40 10:41 WBC 7.1 (4.8-10.8) X10*3/uL RBC 5.06 (4.20-5.50) X10*6/uL Hgb 12.1 (12.0-16.0) g/dl Hct 38.8 (37.0-47.0) % MCV 76.7 L (80.0-98.0) fL MCH 23.9 L (27.0-33.0) pg MCHC 31.2 (31.0-35.0) g/dl RDW 15.9 (11.0-16.0) % Plt Count 258 (160-400) X10*3/uL MPV 10.8 (9.4-12.3) fL Immature Gran % (Auto) 0.4 (0.0-0.4) % Neut % (Auto) 61.8 (45-73) % Lymph % (Auto) 30.0 (20-40) % [place] % (Auto) 3.7 (2-11) % Eos % (Auto) 3.5 (0-4) % Baso % (Auto) 0.6 (0-2) % Lymph # (Auto) 2.1 (1.2-4.9) X10*3/uL [place] # (Auto) 0.3 (0.1-1.2) X10*3/uL Eos # (Auto) 0.3 (0.0-0.4) X10*3/uL Baso # (Auto) 0.0 (0.0-0.2) X10*3/uL Abs Immat Gran (auto) 0.03 (0.00-0.03) X10*3/uL Absolute Neuts (auto) 4.4 (2.0-8.3) x10*3/uL Absolute Nucleated RBC 0.000 (0.0-0.012) X10*3/uL Nucleated RBC % (auto) 0.0 (0.0-0.2) /100WBC Sodium 141 (135-145) mmol/L Potassium 4.1 (3.3-5.1) mmol/L Chloride 110 H (96-108) mmol/L Carbon Dioxide 23 (22-29) mmol/L Anion Gap 12 (12-20) BUN 9 (9-16) mg/dL Creatinine 0.88 (0.5-1.4) mg/dL Estim Creat Clear Calc 118.0 Estimated GFR > 60 Random Glucose 98 (60-115) mg/dL Calcium 10.0 D (8.4-10.2) mg/dL Total Bilirubin 0.3 (0.0-1.0) mg/dL AST 20 (5-31) U/L ALT 29 (0-31) U/L Alkaline Phosphatase 84 (39-117) U/L Total Protein 8.2 H (6.5-8.0) g/dL Albumin 4.2 (3.5-5.0) g/dL Beta HCG, Quant < 2 mIU/mL Urine Color Ward Urine Appearance Cloudy Urine pH 6.0 (5.0-9.0) Ur Specific Josephine >= 1.030 H (1.005-1.025) Urine Protein 300 (3+) H (Neg-Trace) mg/dL Urine Glucose (UA) Negative (Negative) mg/dL Urine Ketones Negative (Negative) mg/dL Urine Blood Large (3+) H (Negative) Urine Nitrite See Note (Negative) Ur Leukocyte Esterase Trace H (Negative) Urine RBC >20 H (0-2) /HPF Urine WBC 21-50 H (0-5) /HPF Ur Squamous Epith Cells 6-10 (0-2) /HPF Calcium Oxalate Crystal Present Urine Bacteria None Seen (None Seen) Hyaline Casts 0-2 (0-2) /LPF Independent Interpretation I performed an independent interpretation of an: EKG and CT Scan Interpretation: My interpretation is in agreement with the radiologist's impression of this imaging study. L Report Number: [id number]: Total DLP = 819.00 mGy-cm EXAMINATION: CT ABDOMEN PELVIS WITHOUT IV CONTRAST HISTORY: flank pain, concern for continued obstructing stone COMPARISON: Comparison is made with the prior examination dated 12/30/2024. TECHNIQUE: CT scan of the abdomen and pelvis was performed without contrast using standard departmental protocol. Coronal and sagittal reformatted images were generated and reviewed. Oral contrast material was not administered per department protocol. This CT exam was performed with one or more of the following dose reduction techniques: automated exposure control, adjustment of the mA and/or kV according to patient size, use of iterative reconstruction technique. DLP: 819 mGy-cm FINDINGS: LOWER CHEST: The visualized lung bases are clear. There is no pleural effusion. CARDIOVASCULATURE: The heart is normal in size. There is no pericardial effusion. LIVER: The liver is normal in size and contour, but demonstrates decreased attenuation, consistent with steatosis. The liver has an unremarkable unenhanced appearance. GALLBLADDER / BILE DUCTS: The gallbladder is surgically absent. There is no intra or extrahepatic biliary ductal dilatation. SPLEEN: The spleen is normal in size and has an unremarkable unenhanced appearance. PANCREAS: The pancreas has an unremarkable unenhanced appearance. ADRENAL GLANDS: Unremarkable. KIDNEYS/RETROPERITONEUM: A right nephroureteral stent is again seen in place. There is persistent mild right hydronephrosis. A 4 mm calculus is again noted in the proximal right ureter. This has migrated slightly distally when compared to the prior study. The calculus is now at the level of the L3 vertebral body. Previously, it was at the level of the inferior endplate of L2. Again seen is a 3 mm nonobstructing calculus at the upper pole of the left kidney. There is no left hydronephrosis. LYMPH NODES: No retroperitoneal lymphadenopathy is identified in the abdomen or pelvis. VASCULATURE: The abdominal aorta is normal in caliber. MESENTERY/PERITONEUM: No free fluid. No masses. There is no free intraperitoneal gas. STOMACH: The stomach is collapsed, limiting evaluation. SMALL BOWEL: The small bowel is normal in caliber. COLON: The colon is unremarkable. APPENDIX: The appendix is not seen, however no inflammatory changes are seen adjacent to the cecum. URINARY BLADDER/PELVIC ORGANS: The urinary bladder is collapsed, limiting evaluation. The uterus has an unremarkable unenhanced appearance. There is a 3.1 cm left ovarian cyst. BONES / SOFT TISSUES: No suspicious bony or soft tissue abnormalities. CT/CT abdomen pelvis wo IV con IMPRESSION: 1. Persistent mild right hydronephrosis with a right nephroureteral stent in place. The previously seen 4 mm proximal ureteral calculus has migrated slightly distally, as described. 2. 3 mm nonobstructing calculus at the upper pole of the left kidney. 3. 3.1 cm left ovarian cyst. Electronically signed by: Isaak Snu MD 01/04/2025 11:42 AM EDT Dictated By: Isaak Sun MD Signed By: Electronically signed by Isaak Sun MD 01/04/25 1142 Radiology Impression Discussion of test interpretation with radiology: I have reviewed the radiologist's reading. Critical Care Time Critical Care Time Critical Care Time: Yes Total Critical Care Time: 32 Attestation: I spent 32 minutes of Critical Care Time with this patient. This does not include time spent on separately reported billable procedures. Discharge Plan Discharge Clinical Impression: Kidney stone Patient Disposition: Home, Self-Care Instructions: Kidney Stones (ED) Additional Instructions: Follow up with your primary care provider. Return to the emergency department immediately if your symptoms worsen or if you develop any dizziness, shortness of breath, difficulty breathing, chest pain, blurry vision, loss of vision, nausea, vomiting, abdominal pain, fever, chills, back pain, or any other complaints. Margarita?seguimiento?con rodriguez m?dico de atenci?n primaria. Acuda inmediatamente al servicio de urgencias si ortega s?ntomas empeoran o si presenta falta de aliento, dificultad para respirar, dolor tor?cico, mareos, aturdimiento, dolor de espalda, dolor abdominal, fiebre, escalofr?os o cualquier otro s?ntoma. Your work up today was reassuring that everything is OK and the pain is secondary to your body continuing to move this stone down toward your bladder and ultimately out. Follow up with your urologist and continue taking your medication as directed. El examen de adalid caro confirmado que todo va charla y que el dolor es secundario a que el cuerpo sigue moviendo el c?lculo hacia la vejiga y, finalmente, lo expulsa. Margarita un seguimiento con rodriguez ur?logo y siga tomando la medicaci?n seg?n las indicaciones. Please see the information below about our Patient Portal. If you are not yet enrolled in the [facility] Patient Portal, you will receive an enrollment email invitation following your visit to any [facility] care setting. You may also self-enroll in the Patient Portal by visiting our website: [email or web address] The following information is required to access the Patient Portal: - Your [facility] Medical Record Number - Your personal home email address (must match what is in your electronic medical record, Registration staff can assist with this) - Name - Date of Capabilities of the Patient Portal: - Message some providers - View upcoming appointments - Access your health summary, medical history, and visit history - View current conditions and allergies - View procedure and lab results - View your medications, including guidelines, side effects, and precautions - Complete pre-appointment questionnaires requested by your provider - Ready summary reports of your office visits and procedures To access the Patient Portal Mobile Isaias, follow these directions: - Search [place] in the [employer] Store or [employer] Store - Download the Isaias - Search for [facility] - Enter your login/password Portal del paciente Si usted no esta inscrito en el portal de pacientes de [facility], recibira ramana invitacion de inscripcion despues de rodriguez visita al [facility] o al [facility] via correo electronico. Tambien puede inscribirse voluntariamente en el portal de pacientes visitando nuestra pagina web: [email or web address] La siguiente informacion sera requerida para acceder al portal: - Rodriguez yair de historia medica de [facility] - Rodriguez direccion de correo electronico personal - Nombre - Fecha de nacimiento Capacidades: Las siguientes capacidades estan disponibles en el portal de pacientes: - Enviar mensajes a algunos doctores - Verificar proximas citas - Acceso a rodriguez historial de naun, registro medico e historial de visitas - Rodriguez las condiciones actuales y alergias rodriguez procedimientos y resultados del laboratorio - Rodriguez ortega medicamentos, incluyendo las pautas - Efectos secundarios y precauciones - Completar o llenar formularios / cuestionarios de - Citas solicitadas por rodriguez doctor - Leer los resumenes de reportes medicos de ortega visitas y procedimientos [place] acceder a la aplicacion movil: - Busque [place] en la [employer] Store o [employer] Store - Descargue la aplicacion - [facility] - Ingrese rodriguez nombre de usuario / Contrasena Prescriptions: New naproxen 500 mg tablet 500 mg PO BID 7 Days Qty: 14 0RF phenazopyridine [Pyridium] 100 mg tablet 100 mg PO TID PRN (Reason: pain) Qty: 10 0RF hydroxyzine HCl 25 mg tablet 25 mg PO BEDTIME Qty: 7 0RF No Action acetaminophen 325 mg Tablet 975 mg PO Q6H PRN (Reason: pain) Qty: 20 0RF tamsulosin 0.4 mg Capsule 0.8 mg PO DAILY Qty: 15 0RF phenazopyridine 100 mg Tablet 100 mg PO BIDWM Qty: 6 0RF oxycodone 5 mg Tablet 5 mg PO Q4H PRN (Reason: Pain, Severe (Pain Scale 7-10)) Qty: 10 0RF Rx Instructions: Partial Fill upon patient request. docusate sodium [Colace] 100 mg capsule 100 mg PO BID Qty: 20 0RF polyethylene glycol 3350 [Miralax] 17 gram/dose powder 17 g PO DAILY PRN (Reason: constipation) Qty: 119 0RF oxycodone 5 mg tablet 5 mg PO Q6H PRN (Reason: pain) Qty: 20 0RF Rx Instructions: Partial Fill upon patient request. levofloxacin 500 mg tablet 500 mg PO DAILY 10 Days Qty: 10 0RF ondansetron 4 mg tablet,disintegrating 4 mg PO Q6-8H PRN (Reason: nausea and vomiting) Qty: 10 0RF Referrals: [facility] Urology Services [Provider Group] Mago Browne MD [Primary Care Provider] - Interventions: ED Discharge Assessment Last Done: 01/04/25 14:11 Discharge Date/Time: 01/04/25 14:24 Print Language: Belarusian
[2025-01-04 10:49] LABS: Appearance Urine Cloudy; Color Urine Orange; Glucose Urine UA Negative (Negative); Leukocyte Esterase Urine Trace (Negative); Specific Gravity - Urine >= 1.030 (1.005-1.025); UMIC TRIGGER UACC YES; Urine Blood Large (3+) (Negative); Urine Ketones Negative (Negative); Urine Protein 300 (3+) mg/dL (Neg-Trace)
[2025-01-04 10:56] LABS: Basophils Percent Auto 0.6 % (0-2); Eosinophils Absolute Auto 0.3 X10*3/uL (0.0-0.4); Eosinophils Percent Auto 3.5 % (0-4); Hematocrit 38.8 % (37.0-47.0); Hemoglobin 12.1 g/dl (12.0-16.0); Imm Gran Abs Auto 0.03 X10*3/uL (0.00-0.03); Imm Gran Pct Auto 0.4 % (0.0-0.4); Lymphocytes Absolute Auto 2.1 X10*3/uL (1.2-4.9); Mean Corpuscular HGB Conc 31.2 g/dl (31.0-35.0); Mean Corpuscular Hemoglobin 23.9 pg (27.0-33.0); Mean Corpuscular Volume 76.7 fL (80.0-98.0); Mean Platelet Volume 10.8 fL (9.4-12.3); Monocytes Absolute Auto 0.3 X10*3/uL (0.1-1.2); Monocytes Percent Auto 3.7 % (2-11); Neutrophils Absolute Auto 4.4 x10*3/uL (2.0-8.3); Neutrophils Percent Auto 61.8 % (45-73); Platelet Count 258 X10*3/uL (160-400); Red Blood Count 5.06 X10*6/uL (4.20-5.50); Red Cell Distribution Width 15.9 % (11.0-16.0); White Blood Count 7.1 X10*3/uL (4.8-10.8)
[2025-01-04 10:57] LABS: Bacteria Urine None Seen (None Seen); Calcium Oxalate Crystals Urine Present; Hyaline Casts Urine 0-2 /LPF (0-2); RBC Urine >20 /HPF (0-2); UACC Culture Trigger YES; WBC Urine 21-50 /HPF (0-5)
[2025-01-04] MEDS: ondansetron HCL 4 MG/2 ML VIAL IVPUSH (11:07)
[2025-01-04] MEDS: 0.9 % Sodium Chloride 1,000 ML 999 ML IV ×2 (11:07→12:57)
[2025-01-04 11:09] LABS: Alanine Aminotransferase 29 U/L (0-31); Albumin Level 4.2 g/dL (3.5-5.0); Alkaline Phosphatase 84 U/L (39-117); Anion Gap 12 (12-20); Aspartate Amino Transferase 20 U/L (5-31); Bilirubin Total 0.3 mg/dL (0.0-1.0); Blood Urea Nitrogen 9 mg/dL (9-16); Carbon Dioxide 23 mmol/L (22-29); Chloride 110 mmol/L (96-108); Estimated Glomerular Filt Rate > 60; Glucose Random 98 mg/dL (60-115); Potassium 4.1 mmol/L (3.3-5.1); Sodium 141 mmol/L (135-145); Total Protein 8.2 g/dL (6.5-8.0)
[2025-01-04 11:10] LABS: HCG Quantitative < 2 mIU/mL
[2025-01-04] MEDS: Morphine Sulfate 4 MG/ML CARTRIDGE IVPUSH (11:31)
--- NOTE | 2025-01-04 12:16 | ECG_ITS ---
Test Reason : QT CHECK Blood Pressure : */* mmHG Vent. Rate : 74 BPM Atrial Rate : 74 BPM P-R Int : 156 ms QRS Dur : 98 ms QT Int : 416 ms P-R-T Axes : 54 -7 8 degrees QTcB Int : 461 ms Normal sinus rhythm Minimal voltage criteria for LVH, may be normal variant ( R in aVL ) Borderline ECG When compared with ECG of 30-Dec-2024 23:45, Nonspecific T wave abnormality no longer evident in Anterior leads Referred By: Olena Pollard Electronically Signed By: BURT ROBERT
[2025-01-04] MEDS: Phenazopyridine HCL 100 MG TABLET PO (12:54)
--- OUTSIDE RECORDS SUMMARY | 2025-01-04 13:19 | XMS_ITS | Clinical Summary ---
Author Organization [address] [place] [address] [place] [phone] Phone Care Team Providers Care Vanstone Machine Operator Name Role Phone Mago Zuñiga MD Primary Care Provider [phone] Allergies No known active allergies Medications IRON, FERROUS SULFATE, ORAL Take by mouth. Active Active Problems Problem Noted Date Diagnosed Date Class 3 severe obesity witho ut serious comorbidity with body mass index (BMI) of 40.0 to 44.9 in adult 11/02/2024 Encounters Date Type Department Care Team Description 12/14/2024 1:30 PM EST Nutrition Bariatric Surgery - [address] [phone] Class 3 severe obesity without serious comorbidity with body mass index (BMI) of 40.0 to 44.9 in adult, unspecified obesity type (CMS/HCC) (Primary Dx) 11/08/2024 2:00 PM EST Nutrition Bariatric Surgery [address] [phone] Class 3 severe obesity [...] History Surgery Date Site/Laterality Comments CHOLECYSTECTOMY PROCEDURE: [place] LAPAROSCOPY SURG CHOLECYSTECTOMY APPENDECTOMY PROCEDURE: [place] APPENDECTOMY Medical History Medical History Date Comments [...] 1:30 PM EDT Nutrition Bariatric Surgery - [address] [phone] Gabriella Rodriguez, RD [address] [phone] Health Maintenance Due Date Last Done Comments [...] Most Recently Relevant to Health Maintenance Insurance [facility] [place] [id number] Care Teams Vanstone Machine Operator Relationship Specialty Start Date End Date Mago Zuñiga MD [address] [facility] , [address] [place] [address] Physician Associ D/B/A: [facility] [place] PCP - General 11/24/23
--- OUTSIDE RECORDS SUMMARY | 2025-01-04 13:19 | XMS_ITS | Encounter Summary ---
Author Organization [employer] Address [address] [place] [address] Care Team Providers Care Pipe Assembly Worker Name Role Phone Mago Zuñiga MD Primary Care Provider [phone] Encounter Details Date Type Department Care Team (Late st Contact Info) Description 12/14/2024 1:30 PM EST Nutrition Bariatric Surgery - [address] [place] [address] Gabriella Rodriguez, YULISSA 175 [facility] [address] [place] [phone] Class 3 severe obesity without serious comorbidity [...] in the computer. You can go to [facility] at [address] [place] [address], [address], when you are ready. They open at 7:30am. You can also go to another [facility] lab that may be more conveniently located. No food/drink after midnight please - these are fasting labs. NO GUM, CANDY, MINTS, TUMS, OR WATER FOR ONE HOUR BEFORE! If you would like, you can join our Facebook group [employer] Bariatric Support Group. (It has a picture of a yellow shirt with a tape measure). Support group (Facebook): Please watch the videos I posted on the FB page (use the magnifying glassto search for [employer] Bariatric Dietitian to locate my posts and [...] from 5:30-6:30pm in the second-floor cafeteria of [address] [place] [address]. No need tosign up, feel free to just show up. Support group (quiz): Please fill out the attached quiz and return to me (instructions are included). Psych eval: You have two options for your psychological evaluation Dr. Ria Marley [phone] [facility] [phone] Both are doing remote visits. Call either one and let them know you are in the [facility] Bariatric Program and need a psych [...] your primary care office is *not* within [facility], please ask them to fax their office note to [phone]. Handouts: I am attaching a snack handout [...] -exercise 3-4x Gabriella Rodriguez RD Bariatric Dietitian [email or web address] [email or web address] W [phone] F [phone] [place] [address], [address] [place] [address] * Gabriella Rodriguez RD - 12/14/2024 1:30 [...] 30minutes (>50% of the time spent)in direct [id number]-up-xyvd consultation for counseling, reviewing medical record and/or coordinating the plan as described above. Gabriella Rodriguez RD NUTRITION SERVICES documented in this encounter Plan of Treatment Upcoming Encounters Date Type Department Care Team ([facility] st Contact Info) Description 01/12/2025 1:30 PM EDT Nutrition Bariatric Surgery - [address] [address] [address] documented as of this encounter Visit Diagnoses Diagnosis Class 3 severe obesity without serious comorbidity with body mass index (BMI) of 40.0 to 44.9 in adult, unspecified obesity type (CMS/HCC)- Primary documented in this encounter Care Teams Pipe Assembly Worker Relationship Specialty Start Date End Date Mago Zuñiga MD 2 [facility] , [address] [facility] Physician Associ D/B/A: [facility] PCP - General 11/24/23 documented as of this encounter
[2025-01-04 14:11] VITALS: BP 117/68; PULSE 74; RESP 16; TEMP 36.9; O2SAT 99
== END 2025-01-04 14:24 | disposition home or self-care (01) ==
PROVIDERS: Physician Assistant Medical; Emergency Provider Emergency Medicine Emergency Medical Services; PCP Internal Medicine
DX: N20.0 Calculus of kidney (principal); M54.50 Low back pain, unspecified; R11.2 Nausea with vomiting, unspecified; R94.31 Abnormal electrocardiogram [ECG] [EKG]; R10.9 Unspecified abdominal pain
CPT/HCPCS: 36415; 74176; 80053; 81001; 84702; 85025; 87086; 93005; 96361; 96374; 96375; 99284; 99285; J2270; J2405

== ENCOUNTER → 2025-01-04 10:50 | Outpatient (BNV) | payer OTHER, SELFPAY | PROVIDERS: Emergency Provider Emergency Medicine Emergency Medical Services; PCP Internal Medicine; Visit Provider Radiology Diagnostic Radiology | DX: N13.39 Other hydronephrosis (principal); Z96.0 Presence of urogenital implants; N20.0 Calculus of kidney; N83.202 Unspecified ovarian cyst, left side | CPT/HCPCS: 74176 ==

== ENCOUNTER → 2025-01-04 12:16 | Outpatient (BNV) | payer OTHER, SELFPAY | PROVIDERS: Emergency Provider Emergency Medicine Emergency Medical Services; PCP Internal Medicine; Visit Provider Internal Medicine | DX: Z51.81 Encounter for therapeutic drug level monitoring (principal) | CPT/HCPCS: 93010 ==

== ENCOUNTER 2025-01-06 11:13 | Outpatient (AMB) | payer OTHER, SELFPAY ==
--- NOTE | 2025-01-06 11:21 | A.OFFPC_ITS ---
Vital Signs 01/06/25 11:22 Height 5 ft 8 in Weight 257 lb 8 oz BMI 39.1 BP 118/76 Blood Pressure Location Lt brachial Position Sitting Pulse 99 Pulse Source Pulse Oximeter Pulse Oximetry (%) 97 Oxygen Delivery Method Room Air Intake Visit Reasons: [facility] 12/30 UTI-Kidneys Corrugator Required: Yes Accompanied by: Self / Same As Patient Allergies No Known Allergies Allergy (Verified 01/06/25 11:22) Tobacco use date assessed: 01/06/25 Dental Screening Dental Screen Date: 01/06/25 Did you have a dental visit in the last 12 months?: Yes Did you have a dental problem in the last 6 months where you did not have access to dental care?: No Was dental information given to patient?: Patient has dentist HPI HPI Comments History of Present Illness Details 39 y/o female patient who presents to e clinic for HDF. She was admitted at [facility] from 12/26 to 12/28 due to Right Renal colic. Pt had Cystoscopy right retrograde with right Stent placement on 12/[address] Epstein. She was put on Oral Abx for 10 days due to UTI. Today Pt reports still feeling pain, nausea and vomiting. She has a F/U appointment with Dr. Epstein 01/12/25. Currently has been taking Oxy for pain relief and Zofran for Nausea/Vomiting. [facility] Medical History Anemia Intractable vomiting Vomiting Inflammatory bowel disease Irritable bowel syndrome Surgical History Hx of appendectomy Bariatric surgery status Hx of cholecystectomy No pertinent past surgical history Social History Household Members: Spouse and Family Housing: House Do you presently have visiting nurse or other home services: No Alcohol intake: never Patient Tobacco Use Status: Never used Tobacco e-Cigarette/Vaping Use: Never Used Second Hand Smoke Exposure: No Advance Directives Date on File: 09/28/23 service: No Current occupational status: unemployed Current occupational exposures/hazards: No Cognitive needs: No Hearing needs: No Vision needs: No Questionnaire PHQ-9 Over the last 2 weeks, how often have you been bothered by any of the following problems? 1. Little interest or pleasure in doing things: not at all 2. Feeling down, depressed, or hopeless: not at all 3. Trouble falling or staying asleep, or sleeping too much: not at all 4. Feeling tired or having little energy: not at all 5. Poor appetite or overeating: not at all 6. Feeling bad about yourself - or that you are a failure or have let yourself or your family down: not at all 7. Trouble concentrating on things, such as reading the newspaper or watching television: not at all 8. Moving or speaking so slowly that other people could have noticed. Or the opposite - being so fidgety or restless that you have been moving around a lot more than usual: not at all 9. Thoughts that you would be better off or of hurting yourself in some way: not at all Total score: 0 Depression Screening Interpretation: Negative Depression Screening Done: Yes 63563 - PHQ-9 Billing: Yes Source: Developed by Drs. Isaak Delgado, Ana María Reina, Alex Corrales and colleagues, with an educational bry from [employer]. Thrive Questionnaire Date Thrive assessed: 01/06/25 I am a: Patient What is your living situation today?: I have a steady place to live Within the past 12 months, did the food you bought not last and you didn't have the money to get more?: Never true Within the past 12 months, did you worry whether your food would run out before you got money to buy more?: Never true Do you have trouble paying for medicines?: No Do you have trouble getting transportation to medical appointments?: No Do you have trouble paying your heating and electricity bill?: No Do you have trouble taking care of your child, family member or friend?: No Do you have trouble with day-to-day activities such as bathing, preparing meals, shopping, managing finances, etc.?: No Are you currently unemployed and looking for a job?: No Are you interested in more education?: No Please select the resources that you would like help with: None Currently or been in a relationship where the following occur: No concerns reported THRIVE Score: 0 AUDIT C Alcohol Use Questionnaire (AUDIT-C) 1. How often do you have a drink containing alcohol?: Never 3. How often do you have six or more drinks on one occasion?: Never Total Score: 0 VANDANA-7 AMB Questionnaire VANDANA-7 Date VANDANA - 7 assessed: 01/06/25 Feeling nervous, anxious, or on edge: 0 = Not at all Not being able to stop or control worryin = Not at all Worrying too much about different things: 0 = Not at all Trouble relaxin = Not at all Being so restless that it is hard to sit still: 0 = Not at all Becoming easily annoyed or irritable: 0 = Not at all Feeling afraid as if something awful might happen: 0 = Not at all Total VANDANA-7 score (0-4 normal; 5-9 mild; 10-14 moderate; 15-21 severe): 0 Source: Developed by Drs. Isaak Delgado, Ana María Reina, Alex Corrales and colleagues, with an educational bry from [employer]. VANDANA-7 Assessment Billing VANDANA-7 Assessment Tool: VANDANA-7 Assessment 25687 Review of Systems Const All systems reviewed & are unremarkable except as noted in HPI and below Physical exam (Primary Care) Vital Signs: Last Vital Signs Pulse 99 01/06/25 11:22 BP 118/76 01/06/25 11:22 Pulse Ox 97 01/06/25 11:22 Oxygen Delivery Method Room Air 01/06/25 11:22 BMI result Body Mass Index 39.1 Tobacco/Smoking Status: Tobacco use Status Tobacco use date assessed 01/06/25 01/06/25 11:32 Patient Tobacco Use Status Never used Tobacco 01/06/25 11:32 e-Cigarette/Vaping Use Never Used 01/06/25 11:32 PHQ-9: PHQ-9 Score PHQ-9: Total score 0 01/06/25 11:53 Depression Screening Interpretation: Negative Thrive Assessment: Date of Thrive Assessment Date Thrive assessed 01/06/25 01/06/25 11:32 Currently or been in a relationship where the following occur: No concerns reported Const General: cooperative and no acute distress Nutritional Appearance: obese Orientation/consciousness: patient oriented x3 Resp Effort & Inspection: normal respiratory effort Auscultation: clear to auscultation bilaterally Cardio Heart sounds: S1 normal heart sound present and S2 normal heart sound present General: Yes CVA tenderness Back/Spine/Pelvis Back: CVA tenderness Neuro General: patient oriented x3, gait normal and moves all extremities Psych Speech and movement: Normal speech and movement present Coding Level of Care Code Est Pt Level 4 (65750) Diagnoses Renal colic on right side N23 Additional Codes VANDANA-7 Assessment Billing - VANDANA-7 Assessment Tool: VANDANA-7 Assessment 50854 ([id number]) PHQ-9 - 65934 - PHQ-9 Billing: Yes ([id number]) Time Spent (min) 20 Assessment & Plan Assessment & Plan (1) Renal colic on right side: Code(s): N23 - Unspecified renal colic Category: Medical Plan: Managed by Urology.
[2025-01-06 11:22] VITALS: BP 118/76; PULSE 99; O2SAT 97; BMI 39.1
--- OUTSIDE RECORDS SUMMARY | 2025-01-06 13:00 | XMS_ITS | Clinical Summary ---
Author Organization [address] [place] [address] [place] [phone] Phone Care Team Providers Care Adjustment Supervisor Name Role Phone Mago Zuñiga MD Primary Care Provider [phone] Allergies No known active allergies Medications IRON, FERROUS SULFATE, ORAL Take by mouth. Active Active Problems Problem Noted Date Diagnosed Date Class 3 severe obesity witho ut serious comorbidity with body mass index (BMI) of 40.0 to 44.9 in adult 11/02/2024 Encounters Date Type Department Care Team Description 12/14/2024 1:30 PM EST Nutrition Bariatric Surgery - [address] [address] Class 3 severe obesity without serious comorbidity with body mass index (BMI) of 40.0 to 44.9 in adult, unspecified obesity type (CMS/HCC) (Primary Dx) 11/08/2024 2:00 PM EST Nutrition Bariatric Surgery [address] [address] Class 3 severe obesity [...] History Surgery Date Site/Laterality Comments CHOLECYSTECTOMY PROCEDURE: MS LAPAROSCOPY SURG CHOLECYSTECTOMY APPENDECTOMY PROCEDURE: MS APPENDECTOMY Medical History Medical History Date Comments [...] 1:30 PM EDT Nutrition Bariatric Surgery - [address] [address] Gabriella Rodriguez, RD [address] [address] Health Maintenance Due Date Last Done Comments [...] to Health Maintenance Insurance [facility] Care Teams Adjustment Supervisor Relationship Specialty Start Date End Date Mago Zuñiga MD 2 [facility] , [address] [place] [address] Physician Associ D/B/A: [facility] [place] PCP - General 11/24/23
--- OUTSIDE RECORDS SUMMARY | 2025-01-06 13:00 | XMS_ITS | Encounter Summary ---
Author Organization [employer] Address [address] [place] [address] Care Team Providers Care Magazine Designer Name Role Phone Mago Zuñiga MD Primary Care Provider [phone] Encounter Details Date Type Department Care Team (Late st Contact Info) Description 12/14/2024 1:30 PM EST Nutrition Bariatric Surgery - [address] [place] [address] Gabriella Rodriguez, YULISSA 175 [facility] 120 [place] [phone] Class 3 severe obesity without serious comorbidity [...] in the computer. You can go to [facility] at [address] [place] [address], [address], when you are ready. They open at 7:30am. You can also go to another [facility] lab that may be more conveniently located. No food/drink after midnight please - these are fasting labs. NO GUM, CANDY, MINTS, TUMS, OR WATER FOR ONE HOUR BEFORE! If you would like, you can join our Facebook group [employer] Bariatric Support Group. (It has a picture of a yellow shirt with a tape measure). Support group (Facebook): Please watch the videos I posted on the FB page (use the magnifying glassto search for [employer] Bariatric Dietitian to locate my posts and [...] from 5:30-6:30pm in the second-floor cafeteria of [address] [place] [address]. No need tosign up, feel free to just show up. Support group (quiz): Please fill out the attached quiz and return to me (instructions are included). Psych eval: You have two options for your psychological evaluation Dr. Ria Marley [phone] [facility] [phone] Both are doing remote visits. Call either one and let them know you are in the [facility] Bariatric Program and need a [...] your primary care office is *not* within [facility], please ask them to fax their office note to [phone]. Handouts: I am attaching a snack handout [...] -exercise 3-4x Gabriella Rodriguez RD Bariatric Dietitian [facility] [email or web address] W [phone] F [phone] [place] [address], [address] [place] [address] * Gabriella Rodriguez RD - 12/14/2024 1:30 [...] 30minutes (>50% of the time spent)in direct navo-vl-bzys consultation for counseling, reviewing medical record and/or coordinating the plan as described above. Gabriella Rodriguez RD NUTRITION SERVICES documented in this encounter Plan of Treatment Upcoming Encounters Date Type Department Care Team ([facility] st Contact Info) Description 01/12/2025 1:30 PM EDT Nutrition Bariatric Surgery - [address] [address] [address] documented as of this encounter Visit Diagnoses Diagnosis Class 3 severe obesity without serious comorbidity with body mass index (BMI) of 40.0 to 44.9 in adult, unspecified obesity type (CMS/HCC)- Primary documented in this encounter Care Teams Magazine Designer Relationship Specialty Start Date End Date Mago Zuñiga MD 2 [facility] , [address] [facility] Physician Associ D/B/A: [facility] Internal [facility] PCP - General 11/24/23 documented as of this encounter
== END 2025-01-06 12:07 | disposition home or self-care (01) ==
LOC: HO.HMCH 11:14
PROVIDERS: PCP Internal Medicine; Visit Provider Nurse Practitioner Family
DX: N23 Unspecified renal colic (principal)

== ENCOUNTER → 2025-01-06 11:13 | Outpatient (BNVA) | payer OTHER, SELFPAY | PROVIDERS: PCP Internal Medicine; Visit Provider Nurse Practitioner Family | DX: N23 Unspecified renal colic (principal) | CPT/HCPCS: 96127; 99212 ==

== ENCOUNTER 2025-01-12 14:31 | Outpatient (AMB) | payer OTHER, SELFPAY ==
--- NOTE | 2025-01-12 14:35 | A.OFFVIS_ITS ---
Intake Visit Reasons: Stent Removal Intake Note: Patient is present for SRTENT REMOVAL Urology Medication:PYRIDIUM,TAMSULOSIN Antibiotic Allergy:NONE Blood Thinner:NONE LOT:[id number] EXP: 08/29/27 Warehouse Order Selector Required: No Allergies No Known Allergies Allergy (Verified 01/12/25 14:36) HPI Comments Details: Marika is a very pleasant female. She is a patient of Dr. Zuñiga. She is seen for the following urologic condition - nephrolithiasis Stent removal Last stone 8 years ago Three-month follow-up renal ultrasound basic stone labs Nephrolithiasis Recent admission through hospital Underwent ureteroscopy for right-sided stone Calcium 10.0 PFSH Medical History Anemia Intractable vomiting Vomiting Inflammatory bowel disease Irritable bowel syndrome Surgical History Hx of appendectomy Bariatric surgery status Hx of cholecystectomy No pertinent past surgical history Social History Household Members: Spouse and Family Housing: House Do you presently have visiting nurse or other home services: No Alcohol intake: never Patient Tobacco Use Status: Never used Tobacco e-Cigarette/Vaping Use: Never Used Second Hand Smoke Exposure: No Advance Directives Date on File: 09/28/23 service: No Current occupational status: unemployed Current occupational exposures/hazards: No Cognitive needs: No Hearing needs: No Vision needs: No Review of Systems Const Denies chills and Denies fever(s) Card Reports no additional complaints and Denies syncope Resp Denies cough GI Denies abdominal pain and Denies heartburn Reports as per HPI and Denies change in libido Neuro Denies syncope Psych Denies change in libido Endo Denies change in libido Physical Exam Const General: cooperative, healthy appearing, comfortable and no acute distress Orientation/consciousness: patient oriented x3 HEENT Face and sinus: Yes normal facial exam Mouth: moist mucous membranes Neck Neck: Yes normal visual inspection, Yes full ROM and Yes trachea midline Chest Chest palpation & inspection: normal inspection of the chest Resp Effort & Inspection: normal respiratory effort, able to speak in complete sentences and no respiratory distress GI Inspection: Yes normal to inspection Back/Spine/Pelvis Cervical Spine: normal cervical lordosis Thoracic/Lumbar Spine: thoracic and lumbar spine normal to inspection Skin General skin exam: no rashes or lesions noted Neuro General: patient oriented x3, gait normal, tone normal and moves all extremities Extrem General: Yes normal to inspection and Yes capillary refill normal Office Procedures Cystoscopy Consent Discussed risk and benefit or proposed procedure with the patient. Information consent for procedure given to the patient. Discussed technical aspects, risks, benefits and alternatives in full. Addressed all of the patient's questions and concerns regarding the procedure. The patient demonstrated knowledge and understanding. They wish to proceed with this procedure. Preparation The patient was prepped in the usual manner. A health and physical education professor was present and in the room. Genitalia was prepped with betadine solution in a sterile manner. Lidocaine Jelly 2% was placed into the urethra and 16Fr flexible Olympus cystoscope was inserted into the meatus after adequate lubrication. Procedure A well lubricated 16 Wolof cystoscope was placed No abnormality noted of urethra during placement Indwelling stent seen within bladder emerging from right ureteric orifices The stent was grasped with a 3 prong grasper and removed without difficulty The patient tolerated the procedure well [id number] with stent removal DISPOSABLE SCOPE URO-G FLEXIBLE SCOPE Procedure code (CPT) selection complete Office Meds lidocaine HCl 2 % mucosal jelly in applicator Performing Provider: Marcello Epstein MD Performing Location: [facility] [place] [facility] Administered by: Mulugeta Shah LPN on 01/12/25 14:51 Dose Route Admin Location Dispensed Lot Number Expiration Date NDC Machine Paint Mixer 10 mL intra-urethral 10 mL nitrofurantoin monohydrate/macrocrystals 100 mg capsule Performing Provider: Marcello Epstein MD Performing Location: [facility] [place] [facility] Administered by: Mulugeta Shah LPN on 01/12/25 14:51 Dose Route Admin Location Dispensed Lot Number Expiration Date ND Machine Paint Mixer 100 mg PO 1 cap naproxen 500 mg tablet Performing Provider: Marcello Epstein MD Performing Location: [facility] [place] [facility] Administered by: Mulugeta Shah LPN on 01/12/25 14:51 Dose Route Admin Location Dispensed Lot Number Expiration Date NDC Machine Paint Mixer 500 mg PO 1 tab Results AMB Urinalysis, Automated UA Leukoctes 70 Eran/uL Last Edit by KARLA Tillman on 01/12/25 14:46 UA Nitrite Negative Last Edit by KARLA Tillman on 01/12/25 14:46 UA Urobilinogen 3.5 mg/dL Last Edit by KARLA Tillman on 01/12/25 14:4 6 UA Protein 1 mg/dL Last Edit by KARLA Tillman on 01/12/25 14:46 UA pH 6.0 Last Edit by KARLA Tillman on 01/12/25 14:46 UA Blood 200 Carlos/uL Last Edit by KARLA Tillman on 01/12/25 14:46 UA Specific [place] 1.015 Last Edit by KARLA Tillman on 01/12/25 14: 46 UA Ketone Negative Last Edit by KARLA Tillman on 01/12/25 14:46 UA Bilirubin 0 mg/dL Last Edit by KARLA Tillman on 01/12/25 14:46 UA Glucose 0 mg/dL Last Edit by KARLA Tillman on 01/12/25 14:46 Results Reviewed Results Reviewed: Laboratory Last Values Urine pH (Auto) 6.0 01/12/25 14:45 Specific [place] (Auto) 1.015 01/12/25 14:45 Urine Protein (Auto) 1 mg/dL 01/12/25 14:45 Glucose (UA)(Auto) 0 mg/dL 01/12/25 14:45 Urine Ketones (Auto) Negative 01/12/25 14:45 Urine Blood (Auto) 200 Carlos/uL 01/12/25 14:45 Urine Nitrite (Auto) Negative 01/12/25 14:45 Urine Bilirubin (Auto) 0 mg/dL 01/12/25 14:45 Urine Urobilinogen (Auto) 3.5 mg/dL 01/12/25 14:45 Leukocyte Esterase (Auto) 70 Eran/uL 01/12/25 14:45 Assessment & Plan Assessment & Plan (1) Hydronephrosis with urinary obstruction due to renal calculus: Code(s): N13.2 - Hydronephrosis with renal and ureteral calculous obstruction Category: Medical Plan Three-month follow-up renal imaging and stone labs Nurse-practitioner Orders: Orders AMB Urinalysis Automated Today Z13.9 - Encounter for screening, unspecified US renal BI 3 Months N13.2 - Hydronephrosis with renal and ureteral calculous obstruction Magnesium 3 Months N13.2 - Hydronephrosis with renal and ureteral calculous obstruction Vitamin D 25-OH Total 3 Months N13.2 - Hydronephrosis with renal and ureteral calculous obstruction AMB Cystoscopy Today N23 - Unspecified renal colic, R31.29 - Other microscopic hematuria Calcium 3 Months N13.2 - Hydronephrosis with renal and ureteral calculous obstruction Phosphorus 3 Months N13.2 - Hydronephrosis with renal and ureteral calculous ob struction Uric Acid 3 Months N13.2 - Hydronephrosis with renal and ureteral calculous obstruction Parathyroid Hormone Intact 3 Months N13.2 - Hydronephrosis with renal and ureteral calculous obstruction, N20.0 - Calculus of kidney Patient Instructions: This note is constructed using voice recognition software. While every effort has been made to ensure accuracy roentgenologist errors may have been included. Imaging studies, laboratory and physical exam results were discussed and review ed in detail. No major barriers to patient understanding were identified. An opportunity to ask questions regarding the treatment plan was provided. All questions were answered. The patient expressed understanding and agreement with the above treatment plan. The patient is aware they should contact our office by phone for worsening of their current condition or the appearance of new urologic symptoms. Compliance is encouraged with any medications and followup testing that is ordered. It is a privilege to participate in the urologic care of your patient. If you have any questions or concerns regarding treatment for the above conditions, or other urologic issues, please do not hesitate to contact me. The office telephone contact is [phone]. Sincerely, Dr Marcello Epstein MD, [facility] - Urology Compassionate Specialist Care for the Genitourinary System Coding Level of Care Code Est Pt Level 3 (25585) Diagnoses Hydronephrosis with urinary obstruction due to renal calculus N13.2 CPT Codes Cystoscopy - CPT: [id number] with stent removal ([id number])
== END 2025-01-12 15:18 | disposition home or self-care (01) ==
LOC: HO.HUSH 14:32
PROVIDERS: PCP Internal Medicine; Visit Provider Urology
DX: N13.2 Hydronephrosis with renal and ureteral calculous obstruction (principal); R31.29 Other microscopic hematuria; N23 Unspecified renal colic; Z96.0 Presence of urogenital implants
CPT/HCPCS: 52310

== ENCOUNTER → 2025-01-12 14:31 | Outpatient (BNVA) | payer OTHER, SELFPAY | PROVIDERS: PCP Internal Medicine; Visit Provider Urology | DX: N13.2 Hydronephrosis with renal and ureteral calculous obstruction (principal); Z46.6 Encounter for fitting and adjustment of urinary device | CPT/HCPCS: 52310; 81003 ==

== ENCOUNTER 2025-02-15 17:06 | Outpatient (AMB) | payer OTHER, SELFPAY ==
--- NOTE | 2025-02-15 17:20 | MHC.PC.OV ---
Vital Signs 02/15/25 17:21 Height 5 ft 8 in Weight 263 lb 9.6 oz BMI 40.1 BP 114/80 Blood Pressure Location Lt brachial Position Sitting Respiration 16 Pulse 79 Pulse Source Pulse Oximeter Temp 97.3 F Temp Source Temporal Artery Scan Pulse Oximetry (%) 98 Oxygen Delivery Method Room Air Intake Visit Reasons: PE Still Operator Helper Required: No Accompanied by: Self / Same As Patient Allergies No Known Allergies Allergy (Verified 02/15/25 18:15) Medication List - Last Reconciled 02/15/25 by Mago Zuñiga MD No Known Home Meds Tobacco use date assessed: 02/15/25 Dental Screening Dental Screen Date: 02/15/25 Did you have a dental visit in the last 12 months?: Yes Did you have a dental problem in the last 6 months where you did not have access to dental care?: No Was dental information given to patient?: Patient has dentist HPI HPI Comments History of Present Illness Details The patient is a 39-year-old female presenting for an annual physical examination. She is current with her vaccinations, including a recent tetanus vaccination within the last decade. Her last Pap smear was conducted 5-6 years ago, highlighting the need for updating cervical cancer screening. She is morbidly obese and goes to weight management. She complains of bilateral ear itchiness. The patient does not have any allergies to medications and is not on any current medications. Her surgical history includes an appendectomy performed in 2022 and a previous cholecystectomy. She is planning to undergo bariatric surgery with scheduled malted milk masher consultations in February, anticipating the procedure in March or April. Her family history is significant for her father's recent diagnosis of diabetes, though she herself does not have any history of diabetes or cancer. Current issues include persistent ear pain, previously evaluated in the emergency department, and a normalizing transient episode of hypokalemia (low potassium) noted from past hospitalization. Recent lab work showed slightly elevated protein levels that are not of significant concern, and her previously low hemoglobin due to iron deficiency has improved to normal levels. The patient lives a lifestyle free from tobacco, alcohol, and illicit drugs and denies any symptoms of depression or anxiety. - Up to date on tetanus vaccination (within last 10 years) - Recommendation for Pap smear (last done 5-6 years ago) - Planning for bariatric surgery - Monitoring of hemoglobin levels (currently normal at 12.1 g/dL) [facility] Medical History (Updated 02/15/25 @ 19:45 by Mago Zuñiga MD) Anemia Intractable vomiting Vomiting Inflammatory bowel disease Irritable bowel syndrome Surgical History Hx of appendectomy Bariatric surgery status Hx of cholecystectomy No pertinent past surgical history Family History (Updated 02/15/25 @ 18:20 by Mago Zuñiga MD) Father Diabetes mellitus Mother No problems noted. Social History Household Members: Spouse and Family Housing: House Do you presently have visiting nurse or other home services: No Alcohol intake: never Patient Tobacco Use Status: Never used Tobacco e-Cigarette/Vaping Use: Never Used Second Hand Smoke Exposure: No Advance Directives Date on File: 09/28/23 service: No Current occupational status: unemployed Current occupational exposures/hazards: No Cognitive needs: No Hearing needs: No Vision needs: No Questionnaire PHQ-9 Over the last 2 weeks, how often have you been bothered by any of the following problems? 1. Little interest or pleasure in doing things: not at all 2. Feeling down, depressed, or hopeless: not at all 3. Trouble falling or staying asleep, or sleeping too much: not at all 4. Feeling tired or having little energy: more than half the days 5. Poor appetite or overeating: not at all 6. Feeling bad about yourself - or that you are a failure or have let yourself or your family down: not at all 7. Trouble concentrating on things, such as reading the newspaper or watching television: not at all 8. Moving or speaking so slowly that other people could have noticed. Or the opposite - being so fidgety or restless that you have been moving around a lot more than usual: not at all 9. Thoughts that you would be better off or of hurting yourself in some way: not at all Total score: 2 Depression Screening Interpretation: Negative Depression Screening Done: Yes 11233 - PHQ-9 Billing: Yes Source: Developed by Drs. Isaak Delgado, Ana María Reina, Alex Corrales and colleagues, with an educational bry from [employer]. Thrive Questionnaire Date Thrive assessed: 02/15/25 I am a: Patient What is your living situation today?: I have a steady place to live Within the past 12 months, did the food you bought not last and you didn't have the money to get more?: Never true Within the past 12 months, did you worry whether your food would run out before you got money to buy more?: Never true Do you have trouble paying for medicines?: No Do you have trouble getting transportation to medical appointments?: No Do you have trouble paying your heating and electricity bill?: No Do you have trouble taking care of your child, family member or friend?: No Do you have trouble with day-to-day activities such as bathing, preparing meals, shopping, managing finances, etc.?: No Are you currently unemployed and looking for a job?: Yes Are you interested in more education?: No Please select the resources that you would like help with: None Currently or been in a relationship where the following occur: No concerns reported THRIVE Score: 0 AUDIT C Alcohol Use Questionnaire (AUDIT-C) 1. How often do you have a drink containing alcohol?: Never 3. How often do you have six or more drinks on one occasion?: Never Total Score: 0 Score Reviewed/Action Taken: No VANDANA-7 AMB Questionnaire VANDANA-7 Date VANDANA - 7 assessed: 02/15/25 Feeling nervous, anxious, or on edge: 0 = Not at all Not being able to stop or control worryin = Not at all Worrying too much about different things: 0 = Not at all Trouble relaxin = Not at all Being so restless that it is hard to sit still: 0 = Not at all Becoming easily annoyed or irritable: 0 = Not at all Feeling afraid as if something awful might happen: 0 = Not at all Total VANDANA-7 score (0-4 normal; 5-9 mild; 10-14 moderate; 15-21 severe): 0 Source: Developed by Drs. Isaak Delgado, Ana María Reina, Alex Corrales and colleagues, with an educational bry from [employer]. VANDANA-7 Assessment Billing VANDANA-7 Assessment Tool: VANDANA-7 Assessment 80832 Review of Systems Const All systems reviewed & are unremarkable except as noted in HPI and below Card Denies chest pain at rest, Denies chest pain with activity, Denies edema, Denies irregular heart rhythm, Denies claudication, Denies dyspnea, Denies dyspnea on exertion, Denies orthopnea, Denies paroxysmal nocturnal dyspnea and Denies slow heart rate Resp Denies cough, Denies dyspnea and Denies dyspnea on exertion GI Denies abdominal pain, Denies change in bowel habits, Denies excessive flatus, Denies nausea and Denies vomiting Denies urinary incontinence, Denies urinary hesitancy and Denies urinary urgency Musc Denies abnormal gait, Denies atrophy, Denies deformity and Denies limited range of motion Skin/Breast Denies bleeding lesions, Denies changing lesions and Denies rash Neuro Denies abnormal gait, Denies behavioral changes and Denies lack of coordination Psych Denies behavioral changes Endo Denies cold intolerance Physical exam (Primary Care) Vital Signs: Last Vital Signs Temp 97.3 F 02/15/25 17:21 Pulse 79 02/15/25 17:21 Resp 16 02/15/25 17:21 BP 114/80 02/15/25 17:21 Pulse Ox 98 02/15/25 17:21 Oxygen Delivery Method Room Air 02/15/25 17:21 BMI result Body Mass Index 40.1 BMI Assessment/Plan discussion: High BMI High, discussed plan: lifestyle, weight reduction, dietary and physical activity Tobacco/Smoking Status: Tobacco use Status Tobacco use date assessed 02/15/25 02/15/25 17:24 Patient Tobacco Use Status Never used Tobacco 02/15/25 17:24 e-Cigarette/Vaping Use Never Used 02/15/25 17:24 PHQ-9: PHQ-9 Score PHQ-9: Total score 2 02/15/25 18:17 Depression Screening Interpretation: Negative Thrive Assessment: Date of Thrive Assessment Date Thrive assessed 02/15/25 02/15/25 17:24 Currently or been in a relationship where the following occur: No concerns reported [facility] Head: Yes normal to inspection, Yes normocephalic and Yes atraumatic Ears: external ears normal Eyes General: appearance normal, both eyes and all related structures Eyelids: Yes eyelids normal Conjunctivae: conjunctivae normal Neck Neck: Yes normal visual inspection and Yes supple Resp Effort & Inspection: normal respiratory effort Auscultation: clear to auscultation bilaterally Cardio Jugular venous distension: no JVD Rate: regular rate Rhythm: regular rhythm Heart sounds: S1 normal heart sound present and S2 normal heart sound present GI Inspection: Yes normal to inspection Palpation (GI): Soft to palpation and nontender Auscultation: normal bowel sounds Skin General skin exam: no rashes or lesions noted Neuro General: no focal motor deficits Extrem General: Yes full ROM Psych Appearance: grossly normal Coding Level of Care Code Est Pt Level 3 (92962) Est Pt Prev Care 18-39y(00848) Diagnoses Physical exam Z00.00 Morbid obesity with BMI of 40.0-44.9, adult E66.01; Z68.41 Ear itch L29.9 Additional Codes VNADANA-7 Assessment Billing - VANDANA-7 Assessment Tool: VANDANA-7 Assessment 72246 ([id number]) PHQ-9 - 97610 - PHQ-9 Billing: Yes ([id number]) Time Spent (min) 31 Assessment & Plan Assessment & Plan (1) Physical exam: Code(s): Z00.00 - Encounter for general adult medical examination without abnormal findings Category: Medical (2) Morbid obesity with BMI of 40.0-44.9, adult: Code(s): E66.01 - Morbid (severe) obesity due to excess calories; Z68.41 - Body mass index [BMI] 40.0-44.9, adult Category: Medical (3) Ear itch: Code(s): L29.9 - Pruritus, unspecified Category: Medical Plan During this visit, we addressed the patient's need for an updated Pap smear since the last one was conducted 5-6 years ago. Her ear pain remains an issue; therefore, the patient should follow up on the previous referral for specialized evaluation. We discussed her plans for bariatric surgery with continuity of care through upcoming consultations in February. Monitoring of hemoglobin levels continues, showing improvement from past deficiencies. Family history of diabetes necessitates ongoing healthy lifestyle choices to prevent potential development. The patient is aware of this and shows commitment towards her health maintenance. Patient was informed and verbally consented to the use of an ambient scribe for clinic note documentation during this visit. I discussed with the patient the importance of updating her Pap smear for cervical cancer screening, as her last test was 5-6 years ago. We addressed the significance of monitoring her ear pain, with emphasis on following up with a specialist if needed. The impending bariatric surgery was reviewed, with plans to pursue consultations in February and surgery shortly thereafter. I advised her on the importance of maintaining normal hemoglobin levels through dietary measures, given her history of iron deficiency anemia. Discussed her father?s diabetes diagnosis, reinforcing the importance of preventive health measures and regular monitoring to reduce her own risk. Orders: Referrals TELETYPEWRITER INSTALLER Referral Z12.4 - Encounter for screening for malignant neoplasm of cervix Medications: New fluocinolone acetonide oil 0.01% (DermOtic Oil) 5 drps otic (ear) left BID 20 mL 0RF 7 days Patient Instructions: - Schedule and attend a Pap smear within the next few months. - Follow up on referral and see a specialist for ongoing ear pain. - Maintain regular appointments with a malted milk masher in preparation for bariatric surgery. - Continue healthy dietary practices to support normal hemoglobin levels. - Observe any changes in symptoms and seek care if new symptoms arise, especially concerning ear pain or signs of potential diabetes.
[2025-02-15 17:21] VITALS: BP 114/80; PULSE 79; RESP 16; TEMP 36.3; O2SAT 98; BMI 40.1
--- OUTSIDE RECORDS SUMMARY | 2025-02-15 18:44 | XMS_ITS | Clinical Summary ---
Author Organization [address] [place] [address] Address [address] [place] [address] Phone Care Team Providers Care Retention Manager Name Role Phone Mago Zuñiga MD Primary Care Provider [phone] Allergies No known active allergies Medications IRON, FERROUS SULFATE, ORAL Take by mouth. Active cyanocobalamin, vitamin B-12, 1,000 mcg tablet, sublingualIndicat ions:Postgastrect ricarda malabsorption Place 1 tablet under the tongue 1 (one) time each day. 90 tablet 01/12/20 25 025 Active ergocalciferol (VITAMIN D-2) 1,250 mcg (50,000 unit) capsuleIndication s:Postgastrectomy malabsorption,Vit garcia D deficiency TAKE 1 CAPSULE BY MOUTH ONCE WEEKLY FOR 8 DOSES 12 capsule 1 01/27/20 25 Active ergocalciferol (VITAMIN D-2) 1,250 mcg (50,000 unit) capsuleIndication s:Postgastrectomy malabsorption,Vit garcia D deficiency Take 1 capsule (50,000 Units total) by mouth 1 (one) time per week for 8 doses. 8 each 01/12/20 25 025 Discontinued Active Problems Problem Noted Date Diagnosed Date Class 2 severe obesity with serious comorbidity and body mass index (BMI) of 39.0 to 39.9 in adult (CMS/FORMERLY [facility] V24, CMS/FORMERLY [facility] V28) 11/02/2024 Encounters Date Type Department Care Team Description 02/09/2025 1:00 PM EDT Nutrition Bariatric Surgery [facility] [address] [facility] [address] [place] [address] Class 2 obesity without serious comorbidity with body mass index (BMI) of 39.0 to 39.9 in adult, unspecified obesity type (Primary Dx) 01/09/2025 3:00 PM EDT Telemedicine Bariatric Surgery - [address] [phone] Gabriella RodriguezYULISSA Class 2 severe obesity with serious comorbidity and body mass index (BMI) of 39.0 to 39.9 in adult, unspecified obesity type (CMS/HCC V24, CMS/HCC V28) (Primary Dx) 12/14/2024 1:30 PM EST Nutrition Bariatric Surgery - [address] [phone] Gabriella RodriguezYULISSA Class 3 severe obesity without serious comorbidity with body mass index (BMI) of 40.0 to 44.9 in adult, unspecified obesity type (CMS/HCC V24, CMS/HCC V28) (Primary Dx) from Last 3 Months Immunizations Name Administration Dates Next Due HPV, Quadrivalent 03/30/2008 Tdap Tetanus diptheria acell ular pertussis (Boostrix; Adacel) 7yo and older 11/14/2015 Surgical History Surgery Date Site/Laterality Comments CHOLECYSTECTOMY PROCEDURE: UT LAPAROSCOPY SURG CHOLECYSTECTOMY APPENDECTOMY PROCEDURE: UT APPENDECTOMY Medical History Medical History Date Comments [...] - Inhaled Oxygen Concentration - - Weight 119 kg (263 lb) 02/09/2025 1:14 PM EDT Height 172.7 cm (5' 8 ) 01/13/2024 2:37 PM EDT Body Mass Index 39.99 01/13/2024 2:37 PM EDT Plan of Treatment Upcoming Encounters Date Type Department Care Team (Late st Contact Info) Description 03/15/2025 12:30 PM EDT Nutrition Bariatric Surgery - [place] [address] [facility] [address] [place] [address] Gabriella Rodriguez, RD 175 [facility] [address] [place] [address] Health Maintenance Due Date Last Done Comments [...] - 2023-2 5 season) 2024 Influenza Vaccine (Season Ended) 2025 DTaP,Tdap,and Td Vaccines (2 - Td or [...] age to complete this topic Meningococcal B Vaccine Aged Out No l onger eligible based on patient's age to complete [...] Procedure Name Priority Date/Time Associated Diagnosis Comments HELICOBACTER PYLORI BREATH TEST Routine 01/09/2025 2:47 PM EDT Class 3 severe obesity without serious comorbidity with body mass index (BMI) of 40.0 to 44.9 in adult, unspecified obesity type (CMS/HCC V24, CMS/HCC V28) CBC WITH AUTO DIFFERENTIAL Routine 01/09/2025 2:42 PM EDT Class 3 severe obesity without serious comorbidity with body mass index (BMI) of 40.0 to 44.9 in adult, unspecified obesity type (CMS/HCC V24, CMS/HCC V28) VITAMIN D 25 HYDROXY Routine 01/09/2025 2:42 PM EDT Personal history of nutritional deficiency VITAMIN B12 Routine 01/09/2025 2:42 PM EDT Personal history of nutritional deficiency VITAMIN B1 Routine 01/09/2025 2:42 PM EDT Personal history of nutritional deficiency THYROID STIMULATING HORMONE Routine 01/09/2025 2:42 PM EDT Personal history of nutritional deficiency NICOTINE AND COTININE Routine 01/09/2025 2:42 PM EDT Class 3 severe obesity without serious comorbidity with body mass index (BMI) of 40.0 to 44.9 in adult, unspecified obesity type (CMS/HCC V24, CMS/HCC V28) MAGNESIUM Routine 01/09/2025 2:42 PM EDT Personal history of nutritional deficiency IRON AND TIBC Routine 01/09/2025 2:42 PM EDT Personal history of nutritional deficiency HEMOGLOBIN A1C Routine 01/09/2025 2:42 PM EDT Class 3 severe obesity without serious comorbidity with body mass index (BMI) of 40.0 to 44.9 in adult, unspecified obesity type (CMS/HCC V24, CMS/HCC V28) FOLATE Routine 01/09/2025 2:42 PM EDT Personal history of nutritional deficiency FERRITIN Routine 01/09/2025 2:42 PM EDT Personal history of nutritional deficiency CORTISOL Routine 01/09/2025 2:42 PM EDT Class 3 severe obesity without serious comorbidity with body mass index (BMI) of 40.0 to 44.9 in adult, unspecified obesity type (CMS/HCC V24, CMS/HCC V28) COMPREHENSIVE METABOLIC PANEL Routine 01/09/2025 2:42 PM EDT Class 3 severe obesity without serious comorbidity with body mass index (BMI) of 40.0 to 44.9 in adult, unspecified obesity type (CMS/HCC V24, CMS/HCC V28) CBC AND DIFFERENTIAL Routine 01/09/2025 2:42 PM EDT Class 3 severe obesity without serious comorbidity with body mass index (BMI) of 40.0 to 44.9 in adult, unspecified obesity type (CMS/HCC V24, CMS/HCC V28) HM PAP SMEAR Routine 05/15/2015 from Last 3 Months or Most Recently Relevant to Health Maintenance Results * Helicobacter pylori breath test (01/09/2025 2:47 PM EDT) H Pylori Breath Test Negative Negative LAB CHEMISTRY METHOD 01/10/2025 7:02 AM EDT [facility] Breath Oral cavity structure / Unknown Non-blood Collection / Unknown 01/09/2025 2:47 PM EDT 01/09/2025 3:21 PM EDT us Priscila Olmstead MD LAB BODY FLUIDS AND STOOLS O RDERABLES Final Result [facility] [address] [place] [address], * Nicotine and cotinine (01/09/2025 2:42 PM EDT) [facility] Signature Nicotine <2.0 <2.0 ng/mL 01/14/2025 9:41 AM EDT [facility] Cotinine <2.0 <2.0 ng/mL 01/14/2025 9:41 AM EDT [facility] Comment: ?Additional Reference Ranges: ? Active Tobacco ? Passive ? Abstinence ?User ?Exposure ?? 2 Weeks and more ? Nicotine ?30 - 50 ??ng/mL ?<2 ng/mL ?<2 ng/mL Cotinine ?? 200 - 800 ng/mL ?<8 ng/mL ?<2 ng/mL Reference Ranges from: ??Clin. Chem.; ??[id number] (2002) Direct any interpretive questions to the toxicology laboratory. This is for medical use only, it is not intended for forensic use. If applicable, any drug confirmation testing reported here was developed and the performance characteristics determined by [facility]. This confirmation testing has not been cleared or approved by the FDA. The laboratory is regulated under CLIA as qualified to perform high-complexity testing. This test is used for patient testing purposes. It should not be regarded as investigational or for research. Test performed at [facility], [address], [place], [place] ??[address] ? [phone] Tatyana Govea MD, PhD - Patient Insurance Clerk Blood Venous blood specimen / Unknown Venipuncture / Unknown 01/09/2025 2:42 PM EDT 01/09/2025 3:22 PM EDT us Priscila Olmstead MD LAB BLOOD ORDERABLES Final R esult [facility] [address] [place] [address] * (ABNORMAL) CBC auto differential (01/09/2025 2:42 PM EDT) WBC 5.4 4.8 - 10.8 K/mcL LAB HEMETOLOGY METHOD 01/09/2025 3:34 PM EDT [facility] RBC 4.60 3.80 - 4.80 M/mcL LAB HEMETOLOGY METHOD 01/09/2025 3:34 PM EDT [facility] Hemoglobin 11.3(L) 11.5 - 16.0 g/dL LAB HEMETOLOGY METHOD 01/09/2025 3:34 PM EDT [facility] Hematocrit 36.0 35.0 - 47.0 % LAB HEMETOLOGY METHOD 01/09/2025 3:34 PM EDT [facility] MCV 77.9(L) 79.0 - 98.0 FL LAB HEMETOLOGY METHOD 01/09/2025 3:34 PM EDT [facility] MCH 24.5(L) 27.0 - 32.0 pcg LAB HEMETOLOGY METHOD 01/09/2025 3:34 PM EDT [facility] MCHC 31.4(L) 32.0 - 37.0 g/dL LAB HEMETOLOGY METHOD 01/09/2025 3:34 PM EDT [facility] RDW 15.6(H) 11.0 - 15.0 % LAB HEMETOLOGY METHOD 01/09/2025 3:34 PM [facility] Platelets 255 130 - 400 K/mcL LAB HEMETOLOGY METHOD 01/09/2025 3:34 PM [facility] MPV 11.8(H) 7.0 - 11.0 FL LAB HEMETOLOGY METHOD 01/09/2025 3:34 PM [facility] NRBC 0.0 <1.0 % LAB HEMETOLOGY METHOD 01/09/2025 3:34 PM [facility] NRBC Absolute 0.00 <0.10 K/mcL LAB HEMETOLOGY METHOD 01/09/2025 3:34 PM [facility] Neutrophils Relative 58.6 % LAB HEMETOLOGY METHOD 01/09/2025 3:34 PM [facility] Lymphocytes Relative 31.8 % LAB HEMETOLOGY METHOD 01/09/2025 3:34 PM [facility] Monocytes Relative 4.2 % LAB HEMETOLOGY METHOD 01/09/2025 3:34 PM [facility] Eosinophils Relative 3.9 % LAB HEMETOLOGY METHOD 01/09/2025 3:34 PM [facility] Basophils Relative 1.1 % LAB HEMETOLOGY METHOD 01/09/2025 3:34 PM [facility] Immature Granulocytes Relative 0.4 % LAB HEMETOLOGY METHOD 01/09/2025 3:34 PM [facility] Neutrophils Absolute 3.19 1.50 - 7.00 K/mcL LAB HEMETOLOGY METHOD 01/09/2025 3:34 PM [facility] Lymphocytes Absolute 1.73 1.00 - 5.00 K/mcL LAB HEMETOLOGY METHOD 01/09/2025 3:34 PM [facility] Monocytes Absolute 0.23 0.20 - 1.00 K/mcL LAB HEMETOLOGY METHOD 01/09/2025 3:34 PM EDT [facility] Eosinophils Absolute 0.21 0.00 - 0.50 K/[facility] LAB HEMETOLOGY METHOD 01/09/2025 3:34 PM EDT [facility] Basophils Absolute 0.06 0.00 - 0.20 K/mcL LAB HEMETOLOGY METHOD 01/09/2025 3:34 PM EDT [facility] Immature Granulocytes Absolute 0.02 0.00 - 0.03 K/[facility] LAB HEMETOLOGY METHOD 01/09/2025 3:34 PM EDT [facility] Blood Venous blood specimen / Unknown Venipuncture / Unknown 01/09/2025 2:42 PM EDT 01/09/2025 3:21 PM EDT us Priscila Olmstead MD LAB BLOOD ORDERABLES Final R esult [facility] [address] [place] [address], [place] [phone] * (ABNORMAL) Iron and TIBC (01/09/2025 2:42 PM EDT) Iron 48 40 - 150 mcg/dL LAB CHEMISTRY METHOD 01/09/2025 4:50 PM EDT [facility] TIBC 448 250 - 450 mcg/dL LAB CHEMISTRY METHOD 01/09/2025 4:50 PM EDT [facility] Iron Saturation 11(L) 15 - 50 % LAB CHEMISTRY METHOD 01/09/2025 4:50 PM EDT [facility] Blood Venous blood specimen / Unknown Venipuncture / Unknown 01/09/2025 2:42 PM EDT 01/09/2025 3:22 PM EDT Priscila Olmstead MD LAB BLOOD ORDERABLES Final R esult [facility] [address] [place] [address], * (ABNORMAL) Vitamin D 25 hydroxy (01/09/2025 2:42 PM EDT) [facility] Vit D, 25-Hydroxy 9.7(L) 30.0 - 80.0 ng/mL LAB CHEMISTRY METHOD 01/09/2025 4:30 PM EDT [facility] Blood Venous blood specimen / Unknown Venipuncture / Unknown 01/09/2025 2:42 PM EDT 01/09/2025 3:22 PM EDT us Priscila Olmstead MD LAB BLOOD ORDERABLES Final R esult Performing Organization Address [facility]/ZIP Co de Phone Number [facility] [address] [place] [address], [place] [phone] * Thyroid stimulating hormone (01/09/2025 2:42 PM EDT) [facility] TSH 1.46 0.40 - 4.00 mcIU/mL LAB CHEMISTRY METHOD 01/09/2025 4:30 PM EDT [facility] Blood Venous blood specimen / Unknown Venipuncture / Unknown 01/09/2025 2:42 PM EDT 01/09/2025 3:22 PM EDT us Priscila Olmstead MD LAB BLOOD ORDERABLES Final R esult Performing Organization Address [facility]/ZIP Co de Phone Number [facility] [address] [place] [address], [place] [phone] * Vitamin B1 (01/09/2025 2:42 PM EDT) [facility] Vitamin B1 Whole Blood 38 38 - 122 ug/L 01/13/2025 6:41 AM EDT [facility] Comment: This test was developed and the performance characteristics determined by [facility]. It has not been cleared or approved by the FDA. The laboratory is regulated under CLIA as qualified to perform high-complexity testing. This test is used for patient testing purposes. It should not be regarded as investigational or for research. Test performed at [facility], [address] , [place], [place] ??[address] ? [phone] Tatyana Govea MD, PhD - Patient Insurance Clerk Blood Venous blood specimen / Unknown Venipuncture / Unknown 01/09/2025 2:42 PM EDT 01/09/2025 3:22 PM EDT Priscila Olmstead MD LAB BLOOD ORDERABLES Final R esult Performing Organization Address [facility]/ZIP Co de Phone Number [facility] [address] [place] [address] * Magnesium (01/09/2025 2:42 PM EDT) [facility] Magnesium 1.9 1.9 - 2.6 mg/dL LAB CHEMISTRY METHOD 01/09/2025 4:24 PM EDT [facility] Blood Venous blood specimen / Unknown Venipuncture / Unknown 01/09/2025 2:42 PM EDT 01/09/2025 3:22 PM EDT Priscila Olmstead MD LAB BLOOD ORDERABLES Final R esult Performing Organization Address [facility]/ZIP Co de Phone Number [facility] [address] [place] [address], * Hemoglobin A1c (01/09/2025 2:42 PM EDT) Pathologist [facility] Hemoglobin A1C 5.5 <6.5 % LAB CHEMISTRY METHOD 01/09/2025 6:57 PM EDT [facility] Mean Bld Glu Estim. 111 mg/dL LAB CHEMISTRY METHOD 01/09/2025 6:57 PM EDT [facility] Blood Venous blood specimen / Unknown Venipuncture / Unknown 01/09/2025 2:42 PM EDT 01/09/2025 3:21 PM EDT us Priscila Olmstead MD LAB BLOOD ORDERABLES Final R esult Performing Organization Address [facility]/ZIP Co de Phone Number [facility] [address] [place] [address], [place] [phone] * Folate (01/09/2025 2:42 PM EDT) Folate 6.5 2.8 - 17.0 ng/ml LAB CHEMISTRY METHOD 01/09/2025 4:50 PM EDT [facility] Blood Venous blood specimen / Unknown Venipuncture / Unknown 01/09/2025 2:42 PM EDT 01/09/2025 3:22 PM EDT us Priscila Olmstead MD LAB BLOOD ORDERABLES Final R esult Performing Organization Address [facility]/ZIP Co de Phone Number [facility] [address] [place] [address], [place] [phone] * Ferritin (01/09/2025 2:42 PM EDT) Ferritin 8 8 - 252 ng/mL LAB CHEMISTRY METHOD 01/09/2025 4:50 PM EDT [facility] Blood Venous blood specimen / Unknown Venipuncture / Unknown 01/09/2025 2:42 PM EDT 01/09/2025 3:22 PM EDT us Priscila Olmstead MD LAB BLOOD ORDERABLES Final R esult Performing Organization Address [facility]/ZIP Co de Phone Number [facility] [address] [place] [address], [place] [phone] * (ABNORMAL) Vitamin B12 (01/09/2025 2:42 PM EDT) Pathologist [facility] Vitamin B-12 240(L) 250 - 900 pcg/mL LAB CHEMISTRY METHOD 01/09/2025 4:50 PM EDT [facility] Blood Venous blood specimen / Unknown Venipuncture / Unknown 01/09/2025 2:42 PM EDT 01/09/2025 3:22 PM EDT Priscila Olmstead MD LAB BLOOD ORDERABLES Final R esult Performing Organization Address [facility]/ZIP Co de Phone Number [facility] [address] [place] [address], [place] [phone] * Cortisol (01/09/2025 2:42 PM EDT) [facility] Cortisol 4.6 mcg/dL LAB CHEMISTRY METHOD 01/09/2025 4:31 PM EDT [facility] Blood Venous blood specimen / Unknown Venipuncture / Unknown 01/09/2025 2:42 PM EDT 01/09/2025 3:22 PM EDT Narrative [facility] - 01/09/2025 4:31 PM EDT CORTISOL REFERENCE RANGE ?? 8 AM SPEC: ??5.0-23.0 mcg/dL ?? 4 PM SPEC: ??3.0-16.0 mcg/dL ?? 8 PM SPEC: ??<5.0 mcg/dL Priscila Olmstead MD LAB BLOOD ORDERABLES Final R esult [facility] [address] [place] [address], [place] [phone] * Comprehensive metabolic panel (01/09/2025 2:42 PM EDT) [facility] Sodium 141 133 - 145 mmol/L LAB CHEMISTRY METHOD 01/09/2025 4:50 PM EDT [facility] Potassium 3.9 3.5 - 5.5 mmol/L LAB CHEMISTRY METHOD 01/09/2025 4:50 PM [facility] Chloride 110 96 - 110 mmol/L LAB CHEMISTRY METHOD 01/09/2025 4:50 PM [facility] CO2 22 21 - 32 mmol/L LAB CHEMISTRY METHOD 01/09/2025 4:50 PM [facility] Anion Gap 9 3 - 11 LAB CHEMISTRY METHOD 01/09/2025 4:50 PM [facility] Glucose 87 70 - 100 mg/dL LAB CHEMISTRY METHOD 01/09/2025 4:50 PM [facility] BUN 6 5 - 25 mg/dL LAB CHEMISTRY METHOD 01/09/2025 4:50 PM [facility] Creatinine 0.82 0.50 - 1.10 mg/dL LAB CHEMISTRY METHOD 01/09/2025 4:50 PM [facility] eGFR 94 >=60 mL/min/1. 73m2 LAB CHEMISTRY METHOD 01/09/2025 4:50 PM [facility] Comment:Calculation based on the??Chronic Kidney Disease Epidemiology Collaboration (CKD-EPI) equation refit??without adjustment for race. BUN/Creatinine Ratio 7.3 LAB CHEMISTRY METHOD 01/09/2025 4:50 PM [facility] Calcium 9.3 8.5 - 10.5 mg/dL LAB CHEMISTRY METHOD 01/09/2025 4:50 PM [facility] AST (SGOT) 17 10 - 42 unit/L LAB CHEMISTRY METHOD 01/09/2025 4:50 PM [facility] ALT (SGPT) 31 10 - 60 unit/L LAB CHEMISTRY METHOD 01/09/2025 4:50 PM [facility] Alkaline Phosphatase 93 42 - 121 unit/L LAB CHEMISTRY METHOD 01/09/2025 4:50 PM [facility] Total Protein 7.2 6.0 - 8.0 g/dL LAB CHEMISTRY METHOD 01/09/2025 4:50 PM EDT [facility] Albumin 3.5 3.2 - 5.0 g/dL LAB CHEMISTRY METHOD 01/09/2025 4:50 PM EDT [facility] Total Bilirubin 0.5 0.0 - 1.4 mg/dL LAB CHEMISTRY METHOD 01/09/2025 4:50 PM EDT [facility] Blood Venous blood specimen / Unknown Venipuncture / Unknown 01/09/2025 2:42 PM EDT 01/09/2025 3:22 PM EDT Priscila Olmstead MD LAB BLOOD ORDERABLES Final R esult [facility] [address] [place] [address], * Pap Smear (05/15/2015) Pap smear No interpretation , abstracted Historical Provider HEALTH MAINTENANCE Final Result from Last 3 Months or Most Recently Relevant to Health Maintenance Insurance [facility] [employer] Care Teams Retention Manager Relationship Specialty Start Date End Date Mago Zuñiga MD 2 [facility] , [facility] [address] [facility] Physician Associ [place] [facility] LUCIE Grace PCP - General 11/24/23
== END 2025-02-15 18:21 | disposition home or self-care (01) ==
LOC: HO.HMCH 17:07
PROVIDERS: PCP Internal Medicine; Visit Provider Internal Medicine
DX: Z00.00 Encounter for general adult medical examination without abnormal findings (principal); E66.01 Morbid (severe) obesity due to excess calories; Z68.41 Body mass index [BMI] 40.0-44.9, adult; L29.9 Pruritus, unspecified

== ENCOUNTER → 2025-02-15 17:06 | Outpatient (BNVA) | payer OTHER, SELFPAY | PROVIDERS: PCP Internal Medicine; Visit Provider Internal Medicine | DX: Z00.00 Encounter for general adult medical examination without abnormal findings (principal); L29.9 Pruritus, unspecified; E66.01 Morbid (severe) obesity due to excess calories; Z68.41 Body mass index [BMI] 40.0-44.9, adult | CPT/HCPCS: 96127; 99212; 99395 ==

== ENCOUNTER 2025-05-09 09:34 | Emergency (ER) | payer OTHER, SELFPAY ==
--- NOTE | ~2025-05-09 | US_ITS ---
EXAMINATION: US RETROPERITONEAL COMPLETE (RENAL) CLINICAL INFORMATION: Right flank pain. COMPARISON: Correlated to CT dated January 04, 2025. TECHNIQUE: Real-time imaging of the kidneys and bladder. FINDINGS: RIGHT KIDNEY: 11 x 5 x 5 cm (SAG x AP x TRV). Normal echotexture. Normal renal cortical thickness. No gross hydronephrosis. Questionable punctate calcification. No gross solid or cystic lesion detected. LEFT KIDNEY: 12.7 x 5 cm (SAG x AP x TRV). Normal echotexture. Normal renal cortical thickness. No gross hydronephrosis. No gross solid or cystic lesion detected. BLADDER: Fluid-filled and nearly collapsed. US/US retroperitoneal comp IMPRESSION: Inadequate evaluation of the urinary bladder. No hydronephrosis in the right kidney. Questionable nonobstructing nephrolithiasis right kidney.. Electronically signed by: Juanito Wray MD 05/09/2025 11:51 AM EDT
[2025-05-09 09:59] VITALS: BP 139/82; PULSE 78; RESP 16; TEMP 36.9; O2SAT 98; BMI 40.3
--- NOTE | 2025-05-09 10:00 | ED.NAVMDI ---
HPI - Nausea/Vomiting/Diarrhea General Chief complaint: Abdominal Pain Stated complaint: vomiting, R sided pain Time Seen by Provider: 05/09/25 12:06 History of Present Illness ED Provider: Afshan GILBERT Narrative: The patient is a 39-year-old female. She has a history of kidney stones. She also has a history of a cholecystectomy. She says that she woke up at 02:00 this morning 1st with a sense of bad acid reflux. Then she had pain in her right flank that she thought was similar to previous episodes of kidney stone pain. She has a lot of nausea and vomiting and ultimately came to the emergency room. She has a history of kidney stones and had an obstructive stone on the right side 4 months ago which was managed with a stent that was subsequently removed. Related Data Previous Rx's ?Medication ?Instructions ?Recorded fluocinolone acetonide oil 0.01 % 5 drp otic (ear) left BID 7 days 02/15/25 ear drops (DermOtic Oil) #20 mL acetaminophen 500 mg capsule 1,000 mg (2 x 500 mg) PO Q8H PRN 05/09/25 fever or pain #14 caps cefpodoxime 200 mg tablet 200 mg PO BID 7 days #14 tabs 05/09/25 ibuprofen 400 mg tablet 400 mg PO Q6H PRN pain #14 tabs 05/09/25 ondansetron 4 mg disintegrating 4 mg PO Q6H PRN nausea and 05/09/25 tablet vomiting #10 tabs Allergies Allergy/AdvReac Type Severity Reaction Status Date / Time No Known Allergies Allergy Verified 05/09/25 10:00 [facility] Past Medical History Medical History Anemia Intractable vomiting Vomiting Inflammatory bowel disease Irritable bowel syndrome Surgical History Hx of appendectomy Bariatric surgery status Hx of cholecystectomy No pertinent past surgical history Family History Family History (Updated 02/15/25 @ 18:20 by Mago Zuñiga MD) Father Diabetes mellitus Mother No problems noted. Social History Social History Household Members: Spouse and Family Housing: House Do you presently have visiting nurse or other home services: No Alcohol intake: never Patient Tobacco Use Status: Never used Tobacco Smoked in Last 30 Days: No e-Cigarette/Vaping Use: Never Used Second Hand Smoke Exposure: No Use of substances other than those prescribed or required for medical reasons: No Advance Directives: Yes Advance Directives on File: Yes Advance Directives Date on File: 09/28/23 Do you have a plan to hurt others: No Plan service: No Current occupational status: unemployed Current occupational exposures/hazards: No Cognitive needs: No Hearing needs: No Vision needs: No Physical Exam Vital Signs: Vital Signs: Last Vital Signs Temp 97.2 F 05/09/25 14:58 Pulse 82 05/09/25 14:58 Resp 16 05/09/25 14:58 BP 112/69 05/09/25 14:58 Pulse Ox 97 05/09/25 14:58 O2 Del Method Room Air 05/09/25 14:58 BMI result Body Mass Index 40.3 Const: Other: The patient is awake and alert. She looks somewhat uncomfortable. Orientation/consciousness: patient oriented x3 HEENT: Other: The face is symmetrical. Mucous membranes moist. Eyes: Other: Pupils are round equal, conjunctivae are clear, extraocular movements intact Neck: Neck: Yes normal visual inspection Resp: Effort & Inspection: normal respiratory effort Auscultation: clear to auscultation bilaterally Cardio: Rate: regular rate Rhythm: regular rhythm Heart sounds: S1 normal heart sound present and S2 normal heart sound present GI: Other: Abdomen is soft and nontender Back/Spine/Pelvis: Other: Possibly some mild right-sided CVA percussion tenderness but this was an equivocal finding. Skin: Other: The skin is dry and unremarkable Neuro: General: patient oriented x3, tone normal, no focal motor deficits and CN's II-XI intact bilaterally Extrem: Other: There is no calf swelling or tenderness. No asymmetry. No peripheral edema. Course Course Course Narrative: 39 yo female with PMH of anemia, kidney stones here with c/o R flank pain and n/v starting at 2am woke from sleep. No fevers, pos diarrhea. She is able to urinate. She states it feels like a kidney stone. Did not take any medications at home. She feels weak and dizzy as well. At thist melanie will need labs, UA, defer imaging to primary provider. this is a RAPID medical screening exam the rest of the history and physical exam is to be done by the main provider. TERESITA 05/09/25 Medications Administered Discontinued Medications Generic Name Dose Route Start Last Admin Trade Name Patricio PRN Reason Stop Dose Admin Ceftriaxone Sodium 1 gm 05/09/25 14:18 05/09/25 14:25 Ceftriaxone Sodium 1 Gm Vial IVPUSH 05/09/25 14:19 1 gm ONCE ONE Administration Droperidol 1.25 mg 05/09/25 12:46 05/09/25 12:57 Droperidol 5 Mg/2 Ml Vial IVPUSH 05/09/25 12:47 1.25 mg ONCE ONE Administration Famotidine 20 mg 05/09/25 12:46 05/09/25 12:57 Famotidine 20 Mg Tablet PO 05/09/25 12:47 20 mg ONCE ONE Administration Sodium Chloride 1,000 mls @ 999 mls/hr 05/09/25 13:00 05/09/25 12:56 Ns IV 05/09/25 14:00 999 mls/hr .Q1H1M MALCOM Administration Ketorolac Tromethamine 15 mg 05/09/25 12:46 05/09/25 12:57 Ketorolac Tromethamine 15 Mg/Ml Vial IVPUSH 05/09/25 12:47 15 mg ONCE ONE Administration Ondansetron HCl 4 mg 05/09/25 09:59 05/09/25 10:03 Ondansetron Odt 4 Mg Tab.Rapdis TRANSLINGU 05/09/25 10:00 4 mg ONCE ONE Administration Medical Decision Making Medical Decision Making [facility] Narrative: The patient is a 39-year-old woman with a history of kidney stones and a history of a cholecystectomy. She had problems with a kidney stone 4 months ago. She had an obstructive right ureteral stone and was given a stent to help manage the stone. She had the stent removed 3 weeks later. At the time of that stone she had a CAT scan that had not shown any right-sided intrarenal stones. I I think it would be unusual for the patient to develop an obstructive ureteral stone so soon after having had a CAT scan that showed no intrarenal stones. She has a ultrasound today that shows no signs of hydronephrosis. I think this would make a right-sided obstructive ureteral stone also less likely. She has had her gallbladder removed. She has no significant right upper quadrant tenderness and she has no abnormalities to her LFTs. This would make a choledocholithiasis unlikely. The patient has a normal white count and differential. A mildly elevated CRP of 1.88. Normal LFTs. Her urinalysis is mildly suggestive of a possible UTI. The patient has a negative ultrasound with regard to her kidneys. No hydronephrosis. I therefore think an obstructive ureteral stone is unlikely. The patient seemed to be relieved with treatment of ketorolac and droperidol. She was given a dose of IV ceftriaxone. She will be discharged with a prescription for cefpodoxime. It is possible this could be mild pyelonephritis. She should follow up with her PCP. She should return if worse. Lab Data 05/09/25 10:20 05/09/25 10:20 Labs: Lab Results 05/09/25 05/09/25 Range/Units 10:20 12:33 WBC 7.1 (4.8-10.8) X10*3/uL RBC 4.87 (4.20-5.50) X10*6/uL Hgb 11.8 L (12.0-16.0) g/dl Hct 36.5 L (37.0-47.0) % MCV 74.9 L (80.0-98.0) fL MCH 24.2 L (27.0-33.0) pg MCHC 32.3 (31.0-35.0) g/dl RDW 14.9 (11.0-16.0) % Plt Count 299 (160-400) X10*3/uL MPV 11.2 (9.4-12.3) fL Immature Gran % (Auto) 0.4 (0.0-0.4) % Neut % (Auto) 66.2 (45-73) % Lymph % (Auto) 26.7 (20-40) % [place] % (Auto) 3.7 (2-11) % Eos % (Auto) 2.4 (0-4) % Baso % (Auto) 0.6 (0-2) % Lymph # (Auto) 1.9 (1.2-4.9) X10*3/uL [place] # (Auto) 0.3 (0.1-1.2) X10*3/uL Eos # (Auto) 0.2 (0.0-0.4) X10*3/uL Baso # (Auto) 0.0 (0.0-0.2) X10*3/uL Abs Immat Gran (auto) 0.03 (0.00-0.03) X10*3/uL Absolute Neuts (auto) 4.7 (2.0-8.3) x10*3/uL Absolute Nucleated RBC 0.000 (0.0-0.012) X10*3/uL Nucleated RBC % (auto) 0.0 (0.0-0.2) /100WBC Sodium 141 (135-145) mmol/L Potassium 3.8 (3.3-5.1) mmol/L Chloride 108 (96-108) mmol/L Carbon Dioxide 26 (22-29) mmol/L Anion Gap 11 L (12-20) BUN 8 L (9-16) mg/dL Creatinine 0.77 (0.5-1.4) mg/dL Estim Creat Clear Calc 135.1 Estimated GFR > 60 Random Glucose 97 (60-115) mg/dL Calcium 9.3 D (8.4-10.2) mg/dL Magnesium 1.9 (1.6-2.6) mg/dL Total Bilirubin 0.3 (0.0-1.0) mg/dL Direct Bilirubin 0.1 (0.0-0.5) mg/dL AST 25 (5-31) U/L ALT 27 (0-31) U/L Alkaline Phosphatase 87 (39-117) U/L C-Reactive Protein 1.88 H (< or = 0.50) mg/dL Total Protein 8.0 (6.5-8.0) g/dL Albumin 4.4 (3.5-5.0) g/dL Lipase 19 (8-78) U/L Beta HCG, Quant < 2 mIU/mL Urine Color Yellow Urine Appearance Clear Urine pH 6.5 (5.0-9.0) Ur Specific [place] 1.020 (1.005-1.025) Urine Protein Trace (Neg-Trace) mg/dL Urine Glucose (UA) Negative (Negative) mg/dL Urine Ketones Negative (Negative) mg/dL Urine Blood Negative (Negative) Urine Nitrite Negative (Negative) Ur Leukocyte Esterase Small (1+) H (Negative) Urine RBC 0-2 (0-2) /HPF Urine WBC 11-20 H (0-5) /HPF Ur Squamous Epith Cells 6-10 (0-2) /HPF Urine Bacteria 1+ (None Seen) Hyaline Casts 0-2 (0-2) /LPF Discharge Plan Discharge Clinical Impression: Urinary tract infection, Right flank pain Patient Disposition: Home, Self-Care Additional Instructions: Your pain may be coming from a urinary tract infection. I do not think you have a kidney stone today. Please take the antibiotics prescribed starting tomorrow morning (you received an IV dose of antibiotics today and do not need additional antibiotics today). I have sent a prescription for acetaminophen and for ibuprofen which you may use as needed for pain. I have sent a prescription for ondansetron which you may use as needed for nausea. Please contact your primary care doctor in the morning for a follow up appointment soon. Return to the emergency room if significantly worse. Prescriptions: New cefpodoxime 200 mg tablet 200 mg PO BID 7 Days Qty: 14 0RF Rx Instructions: must administer with a meal/food ondansetron 4 mg tablet,disintegrating 4 mg PO Q6H PRN (Reason: nausea and vomiting) Qty: 10 0RF acetaminophen 500 mg capsule 1,000 mg PO Q8H PRN (Reason: fever or pain) Qty: 14 0RF ibuprofen 400 mg tablet 400 mg PO Q6H PRN (Reason: pain) Qty: 14 0RF No Action fluocinolone acetonide oil [DermOtic Oil] 0.01 % drops 5 drp otic (ear) left BID 7 Days Qty: 20 0RF Referrals: Mago Browne MD [Primary Care Provider, Internal Medicine] Interventions: ED Discharge Assessment Last Done: 05/09/25 14:58 Discharge Date/Time: 05/09/25 15:00 Print Language: Telugu
[2025-05-09 10:24] LABS: MANUAL DIFF FLAG NO
[2025-05-09 10:25] LABS: Hematocrit 36.5 % (37.0-47.0); Hemoglobin 11.8 g/dl (12.0-16.0); Imm Gran Abs Auto 0.03 X10*3/uL (0.00-0.03); Imm Gran Pct Auto 0.4 % (0.0-0.4); Lymphocytes Absolute Auto 1.9 X10*3/uL (1.2-4.9); Mean Corpuscular HGB Conc 32.3 g/dl (31.0-35.0); Mean Corpuscular Hemoglobin 24.2 pg (27.0-33.0); Mean Corpuscular Volume 74.9 fL (80.0-98.0); NRBC Abs Auto 0.000 X10*3/uL (0.0-0.012); NRBC Pct Auto 0.0 /100WBC (0.0-0.2); Platelet Count 299 X10*3/uL (160-400); Red Blood Count 4.87 X10*6/uL (4.20-5.50); White Blood Count 7.1 X10*3/uL (4.8-10.8)
[2025-05-09 10:55] LABS: Anion Gap 11 (12-20); Carbon Dioxide 26 mmol/L (22-29); Chloride 108 mmol/L (96-108); Potassium 3.8 mmol/L (3.3-5.1); Sodium 141 mmol/L (135-145); Total Protein 8.0 g/dL (6.5-8.0)
[2025-05-09 10:58] LABS: Alanine Aminotransferase 27 U/L (0-31); Albumin Level 4.4 g/dL (3.5-5.0); Alkaline Phosphatase 87 U/L (39-117); Aspartate Amino Transferase 25 U/L (5-31); Blood Urea Nitrogen 8 mg/dL (9-16); Calcium 9.3 mg/dL (8.4-10.2); Creatinine Clr Calc Pharmacy 135.1; Estimated Glomerular Filt Rate > 60; Lipase 19 U/L (8-78); Magnesium 1.9 mg/dL (1.6-2.6)
[2025-05-09 12:54] LABS: Appearance Urine Clear; Glucose Urine UA Negative (Negative); PH 6.5 (5.0-9.0); Specific Gravity - Urine 1.020 (1.005-1.025); UMIC TRIGGER UACC YES
[2025-05-09 12:59] LABS: UACC Culture Trigger YES
--- NOTE | 2025-05-09 13:10 | PC.NURSE ---
Addendum entered by Nany Gant RN 05/09/25 13:12: Patient is a 39 yo female who presents with c/o right flank pain which began at approx 2am. Alert and oriented. Lungs clear bilat. Respirations even and non-labored. Abdomen soft, distended with positive bowel sounds. Patient appears uncomfortable. Positive pedal pulses with no edema noted. radiology exan shows a ? of a right kidney stone with no hydronephrosis. Original Note: Medical History Anemia Intractable vomiting Vomiting Inflammatory bowel disease Irritable bowel syndrome
--- OUTSIDE RECORDS SUMMARY | 2025-05-09 13:21 | XMS_ITS | Clinical Summary ---
Author Organization [address] [facility] Address [address] [place] [address] Phone Care Team Providers Care Picker Packer Name Role Phone Mago Zuñiga MD Primary Care Provider [phone] Allergies No known active allergies Medications IRON, FERROUS SULFATE, ORAL Take by mouth. Active ergocalciferol (VITAMIN D-2) 1,250 mcg (50,000 unit) capsuleIndications :Postgastrectomy malabsorption,Yessica min D deficiency TAKE 1 CAPSULE BY MOUTH ONCE WEEKLY FOR 8 DOSES 12 capsule 1 5 Active cyanocobalamin, vitamin B-12, 1,000 mcg tablet, sublingualIndicati ons:Postgastrectom y malabsorption Place 1 tablet under the tongue 1 (one) time each day. 90 tablet 5 04/11/20 25 Active Problems Problem Noted Date Diagnosed Date Morbid obesity ([facility] V24, [facility] V28) 2024 Class 3 severe obesity witho ut serious comorbidity with body mass index (BMI) of 40.0 to 44.9 in adult ([facility] V24, [facility] V28) 11/02/2024 Encounters Date Type Department Care Team Description 04/18/2025 Telephone Bariatric [address] [place] [phone] Priscila Olmstead MD Procedure 04/10/2025 3:00 PM EDT Office Visit Bariatric Surgery [address] [phone] Priscila Olmstead MD Class 3 severe obesity without serious comorbidity with body mass index (BMI) of 40.0 to 44.9 in adult, unspecified obesity type (CMS/HCC V24, CMS/HCC V28) (Primary Dx) 03/15/2025 12:30 PM EDT Nutrition Bariatric Surgery [address] [phone] Class 3 severe obesity without serious comorbidity with body mass index (BMI) of 40.0 to 44.9 in adult, unspecified obesity type (CMS/HCC V24, CMS/HCC V28) (Primary Dx) 02/09/2025 1:00 PM EDT Nutrition Bariatric Surgery [address] [phone] Class 2 obesity without serious comorbidity with body mass index (BMI) of 39.0 to 39.9 in adult, unspecified obesity type (Primary Dx) from Last 3 Months Immunizations Name Administration Dates Next Due HPV, Quadrivalent 03/30/2008 Tdap Tetanus diptheria acell ular pertussis (Boostrix; Adacel) 7yo and older 11/14/2015 Surgical History Surgery Date Site/Laterality Comments CHOLECYSTECTOMY PROCEDURE: [facility] LAPAROSCOPY SURG CHOLECYSTECTOMY APPENDECTOMY PROCEDURE: [facility] APPENDECTOMY Medical History Medical History Date Comments [...] Sign Reading Time Taken Comments Blood Pressure 134/85 04/10/2025 2:47 PM EDT Pulse 88 04/10/2025 2:47 PM EDT Temperature 36.6 C (97.8 F) 04/10/2025 2:47 PM EDT Respiratory Rate - - Oxygen Saturation - - Inhaled Oxygen Concentration - - Weight 125 kg (275 lb) 04/10/2025 2:47 PM EDT Height 172.7 cm (5' 8 ) 04/10/2025 2:47 PM EDT Body Mass Index 41.81 04/10/2025 2:47 PM EDT Plan of Treatment Upcoming Encounters Date Type Department Care Team (Latest Contact Info) Description 05/15/2025 10:00 AM EDT Pre-Admission Testing [facility] Pre-Admission Testing [address] [place] [phone] 06/02/2025 1:00 PM EDT Hospital Encounter [facility] Main OR [address] [place] [phone] Priscila Olmstead MD [address] [address] 06/02/2025 1:00 PM EDT - 06/02/2025 3:30 PM EDT Surgery [facility] OR [address] [place] [phone] Priscila Olmstead MD [address] [address] DAVINCI SLEEVE GASTRECTOMY [95212 (CPT )] Scheduled Procedures Name Priority Associated Diagnoses Date/Ti me GASTRECTOMY SLEEVE ROBOT Morbid obesity (CMS/HCC V24, CMS/HCC V28) 06/02/2025 1:00 PM EDT Health Maintenance Due Date Last Done Comments [...] 2023-2 5 season) 2024 Influenza Vaccine (#1) 2025 DTaP,Tdap,and Td Vaccines (2 - Td [...] 5 Years) and At-Risk Patients (6 to 49 Years) Aged Out No longer eligi ble [...] Health Maintenance Results * Pap Smear (05/15/2015) HM Pap smear No interpretation , abstracted Historical Provider HEALTH MAINTENANCE Final Result from Last 3 Months or Most Recently Relevant to Health Maintenance Insurance [facility] Care Teams Picker Packer Relationship Specialty Start Date End Date Mago Zuñiga MD [address] [place], [place] [address]Sarah[place], [address] [facility] LUCIE Grace PCP - General 11/24/23
[2025-05-09 14:00] VITALS: BP 112/69; PULSE 82; RESP 16; TEMP 36.2; O2SAT 97
[2025-05-09 14:58] VITALS: BP 112/69; PULSE 82; RESP 16; TEMP 36.2; O2SAT 97
== END 2025-05-09 15:00 | disposition home or self-care (01) ==
PROVIDERS: Emergency Medicine; Emergency Provider Emergency Medicine; PCP Internal Medicine
DX: N39.0 Urinary tract infection, site not specified (principal); R11.2 Nausea with vomiting, unspecified; R10.2 Pelvic and perineal pain; Z79.899 Other long term (current) drug therapy
CPT/HCPCS: 36415; 76770; 80048; 80076; 81001; 83690; 83735; 84702; 85025; 86140; 87086; 87147; 96374; 96375; 99284; 99285; J0696; J1790; J1885

== ENCOUNTER → 2025-05-09 10:02 | Outpatient (BNV) | payer OTHER, SELFPAY | PROVIDERS: PCP Internal Medicine; Visit Provider Radiology Diagnostic Radiology | DX: R10.9 Unspecified abdominal pain (principal) | CPT/HCPCS: 76770 ==

== ENCOUNTER 2025-06-14 13:05 | Outpatient (REF) | payer OTHER, SELFPAY ==
[2025-06-14 13:15] LABS: MANUAL DIFF FLAG NO
[2025-06-14 13:51] LABS: Hematocrit 34.5 % (37.0-47.0); Hemoglobin 11.0 g/dl (12.0-16.0); Imm Gran Abs Auto 0.06 X10*3/uL (0.00-0.03); Imm Gran Pct Auto 0.7 % (0.0-0.4); Lymphocytes Absolute Auto 1.5 X10*3/uL (1.2-4.9); Mean Corpuscular HGB Conc 31.9 g/dl (31.0-35.0); Mean Corpuscular Hemoglobin 25.2 pg (27.0-33.0); Mean Corpuscular Volume 78.9 fL (80.0-98.0); NRBC Abs Auto 0.000 X10*3/uL (0.0-0.012); NRBC Pct Auto 0.0 /100WBC (0.0-0.2); Platelet Count 385 X10*3/uL (160-400); Red Blood Count 4.37 X10*6/uL (4.20-5.50); White Blood Count 8.4 X10*3/uL (4.8-10.8)
--- OUTSIDE RECORDS SUMMARY | 2025-06-14 13:59 | XMS_ITS | Clinical Summary ---
Author Organization 175 [facility] Address [address] [place] [address] Phone Care Team Providers Care Packaging Tech Name Role Phone Mago Zuñiga MD Primary Care Provider [phone] Allergies No known active allergies Medications ergocalciferol (VITAMIN D-2) 1,250 mcg (50,000 unit) capsuleIndicati ons:Postgastrec shannon malabsorption,V itamin D deficiency TAKE 1 CAPSULE BY MOUTH ONCE WEEKLY FOR 8 DOSES 12 capsule 1 5 Active acetaminophen (TYLENOL) 500 mg tablet Take 2 tablets (1,000 mg total) by mouth every 8 (eight) hours. 180 tablet 5 Active pantoprazole (PROTONIX) 40 mg EC tablet Take 1 tablet (40 mg total) by mouth 1 (one) time each day before breakfast. Do not crush, chew, or split. 30 each 2 5 08/31/20 25 Active wheat dextrin 3 gram/3.5 gram powder in packet Take 1 packet by mouth 1 (one) time each day. 30 packet 5 Active simethicone (MYLICON) 80 mg chewable tablet Chew 1 tablet (80 mg total) every 6 (six) hours if needed for flatulence. 120 tablet 5 Active polyethylene glycol (MIRALAX) 17 gram packet Take 17 g by mouth 1 (one) time each day. 510 g 5 07/02/20 25 Active oxyCODONE (ROXICODONE) 5 mg immediate release tabletIndicatio ns:S/P bariatric surgery,Class 3 severe obesity without serious comorbidity with body mass index (BMI) of 40.0 to 44.9 in adult ([facility] V24, [facility] V28) Take 1 tablet (5 mg total) by mouth every 4 (four) hours if needed for moderate pain. Max Daily Amount: 30 mg 12 tablet 5 Active IRON, FERROUS SULFATE, ORAL Take by mouth. 06/02/20 25 Discontinue d(Therapy completed) ondansetron (ZOFRAN) 4 mg tablet Take 1 tablet (4 mg total) by mouth every 8 (eight) hours if needed for nausea or vomiting for up to 7 days. 21 tablet 5 06/09/20 25 Active Problems Problem Noted Date Diagnosed Date Morbid obesity ([facility] V24, [facility] V28) 2024 Class 3 severe obesity witho ut serious comorbidity with body mass index (BMI) of 40.0 to 44.9 in adult ([facility] V24, [facility] V28) 11/02/2024 Encounters Date Type Department Care Team Description 06/02/2025 1:00 PM EDT - 06/02/2025 3:30 PM EDT Surgery [facility] OR [address] [place] [phone] Priscila Olmstead MD DAVINCI SLEEVE GASTRECTOMY [23620 (CPT )] 06/02/2025 12:44 PM EDT Anesthesia Event [address] [phone] Andrea Bran MD Spencer, Mark A, MD 06/02/2025 11:35 AM EDT - 06/06/2025 8:27 PM EDT Hospital Encounter [facility] [address] [place] [phone] rPiscila Olmstead MD S/P bariatric surgery (Primary Dx); Morbid obesity ([facility] V24, [facility] V28); Class 3 severe obesity without serious comorbidity with body mass index (BMI) of 40.0 to 44.9 in adult ([facility] V24, [facility] V28) Discharge Disposition: Home or Self Care 05/30/2025 3:45 PM EDT Consult Bariatric Surgery [address] [phone] Pat Nath PA Class 3 severe obesity without serious comorbidity with body mass index (BMI) of 40.0 to 44.9 in adult ([facility] V24, [facility] V28) (Primary Dx) 05/15/2025 10:34 AM EDT - 05/15/2025 11:59 PM EDT [facility] Xray [address] [place] [phone] Discharge Disposition: Home or Self Care 04/18/2025 Telephone Bariatric Surgery - [address] [phone] Priscila Olmstead MD Procedure 04/10/2025 3:00 PM EDT Office Visit Bariatric Surgery [address] [phone] Priscila Olmstead MD Class 3 severe obesity without serious comorbidity with body mass index (BMI) of 40.0 to 44.9 in adult, unspecified obesity type ([facility] V24, [facility] V28) (Primary Dx) 03/15/2025 12:30 PM EDT Nutrition Bariatric Surgery - [address] [phone] Class 3 severe obesity without serious comorbidity with body mass index (BMI) of 40.0 to 44.9 in adult, unspecified obesity type ([facility] V24, [facility] V28) (Primary Dx) from Last 3 Months Immunizations Name Administration Dates Next Due HPV, Quadrivalent 03/30/2008 Tdap Tetanus diptheria acell ular pertussis (Boostrix; Adacel) 7yo and older 11/14/2015 Surgical History Surgery Date Site/Laterality Comments CHOLECYSTECTOMY PROCEDURE: [place] LAPAROSCOPY SURG CHOLECYSTECTOMY APPENDECTOMY PROCEDURE: [place] APPENDECTOMY Medical History Medical History Date Comments Preeclampsia 2005 DX:Preeclampsia Migraines 05/01/2015 DX:Migraines History of anemia 12/19/2015 DX:History of anemia; COMMENT: H&H 10.6/ 33.6 Iron deficiency anemia DX:Iron d eficiency anemia Obesity Family History Medical History Relation Name Comments Diabetes Father Diabetes Maternal Grandmother IDDM Relation Name Status Comments Father Maternal Grandmother Social History Tobacco Use Types Packs/Day Years Used Date Smoking Tobacco: Never Smokeless Tobacco: Never Alcohol Use Standard Drinks/Week Comments Never 0 (1 standard drink = 0.6 oz pur e alcohol) Interpersonal Safety Answer Date Record ed Physical Abuse 06/02/2025 Verbal Abuse 06/02/2025 Comments No Sex and Gender Information Value Date Recorded Sex Assigned at Female 05/15/2025 10:04 AM EDT Legal Sex Female 12:22 AM EST Gender Identity Female 05/15/2025 10:04 AM EDT Sexual Orientation Not on file Obstetrics History Last Filed Vital Signs Vital Sign Reading Time Taken Comments Blood Pressure 120/67 06/06/2025 2:57 PM EDT Pulse 94 06/06/2025 2:57 PM EDT Temperature 37.1 C (98.8 F) 06/06/2025 2:57 PM EDT Respiratory Rate 18 06/06/2025 2:57 PM EDT Oxygen Saturation 97% 06/06/2025 2:57 PM EDT Inhaled Oxygen Concentration - - Weight 120 kg (263 lb 8 oz) 06/02/2025 11:50 AM EDT Height 172.7 cm (5' 7.99 ) 06/02/2025 11:50 AM E DT Body Mass Index 40.07 06/02/2025 11:50 AM EDT Plan of Treatment Upcoming Encounters Date Type Department Care Team (Late st Contact Info) Description 06/20/2025 1:45 PM EDT Office Visit Bariatric Surgery - [place] [address] [facility] [address] [place] [phone] Pat Nath PA 175 [facility] [address] [place] [address] 07/26/2025 11:00 AM EDT Telemedicine Bariatric Surgery - [place] [address] [phone] Gabriella Rodriguez, RD [address] [phone] 08/23/2025 11:15 AM EDT Office Visit Bariatric Surgery - [place] [address] [phone] Pat Nath PA [address] [phone] Health Maintenance Due Date Last Done Comments Hepatitis B Vaccines (1 of 3 - 19+ 3-dose series) 2005 HPV Vaccines (2 - 3-dose series) 04/27/2008 03/30/20 08 Cervical Cancer Screening: P ap Smear 05/15/2018 05/15/2015 Cholesterol Screening (Lipid Panel) 05/24/2024 HIV Screening 05/24/2024 Hepatitis C Screening 05/24/2024 Social Influencers of Health Screening 05/24/2024 COVID-19 Vaccine (1 - 2023-2 5 season) 2024 Depression Screening 10/26/2024 Influenza Vaccine (#1) 2025 DTaP,Tdap,and Td Vaccines [...] Procedure Name Priority Date/Time Associated Diagnosis Comments MAGNESIUM Routine 06/06/2025 6:23 AM EDT COMPLETE BLOOD COUNT Routine 06/06/2025 6:23 AM EDT BASIC METABOLIC PANEL Routine 06/06/2025 6:23 AM EDT OXYGEN THERAPY, ADULT Routine 06/05/2025 8:02 AM EDT CBC WITH AUTO DIFFERENTIAL Routine 06/05/2025 5:56 AM EDT BASIC METABOLIC PANEL Routine 06/05/2025 5:56 AM EDT CBC AND DIFFERENTIAL Routine 06/05/2025 5:56 AM EDT OXYGEN THERAPY, ADULT Routine 06/04/2025 8:00 PM EDT OXYGEN THERAPY, ADULT Routine 06/04/2025 8:01 AM EDT CBC WITH AUTO DIFFERENTIAL Routine 06/04/2025 5:57 AM EDT BASIC METABOLIC PANEL Routine 06/04/2025 5:57 AM EDT CBC AND DIFFERENTIAL Routine 06/04/2025 5:57 AM EDT OXYGEN THERAPY, ADULT Routine 06/04/2025 2:44 AM EDT OXYGEN THERAPY, ADULT Routine 06/04/2025 2:44 AM EDT OXYGEN THERAPY, ADULT Routine 06/04/2025 2:44 AM EDT HEMOGLOBIN AND HEMATOCRIT Routine 06/04/2025 2:07 AM EDT TRANSFUSE RED BLOOD CELLS Routine 06/03/2025 9:[address] ANGIO ABDOMEN PELVIS WO AND/OR W CONTRAST STAT 06/03/2025 8:35 PM EDT Morbid obesity (CMS/HCC V24, CMS/HCC V28) PREPARE RBC Routine 06/03/2025 7:11 PM EDT HEMOGLOBIN AND HEMATOCRIT Routine 06/03/2025 6:17 PM EDT HEMOGLOBIN AND HEMATOCRIT Routine 06/03/2025 1:36 PM EDT TRANSFUSE RED BLOOD CELLS Routine 06/03/2025 6:37 AM EDT PREPARE RBC Routine 06/03/2025 5:40 AM EDT CBC WITH AUTO DIFFERENTIAL Routine 06/03/2025 4:11 AM EDT MAGNESIUM Routine 06/03/2025 4:11 AM EDT CBC AND DIFFERENTIAL Routine 06/03/2025 4:11 AM EDT BASIC METABOLIC PANEL Routine 06/03/2025 4:11 AM EDT TYPE AND SCREEN Routine 06/02/2025 9:57 PM EDT HEMOGLOBIN AND HEMATOCRIT STAT 06/02/2025 9:57 PM EDT POCT GLUCOSE BLOOD Routine 06/02/2025 9: 56 PM EDT TISSUE EXAM Routine 06/02/2025 2:16 PM EDT Morbid obesity (CMS/HCC V24, CMS/HCC V28) TH AN ENDOTRACHEAL(NO CHARGE) Routine 06/02/2025 2:01 PM EDT KS LAP SURGICAL GASTRIC RESTRICTIVE PROCEDURE LONGITUDINAL GASTRECTOMY 06/02/2025 12:44 PM EDT Morbid obesity (CMS/HCC V24, CMS/HCC V28) Case Notes Dehairing Machine Tender XR CHEST 2 VIEWS Routine 05/15/2025 10:4 3 AM EDT Obesity, Class III, BMI 40-49.9 (morbid obesity) ECG 12-LEAD Routine 05/15/2025 10:25 AM EDT Obesity, Class III, BMI 40-49.9 (morbid obesity) ROSARIO URINE CULTURE TUBE Routine 05/15/2025 10:16 AM EDT Obesity, Class III, BMI 40-49.9 (morbid obesity) URINALYSIS WITH REFLEX MICROSCOPIC AND CULTURE Routine 05/15/2025 10:16 AM EDT Obesity, Class III, BMI 40-49.9 (morbid obesity) URINALYSIS WITH REFLEX MICROSCOPIC AND CULTURE Routine 05/15/2025 10:16 AM EDT Obesity, Class III, BMI 40-49.9 (morbid obesity) CBC WITH AUTO DIFFERENTIAL Routine 05/15/2025 10:16 AM EDT Obesity, Class III, BMI 40-49.9 (morbid obesity) TYPE AND SCREEN Routine 05/15/2025 10:16 AM EDT Obesity, Class III, BMI 40-49.9 (morbid obesity) PROTHROMBIN TIME WITH INR Routine 05/15/2025 10:16 AM EDT Obesity, Class III, BMI 40-49.9 (morbid obesity) BASIC METABOLIC PANEL Routine 05/15/2025 10:16 AM EDT Obesity, Class III, BMI 40-49.9 (morbid obesity) CBC AND DIFFERENTIAL Routine 05/15/2025 10:16 AM EDT Obesity, Class III, BMI 40-49.9 (morbid obesity) MAGNESIUM Routine 05/15/2025 10:16 AM EDT Obesity, Class III, BMI 40-49.9 (morbid obesity) HM PAP SMEAR Routine 05/15/2015 from Last 3 Months or Most Recently Relevant to Health Maintenance Results * (ABNORMAL) Complete blood count (06/06/2025 6:23 AM EDT) WBC 7.9 4.8 - 10.8 K/mcL LAB HEMETOLOGY METHOD 06/06/2025 7:04 AM [facility] RBC 3.10(L) 3.80 - 4.80 M/mcL LAB HEMETOLOGY METHOD 06/06/2025 7:04 AM [facility] Hemoglobin 8.0(L) 11.5 - 16.0 g/dL LAB HEMETOLOGY METHOD 06/06/2025 7:04 AM [facility] Hematocrit 25.1(L) 35.0 - 47.0 % LAB HEMETOLOGY METHOD 06/06/2025 7:04 AM [facility] MCV 80.2 79.0 - 98.0 FL LAB HEMETOLOGY METHOD 06/06/2025 7:04 AM [facility] MCH 25.6(L) 27.0 - 32.0 pcg LAB HEMETOLOGY METHOD 06/06/2025 7:04 AM [facility] MCHC 31.9(L) 32.0 - 37.0 g/dL LAB HEMETOLOGY METHOD 06/06/2025 7:04 AM [facility] RDW 15.9(H) 11.0 - 15.0 % LAB HEMETOLOGY METHOD 06/06/2025 7:04 AM [facility] Platelets 223 130 - 400 K/mcL LAB HEMETOLOGY METHOD 06/06/2025 7:04 AM [facility] MPV 11.1(H) 7.0 - 11.0 FL LAB HEMETOLOGY METHOD 06/06/2025 7:04 AM [facility] NRBC 0.5 <1.0 % LAB HEMETOLOGY METHOD 06/06/2025 7:04 AM [facility] NRBC Absolute 0.04 <0.10 K/mcL LAB HEMETOLOGY METHOD 06/06/2025 7:04 AM EDT [facility] Blood Venous blood specimen / Unknown Venipuncture / Unknown 06/06/2025 6:23 AM EDT 06/06/2025 6:46 AM EDT Treva HERNANDEZ LAB BLOOD ORDERABLES Final Res ult Performing Organization Address City/[facility]/ZIP Co de Phone Number [facility] [address] [place] [address], [place] [phone] * Magnesium (06/06/2025 6:23 AM EDT) Only the most recent of3 resultswithin the time period is included. [facility] Magnesium 2.0 1.9 - 2.6 mg/dL LAB CHEMISTRY METHOD 06/06/2025 7:39 AM EDT [facility] Blood Venous blood specimen / Unknown Venipuncture / Unknown 06/06/2025 6:23 AM EDT 06/06/2025 6:46 AM EDT us Treva HERNANDEZ LAB BLOOD ORDERABLES Final Res ult Performing Organization Address [facility] de Phone Number [facility] [address] [place] [address], [place] [phone] * Basic metabolic panel (06/06/2025 6:23 AM EDT) Only the most recent of5 resultswithin the time period is included. Sodium 138 133 - 145 mmol/L LAB CHEMISTRY METHOD 06/06/2025 7:45 AM EDT [facility] Potassium 3.6 3.5 - 5.5 mmol/L LAB CHEMISTRY METHOD 06/06/2025 7:45 AM EDT [facility] Chloride 105 96 - 110 mmol/L LAB CHEMISTRY METHOD 06/06/2025 7:45 AM EDT [facility] CO2 25 21 - 32 mmol/L LAB CHEMISTRY METHOD 06/06/2025 7:45 AM EDT [facility] Anion Gap 8 3 - 11 LAB CHEMISTRY METHOD 06/06/2025 7:45 AM [facility] Glucose 76 70 - 100 mg/dL LAB CHEMISTRY METHOD 06/06/2025 7:45 AM [facility] BUN 7 5 - 25 mg/dL LAB CHEMISTRY METHOD 06/06/2025 7:45 AM [facility] Creatinine 0.64 0.50 - 1.10 mg/dL LAB CHEMISTRY METHOD 06/06/2025 7:45 AM [facility] eGFR 116 >=60 mL/min/1. 73m2 LAB CHEMISTRY METHOD 06/06/2025 7:45 AM [facility] Comment:Calculation based on the Chronic Kidney Disease Epidemiology Collaboration (CKD-EPI) equation refit without adjustment for race. BUN/Creatinine Ratio 10.9 LAB CHEMISTRY METHOD 06/06/2025 7:45 AM [facility] Calcium 8.7 8.5 - 10.5 mg/dL LAB CHEMISTRY METHOD 06/06/2025 7:45 AM [facility] Blood Venous blood specimen / Unknown Venipuncture / Unknown 06/06/2025 6:23 AM EDT 06/06/2025 6:46 AM EDT Treva HERNANDEZ LAB BLOOD ORDERABLES Final Res ult [facility] [address] [place] [address], * (ABNORMAL) CBC auto differential (06/05/2025 5:56 AM EDT) Only the most recent of4 resultswithin the time period is included. WBC 7.4 4.8 - 10.8 K/mcL LAB HEMETOLOGY METHOD 06/05/2025 6:41 AM EDT [facility] RBC 3.00(L) 3.80 - 4.80 M/mcL LAB HEMETOLOGY METHOD 06/05/2025 6:41 AM [facility] Hemoglobin 7.8(L) 11.5 - 16.0 g/dL LAB HEMETOLOGY METHOD 06/05/2025 6:41 AM [facility] Hematocrit 24.4(L) 35.0 - 47.0 % LAB HEMETOLOGY METHOD 06/05/2025 6:41 AM [facility] MCV 80.3 79.0 - 98.0 FL LAB HEMETOLOGY METHOD 06/05/2025 6:41 AM [facility] MCH 25.7(L) 27.0 - 32.0 pcg LAB HEMETOLOGY METHOD 06/05/2025 6:41 AM [facility] MCHC 32.0 32.0 - 37.0 g/dL LAB HEMETOLOGY METHOD 06/05/2025 6:41 AM [facility] RDW 15.8(H) 11.0 - 15.0 % LAB HEMETOLOGY METHOD 06/05/2025 6:41 AM [facility] Platelets 195 130 - 400 K/mcL LAB HEMETOLOGY METHOD 06/05/2025 6:41 AM [facility] MPV 11.2(H) 7.0 - 11.0 FL LAB HEMETOLOGY METHOD 06/05/2025 6:41 AM [facility] NRBC 0.3 <1.0 % LAB HEMETOLOGY METHOD 06/05/2025 6:41 AM [facility] NRBC Absolute 0.02 <0.10 K/mcL LAB HEMETOLOGY METHOD 06/05/2025 6:41 AM [facility] Neutrophils Relative 64.6 % LAB HEMETOLOGY METHOD 06/05/2025 6:41 AM [facility] Lymphocytes Relative 27.0 % LAB HEMETOLOGY METHOD 06/05/2025 6:41 AM [facility] Monocytes Relative 3.7 % LAB HEMETOLOGY METHOD 06/05/2025 6:41 AM [facility] Eosinophils Relative 2.8 % LAB HEMETOLOGY METHOD 06/05/2025 6:41 AM [facility] Basophils Relative 0.7 % LAB HEMETOLOGY METHOD 06/05/2025 6:41 AM [facility] Immature Granulocytes Relative 1.2 % LAB HEMETOLOGY METHOD 06/05/2025 6:41 AM [facility] Neutrophils Absolute 4.76 1.50 - 7.00 K/mcL LAB HEMETOLOGY METHOD 06/05/2025 6:41 AM [facility] Lymphocytes Absolute 1.99 1.00 - 5.00 K/mcL LAB HEMETOLOGY METHOD 06/05/2025 6:41 AM [facility] Monocytes Absolute 0.27 0.20 - 1.00 K/mcL LAB HEMETOLOGY METHOD 06/05/2025 6:41 AM [facility] Eosinophils Absolute 0.21 0.00 - 0.50 K/mcL LAB HEMETOLOGY METHOD 06/05/2025 6:41 AM [facility] Basophils Absolute 0.05 0.00 - 0.20 K/mcL LAB HEMETOLOGY METHOD 06/05/2025 6:41 AM [facility] Immature Granulocytes Absolute 0.09(H) 0.00 - 0.03 K/mcL LAB HEMETOLOGY METHOD 06/05/2025 6:41 AM [facility] Blood Venous blood specimen / Unknown Venipuncture / Unknown 06/05/2025 5:56 AM EDT 06/05/2025 6:21 AM EDT Sabra HERNANDEZ LAB BLOOD ORDERABLES Final R esult Performing Organization Address City/[facility]/ZIP Co de Phone Number [facility] [address] [place] [address], [place] [phone] * (ABNORMAL) Hemoglobin and hematocrit (06/04/2025 2:07 AM EDT) Only the most recent of4 resultswithin the time period is included. [facility] Signature Hemoglobin 7.8(L) 11.5 - 16.0 g/dL LAB HEMETOLOGY METHOD 06/04/2025 2:35 AM EDT [facility] Hematocrit 24.7(L) 35.0 - 47.0 % LAB HEMETOLOGY METHOD 06/04/2025 2:35 AM EDT [facility] Blood Venous blood specimen / Unknown Venipuncture / Unknown 06/04/2025 2:07 AM EDT 06/04/2025 2:31 AM EDT Mulugeta HERNANDEZ LAB BLOOD ORDERABLES Final Res ult Performing Organization Address [facility]/ZIP Co de Phone Number [facility] [address] [place] [address], [place] [phone] * Transfuse RBC (06/04/2025 1:32 AM EDT) Only the most recent of2 resultswithin the time period is included. Mulugeta HERNANDEZ BLOOD TRANSFUSION ORDERABLES E dited Result - Final * CT Angio Abdomen Pelvis wo and/or w Contrast (06/03/2025 8:35 PM EDT) Anatomical Region Laterality Modality Body Computed Tomogra phy 06/03/2025 9:30 PM EDT Addenda Addendum by Ashwin Ocasio MD on 06/03/2025 9:54 PM EDT ADDENDUM: Receipt of this report by the clinical staff was confirmed with Clementina Bashir RN on Jun 03, 2025 21:54:00 EDT. This document has been electronically signed by: Silvana Seo on 06/03/2025 21:54:48 Impressions 06/03/2025 9:30 PM EDT Limited evaluation for active arterial hemorrhage due to the timing of the contrast bolus. No obvious contrast extravasation. Status post gastric sleeve with postoperative pneumoperitoneum. Hemoperitoneum around the gastric sleeve site, liver, spleen, throughout the mesentery, and into the pelvis. This document has been electronically signed by: Ashwin Ocasio MD on 06/03/2025 21:30:07 Narrative 06/03/2025 9:30 PM EDT INDICATION: Post Gastric sleeve, r/o bleeding CT angiography abdomen and pelvis with contrast. 3-D post processing. Comparison: None provided Findings: Limited evaluation for active arterial hemorrhage due to the timing of the contrast bolus. No obvious contrast extravasation. Aorta, mesenteric/renal arteries, and iliofemoral systems are grossly within normal limits. Bibasilar small pleural effusions and atelectasis. Hepatic steatosis. Gallbladder not visualized. 0.4 cm stone in the left renal pelvis without hydronephrosis. Other solid organs unremarkable. Status post gastric sleeve with postoperative pneumoperitoneum. Surgical sutures abutting distal small bowel and right-sided colon ( series 5, image 139). Appendix not definitely visualized. No bowel obstruction, bowel wall thickening, or pneumatosis. Urinary bladder underdistended, limiting evaluation. Uterus and adnexa unremarkable. High density fluid around the gastric sleeve site, the liver, the spleen, throughout the mesentery, extending into the pelvis consistent with blood products. Surgical port entry sites visualized. Osseous structures are unremarkable. Procedure Note Ashwin Ocasio MD - 06/03/2025 INDICATION: Post Gastric sleeve, r/o bleeding CT angiography abdomen and pelvis with contrast. 3-D post processing. Comparison: None provided Findings: Limited evaluation for active arterial hemorrhage due to the timing ofthe contrast bolus. No obvious contrast extravasation. Aorta, mesenteric/renal arteries, and iliofemoral systems are grossly within normal limits. Bibasilar small pleural effusions and atelectasis. Hepatic steatosis. Gallbladder not visualized. 0.4 cm stone in the left renal pelvis without hydronephrosis. Other solid organs unremarkable. Status post gastric sleeve with postoperative pneumoperitoneum. Surgical sutures abutting distal small bowel and right-sided colon ( series 5, image 139). Appendix not definitely visualized. No bowel obstruction, bowel wall thickening, or pneumatosis. Urinary bladder underdistended, limiting evaluation. Uterus and adnexa unremarkable. High density fluid around the gastric sleeve site, the liver, thespleen, throughout the mesentery, extending into the pelvis consistent withblood products. Surgical port entry sites visualized. Osseous structures are unremarkable. IMPRESSION: Limited evaluation for active arterial hemorrhage due to the timing ofthe contrast bolus. No obvious contrast extravasation. Status post gastric sleeve with postoperative pneumoperitoneum. Hemoperitoneum around the gastric sleeve site, liver, spleen, throughout the mesentery, and into the pelvis. This document has been electronically signed by: Ashwin Ocasio MD on 06/03/2025 21:30:07 Mulugeta HERNANDEZ IMOrquidea CT PROCEDURES Edited Resul t - Final * Prepare RBC: 1 Units (06/03/2025 7:11 PM EDT) Only the most recent of2 resultswithin the time period is included. Product Code [id number] 06/03/2025 9:01 PM [facility] Unit Number [id number] 06/03/20 25 9:01 PM [facility] Crossmatch Compatible 06/03/2025 7:18 PM [facility] Dispense Status Transfused 06/03/2025 9:01 PM [facility] Unit ABO Rh OPOS 06/03/2025 9:01 PM [facility] Unit Expiration Date Time [id number] 06/03/2025 9:01 PM [facility] Unit Blood Type 5100 06/03/2025 9:01 PM [facility] Blood Venous blood specimen / Unknown 06/03/2025 7:11 PM EDT 06/02/2025 10:06 PM EDT Mulugeta HERNANDEZ BLOOD BANK PRODUCT ORDERABLES Final Result [facility] [address] [place] [address], [place] [phone] * Type and screen (06/02/2025 9:57 PM EDT) Only the most recent of2 resultswithin the time period is included. ABO Group O 06/03/2025 12:08 AM EDT [facility] Rh Type Positive 06/03/2025 12:08 AM EDT [facility] Antibody Screen Negative 06/03/2025 12:08 AM EDT [facility] Blood Venous blood specimen / Unknown Venipuncture / Unknown 06/02/2025 9:57 PM EDT 06/02/2025 10:06 PM EDT Mulugeta HERNANDEZ LAB BLOOD BANK TEST ORDERABLES Final Result Performing Organization Address [facility]/ZIP Co de Phone Number [facility] [address] [place] [address], [place] [phone] * (ABNORMAL) POCT Glucose, blood (06/02/2025 9:56 PM EDT) Glucose POCT 169(H) 70 - 100 mg/dL 06/02/2025 9:57 PM EDT [facility] Blood Capillary blood specimen / Unknown 06/02/2025 9:56 PM EDT 06/02/2025 9:58 PM EDT us Priscila Olmstead MD LAB POINT OF CARE TE ST DOCKED DEVICE UNSOLICITED RESULTS Final Result Performing Organization Address City/[facility]/ZIP Co de Phone Number [facility] [address] [place] [address], [place] [phone] * Tissue exam (06/02/2025 2:16 PM EDT) Final Diagnosis Stomach, sleeve gastrectomy: Portion of stomach with Helicobacter pylori gastritis. Note: No Helicobacter was identified on routine stains. Because of diffuse superficial pattern of chronic gastritis, immunohistochemical stain for H. pylori was performed and is interpreted as positive, supporting the above diagnosis. Control stains appropriately. 2:47 PM EDT [facility] Gross Description A. Stomach, : Labeled stomach . Received in formalin is a sleeve gastrectomy specimen that measures 19.8 cm in the closed state. Rows of staple lines are present that close the specimen to form a crescent-shaped pouch. The serosa is pink-red, glistening, smooth and focally hemorrhagic in one third of the specimen. No omentum is present; omental lymph nodes are absent. The gastric lumen contains bloody mucoid material. The mucosa is focally hemorrhagic with prominent to minimally flattened rugal folds. The wall (muscularis) is uniform in thickness and averages 0.1 cm. The marginal edges, adjacent to the staple lines, are inked black. Straightener sections are submitted in one cassette, including a longitudinal section of stomach to the marginal staple lines and random stomach, three pieces. 2:47 PM EDT [facility] Disclaimer NOTE: The immunohistochemical tests and in situ hybridization tests were developed and their performance characteristics were determined by [facility]. They have not been cleared or approved by the U.S. Food and Drug Administration. The FDA has determined that such clearance or approval is not necessary. These tests are used for clinical purposes. They should not be regarded as investigational or for research. This laboratory is certified under the Clinical Laboratory Improvement Amendments of 1988 (CLIA) as qualified to perform high complexity clinical laboratory testing. (controls appropriate) Unless otherwise specified, all tissue is 10% NB formalin fixed and paraffin embedded. 2:47 PM EDT [facility] Tissue Stomach structure / Unknown 06/02/2025 2:16 PM EDT 06/02/2025 2:57 PM EDT Priscila Olmstead MD LAB PATHOLOGY ORDERABLES Fin al Result [facility] ([facility]) [facility] [address] [place] [address], [place] [phone] * TH AN ENDOTRACHEAL(NO CHARGE) (06/02/2025 2:01 PM EDT) Narrative Yolette Adkins CRNA - 06/02/2025 2:01 PM EDT Yolette Adkins CRNA 06/02/2025 2:03 PM General Information and Staff Patient location during procedure: OR Performed: anesthesiologist Performed by: Yolette Adkins CRNA Authorized by: Andrea Bran MD Intubation Additional Comments Intubated by Dr. Bran Urgency: elective Final Airway Details Successful airway: ETT Successful intubation technique: direct laryngoscopy Blade: Rut Blade size: #3 Placement verified by: chest auscultation and capnometry Measured from: lips ETT to lips (cm): 20 Number of attempts at approach: 1Final airway type: endotracheal airway Indications and Patient Condition Preoxygenated: yes Soft Tissue Damage: No Dentition Unchanged: Yes Patient position: ramp Mask difficulty assessment: 1 - vent by mask us Andrea Bran MD ANESTHESIA ORDERABLES Final Re sult * XR Chest 2 Views (05/15/2025 10:43 AM EDT) Anatomical Region Laterality Modality Body Radiographic Brianne ging 05/15/2025 10:4 4 AM EDT Impressions 05/15/2025 10:45 AM EDT Normal examination. Code 51059 -------- FINAL REPORT -------- Dictated By: Flako Bhatt Dictated Date: 05/15/2025 10:44 ET Assigned Physician: Flako Bhatt Reviewed and Electronically Signed By: Flako Bhatt Signed Date: 05/15/2025 10:45 ET Workstation ID: [id number] Transcribed By: Self Edit Transcribed Date: 05/15/2025 10:44 ET Narrative 05/15/2025 10:45 AM EDT HISTORY: The patient is a 39-year-old female with morbid obesity undergoing evaluation prior to bariatric surgery. FINDINGS: PA and lateral radiographs of the chest, without previous for comparison, demonstrate normal appearance of the bony structures. The cardiac and mediastinal contours are within normal limits. The lungs and costophrenic angles are clear. Procedure Note Flako Bhatt MD - 05/15/2025 HISTORY: The patient is a 39-year-old female with morbid obesityundergoing evaluation prior to bariatric surgery. FINDINGS: PA and lateral radiographs of the chest, without previous forcomparison, demonstrate normal appearance of the bony structures. Thecardiac and mediastinal contours are within normal limits. The lungs andcostophrenic angles are clear. IMPRESSION: Normal examination. Code 92285 -------- FINAL REPORT -------- Dictated By: Flako Bhatt Dictated Date: 05/15/2025 10:44 ET Assigned Physician: Flako Bhatt Reviewed and Electronically Signed By: Flako Bhatt Signed Date: 05/15/2025 10:45 ET Workstation ID: [id number] Transcribed By: Self Edit Transcribed Date: 05/15/2025 10:44 ET us Pat HERNANDEZ IMG XR PROCEDURES Final Resu lt * ECG 12 lead (05/15/2025 10:25 AM EDT) Ventricular Rate ECG 70 BPM GEMUSE Atrial Rate 70 BPM GEMUSE P-R Interval 150 ms GEMUSE QRS Duration 94 ms GEMUSE Q-T Interval 396 ms GEMUSE QTc 427 ms GEMUSE P Wave [place] 58 degrees GEMUSE R [place] -10 degrees GEMUSE T [place] 15 degrees GEMUSE ECG Interpretation Normal sinus rhythm with sinus arrhythmia Minimal voltage criteria for LVH, may be normal variant ( R in aVL ) Borderline ECG No previous ECGs available Confirmed by Jacoby YEH JAMES ([id number]) on 05/15/2025 2:43:21 PM GEMUSE 05/15/2025 10:2 5 AM EDT 05/15/2025 2:43 PM EDT us Pat HERNANDEZ ECG ORDERABLES Final Result CINDYUSE * (ABNORMAL) Urinalysis with reflex microscopic and culture (05/15/2025 10:16 AM EDT) Specific [place] Urine 1.025 1.003 - 1.030 LAB URINALYSIS - AUTOMATED METHOD 05/15/2025 11:23 AM [facility] pH, Urine 6.0 5.0 - 8.0 pH LAB URINALYSIS - AUTOMATED METHOD 05/15/2025 11:23 AM [facility] Leukocytes, Urine Negative Negative LAB URINALYSIS - AUTOMATED METHOD 05/15/2025 11:23 AM [facility] Nitrite, Urine Negative Negative LAB URINALYSIS - AUTOMATED METHOD 05/15/2025 11:23 AM [facility] Protein, Urine 100(A) <=Trace mg/dL LAB URINALYSIS - AUTOMATED METHOD 05/15/2025 11:23 AM [facility] Glucose, Urine Negative Negative mg/dL LAB URINALYSIS - AUTOMATED METHOD 05/15/2025 11:23 AM [facility] Ketones, Urine Trace(A) Negative mg/dL LAB URINALYSIS - AUTOMATED METHOD 05/15/2025 11:23 AM [facility] Urobilinogen , Urine 1.0 0.2 - 1.0 mg/dL LAB URINALYSIS - AUTOMATED METHOD 05/15/2025 11:23 AM [facility] Bilirubin, Urine Negative Negative LAB URINALYSIS - AUTOMATED METHOD 05/15/2025 11:23 AM [facility] Blood, Urine Large(A) Negative LAB URINALYSIS - AUTOMATED METHOD 05/15/2025 11:23 AM [facility] RBC, Urine 676.1(H) 0 - 4 /HPF LAB URINALYSIS - AUTOMATED METHOD 05/15/2025 11:23 AM EDT [facility] WBC, Urine 4.9(H) 0 - 4 /HPF LAB URINALYSIS - AUTOMATED METHOD 05/15/2025 11:23 AM [facility] Squamous Epithelial, Urine 50 0 - 60 /LPF LAB URINALYSIS - AUTOMATED METHOD 05/15/2025 11:23 AM [facility] Crystals, Urine LT CALCIUM OXALATE /LPF LAB URINALYSIS - AUTOMATED METHOD 05/15/2025 11:23 AM [facility] Bacteria, Urine Negative Negative /HPF LAB URINALYSIS - AUTOMATED METHOD 05/15/2025 11:23 AM [facility] Hyaline Casts, Urine 3.2(H) 0 - 3 /LPF LAB URINALYSIS - AUTOMATED METHOD 05/15/2025 11:23 AM [facility] Mucus, Urine Small None /HPF LAB URINALYSIS - AUTOMATED METHOD 05/15/2025 11:23 AM [facility] Urine Urine specimen obtained by clean catch procedure / Unknown Non-blood Collection / Unknown 05/15/2025 10:16 AM EDT 05/15/2025 10:34 AM EDT us Pat HERNANDEZ LAB URINE ORDERABLES Final R esult [facility] [address] [place] [address], * Rosario urine culture tube (05/15/2025 10:16 AM EDT) Extra Tube Hold for add-ons. 05/15/2025 12:01 PM EDT [facility] Comment:Auto resulted. Urine Urine specimen obtained by clean catch procedure / Unknown Non-blood Collection / Unknown 05/15/2025 10:16 AM EDT 05/15/2025 10:34 AM EDT Pat HERNANDEZ LAB URINE ORDERABLES Final R esult Performing Organization Address City/[facility]/ZIP Co de Phone Number [facility] [address] [place] [address], [place] [phone] * Prothrombin time with INR (05/15/2025 10:16 AM EDT) Protime 11.0 10.6 - 13.9 sec LAB COAGULATION METHOD 05/15/2025 11:04 AM EDT [facility] INR 0.9 LAB COAGULATION METHOD 05/15/2025 11:04 AM EDT [facility] Blood Venous blood specimen / Unknown Venipuncture / Unknown 05/15/2025 10:16 AM EDT 05/15/2025 10:34 AM EDT Pat HERNANDEZ LAB BLOOD ORDERABLES Final R esult Performing Organization Address City/[facility]/ZIP Co de Phone Number [facility] [address] [place] [address], [place] [phone] * Hm Pap Smear (05/15/2015) HM Pap smear No interpretation , abstracted Historical Provider HEALTH MAINTENANCE Final Result from Last 3 Months or Most Recently Relevant to Health Maintenance Insurance [facility] [employer] Advance Directives * Full Code - Default (Latest Code Status on File) Date Activated Date Inactivated Comments 06/02/2025 11:45 AM 06/06/2025 10:32 PM This is ord er is used when code status has not been discussed with the patient, or code status is otherwise unknown/unconfirmed To update the patient's code status, place a code status order. Do not modify or discontinue any currently active code status orders. Healthcare Agents on File Name Relationship Healthcare Agent [facility] Communication [email or web address] Agent Care Teams Packaging Tech Relationship Specialty Start Date End Date Mago Zuñiga MD [address] [place] [address] , [address] [facility] D[facility]B/A: [facility] [place], [place] PCP - General 11/24/23
[2025-06-14 14:34] LABS: Alanine Aminotransferase 35 U/L (0-31); Albumin Level 4.4 g/dL (3.5-5.0); Alkaline Phosphatase 90 U/L (39-117); Anion Gap 19 (12-20); Aspartate Amino Transferase 47 U/L (5-31); Blood Urea Nitrogen 11 mg/dL (9-16); Calcium 10.4 mg/dL (8.4-10.2); Carbon Dioxide 23 mmol/L (22-29); Chloride 103 mmol/L (96-108); Cholesterol 187 mg/dL (<200); Estimated Glomerular Filt Rate > 60; HDL Cholesterol 30 mg/dL (>40); Iron 34 mcg/dL (30-160); Percent Iron Saturation 12 % (15-50); Potassium 3.7 mmol/L (3.3-5.1); Sodium 141 mmol/L (135-145); Total Iron Binding Capacity 284 mcg/dL (228-428); Total Protein 8.3 g/dL (6.5-8.0); Triglycerides 104 mg/dL (<150); Unsaturated Iron Binding 250 ug/dL
[2025-06-14 14:58] LABS: Folate 12.3 ng/mL (> or = 4.0); Vitamin B12 331 pg/mL (200-900)
== END 2025-06-14 13:06 | disposition home or self-care (01) ==
LOC: HO.LAB 13:05
PROVIDERS: PCP Internal Medicine; Visit Provider Internal Medicine
DX: E53.8 Deficiency of other specified B group vitamins (principal); M22.2X1 Patellofemoral disorders, right knee; M22.2X2 Patellofemoral disorders, left knee; E55.9 Vitamin D deficiency, unspecified; E78.5 Hyperlipidemia, unspecified; D64.9 Anemia, unspecified
CPT/HCPCS: 36415; 80053; 80061; 82306; 82607; 82746; 83540; 85025